=== PATIENT | male | born 1955 | race Hispanic/Latino ===

== ENCOUNTER 2018-03-01 11:49 | Inpatient (IN) | payer BC ==
[2018-03-01] MEDS ORDERED: Piperacill/Tazo 4.5gm in NS 4.5 GM/100 ML BAG IVPB STA (12:10)
[2018-03-01 12:12] VITALS: BMI 27.0
--- NOTE | 2018-03-01 12:22 | ED PDOC ---
Arrival/HPI - General Chief Complaint: Trauma Time Seen by Provider: 03/01/18 12:01 Historian: Patient - Critical Care Critical Care Minutes: 30 minutes - History of Present Illness Narrative History of Present Illness (Text): 03/01/18 12:18 A 62 year old male, with a psychiatric history, presents to the emergency department for a complaint of lightheadedness, dizziness, weakness, fatigue this morning. He states that he went to the bank this morning and sat outside for about 20 minutes when he began to experience his symptoms. He states that he lowered himself to the ground as his symptoms worsened and called 911. He states that he feels mildly short of breath. The patient notes that he smokes 1 PPD and takes multiple psychiatric medications. The patient denies fevers, chills, chest pain, dyspnea on exertion, cough, abdominal pain, nausea, vomiting, diarrhea, back pain, neck pain, urinary/bowel changes/incontinence, or any other complaint. Time/Duration: Prior to Arrival Symptom Onset: Sudden Symptom Course: Unchanged Activities at Onset: Rest, Light Context: Sitting Associated Symptoms (Text): 03/01/18 12:38 Severe generalized weakness and fatigue. Patient is diaphoretic and near syncopal. He is ill-appearing. Past Medical History - Provider Review Nursing Documentation Reviewed: Yes - Infectious Disease Hx of Infectious Diseases: None - Tetanus Immunization Tetanus Immunization: Up to Date - Cardiac Hx Cardiac Disorders: No Hx Hypertension: No - Pulmonary Hx Respiratory Disorders: No Hx Tuberculosis: No - Neurological HX Cerebrovascular Accident: No - HEENT Hx HEENT Disorder: No - Renal Hx Renal Disorder: Yes - Endocrine/Metabolic Hx Endocrine Disorders: No - Hematological/Oncological Hx Blood Disorders: No - Integumentary Hx Dermatological Disorder: No - Musculoskeletal/Rheumatological Hx Falls: Yes Hx Fractures: Yes - Gastrointestinal Hx Gastrointestinal Disorders: No Other/Comment: patienthad a colectomy in 2010 but it was reversed - Genitourinary/Gynecological Hx Genitourinary Disorders: No Hx Sexually Transmitted Diseases: No - Psychiatric Hx Anxiety: Yes Hx Depression: Yes Hx Substance Use: Yes - Surgical History Hx Joint Replacement: Yes (rt hip relacement) - Anesthesia Hx Anesthesia: Yes Hx Anesthesia Reactions: No Hx Malignant Hyperthermia: No - Suicidal Assessment Feels Threatened In Home Enviroment: No Family/Social History - Physician Review Nursing Documentation Reviewed: Yes Family/Social History: No Known Family HX Smoking Status: Heavy Smoker > 10 Cigarettes Daily Hx Alcohol Use: No Hx Substance Use: Yes Hx Substance Use Treatment: No Allergies/Home Meds Allergies/Adverse Reactions: Allergies No Known Allergies Allergy (Verified 03/01/18 12:14) Home Medications: Home Meds Medication Instructions Recorded Confirmed ALPRAZolam [Xanax] 1 mg PO PRN PRN 03/01/18 03/01/18 Benztropine [Benztropine Mesylate] 0.5 mg PO HS 03/01/18 03/01/18 Benztropine [Cogentin] 0.5 mg PO HS 03/01/18 03/01/18 DULoxetine [Cymbalta] 60 mg PO DAILY 03/01/18 03/01/18 QUEtiapine [Seroquel] 100 mg PO DAILY 03/01/18 03/01/18 Review of Systems - Physician Review All systems were reviewed & negative as marked: Yes - Review of Systems Constitutional: Fatigue (Fatigue and weakness). absent: Fevers, Night Sweats Respiratory: SOB. absent: Cough, Sputum, Wheezing Cardiovascular: absent: Chest Pain, Palpitations, SAMS, Syncope Gastrointestinal: absent: Abdominal Pain, Stool Changes, Diarrhea, Nausea, Vomiting Genitourinary Male: absent: Dysuria, Frequency, Hematuria, Urinary Output Changes Musculoskeletal: absent: Back Pain, Neck Pain Neurological: Dizziness. absent: Headache, Focal Weakness, Gait Changes Physical Exam Vital Signs Reviewed: Yes Vital Signs Temp Pulse Resp BP Pulse Ox 03/01/18 15:22 97.6 F 93 H 18 127/74 95 03/01/18 14:15 99.3 F 110 H 18 101/49 L 95 03/01/18 13:33 99.3 F 03/01/18 12:47 102.5 F H 03/01/18 12:33 103.2 F H 03/01/18 12:11 103.2 F H 98 H 20 87/52 L 95 Temperature: Febrile Blood Pressure: Hypotensive Pulse: Tachycardic Respiratory Rate: Normal Appearance: Positive for: Ill-Appearing Pain Distress: None Mental Status: Positive for: Alert and Oriented X 3, Lethargic - Systems Exam Head: Present: Atraumatic, Normocephalic Pupils: Present: PERRL Extroacular Muscles: Present: EOMI Conjunctiva: Present: Normal Ears: Present: NORMAL TM, Normal Canal. No: Erythema Mouth: Present: Moist Mucous Membranes Pharnyx: No: ERYTHEMA, EXUDATE, TONSILS ENLARGED Neck: Present: Normal Range of Motion Respiratory/Chest: Present: Decreased Breath Sounds. No: Wheezes, Rales, Retracting, Rhonchi, Tachypneic Cardiovascular: Present: Regular Rate and Rhythm, Normal S1, S2. No: Murmurs Abdomen: No: Tenderness, Distention, Peritoneal Signs, Rebound, Guarding Back: Present: Normal Inspection Upper Extremity: Present: Normal Inspection. No: Cyanosis, Edema Lower Extremity: Present: Normal Inspection. No: Edema Neurological: Present: GCS=15, CN II-XII Intact, Speech Normal, Motor Func Grossly Intact, Normal Sensory Function, Normal Cerebellar Funct Skin: Present: Warm, Diaphoretic, Pale. No: Rashes Psychiatric: Present: Alert, Oriented x 3, Normal Insight, Normal Concentration Medical Decision Making ED Course and Treatment: 03/01/18 12:24 Impression: A 62 year old male is brought into the emergency department via EMS after feeling lightheaded, dizzy, fatigued, and weak this morning. Plan: -- EKG -- Chest X-ray -- Labs -- Blood/Urine Culture -- Urinalysis -- Tyelnol, Lactated Ringer's, Zosyn -- Reassess and disposition Progress Notes: 03/01/18 12:40 EKG shows sinus tachycardia rate approximately 110 with a primary AV block and Q waves inferiorly with no acute T-wave changes 03/01/18 13:12: Case discussed in detail with Dr. Dunn who accepts patient to his service. Patient will be admitted to Telemetry. Requests Dr. Dumont, Dr. Grewal, and Dr. Roberts on consult. 03/01/18 13:14 Symptoms markedly improved. Blood pressure is 110. Heart rate in the 90s. Fever is defervescing. He will be admitted to telemetry on Dr. Dunn's service. Chest X-ray Dictator : Ryne Green MD Report Date : 03/01/2018 13:14:22 IMPRESSION: No active disease. No significant interval change compared to the prior examination(s). - Lab Interpretations Lab Results: 03/01/18 12:30 03/01/18 12:30 Lab Results 03/01/18 13:26: Urine Color Yellow, Urine Appearance Clear, Urine pH 6.0, Ur Specific [place] 1.025, Urine Protein Trace H, Urine Glucose (UA) Negative, Urine Ketones Trace H, Urine Blood Negative, Urine Nitrate Negative, Urine Bilirubin Negative, Urine Urobilinogen 0.2, Ur Leukocyte Esterase Small H, Urine RBC 0 - 2, Urine WBC 5 - 10, Ur Epithelial Cells None, Amorphous Sediment Few, Urine Bacteria Many, Hyaline Casts 0 - 2, Fine Granular Casts 0 - 2 03/01/18 12:31: pO2 110 H, VBG pH 7.40, VBG pCO2 45.0, VBG HCO3 27.9, VBG Total CO2 29.3 H, VBG O2 Sat (Calc) 99.3 H, VBG Base Excess 2.5 H, VBG Potassium 4.0, Glucose 105, Lactate 1.1, FiO2 21.0, Sodium 135.0, Chloride 104.0, Venous Blood Potassium 4.0 03/01/18 12:30: Sodium 139, Potassium 4.1, Chloride 102, Carbon Dioxide 26, Anion Gap 15, BUN 25 H, Creatinine 1.8 H, Est GFR ( Amer) 46, Est GFR ( Non-Af Amer) 38, Random Glucose 98, Calcium 9.0, Phosphorus 1.5 L, Magnesium 1.3 L, Total Bilirubin 1.0, AST 23, ALT 27, Alkaline Phosphatase 74, Troponin I < 0.01, NT-Pro-B Natriuret Pep 725 H, Total Protein 6.7, Albumin 3.9, Globulin 2.8, Albumin/Globulin Ratio 1.4 03/01/18 12:30: PT 13.2 H, INR 1.14 H, APTT 27.8 03/01/18 12:30: WBC 9.7, RBC 4.11, Hgb 12.6 L, Hct 36.4 L, MCV 88.6, MCH 30.7, MCHC 34.6, RDW 12.9, Plt Count 217, MPV 10.0, Gran % 87.2 H, Lymph % (Auto) 5.7 L, [place] % (Auto) 6.1 H, Eos % (Auto) 0.9 L, Baso % (Auto) 0.1, Gran # 8.49 H, Lymph # (Auto) 0.6 L, [place] # (Auto) 0.6, Eos # (Auto) 0.1, Baso # (Auto) 0.01 I have reviewed the lab results: Yes - RAD Interpretation Radiology Orders: 03/01/18 12:11 CHEST PORTABLE [RAD] Stat - EKG Interpretation Interpreted by ED Physician: Yes Type: 12 lead EKG - Medication Orders Current Medication Orders: Acetaminophen (Tylenol 325 Mg Supp) 975 mg ND ONCE PRN PRN Reason: Fever >100.4 F Last Admin: 03/01/18 12:33 Dose: 975 mg MAR Pain/Vitals Document 03/01/18 12:33 LA (Rec: 03/01/18 12:34 LA [id number]) Pain Reassessment Is This A Pain ReAssessment? No Sleep Is patient sleeping during reassessment? No Presence of Pain Presence of Pain No Vitals Temperature (97.6 F-99.6 F) 103.2 F Temperature Source Oral Re-Assess: MAR Pain/Vitals Document 03/01/18 13:33 LA (Rec: 03/01/18 15:22 LA [id number]) Pain Reassessment Is This A Pain ReAssessment? Yes Sleep Is patient sleeping during reassessment? No Presence of Pain Presence of Pain No Vitals Temperature (97.6 F-99.6 F) 99.3 F Temperature Source Rectal Benztropine Mesylate (Cogentin) 0.5 mg PO HS JAQUAN Duloxetine HCl (Cymbalta) 60 mg PO DAILY JAQUAN Sodium Chloride (Sodium Chloride 0.45%) 1,000 mls @ 60 mls/hr IV .[id number] JAQUAN Ceftriaxone Sodium (Rocephin 1 Gram Ivpb) 1 gm in 100 mls @ 100 mls/hr IVPB DAILY JAQUAN PRN Reason: Protocol Quetiapine Fumarate (Seroquel) 100 mg PO DAILY JAQUAN PRN Reason: Protocol Discontinued Medications Lactated Ringer's 3,000 ml/ IV (SUPPLIES) 3,000 mls @ 5,579.16 mls/hr IV ONCE ONE PRN Reason: 60 ML/KG/HR Stop: 03/01/18 12:11 Last Admin: 03/01/18 12:37 Dose: 5,579.16 mls/hr eMAR Start Stop Document 03/01/18 12:37 LA (Rec: 03/01/18 12:37 LA [id number]) Intravenous Solution Start Date 03/01/18 Start Time 12:37 End Date 03/01/18 Piperacillin Sod/Tazobactam Sod (Zosyn 4.5 Gm In Ns 100ml) 4.5 gm in 100 mls @ 200 mls/hr IVPB STAT STA PRN Reason: Protocol Stop: 03/01/18 12:39 Last Admin: 03/01/18 12:34 Dose: 200 mls/hr eMAR Start Stop Document 03/01/18 12:34 LA (Rec: 03/01/18 12:35 LA [id number]) Intravenous Solution Start Date 03/01/18 Start Time 12:34 End Date 03/01/18 End time 13:04 Total Infusion Time 30 - Scribe Statement The provider has reviewed the documentation as recorded by the Scribe Denise Buchanan Provider Scribe Attestation: All medical record entries made by the Scribe were at my direction and personally dictated by me. I have reviewed the chart and agree that the record accurately reflects my personal performance of the history, physical exam, medical decision making, and the department course for this patient. I have also personally directed, reviewed, and agree with the discharge instructions and disposition. Disposition/Present on Arrival - Present on Arrival Any Indicators Present on Arrival: No History of DVT/PE: No History of Uncontrolled Diabetes: No Urinary Catheter: No History of Decub. Ulcer: No History Surgical Site Infection Following: None - Disposition Have Diagnosis and Disposition been Completed?: Yes Diagnosis: Fever, Hypotension, Sepsis, Near syncope Disposition: HOSPITALIZED Disposition Time: 13:57 Patient Plan: Admission, Telemetry Patient Problems: Current Active Problems Problem Status Onset Fever Acute Hypotension Acute Near syncope Acute Sepsis Acute Condition: SERIOUS
[2018-03-01 12:34] LABS: VENOUS BLOOD GAS BASE EXCESS 2.5 mmol/L (0.0-2.0); VENOUS BLOOD GAS PO2 110 mm/Hg (30-55)
[2018-03-01 12:37] LABS: BASO # 0.01 K/mm3 (0.0-2.0); BASO % 0.1 % (0.0-3.0); EOS # 0.1 (0.0-0.7); EOS % 0.9 % (1.5-5.0); GRAN # 8.49 (1.4-6.5); GRAN % 87.2 % (50.0-68.0); HEMOGLOBIN 12.6 g/dL (14.0-18.0); LYMPH # 0.6 (1.2-3.4); LYMPH % 5.7 % (22.0-35.0); MEAN CELL VOLUME 88.6 fl (80.0-105.0); MEAN CORPUSCULAR HEMOGLOBIN 30.7 pg (25.0-35.0); MEAN CORPUSCULAR HGB CONC 34.6 g/dl (31.0-37.0); MONO # 0.6 (0.1-0.6); MONO % 6.1 % (1.0-6.0); RBC 4.11 10^6/uL (3.5-6.1); RED CELL DISTRIBUTION WIDTH 12.9 % (11.5-14.5); WHITE BLOOD COUNT 9.7 10^3/ul (4.5-11.0)
[2018-03-01 12:48] LABS: INR 1.14 (0.93-1.08); PARTIAL THROMBOPLASTIN TIME 27.8 Seconds (25.1-36.5); PROTHROMBIN TIME 13.2 SECONDS (9.4-12.5)
[2018-03-01 12:49] LABS: ALB/GLOB RATIO 1.4 (1.1-1.8); ALBUMIN 3.9 g/dL (3.0-4.8); ALT/SGPT 27 U/L (7-56); AST/SGOT 23 U/L (17-59); BLOOD UREA NITROGEN 25 mg/dL (7-21); GFR AFRICAN-AMERICAN 46; GFR NON-AFRICAN AMERICAN 38
[2018-03-01 13:00] LABS: B-TYPE NATRIURETIC PEPTIDE 725 pg/mL (0-450); TROPONIN I < 0.01 ng/mL
--- NOTE | 2018-03-01 13:16 | RAD ---
HISTORY: Sepsis Patient COMPARISON: 02/14/2015 FINDINGS: LUNGS: No active pulmonary disease. PLEURA: No significant pleural effusion identified, no pneumothorax apparent. CARDIOVASCULAR: No radiographic findings to suggest acute or significant cardiovascular disease. OSSEOUS STRUCTURES: No significant abnormalities. VISUALIZED UPPER ABDOMEN: Normal. OTHER FINDINGS: None. IMPRESSION: No active disease. No significant interval change compared to the prior examination(s).
[2018-03-01 13:48] LABS: URINE BILIRUBIN NEGATIVE (NEGATIVE); URINE BLOOD NEGATIVE (NEGATIVE); URINE GLUCOSE (UA) NEGATIVE (NEGATIVE); URINE LEUKOCYTE ESTERASE SMALL Leu/uL (NEGATIVE); URINE PROTEIN TRACE mg/dL (<30 mg/dL); URINE UROBILINOGEN 0.2 E.U./dL (<1 E.U./dL)
[2018-03-01 13:52] LABS: URINE APPEARANCE CLEAR (CLEAR); URINE COLOR YELLOW (YELLOW)
[2018-03-01 14:08] LABS: URINE BACTERIA MANY (NEG); URINE RBC 0 - 2 /hpf (0-2)
[2018-03-01 14:09] LABS: URINE AMORPHOUS SEDIMENT FEW; URINE FINE GRANULAR CAST 0 - 2 /hpf (0-2); URINE HYALINE CAST 0 - 2 /hpf
[2018-03-01] MEDS ORDERED: Vancomycin 1gm in NS 250ml 1 GM/250 ML BAG IVPB STA (17:44)
[2018-03-01] MEDS: Sodium Chloride 0.45% 1,000 ML IV SCH (18:26)
--- NOTE | 2018-03-01 18:52 | CARD ---
APPROVED REPORT EKG Measurement Heart [id number] <Conclusion> Poor data quality, interpretation may be adversely affected Sinus tachycardia with 1st degree AV block Left axis deviation Inferior infarct, age undetermined Abnormal ECG
[2018-03-01] MEDS ORDERED: Pneumococcal 23-Valent Vaccine IM ONE (19:08)
--- NOTE | 2018-03-01 19:22 | CON ---
DATE: 03/01/2018 NEUROLOGY CONSULT CHIEF COMPLAINT: Dizziness and fatigue. HISTORY OF PRESENT ILLNESS: This is a 62-year-old man with history of depression, anxiety, on Cymbalta and Seroquel and Xanax and benztropine and Cogentin, who presents to the hospital because he has lightheadedness in terms of feeling faint and weakness and fatigued in the morning. Therefore, he came to the hospital because he felt like he was going to pass out. He felt mildly shortness of breath. He does smoke 1 pack of cigarettes per day and is on multiple psychiatric medications. He was found to have low systolic and diastolic blood pressures in the ER of 87/52 with an elevated temperature of 102.5 indicating possible underlying sepsis. Although he seems mildly jaundiced to me, though his ALTs and total bilirubin are normal. He has low phosphorus and magnesium and elevated BUN and creatinine indicating mild acute kidney injury. Chest x-ray was unremarkable. He is on prophylactic antibiotics. He moves all extremities equally. No pronator drifts seen. Follows simple commands. PAST MEDICAL HISTORY: As above. SOCIAL HISTORY: No illicit drug use or EtOH abuse except for smoking 1 pack per day of cigarettes. ALLERGIES: NO KNOWN DRUG ALLERGIES. MEDICATIONS: Reviewed by nurses' reconciliation sheet. REVIEW OF SYSTEMS: Fourteen-point review of systems is negative except as per the HPI. LABORATORY DATA: Sodium 139, potassium 4.1, chloride 102, carbon dioxide 26, BUN of 45, creatinine 1.8, random glucose of 98. PHYSICAL EXAMINATION: VITAL SIGNS: Temperature of 99.3, pulse rate of 110, blood pressure 109/49, respiratory rate of 18, oxygen saturation 95% by room air. GENERAL: The patient is sitting up in bed, in no acute distress. HEENT: Atraumatic, normocephalic. PERRLA. Extraocular muscles intact. Looks mildly jaundiced. NECK: Supple. No JVD. No adenopathy noted. LUNGS: Clear to auscultation. No adventitious sounds. HEART: S1 and S2. Normal rate and rhythm. No murmurs, rubs or gallops. ABDOMEN: Soft, nontender and nondistended. Bowel sounds are present. EXTREMITIES: No clubbing. No cyanosis. Peripheral pulses 2+ felt bilaterally. NEUROLOGIC: The patient is alert and oriented to person, place, month and year. Slightly flat affect. Speech is fluent without any errors. Cranial nerves II through XII are intact. Motor exam: Moves all extremities equally. No pronator drift seen. Sensory exam: Light touch, pinprick, proprioception and vibration are intact. DTRs are 2+ throughout, 1 at the ankles. Coordination: [id number] intact. Gait is deferred for now. No dysmetria noted. ASSESSMENT AND PLAN: This is a 62-old man with history of anxiety, depression, on Cymbalta and Seroquel and benztropine and Xanax, who presented with generalized weakness, fatigue, lightheadedness and felt like passing out and felt mildly short of breath and he is a chronic daily smoker of 1 pack per day. Found to have low systolic and diastolic blood pressures of 89/72 with elevated temperature making possible underlying sepsis. His UA is negative. Chest x-ray showed no acute abnormalities. At this time, I feel like the generalized weakness is secondary to transient cerebral hypoperfusion with underlying possible sepsis given that he has elevated temperature and low blood pressure and it was superimposed on acute kidney injury with dehydration. At this time, recommend, 1. Hydrate. 2. Work up sepsis. 3. Monitor electrolytes and correct accordingly. Replace the magnesium and phosphorus. 4. Keep the systolic blood pressure between 120s-130s and diastolics 70s-80s and get CT of the abdomen. Thank you for this consult. Wai Dumont MD
[2018-03-01] MEDS ORDERED: Magnesium Sulfate 1 gm in D5W 1 GM/100 ML BAG IVPB ONE (21:05)
[2018-03-01] MEDS: Piperacillin/Tazobact 2.25gm 2.25 GM/100 ML BAG IVPB SCH (21:28)
--- NOTE | 2018-03-02 00:48 | HP ---
HISTORY OF PRESENT ILLNESS: I was called down to the emergency room to admit Marlon. He is having a rough day today. He is a 62-year-old white male, who had lightheadedness, dizziness, weakness, fatigue in the morning. He went to a couple of errands this morning and then when he sat down, he could not move, he could not get up. Someone called 911. He was also mildly short of breath. He still smokes cigarettes a pack a day. He is on multiple psychiatric medications and he is here now in the hospital. He has severe generalized weakness and fatigue, it suddenly came on him. Also diaphoretic and near syncope. He has kidney disease. He has had fractures and falls and pelvis fractures and right hip surgery. He had a colectomy in 2010, it was reversed. He has anxiety, depression, substance abuse history, right hip replacement surgery. FAMILY HISTORY: No known family history. SOCIAL HISTORY: Still smoking. No alcohol. Does have substance abuse. ALLERGIES: NO KNOWN DRUG ALLERGIES. MEDICATIONS: He is on Xanax, benztropine, Cogentin, Cymbalta, Seroquel. REVIEW OF SYSTEMS: No acute vision or hearing changes. No sore throat. He is fatigued, very weak. No shortness of breath or cough. No chest pain or palpitations. No abdominal pain, nausea, vomiting, constipation, diarrhea. No stool changes. No problems urinating. He has had very weak lower extremities. No pain. He could not move or stand. He is a little bit dizzy, just feels off. PHYSICAL EXAMINATION: VITAL SIGNS: He had a 103.2 temp, 98 pulse, 20 respiratory rate, 87/52 blood pressure, 95% O2 sat on room air. He is hypotensive. He is going to get IV fluids. He is also tachycardic. GENERAL: He is ill appearing. He is alert and oriented x3, but lethargic. HEENT: His head is atraumatic, normocephalic. His extraocular muscles are intact. Pupils equal, reactive to light and accommodation. Throat is dry. NECK: Supple. HEART: Regular rate. Normal S1, S2. LUNGS: Decreased breath sounds, but clear to auscultation. No wheezes, rhonchi or rales. ABDOMEN: Soft, nontender. Positive bowel sounds. No guarding, no rebound, no CVA tenderness. EXTREMITIES: Have no edema bilaterally. NEUROLOGIC: GCS is 15. Cranial nerves II through XII grossly intact. Speech is normal. Alert and oriented x3. SKIN: He is warm, little sweaty, pale. LYMPHATICS: Thyroid midline. No palpable appreciable lymphadenopathy. LABORATORY DATA: He had tests done. Chest x-ray showed no active disease. He has some blood tests. He has a 9.7 white count, 12.6 hemoglobin, 36.4 hematocrit with a 217 platelets. INR is 1.14. He has a pH of 7.4, lactate was 1.1. He has a 139 sodium, potassium 4.1, BUN 25, creatinine 1.8, GFR is 46, calcium is 9, phosphorous is 1.5, magnesium 1.3, total bili is 1, AST is 23, ALT is 27, alk phos 74. Troponin I is less than 0.01. His BNP a little bit high at 725, total protein 6.7. His urine was positive for many bacteria. IMPRESSION: He is here for a near syncope, temperature of 103, urinary tract infection, renal insufficiency, hypotensive. He will have consults, IV fluids, IV antibiotics and we will check his labs tomorrow. I will put him back on his medications, give him a diet. Ryne Dunn DO
[2018-03-02] MEDS: Piperacillin/Tazobact 2.25gm 2.25 GM/100 ML BAG IVPB SCH ×4 (01:07→18:27)
[2018-03-02 08:23] LABS: HEMOGLOBIN 11.9 g/dL (14.0-18.0); MEAN CELL VOLUME 89.1 fl (80.0-105.0); MEAN CORPUSCULAR HEMOGLOBIN 30.7 pg (25.0-35.0); MEAN CORPUSCULAR HGB CONC 34.5 g/dl (31.0-37.0); MEAN PLATELET VOLUME 10.1 fl (7.0-11.0); RBC 3.87 10^6/uL (3.5-6.1); WHITE BLOOD COUNT 8.8 10^3/ul (4.5-11.0)
[2018-03-02 08:29] LABS: ALB/GLOB RATIO 1.4 (1.1-1.8); ALBUMIN 3.4 g/dL (3.0-4.8); CALCIUM 8.5 mg/dL (8.4-10.5)
[2018-03-02] MEDS ORDERED: Iohexol 240 (50 ml) ONE (09:34)
[2018-03-02] MEDS ORDERED: cefTRIAXone 1 gm 1 GM/100 ML BAG IVPB SCH (10:00)
[2018-03-02] MEDS: Sodium Chloride 0.45% 1,000 ML IV SCH (12:30)
[2018-03-02] MEDS: Levalbuterol 0.63 MG/3 ML Inhal Soln UD IH PRN (12:31)
--- NOTE | 2018-03-02 16:11 | CON ---
DATE: 03/02/2018 LOCATION: The patient is seen earlier this morning in room 277, bed 2. CHIEF COMPLAINT: Weakness. HISTORY OF PRESENT ILLNESS: This is a 62-year-old male with past medical history significant for psychiatric illness including depression, anxiety; history of renal disease; history of right hip replacement with no known allergies; admitted with weakness to the emergency room. In the emergency room, he had a temperature of 103 and Infectious Disease consultation requested. The patient says he had mild shortness of breath and cough. No chest pain. No abdominal pain, diarrhea or constipation. No headaches. No neck pain. No sore throat. No rash. No new joint pain. PAST MEDICAL HISTORY: Significant for psychiatric illness and depression and anxiety and questionable renal disease. PAST SURGICAL HISTORY: Significant for right hip replacement. ALLERGIES: THE PATIENT HAS NO KNOWN ALLERGIES. MEDICATIONS AT HOME: Seroquel, Cymbalta, Cogentin, benztropine and Xanax. The patient states that he has been on the same medication for years, has no new medications. SOCIAL HISTORY: No travel history. He has an ex-smoker and cocaine user and ex-alcohol user, but not recently. PHYSICAL EXAMINATION: VITAL SIGNS: His temperature is 98; T-max is 103.2; pulse of 61, it was up to 110; respiratory rate of 18, it was up to 20; blood pressure was down to 87/52 on admission and saturation reveals the patient to be saturating at 95% on room air. HEENT: Examination of HEENT is unremarkable. NECK: Supple. LUNGS: Have decreased breath sounds. HEART: Normal S1, S2. ABDOMEN: Soft, nontender. No rebound or guarding. No masses. LABORATORY DATA: Laboratory examination reveals the patient has a white count of 9.7, hemoglobin of 12, platelets of 217 and 87% granulocytosis. Coagulation is noted and chemistries are reviewed. The patient had mild elevation of creatinine at 1.8 in the past. The patient has had renal function up to 1.6 in 2015. The patient does have mild bilirubin elevation of 1.4 and low magnesium and low phosphorus. Sodium was 139. BNP is elevated at 725. Urinalysis reveals 5-10 and urine bacteria many. Microbiology is pending. Chest x-ray is reported to be negative. ASSESSMENT AND PLAN: This is a 62-year-old male with psychiatric history, depression, anxiety with history of renal disease, who was admitted with a fever of 103, tachycardia, hypotension with a negative urinalysis, negative chest x-ray and no obvious source, negative abdominal findings. #1 is systemic inflammatory response syndrome with hypotension. No clear evidence of sepsis. We will check on the blood cultures, urine culture. The patient was started on dose of vancomycin and started on Zosyn which apparently appears to be responding. We will order an abdominal ultrasound. CAT scan of the pending blood culture, urine cultures and human immunodeficiency virus tests and we will make further recommendations upon availability of initial results. We will follow closely with you. Dillan Roberts MD
--- NOTE | 2018-03-02 17:09 | PN ---
DATE: 03/02/2018 SUBJECTIVE: I saw Marlon resting comfortably in bed. He is feeling better than when he came in. No more dizziness or shortness of breath. His legs are weak at this time. He is eating better. He is on IV fluids. He is on Cogentin and Cymbalta. He is on Seroquel and Tylenol and also on Zosyn via Infectious Disease. OBJECTIVE: VITAL SIGNS: Temperature 97.5, 64 pulse, 111/66 blood pressure, 18 respiratory rate, 97% O2 saturation on room air. HEENT: Head is atraumatic, normocephalic. HEART: Regular rate. LUNGS: Clear to auscultation. ABDOMEN: Soft. EXTREMITIES: No edema. NEUROLOGIC: He is comfortable. He is negative for the fluids. DATA: He has got 8.9 white count, 11.9 hemoglobin, 34.5 hematocrit with 196,000 platelets. Sodium 141, potassium 4.1, BUN 20, creatinine 1.6, much better than when he came in. GFR is 44. Calcium is 8.5, total bili is 1.4, AST is 16, ALT is 29, alkaline phosphatase 57. Troponin I was less than 0.01. BNP was 725, total protein 6. Urine with many bacteria, negative for the flu. He has consults with Neurology, Cardiology and Infectious Disease. Only I could tell that infectious disease saw the patient so far. We will continue with aggressive treatment and care. Check his labs tomorrow. When tablets, but he is improving with kidneys and his energy. Ryne Dunn DO CARLE[facility]
--- NOTE | 2018-03-02 17:59 | CT ---
PROCEDURE: CT scan abdomen pelvis dated 03/02/2018 HISTORY: Fever COMPARISON: No prior TECHNIQUE: Contiguous axial images of the abdomen and pelvis performed following oral contrast. Additional 2 dimensional sagittal and coronal reformats generated. Radiation dose: Total exam DLP = 1028.17 mGy-cm. This CT exam was performed using one or more of the following dose reduction techniques: Automated exposure control, adjustment of the mA and/or kV according to patient size, and/or use of iterative reconstruction technique. FINDINGS: LOWER THORAX: There are mild patchy ground-glass opacity changes seen in the left lower lobe with. Additionally, there appears to be some elliptical shaped localized atelectatic changes both posterior sulci with scarring on as well. No effusion or basilar pneumothorax. There is a tiny hiatal hernia with slight wall thickening of the distal esophagus. LIVER: Liver exhibits relatively normal size. No evidence of obvious hepatic mass or collection seen on this noncontrast study. GALLBLADDER AND BILE DUCTS: Gallbladder appears incompletely distended. Note that the gallbladder is not well delineated due to streak and beam hardening artifact arising from dense oral contrast material within the adjacent bowel. PANCREAS: Pancreas appears atrophic and fatty replaced. No pancreatic masses or collections. SPLEEN: Spleen exhibits normal size and attenuation pattern without obvious mass collection or calcification. ADRENALS: Slightly nodular appearing left adrenal gland KIDNEYS AND URETERS: There are multiple bilateral renal calculi left kidney with no evidence of right-sided hydronephrosis. . There is a large on nearly 12 mm calculus within the distal left ureter best seen on axial series 3 image number [id number] 135. . Moderate to fairly significant left-sided hydronephrosis of which appears to be long-standing evidenced by marked cortical atrophy of the left kidney. There are infiltration changes and fluid seen in the perinephric fat. . Several additional calculi seen in the left aspect of the pelvis 1 of which is somewhat curvilinear in configuration. Measuring approximately 2.6 cm in CC dimension. This calcific density is of uncertain etiology though and appears to be extrinsic to the distal ureter. Urologic consultation is recommended. BLADDER: The streak and beam hardening artifact arising from right total hip replacement results in partial obscuration of the urinary bladder. No obvious intraluminal urinary bladder calculi. There are several additional calculi seen in the left aspect of the REPRODUCTIVE: Unremarkable. APPENDIX: Appendix is not seen with certainty on this study. BOWEL: Evaluation of the bowel is limited due to incomplete opacification. The stomach is relatively collapsed. . There appears to be a distended air-filled loops of small bowel as well as the distended air-filled transverse colon. No evidence to suggest mechanical bowel obstruction with oral contrast material seen opacifying the rectum. PERITONEUM: Unremarkable. No fluid collection. No free air. LYMPH NODES: Unremarkable. No enlarged lymph nodes. VASCULATURE: Unremarkable. No aortic aneurysm. BONES: Multilevel degenerative spondylosis of the lower thoracic and lumbar spine. OTHER FINDINGS: None. IMPRESSION: Limited study as described. Large at approximately 12 mm calculus distal left ureter with of this moderate to significant left-sided hydronephrosis felt be long-standing due to atrophy changes of the left kidney. There are mild perinephric infiltration changes and small amount of perinephric fluid. Multiple nonobstructing calculi right kidney. There is a curvilinear calcification in the left aspect of the pelvis which appears to be extrinsic to the left ureter. Urologic consultation recommended. Appendix is not seen with any certainty on this exam however no obvious inflammatory changes right lower quadrant of the abdomen. Recommend clinical correlation. The distended loops of small bowel within air-filled distended transverse colon. No evidence of acute mechanical bowel obstruction with oral contrast material seen opacifying the rectum. Patchy ground-glass opacity left lower lobe with what appears represent elliptical shaped discrete areas of atelectasis both posterior sulci.
--- NOTE | 2018-03-02 21:27 | CON ---
DATE: CARDIOLOGY CONSULTATION REASON FOR CONSULTATION: Dizziness and a fall. HISTORY OF PRESENT ILLNESS: The patient gives me different history from the one that was given to the emergency room physician. The patient is a 62-year-old male with psychiatric history and history of multiple falls, resulted in right hip fracture in the past as well as comminuted left acetabular fracture and left iliac wing and inferior pubic ramus fracture and an x-ray in 11/2014. The patient describes at this time that he was resting on the steps of a neighbor and as he tried to stand up, he felt weak and he had to lift himself and fall in his buttocks. Again, he denies any fainting and does not recall dizziness and denies any palpitation. The patient denies any chest pain and is unaware of any history of heart attack in the past. SOCIAL HISTORY: Nonsmoker, nondrinker. He is from his who lives in an apartment downstairs from him. MEDICATIONS: Cogentin 0.5 mg once a day, Cymbalta 60 mg once a day, Seroquel 100 mg once a day, half normal saline 40 mL an hour, Xopenex inhaler, Zosyn 2.25 g intravenously 6 hours. REVIEW OF SYSTEMS: The patient denies any headache. He denies any chest pain and he denies any suicidal ideations. PAST MEDICAL HISTORY: History of multiple falls, right hip fracture and pelvic fracture, history of psych disorder. PHYSICAL EXAMINATION: GENERAL: The patient is a middle-aged male who does not appear to be in acute distress. VITAL SIGNS: Blood pressure 111/66, heart rate 64, temperature 97.5, respirations 18. HEENT: Normocephalic. CHEST: Clear. HEART: S1 and S2 regular. ABDOMEN: Soft. EXTREMITIES: No edema. LABORATORY DATA: Hemoglobin and hematocrit 11.9 and 34.5, white count 8.8, platelet count 196,000. SMA-7: Sodium 141, potassium 4.1, chloride 101, CO2 29, glucose 82, BUN 20, creatinine 1.6, slight improvement in BUN and creatinine compared to yesterday. Total bilirubin is 1.4. INR is 1.14. PTT is within normal limits. Influenza type A and B serology is negative. EKG revealed sinus tachycardia at the rate of 111, left axis deviation, possible old infarct age indeterminate. Chest x-ray on admission revealed a vertical heart and bilateral hilar congestion. ASSESSMENT: 1. Dizziness and a fall as per the emergency room documentation with history of recurrent falls in the past. 2. Sinus tachycardia with questionable old inferior infarct. 3. History of psych disorder. RECOMMENDATIONS: Continue current Cogentin, Cymbalta, Seroquel, IV Zosyn and Xopenex inhaler. Obtain carotid Doppler. Head CT scan without contrast and an echocardiogram. Obtain stat D-dimer. Bony Brennan MD
[2018-03-03] MEDS: Sodium Chloride 0.45% 1,000 ML IV SCH ×3 (00:11→23:42)
[2018-03-03] MEDS: Piperacillin/Tazobact 2.25gm 2.25 GM/100 ML BAG IVPB SCH ×5 (00:12→23:36)
[2018-03-03 06:50] LABS: HEMOGLOBIN 11.7 g/dL (14.0-18.0); MEAN CELL VOLUME 88.9 fl (80.0-105.0); MEAN CORPUSCULAR HEMOGLOBIN 30.1 pg (25.0-35.0); MEAN CORPUSCULAR HGB CONC 33.8 g/dl (31.0-37.0); MEAN PLATELET VOLUME 9.6 fl (7.0-11.0); RBC 3.89 10^6/uL (3.5-6.1); RED CELL DISTRIBUTION WIDTH 12.8 % (11.5-14.5); WHITE BLOOD COUNT 6.3 10^3/ul (4.5-11.0)
[2018-03-03 07:32] LABS: ALB/GLOB RATIO 1.3 (1.1-1.8); ALBUMIN 3.5 g/dL (3.0-4.8); ALT/SGPT 24 U/L (7-56); AST/SGOT 34 U/L (17-59); BLOOD UREA NITROGEN 15 mg/dL (7-21); CALCIUM 8.2 mg/dL (8.4-10.5); GFR AFRICAN-AMERICAN > 60; GFR NON-AFRICAN AMERICAN 51
--- NOTE | 2018-03-03 10:12 | CT ---
PROCEDURE: CT HEAD WITH CONTRAST HISTORY: Dizziness COMPARISON: None available. TECHNIQUE: Axial computed tomography images were obtained through the head/brain without intravenous contrast. Radiation dose: Total exam DLP = 889.11mGy-cm. This CT exam was performed using one or more of the following dose reduction techniques: Automated exposure control, adjustment of the mA and/or kV according to patient size, and/or use of iterative reconstruction technique. FINDINGS: HEMORRHAGE: No intracranial hemorrhage. BRAIN: No mass, mass effect or edema. No abnormal intracranial enhancement. Mild chronic microvascular ischemic changes seen periventricular white matter. Moderate central volume loss. Mild vascular calcifications carotid siphons. The the the the VENTRICLES: Moderate dilatation of the ventricular system consistent likely representing central volume loss . CALVARIUM: No acute calvarial fractures. PARANASAL SINUSES: Mild mucosal thickening right maxillary antrum. Minor mucosal thickening seen within the ethmoid air complex extending superiorly into the frontal sinus. Minimal mucosal thickening sphenoid sinus. MASTOID AIR CELLS: Unremarkable as visualized. No mastoid effusion. OTHER FINDINGS: None. IMPRESSION: No evidence acute intracranial hemorrhage. Minor chronic the ventricular white matter ischemic change. Mildly enlarged the ventricles, likely due to central volume loss
--- NOTE | 2018-03-03 11:35 | PN ---
DATE: 03/03/2018 SUBJECTIVE: The patient is seen earlier this morning. No fevers and no chills. No nausea. No vomiting. PHYSICAL EXAMINATION: VITAL SIGNS: On exam, temperature is 98, blood pressure is 140/80, respiratory rate of 19. HEENT: Examination of HEENT is unremarkable. NECK: Supple. LUNGS: Have decreased breath sounds. HEART: Normal S1, S2. ABDOMEN: Soft, nontender. LABORATORY DATA: Laboratory examination reveals a white count of 6.3, hemoglobin of 11, platelets of 211. Coagulation is noted. Chemistries reveals the patient's BUN is 15, creatinine of 1.5, procalcitonin 0.1. Urinalysis is noted and microbiology is reviewed. The urine culture and blood cultures are negative. The patient's CAT scan of the head results are pending. CAT scan of the abdomen and pelvis was negative. ASSESSMENT AND PLAN: A 62-year-old male, who has a history of psychiatric disorders, anxiety, depression, history of renal disease. Admitted with a fever of 103, tachycardia, hypotension with negative cultures, negative chest x-ray, negative procalcitonin, negative abdominal findings. #1 is systemic inflammatory response syndrome with no clear evidence for site of infection with negative cultures and negative procalcitonin. The patient's medications, the psychiatric medications have been same for some time now, a few years according to the patient. Maybe able to discharge on p.o. antibiotics. Case discussed with Dr. Ryne Dunn. Dillan Roberts MD
[2018-03-03] MEDS: Levalbuterol 0.63 MG/3 ML Inhal Soln UD IH PRN (11:53)
--- NOTE | 2018-03-03 16:15 | PN ---
DATE: 03/03/2018 FOLLOWUP SUBJECTIVE: The patient denies any imbalance as he walks from his bed to the bathroom. He does report dizziness when he stands up. PHYSICAL EXAMINATION: VITAL SIGNS: Blood pressure 148/85, heart rate 73, temperature 98.7, respirations 19. HEENT: Normocephalic. Chest: Bilateral rhonchi. HEART: S1, S2 regular. Abdomen: Soft. EXTREMITIES: No edema. LABORATORY DATA: Hemoglobin and hematocrit 11.7 and 34.6, white count and platelet count are within normal limits. SMA-7 today is within normal limits. Calcium is below normal at 8.2. D-dimer is elevated at 629. Carotid Doppler was performed, report is still pending. Head CT scan without contrast, no evidence of acute intracranial hemorrhage. ASSESSMENT: 1. Dizziness and falls. 2. Sinus tachycardia. 3. Rule out pulmonary embolism. 4. History of psych disorder. RECOMMENDATIONS: Continue current aspirin 81 mg once a day, half normal saline 60 mL an hour and Zosyn 2.25 g intravenously every 6 ours. Start subcutaneous heparin 5000 units every [address] angio to rule out pulmonary embolism. Bony Brennan MD
--- NOTE | 2018-03-03 23:35 | CON ---
DATE: 03/03/2018 PULMONARY CONSULTATION HISTORY OF PRESENT ILLNESS: Mr. Campos was admitted to the hospital with syncope. He is being discharged today and is actually ready to be discharged at this time. He is a smoker for many years of once a pack of cigarettes daily. He has had shortness of breath on exertion. He is comfortable at rest. He has symptoms of smoker's cough with morning expectoration of dark yellow phlegm. At rest, he is comfortable. PAST MEDICAL HISTORY: His past history has been reviewed. He has had multiple fractures and falls. He has epilepsy. He had a colectomy and reversal in the past. He has depression and substance abuse. He had a right hip replacement. FAMILY HISTORY: Unknown. SOCIAL HISTORY: Continues to smoke on and off for years. Alcohol is denied. He does have a history of substance abuse, too. ALLERGIES: NONE. HOME MEDICATIONS: Xanax, benztropine, Cogentin, Cymbalta, Seroquel. REVIEW OF SYSTEMS: Pulmonary systems review has been discussed above. He is easily fatigued. This was a presyncopal episode. He has dizziness. No additional abnormalities. All others negative PHYSICAL EXAMINATION: GENERAL: He is resting comfortably. VITAL SIGNS: He is afebrile. Heart rate 78, respiratory rate 16, blood pressure 110/70, O2 sat on room air is 98%. He is awake and alert, oriented. HEENT: Normocephalic and atraumatic. EOMs full. Conjunctivae pink. NECK: Supple. No JVD. No lymphadenopathy. No bruits. HEART: Regular rhythm, S1 and S2 without murmur, gallops or rubs. LUNGS: Global decrease in breath sounds. Bilateral wheezes throughout both lung ramirez. No rhonchi or rales. Prolonged expiratory phase. ABDOMEN: Soft, bowel sounds are normoactive, without mass, guarding or rebound and no organomegaly. EXTREMITIES: Reveals no clubbing, cyanosis or edema. There is no Homans' sign. NEUROLOGIC: Shows no focality. SKIN: Warm and dry. LYMPHATICS: No palpation of lymphadenopathy in the supraclavicular notch, nor in the cervical, inguinal or axillary areas. LABORATORY DATA: EKG, sinus rhythm, nonspecific ST-T wave changes. Chest x-ray shows no active pulmonary disease. No mass, nodules or other abnormalities. Some mild hyperinflation is noted. Additional laboratory studies show a white count of 6, hemoglobin of 11.7, glucose 88, procalcitonin 0.1. Echocardiogram is pending at this time, would like to rule out coronary artery disease, myopathy and/or elevated right ventricular systolic pressure, although there is no hypoxemia noted. CLINICAL IMPRESSION: 1. The long smoking history. 2. Acute bronchospasm, chronic with associated dyspnea, clinical impression is that of asthma and/or chronic obstructive pulmonary disease. PLAN: The patient requires a pulmonary function study. Await cardiac workup with echocardiogram. Continue close evaluations. We will start the patient on Advair 250/50 one puff twice a day, to rinse his mouth afterwards. He will need to be seen in my office within one weeks' time. We have given him our card and asked him to call make an emergency appointment to see us. He has already been discharged from the hospital. I will discuss with Dr. Dunn to make sure additional workup is completed. Given him our phone number and asked him to call if there is any clinical deterioration. Thank you for the opportunity to see this gentleman. Doron Billings MD MTDD
[2018-03-04] MEDS: Piperacillin/Tazobact 2.25gm 2.25 GM/100 ML BAG IVPB SCH ×3 (05:28→17:13)
--- NOTE | 2018-03-04 06:47 | DS ---
HOSPITAL COURSE: I discussed with the Infectious Disease doctor this morning, Dr. Roberts. He said he can be discharged on Levaquin 500 mg, number 5, one p.o. daily. Continue with his regular outpatient medications and follow up in my office this week, Sunday, ,and Sunday. He is comfortable in bed. He wants to go home. He is eating well. PHYSICAL EXAMINATION: VITAL SIGNS: He has a 98.7 temp, 73 pulse, 148/85 blood pressure, 19 respiratory rate, 96% of O2 sat on room air. HEENT: Head is atraumatic, normocephalic. HEART: Regular rate. LUNGS: Clear to auscultation. ABDOMEN: Soft. EXTREMITIES: No edema. MEDICATIONS: He is on aspirin, Cogentin, Cymbalta, Seroquel, IV fluids, Tylenol, Xopenex, and Zosyn. LABORATORY DATA: He has a 142 sodium, potassium 4.3, BUN 50, creatinine 1.4, GFR is 51, calcium is 8.2. Total bili is 0.9, AST is 34, ALT is 24, alk phos 56, total protein 6.2. White count is 6.3, hemoglobin 11.7, hematocrit 34.6, platelets of 211. IMPESSION AND PLAN: No growth. He had a very high white count. I am going to change him to an observation level of care. He was here for 2 days. He will followup on the outpatient. He had a high temperature. ADDENDUM cardiology would like to keep him for a ct angio to r/o PE so he is staying another night Ryne Dunn DO MTDWang
--- NOTE | 2018-03-04 09:58 | US ---
PROCEDURE: Bilateral carotid artery duplex ultrasound HISTORY: Carotid stenosis PHYSICIAN(S): Jn Price MD. TECHNIQUE: Duplex sonography and color-flow Doppler were used to evaluate the carotid bifurcations and limited segments of the vertebral arteries bilaterally. FINDINGS: There is mild smooth heterogeneous plaque noted at the carotid bifurcations bilaterally. The peak systolic velocity in the proximal right internal carotid artery is 89 cm/sec. This corresponds to a 20 to 39% proximal right ICA stenosis. Normal systolic velocities are noted in the proximal right external carotid artery. There is antegrade flow in the right vertebral artery. The peak systolic velocity in the proximal left internal carotid artery is 85 cm/sec. This corresponds to a 20 to 39% proximal left ICA stenosis. Normal systolic velocities are noted in the proximal left external carotid artery. There is antegrade flow in the left vertebral artery. IMPRESSION: 1. Bilateral 20-39% proximal ICA stenoses. 2. Antegrade flow in both vertebral arteries.
--- NOTE | 2018-03-04 11:20 | US ---
HISTORY: fever COMPARISON: 03/02/2018 CT scan TECHNIQUE: Sonographic evaluation of the abdomen. FINDINGS: LIVER: Measures cm. Normal echogenicity of the liver parenchyma. No mass. No intrahepatic bile duct dilatation. GALLBLADDER: Gallstones. COMMON BILE DUCT: Measures mm. No stones. No dilatation. PANCREAS: Unremarkable as visualized. No mass. No ductal dilatation. RIGHT KIDNEY: Measures cm. Normal echogenicity. No calculus, mass, or hydronephrosis. LEFT KIDNEY: Measures cm. Left hypoechoic mass versus cyst measuring 1.2 centimeters. 1.7 left lower pole renal cyst. SPLEEN: Normal in size and contour. No mass. AORTA: No aneurysmal dilatation. IVC: Unremarkable. OTHER FINDINGS: None. IMPRESSION: Left hypoechoic mass versus cyst measuring 1.2 centimeters. 1.7 left lower pole renal cyst.
--- NOTE | 2018-03-04 12:18 | CP.PCM.PN ---
Subjective - Date & Time of Evaluation Date of Evaluation: 03/04/18 Time of Evaluation: 11:00 - Subjective Subjective: Comfortable, no abdominal pain, no headache, no SOB at rest, no fevers. Objective - Vital Signs/Intake and Output Vital Signs (last 24 hours): Temp Pulse Resp BP Pulse Ox 98.2 F 62 20 132/92 H 95 03/04/18 06:00 03/04/18 06:00 03/04/18 06:00 03/04/18 06:00 03/04/18 06:00 Intake and Output: 03/04/18 03/04/18 06:59 18:59 Intake Total 720 Balance 720 - Medications Medications: Current Medications Acetaminophen (Tylenol 325 Mg Supp) 975 mg MT ONCE PRN PRN Reason: Fever >100.4 F Last Admin: 03/01/18 12:33 Dose: 975 mg Alprazolam (Xanax) 1 mg PO Q8 PRN; Protocol PRN Reason: Anxiety Last Admin: 03/04/18 09:20 Dose: 1 mg Aspirin (Aspirin Chewable) 81 mg PO DAILY [facility] Last Admin: 03/04/18 09:20 Dose: 81 mg Benztropine Mesylate (Cogentin) 0.5 mg PO HS [facility] Last Admin: 03/03/18 21:33 Dose: 0.5 mg Duloxetine HCl (Cymbalta) 60 mg PO DAILY [facility] Last Admin: 03/04/18 09:20 Dose: 60 mg Heparin Sodium (Porcine) (Heparin) 5,000 units SC Q8 JAQUAN PRN Reason: Protocol Last Admin: 03/04/18 05:26 Dose: 5,000 units Sodium Chloride (Sodium Chloride 0.45%) 1,000 mls @ 60 mls/hr IV .[id number] [facility] Last Admin: 03/03/18 23:42 Dose: 60 mls/hr Piperacillin Sod/Tazobactam Sod (Zosyn 2.25 Gm In 0.9% 100 Ml) 2.25 gm in 100 mls @ 100 mls/hr IVPB Q6 JAQUAN PRN Reason: Protocol Stop: 03/08/18 18:01 Last Admin: 03/04/18 05:28 Dose: 100 mls/hr Levalbuterol HCl (Xopenex) 0.63 mg IH [id number] PRN PRN Reason: Shortness of Breath Last Admin: 03/03/18 11:53 Dose: 0.63 mg Quetiapine Fumarate (Seroquel) 100 mg PO DAILY JAQUAN PRN Reason: Protocol Last Admin: 03/04/18 09:20 Dose: 100 mg - Labs Labs: 03/03/18 06:30 03/03/18 06:30 PT 13.2 SECONDS (9.4-12.5) H 03/01/18 12:30 INR 1.14 (0.93-1.08) H 03/01/18 12:30 APTT 27.8 Seconds (25.1-36.5) 03/01/18 12:30 - Constitutional Appears: Non-toxic, Chronically Ill - Head Exam Head Exam: NORMAL INSPECTION - Neck Exam Neck Exam: absent: Meningismus - Respiratory Exam Respiratory Exam: Decreased Breath Sounds - Cardiovascular Exam Cardiovascular Exam: +S1, +S2 - GI/Abdominal Exam GI & Abdominal Exam: Soft. absent: Tenderness Assessment and Plan - Assessment and Plan (Free Text) Plan: Assessment Systemic Inflammatory response syndrome, without clear source of infection, R/O intra-abdominal infection anxiety depression chronic renal failure Plan Cultures have been negative; follow up ultrasound of the abdomen and continue Zosyn for now
[2018-03-04] MEDS: Sodium Chloride 0.45% 1,000 ML IV SCH (12:30)
--- NOTE | 2018-03-04 15:35 | NM ---
COMPARISON: 03/01/2018 TECHNIQUE: 33.3 mCi technetium 99-m DTPA aerosol. 3.5 mCI technetium 99-m MAA administered intravenously. FINDINGS: VENTILATION COMPONENT: Normal. PERFUSION COMPONENT: Normal. IMPRESSION: Lowprobability ventilation perfusion scan for pulmonary embolism.
--- NOTE | 2018-03-04 18:59 | PN ---
DATE: 03/04/2018 CARDIOLOGY FOLLOWUP SUBJECTIVE: The patient is without shortness of breath, without chest pain. PHYSICAL EXAMINATION: VITAL SIGNS: Blood pressure is 127/77, heart rate in the 60s. NECK: Negative JVD. LUNGS: Bilateral rhonchi. HEART: Reveal S1, S2. EXTREMITIES: Without edema. LABORATORY DATA: BUN and creatinine 30 and 1.4. Troponins are negative. D dimer is elevated. Hemoglobin is 11.7. IMPRESSION: 1. Chronic obstructive pulmonary disease. 2. Anemia. 3. Resolution of dyspnea. 4. Renal insufficiency, which is better. 5. The patient is going down to nuclear medicine to rule out a pulmonary embolism. Jn Grewal MD
[2018-03-04 23:19] VITALS: RESP 18
[2018-03-05] MEDS: Piperacillin/Tazobact 2.25gm 2.25 GM/100 ML BAG IVPB SCH ×2 (00:13→04:59)
[2018-03-05] MEDS: Sodium Chloride 0.45% 1,000 ML IV SCH (05:03)
[2018-03-05 05:39] VITALS: BP 127/83; TEMP 98.4; O2SAT 95
--- NOTE | 2018-03-05 06:59 | DS ---
HOSPITAL COURSE: I tried to discharge him yesterday and I was held back by Cardiology. They feel he has to have the CT angio before he leaves. MEDICATIONS: He is currently on Seroquel, Symbicort, Cogentin, heparin, IV fluids, Tylenol, Xanax, Xopenex, Zosyn. PHYSICAL EXAMINATION: GENERAL: He is comfortable in bed. He wants to go home desperately. VITAL SIGNS: He has a 98.2 temp, 62 pulse and 132/92 blood pressure, we will keep an eye on that, the first time it was a little bit high; 20 respiratory rate, 95% sat on room air. HEENT: Head is atraumatic, normocephalic. HEART: Regular rate. LUNGS: Decreased breath sounds, but clear. ABDOMEN: Soft. EXTREMITIES: No edema. LABORATORY DATA: He has a 142 sodium, potassium 4.3, BUN is 15, creatinine 1.4, GFR is 51, sugar is 88, AST is 34, ALT is 24, alk phos 56, white count is 6.3, hemoglobin 11.7, hematocrit 34.6, platelets of 211. I am hoping after this CAT scan, angio was done today, we can discharge him. ASSESSMENT AND PLAN: He will be home on his regular medications plus Levaquin for 5 days. I will discuss this after the CAT scan, angio of the chest is done to make sure he does not have a pulmonary embolism. He had near syncope, dizziness, falls, urinary tract infection and renal insufficiency. Ryne Dunn DO
--- NOTE | 2018-03-05 09:38 | PN ---
DATE: 03/05/2018 CARDIOLOGY FOLLOWUP SUBJECTIVE: The patient is asymptomatic. His breathing is better. OBJECTIVE: VITAL SIGNS: Blood pressure is 127/83 and heart rate in the 50s. NECK: Negative JVD. LUNGS: Without rales. HEART: Reveal S1, S2. EXTREMITIES: Without edema. DATA: Hemoglobin is 11.7. BUN and creatinine unremarkable. The V/Q scan has low probability for PE. IMPRESSION: 1. Status post resolution of dyspnea. 2. Chronic obstructive pulmonary disease. 3. Renal insufficiency. Given these findings, we will discontinue Telemetry today. No further cardiac workup is indicated. Jn Grewal MD
[2018-03-05 10:39] VITALS: PULSE 60
--- NOTE | 2018-03-06 04:18 | DS ---
HISTORY OF PRESENT ILLNESS: I tried to discharge him yesterday. But never got the call back from Cardiology to allow it. outpatient testing. He is on aspirin, Cogentin, Cymbalta, heparin, Seroquel, IV fluids, Tylenol, Xopenex, Xanax, and Zosyn. He will be switched over to Levaquin for the next 4 days; one a day. pharmacy called me. Continue his regular medications that he normally takes. He is comfortable in bed. He wants to go home. PHYSICAL EXAMINATION: VITAL SIGNS: 98.4 temp, 87 pulse, 127/82 blood pressure, 18 respiratory rate, 95% O2 sat on room air. HEENT: Head is atraumatic, normocephalic. HEART: Regular rate. LUNGS: Clear to auscultation. ABDOMEN: Soft. EXTREMITIES: No edema. LABORATORY DATA: He has a 6.3 white count, 11.7 hemoglobin, 211 platelets. Sodium 142, potassium 4.3, BUN 15, creatinine 1.4, AST 34. ASSESSMENT AND PLAN: He will be sent home today. Hopefully, he will follow up in the next week in the office. He had near syncope, he had urinary tract infection, renal insufficiency, and hypotension. Ryne Dunn DO MTDD
--- NOTE | 2018-03-06 09:11 | PN ---
DATE: 03/05/2018 PULMONARY PROGRESS NOTE SUBJECTIVE: The patient was seen and examined at the bedside. He is resting comfortably. PHYSICAL EXAMINATION: VITAL SIGNS: He is afebrile. Heart rate is 78. Respiratory rate is 18. Blood pressure 110/75. Oxygen saturation is 98% on room air. HEENT: Examination of the head, ear, nose and throat is within normal limits. NECK: Supple with no jugular vein distentions. CARDIOVASCULAR: S1 and S2. No S3. Regular. PULMONARY: Diminished breath sounds at the both bases. There is no rhonchi, rales, or wheezing. GI: Soft and nontender. No organomegaly. EXTREMITIES: No clubbing, cyanosis, or edema. NEUROLOGIC: No focal deficits. SKIN: Warm and dry. LABORATORY DATA: No new laboratory data to review. CLINICAL ASSESSMENT: 1. Chronic obstructive pulmonary disease. 2. Acute bronchospasm. 3. Long smoking history. PLAN: As per Dr. Billings's recommendation, the patient will need a pulmonary function testing can be done as an outpatient. Cardiac workup results are pending. The patient was recommended to start on Advair 250 twice a day. This was discussed with attending. Charly Thompson MD
== END 2018-03-05 11:35 | disposition home or self-care (01) | DRG 690 ==
LOC: ED 11:49 → ERH 13:52 → 2RSO 16:52
PROVIDERS: ADMIT Family Medicine; ATTEND Family Medicine
PROC: 3E0F7GC Introduction of Other Therapeutic Substance into Respiratory Tract, Via Natural or Artificial Opening (ICD-10-PCS; principal; 2018-03-02)
DX: N39.0 Urinary tract infection, site not specified (principal); N17.9 Acute kidney failure, unspecified; E86.0 Dehydration; J44.9 Chronic obstructive pulmonary disease, unspecified; N18.9 Chronic kidney disease, unspecified; R00.0 Tachycardia, unspecified; G40.909 Epilepsy, unspecified, not intractable, without status epilepticus; D64.9 Anemia, unspecified; R29.6 Repeated falls; F32.9 Major depressive disorder, single episode, unspecified; F41.9 Anxiety disorder, unspecified; F17.210 Nicotine dependence, cigarettes, uncomplicated; Z91.81 History of falling; Z96.641 Presence of right artificial hip joint; Z90.49 Acquired absence of other specified parts of digestive tract

== ENCOUNTER 2018-06-13 14:18 | Observation (INO) | payer BC ==
[2018-06-13 14:18] VITALS: BMI 27.9
[2018-06-13] MEDS ORDERED: Sodium Chloride 0.9% 1,000 ML IV STA (15:14)
--- NOTE | 2018-06-13 15:19 | CT ---
Date of service: 06/13/2018 PROCEDURE: CT HEAD WITHOUT CONTRAST. HISTORY: head injury COMPARISON: None available. TECHNIQUE: Axial computed tomography images were obtained through the head/brain without intravenous contrast. Radiation dose: Total exam DLP = 1026 mGy-cm. This CT exam was performed using one or more of the following dose reduction techniques: Automated exposure control, adjustment of the mA and/or kV according to patient size, and/or use of iterative reconstruction technique. FINDINGS: HEMORRHAGE: No intracranial hemorrhage. BRAIN: No mass effect or edema. Moderate volume loss. No acute intracranial findings VENTRICLES: Unremarkable. No hydrocephalus. CALVARIUM: Unremarkable. PARANASAL SINUSES: Unremarkable as visualized. No significant inflammatory changes. MASTOID AIR CELLS: Unremarkable as visualized. No inflammatory changes. OTHER FINDINGS: None. IMPRESSION: No acute finding
[2018-06-13 15:20] LABS: BASO # 0.01 K/mm3 (0.0-2.0); BASO % 0.2 % (0.0-3.0); EOS # 0.1 (0.0-0.7); EOS % 2.6 % (1.5-5.0); GRAN # 2.95 (1.4-6.5); GRAN % 64.3 % (50.0-68.0); HEMOGLOBIN 12.4 g/dL (14.0-18.0); LYMPH # 1.3 (1.2-3.4); LYMPH % 27.5 % (22.0-35.0); MEAN CELL VOLUME 90.4 fl (80.0-105.0); MEAN CORPUSCULAR HEMOGLOBIN 31.2 pg (25.0-35.0); MEAN CORPUSCULAR HGB CONC 34.5 g/dl (31.0-37.0); MEAN PLATELET VOLUME 9.6 fl (7.0-11.0); MONO # 0.3 (0.1-0.6); MONO % 5.4 % (1.0-6.0); RBC 3.97 10^6/uL (3.5-6.1); RED CELL DISTRIBUTION WIDTH 13.2 % (11.5-14.5); WHITE BLOOD COUNT 4.6 10^3/ul (4.5-11.0)
--- NOTE | 2018-06-13 15:21 | ED PDOC ---
Arrival/HPI - General Chief Complaint: Altered Mental Status Time Seen by Provider: 06/13/18 14:19 Historian: Patient EM Caveat: Other (Poor historian) - History of Present Illness Narrative History of Present Illness (Text): 06/13/18 14:30 62 year old male presents to the emergency department complaining of dizziness. Patient was walking today and said he got dizzy. Patient reportedly sat down on the side walk. Patient is a poor historian and denies any current complaints. He states he does have a history of frequent falls. Patient denies any chest pain, shortness of breath, hip pain, extremity pain, headache, or any other complaints. HPI and ROS limited due to being a poor historian. Symptom Onset: Sudden Symptom Course: Unchanged Activities at Onset: Light Context: Walking Past Medical History - Provider Review Nursing Documentation Reviewed: Yes - Infectious Disease Hx of Infectious Diseases: None - Tetanus Immunization Tetanus Immunization: Up to Date - Cardiac Hx Hypertension: Yes - Pulmonary Hx Respiratory Disorders: No Hx Tuberculosis: No - Neurological HX Cerebrovascular Accident: No - HEENT Hx HEENT Disorder: No - Renal Hx Renal Disorder: Yes Other/Comment: acute renal failure 2011 - Endocrine/Metabolic Hx Endocrine Disorders: No - Hematological/Oncological Hx Blood Disorders: Yes (sepsis) - Integumentary Hx Dermatological Disorder: Yes Other/Comment: healed surgical scars abd, r hip - Musculoskeletal/Rheumatological Hx Falls: Yes (past) - Gastrointestinal Hx Gastrointestinal Disorders: Yes Other/Comment: pt had a fall in 2010 and fx r hip admits to being intoxicated at the time, pt stated "they removed 6 to 8 feet of intestine, but I'm not sure why" wound up with colostomy which was reversed in 2011 - Genitourinary/Gynecological Hx Genitourinary Disorders: No Hx Sexually Transmitted Diseases: No - Psychiatric Hx Anxiety: Yes Hx Depression: Yes Hx Substance Use: Yes (quit heroin/cocaine 2010) Other/Comment: acute psychosis 2014, suicidal thoughts in the past none recently , quit smoking 1 ppd 7 days ago, quit heroin/cocaine use 2010, and alcohol reji vizcaino 2010, due to r hip fx - Surgical History Hx Joint Replacement: Yes (rt hip relacement) Other/Comment: excision left forehead cyst, pac removal 05/07/2012 - Anesthesia Hx Anesthesia: Yes Hx Anesthesia Reactions: No Hx Malignant Hyperthermia: No - Suicidal Assessment Feels Threatened In Home Enviroment: No Family/Social History - Physician Review Nursing Documentation Reviewed: Yes Family/Social History: No Known Family HX Smoking Status: Former Smoker Hx Alcohol Use: Yes (quit reji vizcaino 2010) Hx Substance Use: Yes (quit heroin/cocaine 2010) Hx Substance Use Treatment: No Allergies/Home Meds Allergies/Adverse Reactions: Allergies No Known Allergies Allergy (Verified 03/01/18 12:14) Home Medications: Home Meds Medication Instructions Recorded Confirmed ALPRAZolam [Xanax] 1 mg PO PRN PRN 03/01/18 03/11/18 Benztropine [Benztropine Mesylate] 0.5 mg PO HS 03/01/18 03/11/18 Benztropine [Cogentin] 0.5 mg PO HS 03/01/18 03/11/18 DULoxetine [Cymbalta] 60 mg PO DAILY 03/01/18 03/11/18 QUEtiapine [Seroquel] 100 mg PO DAILY 03/01/18 03/11/18 Review of Systems - Physician Review All systems were reviewed & negative as marked: Yes - Review of Systems Systems not reviewed;Unavailable: Other (Poor historian) Respiratory: absent: SOB Cardiovascular: absent: Chest Pain Musculoskeletal: absent: Other (hip pain or extremity pain) Neurological: Dizziness. absent: Headache Physical Exam Vital Signs Reviewed: Yes Vital Signs Temp Pulse Resp BP Pulse Ox 06/13/18 17:07 78 18 121/75 98 06/13/18 16:20 84 18 119/73 98 06/13/18 14:30 98 F 102 H 20 96/66 L 94 L Temperature: Afebrile Blood Pressure: Hypotensive Pulse: Tachycardic Respiratory Rate: Normal Appearance: Positive for: Well-Appearing, Non-Toxic, Comfortable Pain Distress: None Mental Status: Positive for: Alert and Oriented X 3 - Systems Exam Head: Present: Atraumatic, Normocephalic, Laceration (1cm laceration above left eyebrow) Pupils: Present: PERRL Extroacular Muscles: Present: EOMI Conjunctiva: Present: Normal Mouth: Present: Moist Mucous Membranes Neck: Present: Normal Range of Motion Respiratory/Chest: Present: Clear to Auscultation, Good Air Exchange. No: Respiratory Distress, Accessory Muscle Use Cardiovascular: Present: Regular Rate and Rhythm, Normal S1, S2. No: Murmurs Abdomen: No: Tenderness, Distention, Peritoneal Signs Back: Present: Normal Inspection Upper Extremity: Present: Normal Inspection, Normal ROM. No: Cyanosis, Edema Lower Extremity: Present: Normal Inspection, Normal ROM. No: Edema, Tenderness (No clyde hip tenderness) Neurological: Present: GCS=15, CN II-XII Intact, Speech Normal Skin: Present: Warm, Dry, Normal Color. No: Rashes Psychiatric: Present: Alert, Oriented x 3, Normal Insight, Normal Concentration Medical Decision Making ED Course and Treatment: 06/13/18 14:25 Impression: 62 year old male presents complaining of dizziness after walking. Patient is a poor historian. Plan: -- CT head w/o contrast -- Labs -- EKG -- Chest X-ray -- IV Fluids -- Reassess and disposition Prior Visits: Notes and results from previous visits were reviewed. Progress Notes: PROCEDURE: Chest X-ray Dictator : Jeffrey Oliveros MD Report Date : 06/13/2018 15:21:47 IMPRESSION: No interval acute cardiopulmonary disease appreciated. PROCEDURE: CT HEAD WITHOUT CONTRAST. Dictator : Jb Adam MD Report Date : 06/13/2018 15:18:05 IMPRESSION: No acute finding 06/13/18 15:58 EKG shows NSR at 100bpm with LAD and no acute ST changes 06/13/18 17:[address] Dunn who reports due to frequent falls, need further cardiac and neurologic workup. - Lab Interpretations Lab Results: 06/13/18 15:10 06/13/18 15:10 Lab Results 06/13/18 16:00: Ammonia < 9 L 06/13/18 15:10: Alcohol, Quantitative < 10 06/13/18 15:10: Sodium 137, Potassium 3.9, Chloride 105, Carbon Dioxide 20 L, Anion Gap 16, BUN 19, Creatinine 1.8 H, Est GFR ( Amer) 46, Est GFR (Non- Af Amer) 38, Random Glucose 72, Calcium 8.8, Phosphorus 2.2 L, Magnesium 1.5 L, Total Bilirubin 0.9, AST 28, ALT 18, Alkaline Phosphatase 74, Total Creatine Kinase 65, Troponin I < 0.01, Total Protein 6.7, Albumin 4.0, Globulin 2.7, Albumin/Globulin Ratio 1.5 06/13/18 15:10: PT 12.5, INR 1.09, APTT 27.8 06/13/18 15:10: WBC 4.6 D, RBC 3.97, Hgb 12.4 L, Hct 35.9 L, MCV 90.4, MCH 31.2 , MCHC 34.5, RDW 13.2, Plt Count 211, MPV 9.6, Gran % 64.3, Lymph % (Auto) 27.5 , Florence % (Auto) 5.4, Eos % (Auto) 2.6, Baso % (Auto) 0.2, Gran # 2.95, Lymph # ( Auto) 1.3, Florence # (Auto) 0.3, Eos # (Auto) 0.1, Baso # (Auto) 0.01 I have reviewed the lab results: Yes - RAD Interpretation Radiology Orders: 06/13/18 14:37 HEAD W/O CONTRAST [CT] Stat 06/13/18 14:38 CHEST PORTABLE [RAD] Stat - EKG Interpretation Interpreted by ED Physician: Yes Type: 12 lead EKG - Medication Orders Current Medication Orders: Discontinued Medications Sodium Chloride (Sodium Chloride 0.9%) 1,000 mls @ 999 mls/hr IV .Q1H1M STA Stop: 06/13/18 16:14 Last Admin: 06/13/18 15:33 Dose: 999 mls/hr eMAR Start Stop Document 06/13/18 15:33 GMD (Rec: 06/13/18 15:33 GMD [id number]) Intravenous Solution Start Date 06/13/18 Start Time 15:33 End Date 06/13/18 End time 16:33 Total Infusion Time 60 Tetanus/Reduced Diphtheria/Acell Pertussis (Boostrix Vaccine Inj) 0.5 ml IM .ONCE ONE Stop: 06/13/18 16:47 - Scribe Statement The provider has reviewed the documentation as recorded by the Shelton Clancy Provider Scribe Attestation: All medical record entries made by the Scribjm were at my direction and personally dictated by me. I have reviewed the chart and agree that the record accurately reflects my personal performance of the history, physical exam, medical decision making, and the department course for this patient. I have also personally directed, reviewed, and agree with the discharge instructions and disposition. Disposition/Present on Arrival - Present on Arrival Any Indicators Present on Arrival: No History of DVT/PE: No History of Uncontrolled Diabetes: No Urinary Catheter: No History of Decub. Ulcer: No History Surgical Site Infection Following: None - Disposition Have Diagnosis and Disposition been Completed?: Yes Diagnosis: Near syncope, Dizziness Disposition: HOSPITALIZED Disposition Time: 17:19 Patient Plan: Observation Condition: FAIR Forms: [facility] ([place])
--- NOTE | 2018-06-13 15:23 | RAD ---
Date of service: 06/13/2018 HISTORY: fatigue COMPARISON: Portable chest 03/01/2018. FINDINGS: LUNGS: No active pulmonary disease. PLEURA: No significant pleural effusion identified, no pneumothorax apparent. CARDIOVASCULAR: Normal. OSSEOUS STRUCTURES: No significant abnormalities. VISUALIZED UPPER ABDOMEN: Normal. OTHER FINDINGS: None. IMPRESSION: No interval acute cardiopulmonary disease appreciated.
[2018-06-13 15:32] LABS: INR 1.09; PARTIAL THROMBOPLASTIN TIME 27.8 Seconds (25.1-36.5); PROTHROMBIN TIME 12.5 SECONDS (9.4-12.5)
[2018-06-13 15:34] LABS: ALB/GLOB RATIO 1.5 (1.1-1.8); ALT/SGPT 18 U/L (7-56); AST/SGOT 28 U/L (17-59); BLOOD UREA NITROGEN 19 mg/dL (7-21); CALCIUM 8.8 mg/dL (8.4-10.5); GFR NON-AFRICAN AMERICAN 38
[2018-06-13 15:44] LABS: TROPONIN I < 0.01 ng/mL
[2018-06-13] MEDS ORDERED: TDAP Vaccine 0.5 mL Syr IM ONE (16:46)
[2018-06-13 18:18] VITALS: RESP 20
--- NOTE | 2018-06-13 18:28 | CARD ---
APPROVED REPORT Date of service: 06/13/2018 EKG Measurement Heart [id number] <Conclusion> Normal sinus rhythm Left axis deviation Abnormal ECG
[2018-06-13] MEDS ORDERED: Sodium Chloride 0.45% 1,000 ML IV SCH (18:30)
--- NOTE | 2018-06-14 04:37 | HP ---
HISTORY OF PRESENT ILLNESS: I was called to the emergency room to see Marlon. He is a 62-year-old white male who I known from the office quite well, who is walking today and so he got dizzy, he sat down on a side walk. He is a very poor historian. Does not remember much, but there is a scrape to the left side of his forehead around his eye. He has frequent falls. He denies chest pain, shortness of breath, or hip pain and this happened suddenly. Presently, he is okay. PAST MEDICAL HISTORY: Hypertension, acute renal failure in 2011. He has been septic before. Healed surgical scars of the right hip. He has had falls in 2010. He had a fractured right hip. PAST SURGICAL HISTORY: He also had surgery and removed 8 feet of his intestine. He had a colostomy which was then reversed. He has anxiety, depression. SOCIAL HISTORY: He used to do heroin and cocaine and quit. He has had acute psychosis in 2015 past month, recently quit smoking. He used to smoke 7 per day, quit heroin, quit cocaine and Dillan Jeffrey due to the right hip fracture and right hip replacement. He had an excision of the left forehead cyst on 05/07/2012. FAMILY HISTORY: Does not know about family history, former smoker, quit Dillan Jeffrey, quit heroin, quit cocaine. ALLERGIES: NO KNOWN DRUG ALLERGIES. MEDICATIONS: On Xanax, benzatropine, Cogentin, Cymbalta, Seroquel. REVIEW OF SYSTEMS: Poor historian. He does get shortness of breath from time to time, but no shortness of breath now or cough. No chest pain or palpitations. Does have a hip pain from time to time. No acute vision or hearing changes. No abdominal pain, nausea, vomiting, constipation diarrhea. No problems urinating. Besides his scrapes no other skin issues. PHYSICAL EXAMINATION VITAL SIGNS: He has a 98 temperature, 102 pulse, 20 respiratory rate, 96/66 blood pressure, 94% O2 saturation on room air. GENERAL: He was hypotensive when he came in, tachycardic. Presently, he is well appearing, nontoxic, comfortable. Alert and oriented x3. HEENT: There is little bit of trauma to the left side of his forehead 1 cm above the left eyebrow laceration, otherwise normocephalic. Extraocular muscles are intact. Pupils are equal, round and reactive to light and accommodation. Throat is moist. NECK: Supple. HEART: Regular rate. Normal S1 and S2. LUNGS: Clear to auscultation bilaterally. No wheezes, rhonchi, or rales. ABDOMEN: Soft, nontender. No guarding. No rebound. No CVA tenderness. EXTREMITIES: No edema. NEUROLOGIC: GCS is 15. Cranial nerves II through XII grossly intact. He has got a very weird affect with his speech and his motion. SKIN: Warm and dry. NEUROLOGIC: Alert and oriented x3. LYMPHATICS: Thyroid midline. No palpable appreciable lymphadenopathy. LABORATORY DATA: He has multiple tests. The chest x-ray was clear. Head CT was clear. He has a alcohol level less than 10. He has 137 sodium, potassium 3.9, BUN 19, creatinine 1.8, little bit dry. I have put him on some IV fluids. Sugar is 72, calcium is 8.8, phosphorous 2.2, magnesium 1.5, total bilirubin is 0.9, AST is 20, ALT is 18, alk phos 74, ammonia is less than 9. Total creatinine kinase 65, troponin I is less than 0.01. Total protein is 6.7, albumin is less than 2.7. INR is 1.09. He has a 4.6 white count, 3.97 RBCs, hemoglobin is 12.4, hematocrit 35.9, platelets of 211. ASSESSMENT AND PLAN: He is being admitted for a syncopal episode, renal insufficiency, left Cardio and Neurology evaluation. He is going to be watched on telemetry and observation level of care. fine. Ryne Dunn DO CARLEEN
[2018-06-14 06:18] VITALS: O2SAT 97
[2018-06-14 06:32] LABS: MEAN CELL VOLUME 91.3 fl (80.0-105.0); MEAN CORPUSCULAR HEMOGLOBIN 30.6 pg (25.0-35.0); MEAN CORPUSCULAR HGB CONC 33.5 g/dl (31.0-37.0); MEAN PLATELET VOLUME 9.6 fl (7.0-11.0); RBC 3.92 10^6/uL (3.5-6.1); RED CELL DISTRIBUTION WIDTH 13.6 % (11.5-14.5); WHITE BLOOD COUNT 5.2 10^3/ul (4.5-11.0)
[2018-06-14 07:10] LABS: ALB/GLOB RATIO 1.4 (1.1-1.8); ALBUMIN 3.7 g/dL (3.0-4.8); CALCIUM 8.4 mg/dL (8.4-10.5)
--- NOTE | 2018-06-14 13:58 | CON ---
DATE: 06/14/2018 CARDIOLOGY CONSULTATION HISTORY: The patient is a 62-year-old male who complained of multiple episodes of dizziness. No syncope noted. PAST MEDICAL HISTORY: Includes a remote history of hypertension as well as renal insufficiency. He has a remote history of fracture of right hip after a fall in the past. Currently, he denies chest pain, denies shortness of breath. MEDICATIONS: Include Cogentin and Seroquel. SOCIAL HISTORY: Denies smoking. REVIEW OF SYSTEMS: The 14 point review of systems is reviewed in detail. No cardiac symptoms are noted. PHYSICAL EXAMINATION: VITAL SIGNS: Blood pressure 119/80, the heart rates in the 60s. NECK: Negative JVD. LUNGS: Without rales. HEART: Reveal S1, S2. EXTREMITIES: Without edema. LABORATORY DATA: His EKG is unremarkable. Hemoglobin is 12. BUN and creatinine is 18 and 1.6. Troponin is negative x1. IMPRESSION: 1. Dizziness x2. 2. No evidence for acute coronary syndrome. 3. Previous stress test revealed good left ventricular function. 4. Mild renal insufficiency. 5. History of hypertension. 6. Remote fracture of the right hip in the past. Given these findings, there is no evidence for acute coronary syndrome. No obvious cardiac cause of his dizziness. We will obtain an echocardiogram to rule out LV outflow obstruction. We will monitor on Telemetry for 24 hours. Jn Grewal MD
--- NOTE | 2018-06-14 16:01 | CARD ---
APPROVED REPORT Date of service: 06/14/2018 EXAM: Two-dimensional and M-mode echocardiogram with Doppler and color Doppler. INDICATION DIZZINESS Mitral Valve MV E Ovqkkgex98.8cm/sMV A Pbfbgsig32.5cm/sE/A ratio1.0 TDI E/Lateral E'0.0E/Medial E'0.0 LEFT VENTRICLE The left ventricle is normal size. There is normal left ventricular wall thickness. The left ventricular ejection fraction is within the normal range. Transmitral Doppler flow pattern is Grade I-abnormal relaxation pattern. RIGHT VENTRICLE The right ventricle is normal size. There is normal right ventricular wall thickness. The right ventricular systolic function is normal. ATRIA The left atrium size is normal. The right atrium size is normal. AORTIC VALVE The aortic valve is not well visualized. MITRAL VALVE The mitral valve is not well visualized. <Conclusion> Very poor Echo window and a very limited study The left ventricle is normal size. There is normal left ventricular wall thickness. The left ventricular ejection fraction is within the normal range. Transmitral Doppler flow pattern is Grade I-abnormal relaxation pattern.
[2018-06-14 17:56] VITALS: BP 132/88; PULSE 83; TEMP 98.7
--- NOTE | 2018-06-14 19:21 | CON ---
DATE: 06/14/2018 HISTORY OF PRESENT ILLNESS: This is a 62-year-old man with past medical history of anxiety, depression, hypertension, on Cymbalta, Seroquel, Cogentin, benzatropine and Xanax who came in because he mentioned that he was walking and got lightheaded. He sat down on a sidewalk and felt dizzy. He states he has been having frequent falls and seems very deconditioned. On his labs, it shows that he has low blood sugar of 68 and says there are periods of intermittent fasting. In addition, he has elevated creatine and he gets some renal insufficiency, and has low systolic and diastolic blood pressures, initially presented with 96/66. Currently, he is moving all extremities, no focal neurological deficits seen on examination. PAST MEDICAL HISTORY: As above. ALLERGIES: NO KNOWN DRUG ALLERGIES. SOCIAL HISTORY: No illicit drug use, smoking or EtOH abuse. MEDICATIONS: Reviewed by nurse per reconciliation sheet. LABORATORY DATA: Sodium is 142, potassium is 4.7, chloride 107, carbon dioxide 26, BUN of 18, creatinine 1.6 and random glucose of 68. PHYSICAL EXAMINATION VITAL SIGNS: Temperature 98.6, pulse rate of 81, blood pressure 118/80, respiratory rate of 20, oxygen saturation 97% by room air. GENERAL: The patient is sitting up in bed, in no acute distress. HEENT: Atraumatic, normocephalic. PERRLA. Extraocular muscles intact. NECK: Supple. No JVD, no adenopathy noted. LUNGS: Clear to auscultation. No adventitious sounds. HEART: S1 and S2. Normal rate and rhythm. No murmurs, rubs or gallops. ABDOMEN: Soft, nontender and nondistended. Bowel sounds are present. EXTREMITIES: No clubbing. No cyanosis. Peripheral pulses 2+ felt bilaterally. NEUROLOGIC: The patient is alert and oriented to person, place, month, and year. Speech is fluent without any errors. Cranial nerves II through XII intact. Motor exam: Moves all extremities equally. Toes are downgoing bilaterally. Sensory exam: Light touch, pinprick, proprioception, and vibration are intact. DTRs are 2+ throughout, 1 at both knees and ankles. Coordination: Enefbi-vx-[id number] intact. No dysmetria noted. ASSESSMENT AND PLAN: This is a 62-year-old man with history of anxiety and depression, on Cymbalta, Seroquel, benzatropine and Xanax, who has frequent falls and dizziness. His dizziness is likely secondary to transient cerebral hypoperfusion he has low systolic and diastolic blood pressures on admission of with some poor renal insufficiency in addition to have low blood sugars from intermittent fasting. He is mildly deconditioned. He had a carotid Doppler in 03/02/2018 which shows 20%-39% proximal internal carotid artery stenosis with antegrade flow in the vertebral arteries. CAT scan of the head showed no acute intracranial abnormalities. At this time, we will recommend; 1. Orthostatic vital signs. 2. Adequate hydration throughout the day. 3. Avoid intermittent fasting, eat small meals throughout the day and PT assessment. He is clinically stable from my standpoint. Follow up with Cardiology. Thank you for this consultation. Wai Dumont MD
--- NOTE | 2018-06-15 06:52 | DS ---
HISTORY OF PRESENT ILLNESS: I am hoping he goes today. He is on observation status. He came in with syncope and renal insufficiency. He slept well last night. He is feeling well. No more dizzy or feelings of faint. He had some good blood test. He had sodium 142, potassium 4.7, BUN 18, creatinine 1.6, much better than when he came in. GFR is 44, sugar is 68, calcium is 8.4. He has a total bili of 0.7, AST is 30, ALT is 26, alkaline phosphatase 65, total protein 6.3. He had a white count of 5.2, hemoglobin 12, hematocrit 35.8, platelets of 204. CAT scan of the head and chest x-ray were fine and I am awaiting for Neurology and Cardiology to see him. If they give me their okay, I will be discharging him home this afternoon. He will be home on baby aspirin, Cogentin, Cymbalta, Seroquel and Xanax. I asked him to walk around when he has physical therapy to make sure he is okay and my goal is to discharge him this afternoon. He is in observation. He came in for syncope and renal insufficiency, and that is the plan for . Ryne Dunn DO MTDD
== END 2018-06-14 19:37 | disposition home or self-care (01) ==
LOC: ED 14:18 → ERH 16:47 → 2RNO 18:40
PROVIDERS: ADMIT Family Medicine; ATTEND Family Medicine
DX: R55 Syncope and collapse (principal); N28.9 Disorder of kidney and ureter, unspecified; I10 Essential (primary) hypertension; I65.29 Occlusion and stenosis of unspecified carotid artery; F32.9 Major depressive disorder, single episode, unspecified; F41.9 Anxiety disorder, unspecified; Z87.891 Personal history of nicotine dependence; Z87.81 Personal history of (healed) traumatic fracture; Z96.641 Presence of right artificial hip joint; R29.6 Repeated falls
CPT/HCPCS: 36415; 70450; 71045; 80053; 82140; 82550; 83735; 84100; 84484; 85025; 85027; 85610; 85730; 90471; 90715; 93005; 93306; 96360; 97116; 97161; 99285; G0378; G0480; G8978; G8979; J7030

== ENCOUNTER 2019-01-28 15:50 | Inpatient (IN) | payer BC ==
[2019-01-28 16:59] LABS: BASO # 0.02 K/mm3 (0.0-2.0); BASO % 0.3 % (0.0-3.0); EOS % 0.1 % (1.5-5.0); HEMOGLOBIN 10.9 g/dL (14.0-18.0); LYMPH # 0.9 (1.2-3.4); LYMPH % 11.1 % (22.0-35.0); MEAN CELL VOLUME 89.4 fl (80.0-105.0); MEAN CORPUSCULAR HEMOGLOBIN 30.5 pg (25.0-35.0); MEAN CORPUSCULAR HGB CONC 34.2 g/dl (31.0-37.0); MEAN PLATELET VOLUME 8.7 fl (7.0-11.0); MONO # 0.5 (0.1-0.6); MONO % 6.3 % (1.0-6.0); RBC 3.57 10^6/uL (3.5-6.1); RED CELL DISTRIBUTION WIDTH 13.1 % (11.5-14.5); WHITE BLOOD COUNT 7.6 10^3/uL (4.5-11.0)
[2019-01-28 17:04] LABS: VENOUS BLOOD GAS BASE EXCESS -16.2 mmol/L (0.0-2.0); VENOUS BLOOD GAS PO2 26 mm/Hg (30-55); VENOUS BLOOD PH 7.12 (7.32-7.43)
[2019-01-28 17:04] LABS: INR 1.13; PARTIAL THROMBOPLASTIN TIME 34.1 Seconds (26.9-38.3); PROTHROMBIN TIME 12.5 SECONDS (9.4-12.5)
[2019-01-28 17:06] LABS: ACETAMINOPHEN < 10.0 ug/ml (10.0-20.0); SALICYLATE < 1 mg/dL (2.0-20.0)
[2019-01-28 17:18] LABS: TROPONIN I < 0.01 ng/mL
[2019-01-28 17:23] LABS: ALB/GLOB RATIO 1.3 (1.1-1.8); ALBUMIN 4.1 g/dL (3.0-4.8); ALT/SGPT 12 U/L (7-56); AST/SGOT 23 U/L (17-59); BLOOD UREA NITROGEN 121 mg/dL (7-21); CALCIUM 9.2 mg/dL (8.4-10.5); GFR NON-AFRICAN AMERICAN 2; LIPASE 16 U/L (23-300)
[2019-01-28] MEDS ORDERED: Insulin Regular 1 UNITS/0.01 ML ML IV STA (17:24)
[2019-01-28] MEDS ORDERED: Sodium Bicarbonate (8.4%) 50 Meq Syringe IVP STA (17:25)
[2019-01-28] MEDS ORDERED: Dextrose 50% SYRINGE Inj (50 ml) IVP STA (17:25)
[2019-01-28] MEDS ORDERED: Sodium Chloride 0.9% 1,000 ML IV STA (17:26)
--- NOTE | 2019-01-28 17:29 | RAD ---
Date of service: 01/28/2019 HISTORY: ams COMPARISON: 06/13/2018. FINDINGS: LUNGS: No active pulmonary disease. PLEURA: No significant pleural effusion identified, no pneumothorax apparent. CARDIOVASCULAR: No atherosclerotic calcification present Normal. OSSEOUS STRUCTURES: No significant abnormalities. VISUALIZED UPPER ABDOMEN: Normal. OTHER FINDINGS: None. IMPRESSION: No active disease. No significant interval change compared to the prior examination(s).
[2019-01-28 18:24] LABS: URINE APPEARANCE SL CLOUDY (CLEAR); URINE BILIRUBIN NEGATIVE (NEGATIVE); URINE BLOOD NEGATIVE (NEGATIVE); URINE COLOR YELLOW (YELLOW); URINE GLUCOSE (UA) NEGATIVE (NEGATIVE); URINE LEUKOCYTE ESTERASE SMALL Leu/uL (NEGATIVE); URINE PROTEIN NEGATIVE mg/dL (<30 mg/dL); URINE UROBILINOGEN 0.2 E.U./dL (<1 E.U./dL)
[2019-01-28 18:30] LABS: URINE WBC 0 - 2 /hpf (0-6)
--- NOTE | 2019-01-28 18:41 | ED PDOC ---
Arrival/HPI - History of Present Illness Narrative History of Present Illness (Text): 01/28/19 17:25 Patient is a 63 year old male with past medical history of hypertension, psychosis and pelvic fracture, previous drug abuse presenting with altered mental status. History was obtained mostly from at bedside as patient is a poor historian and selectively responds to questioning. Patient was noted to be taking off his clothes and throwing his medications away. Patient has these episodes frequently and has been evaluated by psychiatrist for them. No medical intervention has been made previously. Patient admits to mild abdominal discomfort but denies fevers, chills, chest pain, shortness of breath, diarrhea, dysuria. Time/Duration: Prior to Arrival Symptom Onset: Sudden Symptom Course: Unchanged Context: Home <GuillaumeJenae - Last Filed: 01/28/19 19:52> - General Historian: Family - Critical Care Critical Care Minutes: 60 minutes <Vinny Lagunas - Last Filed: 01/28/19 20:53> - General Chief Complaint: Altered Mental Status Time Seen by Provider: 01/28/19 15:56 Past Medical History - Provider Review Nursing Documentation Reviewed: Yes - Infectious Disease Hx of Infectious Diseases: None - Tetanus Immunization Tetanus Immunization: Up to Date - Cardiac Hx Hypertension: Yes - Pulmonary Hx Respiratory Disorders: No Hx Tuberculosis: No - Neurological Hx Neurological Disorder: No Other/Comment: TREMORS since young age - HEENT Hx HEENT Disorder: No - Renal Hx Renal Disorder: Yes Other/Comment: acute renal failure 2011 - Endocrine/Metabolic Hx Endocrine Disorders: No - Hematological/Oncological Hx Blood Disorders: Yes (sepsis) - Integumentary Hx Dermatological Disorder: Yes Other/Comment: healed surgical scars abd, r hip - Musculoskeletal/Rheumatological Hx Falls: Yes - Gastrointestinal Hx Gastrointestinal Disorders: Yes Other/Comment: pt had a fall in 2010 and fx r hip admits to being intoxicated at the time, pt stated "they removed 6 to 8 feet of intestine, but I'm not sure why" wound up with colostomy which was reversed in 2011 - Genitourinary/Gynecological Hx Genitourinary Disorders: No - Psychiatric Hx Anxiety: Yes Hx Depression: Yes Hx Substance Use: No (Denies) Other/Comment: acute psychosis 2014, suicidal thoughts in the past none recently, quit smoking 1 ppd 7 days ago, quit heroin/cocaine use 2010, and alcohol reji charis 2010, due to r hip fx - Surgical History Hx Joint Replacement: Yes (rt hip relacement) Other/Comment: excision left forehead cyst, pac removal 05/07/2012 - Anesthesia Hx Anesthesia: Yes Hx Anesthesia Reactions: No Hx Malignant Hyperthermia: No - Suicidal Assessment Feels Threatened In Home Enviroment: No <Jenae Guillaume - Last Filed: 01/28/19 19:52> Family/Social History - Physician Review Nursing Documentation Reviewed: Yes Family/Social History: No Known Family HX Smoking Status: Heavy Smoker > 10 Cigarettes Daily Hx Alcohol Use: No (Denies) Hx Substance Use: No (Denies) Hx Substance Use Treatment: No <Jenae Guillaume - Last Filed: 01/28/19 19:52> Allergies/Home Meds <Jenae Guillaume - Last Filed: 01/28/19 19:52> <Vinny Lagunas - Last Filed: 01/28/19 20:53> Allergies/Adverse Reactions: Allergies No Known Allergies Allergy (Verified 03/01/18 12:14) Home Medications: Home Meds Medication Instructions Recorded Confirmed ALPRAZolam [Xanax] 1 mg PO TID 03/01/18 01/28/19 Benztropine [Cogentin] 0.5 mg PO DAILY 03/01/18 01/28/19 DULoxetine [Cymbalta] 60 mg PO DAILY 03/01/18 01/28/19 QUEtiapine [Seroquel] 100 mg PO DAILY 03/01/18 01/28/19 Buprenorphine Hydrochloride 2 mg PO QID 01/28/19 01/28/19 [Subutex] Review of Systems - Physician Review All systems were reviewed & negative as marked: Yes - Review of Systems Respiratory: Normal Cardiovascular: Normal Gastrointestinal: Abdominal Pain Genitourinary Male: Normal <Jenae Guillaume - Last Filed: 01/28/19 19:52> Physical Exam Vital Signs Reviewed: Yes Vital Signs Temp Pulse Resp BP Pulse Ox 01/28/19 17:51 110 H 18 139/65 96 01/28/19 15:51 97.8 F 97 H 18 137/87 98 Temperature: Afebrile Blood Pressure: Normal Pulse: Regular Respiratory Rate: Normal Appearance: Positive for: Unkept Pain Distress: None Mental Status: Positive for: Alert and Oriented X 3 Finger Stick Blood Glucose: 110 - Systems Exam Head: Present: Atraumatic, Normocephalic Pupils: Present: PERRL Extroacular Muscles: Present: EOMI Conjunctiva: Present: Normal Mouth: Present: Moist Mucous Membranes Respiratory/Chest: Present: Clear to Auscultation, Good Air Exchange. No: Respiratory Distress, Accessory Muscle Use Cardiovascular: Present: Regular Rate and Rhythm, Normal S1, S2 Abdomen: Present: Normal Bowel Sounds. No: Tenderness, Distention, Rebound, Guarding Lower Extremity: Present: Normal Inspection. No: Edema Neurological: Present: GCS=15, CN II-XII Intact, Other (Resting tremor ) Skin: Present: Warm, Dry, Normal Color Psychiatric: Present: Alert. No: Oriented x 3, Normal Insight, Normal Concentration <Jenae Guillaume - Last Filed: 01/28/19 19:52> Vital Signs Temp Pulse Resp BP Pulse Ox 01/28/19 17:51 110 H 18 139/65 96 01/28/19 15:51 97.8 F 97 H 18 137/87 98 <Vinny Lagunas - Last Filed: 01/28/19 20:53> Medical Decision Making ED Course and Treatment: 01/28/19 19:14 Impression: 63 year old male presenting with altered mental status Plan: - CBC, CMP - CT head - EKG - Reassess and disposition Prior Visits: Notes and results from previous visits were reviewed. Progress Notes: 01/28/19 17:30 Hyperkalemia noted. Calcium gluconate, Dextrose, Insulin, Bicarbonate, IVF administered. CXR IMPRESSION: No active disease. No significant interval change compared to the prior examination(s). Labs and imaging reviewed. Case discussed with Dr. Dunn and Dr. Cervantes who accept patient for admission to ICU. Patient transferred to ICU. - Lab Interpretations Lab Results: pO2 26 mm/Hg (30-55) L 01/28/19 17:00 VBG pH 7.12 (7.32-7.43) L* 01/28/19 17:00 VBG pCO2 38.0 (40-60) L 01/28/19 17:00 VBG HCO3 12.4 mmol/l (21-28) L 01/28/19 17:00 VBG Total CO2 13.6 mmol.L (22-28) L 01/28/19 17:00 VBG O2 Sat (Calc) 50.5 % (40-65) 01/28/19 17:00 VBG Base Excess -16.2 mmol/L (0.0-2.0) L 01/28/19 17:00 VBG Potassium 8.0 mmol/L (3.6-5.2) H* 01/28/19 17:00 Sodium 131.0 mmol/L (132-148) L 01/28/19 17:00 Chloride 103.0 mmol/L (98-107) 01/28/19 17:00 Glucose 87 mg/dl (75-110) 01/28/19 17:00 Lactate 0.6 mmol/L (0.7-2.1) L 01/28/19 17:00 FiO2 21.0 % 01/28/19 17:00 Crit Value Called To Belia lopez 01/28/19 17:00 Crit Value Called By Ec 01/28/19 17:00 Blood Gas Notified Time 1704 01/28/19 17:00 PT 12.5 SECONDS (9.4-12.5) 01/28/19 16:50 INR 1.13 01/28/19 16:50 APTT 34.1 Seconds (26.9-38.3) 01/28/19 16:50 Troponin I < 0.01 ng/mL 01/28/19 16:50 Total Bilirubin 0.7 mg/dL (0.2-1.3) 01/28/19 16:50 AST 23 U/L (17-59) 01/28/19 16:50 ALT 12 U/L (7-56) 01/28/19 16:50 Alkaline Phosphatase 66 U/L (38-126) 01/28/19 16:50 Total Protein 7.3 g/dL (5.8-8.3) 01/28/19 16:50 Albumin 4.1 g/dL (3.0-4.8) 01/28/19 16:50 Globulin 3.1 gm/dL 01/28/19 16:50 Albumin/Globulin Ratio 1.3 (1.1-1.8) 01/28/19 16:50 Lipase 16 U/L (23-300) L 01/28/19 16:50 Urine Color Yellow (YELLOW) 01/28/19 18:11 Urine Appearance Sl cloudy (CLEAR) 01/28/19 18:11 Urine pH 6.0 (4.7-8.0) 01/28/19 18:11 Ur Specific [place] 1.020 (1.005-1.035) 01/28/19 18:11 Urine Protein Negative mg/dL (<30 mg/dL) 01/28/19 18:11 Urine Glucose (UA) Negative mg/dL (NEGATIVE) 01/28/19 18:11 Urine Ketones Negative mg/dL (NEGATIVE) 01/28/19 18:11 Urine Blood Negative (NEGATIVE) 01/28/19 18:11 Urine Nitrate Negative (NEGATIVE) 01/28/19 18:11 Urine Bilirubin Negative (NEGATIVE) 01/28/19 18:11 Urine Urobilinogen 0.2 E.U./dL (<1 E.U./dL) 01/28/19 18:11 Ur Leukocyte Esterase Small Parveen/uL (NEGATIVE) H 01/28/19 18:11 Urine RBC None /hpf (0-2) 01/28/19 18:11 Urine WBC 0 - 2 /hpf (0-6) 01/28/19 18:11 I have reviewed the lab results: Yes - RAD Interpretation Radiology Orders: 01/28/19 16:25 CHEST PORTABLE [RAD] Stat 01/28/19 17:06 HEAD W/O CONTRAST [CT] Stat 01/28/19 17:24 ABD & PELVIS W/O PO OR IV CONT [CT] Stat - EKG Interpretation EKG Interpretation (Text): 01/28/19 19:41 Sinus rhythm with 1st degree AV block Interpreted by ED Physician: Yes Type: 12 lead EKG - Medication Orders Current Medication Orders: Discontinued Medications Calcium Gluconate (Calcium Gluconate Iv) 1,000 mg IVP ONCE ONE Stop: 01/28/19 17:26 Last Admin: 01/28/19 17:42 Dose: 1,000 mg IVP Administration Document 01/28/19 17:42 MA (Rec: 01/28/19 17:42 MA [facility] [email or web address]) Charges for Administration # of IVP Administrations 1 Dextrose (Dextrose 50% Inj) 50 ml IVP STAT STA Stop: 01/28/19 17:26 Last Admin: 01/28/19 17:42 Dose: 50 ml IVP Administration Document 01/28/19 17:42 MA (Rec: 01/28/19 17:42 MA [facility] [id number]) Charges for Administration # of IVP Administrations 1 Sodium Chloride (Sodium Chloride 0.9%) 1,000 mls @ 999 mls/hr IV .Q1H1M STA Stop: 01/28/19 18:26 Last Admin: 01/28/19 17:48 Dose: 999 mls/hr eMAR Start Stop Document 01/28/19 17:48 MA (Rec: 01/28/19 17:49 MA [facility] [id number]) Intravenous Solution Start Date 01/28/19 Start Time 17:30 End Date 01/28/19 End time 18:30 Total Infusion Time 60 Insulin Human Regular (Humulin R) 5 units IV STAT STA Stop: 01/28/19 17:25 Last Admin: 01/28/19 17:41 Dose: 5 unit eMAR Start Stop Document 01/28/19 17:41 MA (Rec: 01/28/19 17:42 MA [email or web address]) Intravenous Solution Start Date 01/28/19 Start Time 17:41 MAR Blood Glucose Document 01/28/19 17:41 MA (Rec: 01/28/19 17:42 MA [facility] [id number]) Blood Glucose Finger Stick Blood Glucose (70-120) 110 Sodium Bicarbonate (Sodium Bicarbonate 8.4% (50 Meq) Syringe) 50 meq IVP STAT STA Stop: 01/28/19 17:26 Last Admin: 01/28/19 17:47 Dose: 50 meq IVP Administration Document 01/28/19 17:47 MA (Rec: 01/28/19 17:48 MA [id number]) Charges for Administration # of IVP Administrations 1 <Jenae Guillaume L - Last Filed: 01/28/19 19:52> ED Course and Treatment: In agreement with resident note, which includes further HPI details. Patient was seen and evaluated with resident, came up with plan and treatment together. 63 year old male presents with AMS as per . Plan: -- Abd & Pelvis w/o contrast -- Head CT -- Labs -- Calcium Gluconate, Dextrose 50% Inj, HumuLIN R, Sodium Bicarbinate, IV Fluids -- reassess and dispo 01/28/19 20:51 pt seenw tih resent / ams with acidemia hyper k needs emregent hd accepted dr pugh. plan to hd. dr becerra and dr avinash gonzalez. - Lab Interpretations Lab Results: pO2 26 mm/Hg (30-55) L 01/28/19 17:00 VBG pH 7.12 (7.32-7.43) L* 01/28/19 17:00 VBG pCO2 38.0 (40-60) L 01/28/19 17:00 VBG HCO3 12.4 mmol/l (21-28) L 01/28/19 17:00 VBG Total CO2 13.6 mmol.L (22-28) L 01/28/19 17:00 VBG O2 Sat (Calc) 50.5 % (40-65) 01/28/19 17:00 VBG Base Excess -16.2 mmol/L (0.0-2.0) L 01/28/19 17:00 VBG Potassium 8.0 mmol/L (3.6-5.2) H* 01/28/19 17:00 Sodium 131.0 mmol/L (132-148) L 01/28/19 17:00 Chloride 103.0 mmol/L (98-107) 01/28/19 17:00 Glucose 87 mg/dl (75-110) 01/28/19 17:00 Lactate 0.6 mmol/L (0.7-2.1) L 01/28/19 17:00 FiO2 21.0 % 01/28/19 17:00 Crit Value Called To Belia lopez 01/28/19 17:00 Crit Value Called By Ec 01/28/19 17:00 Blood Gas Notified Time 1704 01/28/19 17:00 PT 12.5 SECONDS (9.4-12.5) 01/28/19 16:50 INR 1.13 01/28/19 16:50 APTT 34.1 Seconds (26.9-38.3) 01/28/19 16:50 Troponin I < 0.01 ng/mL 01/28/19 16:50 Total Bilirubin 0.7 mg/dL (0.2-1.3) 01/28/19 16:50 AST 23 U/L (17-59) 01/28/19 16:50 ALT 12 U/L (7-56) 01/28/19 16:50 Alkaline Phosphatase 66 U/L (38-126) 01/28/19 16:50 Total Protein 7.3 g/dL (5.8-8.3) 01/28/19 16:50 Albumin 4.1 g/dL (3.0-4.8) 01/28/19 16:50 Globulin 3.1 gm/dL 01/28/19 16:50 Albumin/Globulin Ratio 1.3 (1.1-1.8) 01/28/19 16:50 Lipase 16 U/L (23-300) L 01/28/19 16:50 Urine Color Yellow (YELLOW) 01/28/19 18:11 Urine Appearance Sl cloudy (CLEAR) 01/28/19 18:11 Urine pH 6.0 (4.7-8.0) 01/28/19 18:11 Ur Specific [place] 1.020 (1.005-1.035) 01/28/19 18:11 Urine Protein Negative mg/dL (<30 mg/dL) 01/28/19 18:11 Urine Glucose (UA) Negative mg/dL (NEGATIVE) 01/28/19 18:11 Urine Ketones Negative mg/dL (NEGATIVE) 01/28/19 18:11 Urine Blood Negative (NEGATIVE) 01/28/19 18:11 Urine Nitrate Negative (NEGATIVE) 01/28/19 18:11 Urine Bilirubin Negative (NEGATIVE) 01/28/19 18:11 Urine Urobilinogen 0.2 E.U./dL (<1 E.U./dL) 01/28/19 18:11 Ur Leukocyte Esterase Small Parveen/uL (NEGATIVE) H 01/28/19 18:11 Urine RBC None /hpf (0-2) 01/28/19 18:11 Urine WBC 0 - 2 /hpf (0-6) 01/28/19 18:11 - RAD Interpretation Radiology Orders: 01/28/19 16:25 CHEST PORTABLE [RAD] Stat 01/28/19 17:06 HEAD W/O CONTRAST [CT] Stat 01/28/19 17:24 ABD & PELVIS W/O PO OR IV CONT [CT] Stat Thread Laster: Radiologist - Medication Orders Current Medication Orders: Dexmedetomidine HCl (Precedex 400mcg/100ml) 400 mcg in 100 mls @ 4.135 mls/hr IV .Q24H PRN; Protocol PRN Reason: Agitation Sodium Chloride (Sodium Chloride 0.9%) 1,000 mls @ 75 mls/hr IV .[id number] JAQUAN Discontinued Medications Calcium Gluconate (Calcium Gluconate Iv) 1,000 mg IVP ONCE ONE Stop: 01/28/19 17:26 Last Admin: 01/28/19 17:42 Dose: 1,000 mg IVP Administration Document 01/28/19 17:42 MA (Rec: 01/28/19 17:42 MA [email or web address]) Charges for Administration # of IVP Administrations 1 Dextrose (Dextrose 50% Inj) 50 ml IVP STAT STA Stop: 01/28/19 17:26 Last Admin: 01/28/19 17:42 Dose: 50 ml IVP Administration Document 01/28/19 17:42 MA (Rec: 01/28/19 17:42 MA [email or web address]) Charges for Administration # of IVP Administrations 1 Sodium Chloride (Sodium Chloride 0.9%) 1,000 mls @ 999 mls/hr IV .Q1H1M STA Stop: 01/28/19 18:26 Last Admin: 01/28/19 17:48 Dose: 999 mls/hr eMAR Start Stop Document 01/28/19 17:48 MA (Rec: 01/28/19 17:49 MA [email or web address]) Intravenous Solution Start Date 01/28/19 Start Time 17:30 End Date 01/28/19 End time 18:30 Total Infusion Time 60 Insulin Human Regular (Humulin R) 5 units IV STAT STA Stop: 01/28/19 17:25 Last Admin: 01/28/19 17:41 Dose: 5 unit eMAR Start Stop Document 01/28/19 17:41 MA (Rec: 01/28/19 17:42 [email or web address]) Intravenous Solution Start Date 01/28/19 Start Time 17:41 MAR Blood Glucose Document 01/28/19 17:41 MA (Rec: 01/28/19 17:42 [id number]) Blood Glucose Finger Stick Blood Glucose (70-120) 110 Sodium Bicarbonate (Sodium Bicarbonate 8.4% (50 Meq) Syringe) 50 meq IVP STAT STA Stop: 01/28/19 17:26 Last Admin: 01/28/19 17:47 Dose: 50 meq IVP Administration Document 01/28/19 17:47 MA (Rec: 04/30/19 17:48 [email or web address]) Charges for Administration # of IVP Administrations 1 <Vinny Lagunas - Last Filed: 01/28/19 20:53> - Scribe Statement The provider has reviewed the documentation as recorded by the Shelton Clancy Provider Scribe Attestation: All medical record entries made by the Scribe were at my direction and personally dictated by me. I have reviewed the chart and agree that the record accurately reflects my personal performance of the history, physical exam, medical decision making, and the department course for this patient. I have also personally directed, reviewed, and agree with the discharge instructions and disposition. <Vinny Lagunas - Last Filed: 01/28/19 20:53> Disposition/Present on Arrival - Present on Arrival Any Indicators Present on Arrival: No History of DVT/PE: No History of Uncontrolled Diabetes: No Urinary Catheter: No History of Decub. Ulcer: No History Surgical Site Infection Following: None - Disposition Have Diagnosis and Disposition been Completed?: Yes Disposition Time: 18:10 Patient Plan: ICU <Jenae Guillaume - Last Filed: 01/28/19 19:52> <Vinny Lagunas - Last Filed: 01/28/19 20:53> - Disposition Diagnosis: Acute renal failure, Altered mental status Disposition: HOSPITALIZED Patient Problems: Current Active Problems Problem Status Onset Acute renal failure Acute Altered mental status Acute Condition: CRITICAL
[2019-01-28 18:46] LABS: BARBITURATES, UR NEGATIVE (NEGATIVE); BENZODIAZEPINES, UR POSITIVE (NEGATIVE); OPIATES, UR NEGATIVE (NEGATIVE); PHENCYCLIDINE, UR NEGATIVE (NEGATIVE)
[2019-01-28] MEDS: Sodium Chloride 0.9% 1,000 ML IV SCH (20:12)
[2019-01-28] MEDS: Dexmedetomidine 400mcg/100mL 400 MCG/100 ML BOTTLE IV PRN (20:18)
--- NOTE | 2019-01-28 21:11 | CP.PCM.CON ---
History of Present Illness - History of Present Illness History of Present Illness: RENAL 63 yo M w psych disorder.Pt altered unable to give any history. Per the - he was altered for the last several days. He has been acting abnormal for the last few days. Apparently multiple bottles of medications were spilled all over the house including xanax , subutec, cogentin and seroquel. His states he has otherwise been sober for 8 years. ros: limited as pt unable to give any history - ros all per pmh: psychosis? meds: seroquel, xanax, cogentin famhx: no esrd sochx: hx of drug abuse in past reqportedly none now meds and all: as below pe: vs as below gen: nad sclera: anicteri op: poor dentition neck: supple cv: +S1+s2 no rub lungs: cta b/l abd: soft nt nd neuro: altered + agistation psych: agitated skin: no rash labs and imaging reviewed imp/plan: arf/ hyperkalemia/ acidosis/ anemia/altered mental status stat HD this evening reeval tomorrow agree w/ fluids appears hypovolemic acidosis and hyperk should improve check renal us consider poison control discussion - will defer to icu given ?? ingestion of home meds discussed w/ and ICU doc Past Patient History - Infectious Disease Hx of Infectious Diseases: None - Tetanus Immunizations Tetanus Immunization: Up to Date - Past Social History Smoking Status: Heavy Smoker > 10 Cigarettes Daily - CARDIAC Hx Hypertension: Yes - PULMONARY Hx Respiratory Disorders: No Hx Tuberculosis: No - NEUROLOGICAL Hx Neurological Disorder: No Other/Comment: TREMORS since young age - HEENT Hx HEENT Problems: No - RENAL Hx Chronic Kidney Disease: Yes Other/Comment: acute renal failure 2012 - ENDOCRINE/METABOLIC Hx Endocrine Disorders: No - HEMATOLOGICAL/ONCOLOGICAL Hx Blood Disorders: Yes (sepsis) - INTEGUMENTARY Hx Dermatological Problems: Yes Other/Comment: healed surgical scars abd, r hip - MUSCULOSKELETAL/RHEUMATOLOGICAL Hx Falls: Yes - GASTROINTESTINAL Hx Gastrointestinal Disorders: Yes Other/Comment: pt had a fall in 2010 and fx r hip admits to being intoxicated at the time, pt stated "they removed 6 to 8 feet of intestine, but I'm not sure why" wound up with colostomy which was reversed in 2011 - GENITOURINARY/GYNECOLOGICAL Hx Genitourinary Disorders: No - PSYCHIATRIC Hx Anxiety: Yes Hx Depression: Yes Hx Substance Use: No (Denies) Other/Comment: acute psychosis 2014, suicidal thoughts in the past none recently, quit smoking 1 ppd 7 days ago, quit heroin/cocaine use 2010, and alcohol reji vizcaino 2010, due to r hip fx - SURGICAL HISTORY Hx Joint Replacement: Yes (rt hip relacement) Other/Comment: excision left forehead cyst, pac removal 05/07/2012 - ANESTHESIA Hx Anesthesia: Yes Hx Anesthesia Reactions: No Hx Malignant Hyperthermia: No Meds Allergies/Adverse Reactions: Allergies Allergy/AdvReac Type Severity Reaction Status Date / Time No Known Allergies Allergy Verified 03/01/18 12:14 - Medications Medications: Current Medications Dexmedetomidine HCl (Precedex 400mcg/100ml) 400 mcg in 100 mls @ 4.135 mls/hr IV .Q24H PRN; Protocol PRN Reason: Agitation Last Admin: 01/28/19 20:18 Dose: 0.2 mcg/kg/hr, 4.135 mls/hr Sodium Chloride (Sodium Chloride 0.9%) 1,000 mls @ 75 mls/hr IV .[id number] JAQUAN Last Admin: 01/28/19 20:12 Dose: 75 mls/hr Results - Vital Signs Recent Vital Signs: Last Vital Signs Temp 97.8 F 01/28/19 15:51 Pulse 110 H 01/28/19 17:51 Resp 18 01/28/19 17:51 BP 139/65 01/28/19 17:51 Pulse Ox 96 01/28/19 17:51 - Labs Result Diagrams: 01/28/19 16:50 01/28/19 16:50 Labs: Laboratory Results - last 24 hr 01/28/19 01/28/19 01/28/19 15:55 16:50 16:50 WBC 7.6 RBC 3.57 Hgb 10.9 L Hct 31.9 L MCV 89.4 MCH 30.5 MCHC 34.2 RDW 13.1 Plt Count 420 MPV 8.7 Neut % (Auto) 82.2 H Lymph % (Auto) 11.1 L [place] % (Auto) 6.3 H Eos % (Auto) 0.1 L Baso % (Auto) 0.3 Lymph # (Auto) 0.9 L [place] # (Auto) 0.5 Eos # (Auto) 0.0 Baso # (Auto) 0.02 Absolute Neuts (auto) 6.27 PT INR APTT pO2 VBG pH VBG pCO2 VBG HCO3 VBG Total CO2 VBG O2 Sat (Calc) VBG Base Excess VBG Potassium Glucose Lactate FiO2 Crit Value Called To Crit Value Called By Blood Gas Notified Time Sodium 137 Potassium 8.0 H* D Chloride 104 Carbon Dioxide 11 L Anion Gap 29 H BUN 121 H* Creatinine 19.2 H* D Est GFR ( Amer) 3 Est GFR (Non-Af Amer) 2 POC Glucose (mg/dL) 110 Random Glucose 86 Calcium 9.2 Magnesium 2.1 Total Bilirubin 0.7 AST 23 ALT 12 Alkaline Phosphatase 66 Lactate Dehydrogenase 341 Total Creatine Kinase 44 Troponin I < 0.01 Total Protein 7.3 Albumin 4.1 Globulin 3.1 Albumin/Globulin Ratio 1.3 Lipase 16 L Venous Blood Potassium Urine Color Urine Appearance Urine pH Ur Specific [place] Urine Protein Urine Glucose (UA) Urine Ketones Urine Blood Urine Nitrate Urine Bilirubin Urine Urobilinogen Ur Leukocyte Esterase Urine RBC Urine WBC Salicylates Urine Opiates Screen Urine Methadone Screen Acetaminophen Ur Barbiturates Screen Ur Phencyclidine Scrn Ur Amphetamines Screen U Benzodiazepines Scrn U Oth Cocaine Metabols U Cannabinoids Screen Alcohol, Quantitative 01/28/19 01/28/19 01/28/19 16:50 16:50 16:50 WBC RBC Hgb Hct MCV MCH MCHC RDW Plt Count MPV Neut % (Auto) Lymph % (Auto) [place] % (Auto) Eos % (Auto) Baso % (Auto) Lymph # (Auto) [place] # (Auto) Eos # (Auto) Baso # (Auto) Absolute Neuts (auto) PT 12.5 INR 1.13 APTT 34.1 pO2 VBG pH VBG pCO2 VBG HCO3 VBG Total CO2 VBG O2 Sat (Calc) VBG Base Excess VBG Potassium Glucose Lactate FiO2 Crit Value Called To Crit Value Called By Blood Gas Notified Time Sodium Potassium Chloride Carbon Dioxide Anion Gap BUN Creatinine Est GFR ( Amer) Est GFR (Non-Af Amer) POC Glucose (mg/dL) Random Glucose Calcium Magnesium Total Bilirubin AST ALT Alkaline Phosphatase Lactate Dehydrogenase Total Creatine Kinase Troponin I Total Protein Albumin Globulin Albumin/Globulin Ratio Lipase Venous Blood Potassium Urine Color Urine Appearance Urine pH Ur Specific [place] Urine Protein Urine Glucose (UA) Urine Ketones Urine Blood Urine Nitrate Urine Bilirubin Urine Urobilinogen Ur Leukocyte Esterase Urine RBC Urine WBC Salicylates < 1 L Urine Opiates Screen Urine Methadone Screen Acetaminophen < 10.0 L Ur Barbiturates Screen Ur Phencyclidine Scrn Ur Amphetamines Screen U Benzodiazepines Scrn U Oth Cocaine Metabols U Cannabinoids Screen Alcohol, Quantitative < 10 01/28/19 01/28/19 01/28/19 17:00 18:11 18:11 WBC RBC Hgb Hct MCV MCH MCHC RDW Plt Count MPV Neut % (Auto) Lymph % (Auto) [place] % (Auto) Eos % (Auto) Baso % (Auto) Lymph # (Auto) [place] # (Auto) Eos # (Auto) Baso # (Auto) Absolute Neuts (auto) PT INR APTT pO2 26 L VBG pH 7.12 L* VBG pCO2 38.0 L VBG HCO3 12.4 L VBG Total CO2 13.6 L VBG O2 Sat (Calc) 50.5 VBG Base Excess -16.2 L VBG Potassium 8.0 H* Glucose 87 Lactate 0.6 L FiO2 21.0 Crit Value Called To Rn jessica Crit Value Called By Ec Blood Gas Notified Time 1704 Sodium 131.0 L Potassium Chloride 103.0 Carbon Dioxide Anion Gap BUN Creatinine Est GFR ( Amer) Est GFR (Non-Af Amer) POC Glucose (mg/dL) Random Glucose Calcium Magnesium Total Bilirubin AST ALT Alkaline Phosphatase Lactate Dehydrogenase Total Creatine Kinase Troponin I Total Protein Albumin Globulin Albumin/Globulin Ratio Lipase Venous Blood Potassium 8.0 H* Urine Color Yellow Urine Appearance Sl cloudy Urine pH 6.0 Ur Specific [place] 1.020 Urine Protein Negative Urine Glucose (UA) Negative Urine Ketones Negative Urine Blood Negative Urine Nitrate Negative Urine Bilirubin Negative Urine Urobilinogen 0.2 Ur Leukocyte Esterase Small H Urine RBC None Urine WBC 0 - 2 Salicylates Urine Opiates Screen Negative Urine Methadone Screen Negative Acetaminophen Ur Barbiturates Screen Negative Ur Phencyclidine Scrn Negative Ur Amphetamines Screen Negative U Benzodiazepines Scrn Positive H U Oth Cocaine Metabols Negative U Cannabinoids Screen Negative Alcohol, Quantitative
--- NOTE | 2019-01-28 21:12 | CP.PCM.PN ---
Subjective - Date & Time of Evaluation Date of Evaluation: 01/28/19 Time of Evaluation: 21:11 - Subjective Subjective: DIalysis Note seen on HD 1k x 1 hour 2k x 2nd hour no uf bfr 250 Objective - Vital Signs/Intake and Output Vital Signs (last 24 hours): Temp Pulse Resp BP Pulse Ox 97.8 F 110 H 18 139/65 96 01/28/19 15:51 01/28/19 17:51 01/28/19 17:51 01/28/19 17:51 01/28/19 17:51 Intake and Output: 01/28/19 01/29/19 18:59 06:59 Intake Total 1000 Balance 1000 - Medications Medications: Current Medications Dexmedetomidine HCl (Precedex 400mcg/100ml) 400 mcg in 100 mls @ 4.135 mls/hr IV .Q24H PRN; Protocol PRN Reason: Agitation Last Admin: 01/28/19 20:18 Dose: 0.2 mcg/kg/hr, 4.135 mls/hr Sodium Chloride (Sodium Chloride 0.9%) 1,000 mls @ 75 mls/hr IV .[id number] JAQUAN Last Admin: 01/28/19 20:12 Dose: 75 mls/hr - Labs Labs: 01/28/19 16:50 01/28/19 16:50 PT 12.5 SECONDS (9.4-12.5) 01/28/19 16:50 INR 1.13 01/28/19 16:50 APTT 34.1 Seconds (26.9-38.3) 01/28/19 16:50
--- NOTE | 2019-01-28 21:41 | CARD ---
APPROVED REPORT Date of service: 01/28/2019 EKG Measurement Heart [id number] <Conclusion> Sinus rhythm with 1st degree AV block Right superior axis deviation Possible Right ventricular hypertrophy Abnormal ECG
[2019-01-28 22:57] VITALS: BMI 23.7
--- NOTE | 2019-01-29 00:11 | CP.PCM.CON ---
<Robert Wellington - Last Filed: 01/28/19 23:39> History of Present Illness - History of Present Illness History of Present Illness: ICU Consultation (Dr. Murphy) CC: ARF/AMS HPI: Mr. Campos is a 63 year old male with a past medical history significant for COPD, HTN, anxiety, depression, and unspecified tremors "since childhood" who was brought in by ambulance for AMS. Patient is awake, alert and oriented to place and self. However, patient is uncooperative/unable to complete further HPI and ROS questioning at this time. All HPI was obtained after calling patients . She reports that patient has been intermittently disoriented for the past several weeks. According to patients , patient has intermittent disorientation at baseline, citing that he often will forget or misplace items such as his keys, but that this usually resolves with verbal reorientation. However, she has noticed that this disorientation has become more frequent and severe over the course of the past several weeks. Earlier today patient was noted to be sitting on his living room floor with his dog and several of his pill bottles with him. Patients left the room momentarily and returned to find only empty pill bottles and the dogs collar on the floor. Patient was found just outside of his apartment in the hallway taking off all of his clothes and acting inappropriately. Patients decided that he needed further evaluation and called an ambulance. According to patients , patient had approximately one weeks worth of each medication based on the refill dates on the bottles. However, patients has found multiple pills scattered about the apartment and isn't sure if patient actually took the medications or if the bottles were already empty. Outside of the symptoms mentioned above, patients denied any other complaints made by the patient. Further HPI/ROS limited at this time due to patients mental status. PMH: As stated above PSH: Left forehead cyst removal, right hip fracture repair, partial colectomy with colostomy and subsequent reversal Family History: Unknown Social History: Previous heroin, cocaine, alcohol and tobacco abuse noted per chart review but patients reports that the patient has not used any of these substances in eight years Allergies: NKDA Home Medications: Reviewed; As per NOV PMD: Dr. Dunn Outpatient Psychiatrist: Dr. Romeo Review of Systems - Review of Systems Systems not reviewed;Unavailable: Altered Mental Status Past Patient History - Infectious Disease Hx of Infectious Diseases: None - Tetanus Immunizations Tetanus Immunization: Up to Date - Past Social History Smoking Status: Heavy Smoker > 10 Cigarettes Daily - CARDIAC Hx Hypertension: Yes - PULMONARY Hx Respiratory Disorders: No Hx Tuberculosis: No - NEUROLOGICAL Hx Neurological Disorder: No Other/Comment: TREMORS since young age - HEENT Hx HEENT Problems: No - RENAL Hx Chronic Kidney Disease: Yes Other/Comment: acute renal failure 2011 - ENDOCRINE/METABOLIC Hx Endocrine Disorders: No - HEMATOLOGICAL/ONCOLOGICAL Hx Blood Disorders: Yes (sepsis) - INTEGUMENTARY Hx Dermatological Problems: Yes Other/Comment: healed surgical scars abd, r hip - MUSCULOSKELETAL/RHEUMATOLOGICAL Hx Falls: Yes - GASTROINTESTINAL Hx Gastrointestinal Disorders: Yes Other/Comment: pt had a fall in 2010 and fx r hip admits to being intoxicated at the time, pt stated "they removed 6 to 8 feet of intestine, but I'm not sure why" wound up with colostomy which was reversed in 2011 - GENITOURINARY/GYNECOLOGICAL Hx Genitourinary Disorders: No - PSYCHIATRIC Hx Anxiety: Yes Hx Depression: Yes Hx Substance Use: No (Denies) Other/Comment: acute psychosis 2014, suicidal thoughts in the past none rece ntly, quit smoking 1 ppd 7 days ago, quit heroin/cocaine use 2010, and alcohol reji vizcaino 2010, due to r hip fx - SURGICAL HISTORY Hx Joint Replacement: Yes (rt hip relacement) Other/Comment: excision left forehead cyst, pac removal 05/07/2012 - ANESTHESIA Hx Anesthesia: Yes Hx Anesthesia Reactions: No Hx Malignant Hyperthermia: No Meds Allergies/Adverse Reactions: Allergies Allergy/AdvReac Type Severity Reaction Status Date / Time No Known Allergies Allergy Verified 03/01/18 12:14 - Medications Medications: Current Medications Dexmedetomidine HCl (Precedex 400mcg/100ml) 400 mcg in 100 mls @ 4.135 mls/hr IV .Q24H PRN; Protocol PRN Reason: Agitation Last Titration: 01/28/19 22:10 Dose: 0.4 mcg/kg/hr, 8.269 mls/hr Sodium Chloride (Sodium Chloride 0.9%) 1,000 mls @ 75 mls/hr IV .[id number] JAQUAN Last Admin: 01/28/19 20:12 Dose: 75 mls/hr Physical Exam - Constitutional Appears: Agitated, Confused, Chronically Ill - Eye Exam Eye Exam: EOMI, PERRL. absent: Scleral icterus - ENT Exam ENT Exam: Mucous Membranes Dry - Respiratory Exam Respiratory Exam: Clear to Auscultation Bilateral, NORMAL BREATHING PATTERN. absent: Rales, Rhonchi, Wheezes - Cardiovascular Exam Cardiovascular Exam: Tachycardia, +S1, +S2 - GI/Abdominal Exam GI & Abdominal Exam: Normal Bowel Sounds, Soft. absent: Tenderness - Extremities Exam Extremities exam: Positive for: pedal pulses present. Negative for: calf tenderness - Neurological Exam Neurological exam: Altered, CN II-XII Intact - Psychiatric Exam Psychiatric exam: Agitated - Skin Skin Exam: Dry, Warm Results - Vital Signs Recent Vital Signs: Last Vital Signs Temp 97.8 F 01/28/19 15:51 Pulse 110 H 01/28/19 17:51 Resp 16 01/28/19 20:23 BP 139/65 01/28/19 17:51 Pulse Ox 96 01/28/19 17:51 - Labs Result Diagrams: 01/28/19 16:50 01/28/19 16:50 Labs: Laboratory Results - last 24 hr 01/28/19 01/28/19 01/28/19 15:55 16:50 16:50 WBC 7.6 RBC 3.57 Hgb 10.9 L Hct 31.9 L MCV 89.4 MCH 30.5 MCHC 34.2 RDW 13.1 Plt Count 420 MPV 8.7 Neut % (Auto) 82.2 H Lymph % (Auto) 11.1 L [place] % (Auto) 6.3 H Eos % (Auto) 0.1 L Baso % (Auto) 0.3 Lymph # (Auto) 0.9 L [place] # (Auto) 0.5 Eos # (Auto) 0.0 Baso # (Auto) 0.02 Absolute Neuts (auto) 6.27 PT INR APTT pO2 VBG pH VBG pCO2 VBG HCO3 VBG Total CO2 VBG O2 Sat (Calc) VBG Base Excess VBG Potassium Glucose Lactate FiO2 Crit Value Called To Crit Value Called By Blood Gas Notified Time Sodium 137 Potassium 8.0 H* D Chloride 104 Carbon Dioxide 11 L Anion Gap 29 H BUN 121 H* Creatinine 19.2 H* D Est GFR ( Amer) 3 Est GFR (Non-Af Amer) 2 POC Glucose (mg/dL) 110 Random Glucose 86 Calcium 9.2 Magnesium 2.1 Total Bilirubin 0.7 AST 23 ALT 12 Alkaline Phosphatase 66 Lactate Dehydrogenase 341 Total Creatine Kinase 44 Troponin I < 0.01 Total Protein 7.3 Albumin 4.1 Globulin 3.1 Albumin/Globulin Ratio 1.3 Lipase 16 L Venous Blood Potassium Urine Color Urine Appearance Urine pH Ur Specific [place] Urine Protein Urine Glucose (UA) Urine Ketones Urine Blood Urine Nitrate Urine Bilirubin Urine Urobilinogen Ur Leukocyte Esterase Urine RBC Urine WBC Salicylates Urine Opiates Screen Urine Methadone Screen Acetaminophen Ur Barbiturates Screen Ur Phencyclidine Scrn Ur Amphetamines Screen U Benzodiazepines Scrn U Oth Cocaine Metabols U Cannabinoids Screen Alcohol, Quantitative 01/28/19 01/28/19 01/28/19 16:50 16:50 16:50 WBC RBC Hgb Hct MCV MCH MCHC RDW Plt Count MPV Neut % (Auto) Lymph % (Auto) [place] % (Auto) Eos % (Auto) Baso % (Auto) Lymph # (Auto) [place] # (Auto) Eos # (Auto) Baso # (Auto) Absolute Neuts (auto) PT 12.5 INR 1.13 APTT 34.1 pO2 VBG pH VBG pCO2 VBG HCO3 VBG Total CO2 VBG O2 Sat (Calc) VBG Base Excess VBG Potassium Glucose Lactate FiO2 Crit Value Called To Crit Value Called By Blood Gas Notified Time Sodium Potassium Chloride Carbon Dioxide Anion Gap BUN Creatinine Est GFR ( Amer) Est GFR (Non-Af Amer) POC Glucose (mg/dL) Random Glucose Calcium Magnesium Total Bilirubin AST ALT Alkaline Phosphatase Lactate Dehydrogenase Total Creatine Kinase Troponin I Total Protein Albumin Globulin Albumin/Globulin Ratio Lipase Venous Blood Potassium Urine Color Urine Appearance Urine pH Ur Specific [place] Urine Protein Urine Glucose (UA) Urine Ketones Urine Blood Urine Nitrate Urine Bilirubin Urine Urobilinogen Ur Leukocyte Esterase Urine RBC Urine WBC Salicylates < 1 L Urine Opiates Screen Urine Methadone Screen Acetaminophen < 10.0 L Ur Barbiturates Screen Ur Phencyclidine Scrn Ur Amphetamines Screen U Benzodiazepines Scrn U Oth Cocaine Metabols U Cannabinoids Screen Alcohol, Quantitative < 10 01/28/19 01/28/19 01/28/19 17:00 18:11 18:11 WBC RBC Hgb Hct MCV MCH MCHC RDW Plt Count MPV Neut % (Auto) Lymph % (Auto) [place] % (Auto) Eos % (Auto) Baso % (Auto) Lymph # (Auto) [place] # (Auto) Eos # (Auto) Baso # (Auto) Absolute Neuts (auto) PT INR APTT pO2 26 L VBG pH 7.12 L* VBG pCO2 38.0 L VBG HCO3 12.4 L VBG Total CO2 13.6 L VBG O2 Sat (Calc) 50.5 VBG Base Excess -16.2 L VBG Potassium 8.0 H* Glucose 87 Lactate 0.6 L FiO2 21.0 Crit Value Called To Rn jessica Crit Value Called By Ec Blood Gas Notified Time 1704 Sodium 131.0 L Potassium Chloride 103.0 Carbon Dioxide Anion Gap BUN Creatinine Est GFR ( Amer) Est GFR (Non-Af Amer) POC Glucose (mg/dL) Random Glucose Calcium Magnesium Total Bilirubin AST ALT Alkaline Phosphatase Lactate Dehydrogenase Total Creatine Kinase Troponin I Total Protein Albumin Globulin Albumin/Globulin Ratio Lipase Venous Blood Potassium 8.0 H* Urine Color Yellow Urine Appearance Sl cloudy Urine pH 6.0 Ur Specific [place] 1.020 Urine Protein Negative Urine Glucose (UA) Negative Urine Ketones Negative Urine Blood Negative Urine Nitrate Negative Urine Bilirubin Negative Urine Urobilinogen 0.2 Ur Leukocyte Esterase Small H Urine RBC None Urine WBC 0 - 2 Salicylates Urine Opiates Screen Negative Urine Methadone Screen Negative Acetaminophen Ur Barbiturates Screen Negative Ur Phencyclidine Scrn Negative Ur Amphetamines Screen Negative U Benzodiazepines Scrn Positive H U Oth Cocaine Metabols Negative U Cannabinoids Screen Negative Alcohol, Quantitative Assessment & Plan - Assessment and Plan (Free Text) Assessment: 63 year old male with a past medical history significant for COPD, HTN, anxiety, depression, and unspecified tremors "since childhood" who was brought in by ambulance for AMS. Upon arrival, patient was found to be in acute renal failure with subsequent hyperkalemia, uremia, and acidosis. Patient had right IJ Trialysis catheter placed and had subsequent emergent HD in the ICU. Patient is now on ambient air and sedated on Precedex. Plan: 1. Altered Mental Status 2. Acute Renal Failure 3. Hyperkalemia 4. Uremia 5. Anemia -s/p emergent HD with no UF; Further Nephrology recommendations appreciated -Will continue to trend electrolytes with BMP s/p HD; s/p Calcium Gluconate, one amp of bicarb, and D5 with insulin in ED for hyperkalemia -Normal Saline at 75mls/hr -Continue Precedex as ordered -Renal US, CT Head and CT Abdomen/Pelvis pending -Workup of acute renal failure as ordered -Workup of anemia as ordered -Monitor in MICU -Further recommendations as per Dr. Murphy Patient seen and case discussed with attending, Dr. Murphy. Robert Wellington PGY2 - Date & Time Date: 01/29/19 Time: 00:10 <Lorraine Murphy - Last Filed: 01/30/19 06:17> Meds - Medications Medications: Current Medications Cyanocobalamin (Vitamin B12 1000 Mcg Tab) 1,000 mcg PO DAILY [facility] Heparin Sodium (Porcine) (Heparin) 5,000 units SC Q8 JAQUAN; Protocol Sodium Chloride (Sodium Chloride 0.9%) 1,000 mls @ 75 mls/hr IV .[id number] [facility] Last Admin: 01/29/19 22:04 Dose: 75 mls/hr Pantoprazole Sodium (Protonix Inj) 40 mg IVP DAILY [facility] Last Admin: 01/29/19 09:20 Dose: 40 mg Results - Vital Signs Recent Vital Signs: Last Vital Signs Temp 98.8 F 01/29/19 16:00 Pulse 93 H 01/30/19 01:00 Resp 18 01/30/19 01:00 BP 136/73 01/30/19 01:00 Pulse Ox 95 01/30/19 01:00 - Labs Result Diagrams: 01/30/19 05:15 01/29/19 05:01 Labs: Laboratory Results - last 24 hr 01/29/19 01/29/19 01/29/19 05:01 05:01 05:01 WBC RBC Hgb Hct MCV MCH MCHC RDW Plt Count MPV Neut % (Auto) Lymph % (Auto) [place] % (Auto) Eos % (Auto) Baso % (Auto) Lymph # (Auto) [place] # (Auto) Eos # (Auto) Baso # (Auto) Absolute Neuts (auto) Differential Comment Sodium 140 Potassium 4.5 Chloride 103 Carbon Dioxide 22 Anion Gap 19 BUN 79 H Creatinine 12.3 H* Est GFR ( Amer) 5 Est GFR (Non-Af Amer) 4 Random Glucose 82 Calcium 8.7 Phosphorus 8.3 H Magnesium 1.9 Iron TIBC % Saturation Ferritin 183.0 Total Bilirubin 0.6 AST 23 ALT 10 Alkaline Phosphatase 61 Troponin I < 0.01 NT-Pro-B Natriuret Pep 1260 H Total Protein 6.5 Albumin 3.6 Globulin 2.8 Albumin/Globulin Ratio 1.3 Triglycerides 82 Cholesterol 70 L LDL Cholesterol Direct 38 HDL Cholesterol 24 L Vitamin B12 < 159 L Folate 18.2 TSH 3rd Generation Complement C3 Complement C4 Hep Bs Antigen Negative Hep Bs Antibody Negative Hep B Core Total Ab Non reactive Hep B Core IgM Ab Negative 01/29/19 01/29/19 01/29/19 05:01 05:01 05:01 WBC 5.6 D RBC 3.28 L Hgb 9.9 L Hct 29.1 L MCV 88.7 MCH 30.2 MCHC 34.0 RDW 13.1 Plt Count 355 MPV 8.8 Neut % (Auto) 71.2 H Lymph % (Auto) 19.1 L [place] % (Auto) 7.9 H Eos % (Auto) 1.6 Baso % (Auto) 0.2 Lymph # (Auto) 1.1 L [place] # (Auto) 0.4 Eos # (Auto) 0.1 Baso # (Auto) 0.01 Absolute Neuts (auto) 3.99 Differential Comment See pathology report Sodium Potassium Chloride Carbon Dioxide Anion Gap BUN Creatinine Est GFR ( Amer) Est GFR (Non-Af Amer) Random Glucose Calcium Phosphorus Magnesium Iron 130 TIBC 227 L % Saturation 58 H Ferritin Total Bilirubin AST ALT Alkaline Phosphatase Troponin I NT-Pro-B Natriuret Pep Total Protein Albumin Globulin Albumin/Globulin Ratio Triglycerides Cholesterol LDL Cholesterol Direct HDL Cholesterol Vitamin B12 Folate TSH 3rd Generation 2.42 Complement C3 105.0 Complement C4 37.0 Hep Bs Antigen Hep Bs Antibody Hep B Core Total Ab Hep B Core IgM Ab 01/30/19 05:15 WBC 6.3 RBC 3.06 L Hgb 9.3 L Hct 27.8 L MCV 90.8 MCH 30.4 MCHC 33.5 RDW 13.2 Plt Count 347 MPV 8.9 Neut % (Auto) 64.8 Lymph % (Auto) 24.3 [place] % (Auto) 8.1 H Eos % (Auto) 2.5 Baso % (Auto) 0.3 Lymph # (Auto) 1.5 [place] # (Auto) 0.5 Eos # (Auto) 0.2 Baso # (Auto) 0.02 Absolute Neuts (auto) 4.08 Differential Comment Sodium Potassium Chloride Carbon Dioxide Anion Gap BUN Creatinine Est GFR ( Amer) Est GFR (Non-Af Amer) Random Glucose Calcium Phosphorus Magnesium Iron TIBC % Saturation Ferritin Total Bilirubin AST ALT Alkaline Phosphatase Troponin I NT-Pro-B Natriuret Pep Total Protein Albumin Globulin Albumin/Globulin Ratio Triglycerides Cholesterol LDL Cholesterol Direct HDL Cholesterol Vitamin B12 Folate TSH 3rd Generation Complement C3 Complement C4 Hep Bs Antigen Hep Bs Antibody Hep B Core Total Ab Hep B Core IgM Ab Attending/Attestation - Attestation I have personally seen and examined this patient.: Yes I have fully participated in the care of the patient.: Yes I have reviewed all pertinent clinical information: Yes Notes (Text): 01/30/19 06:17 Seen and examined. Discussed with resident. Emergent HD to start tonight. Will start on Precedex gtt for severe agitation.
[2019-01-29 01:41] LABS: CALCIUM 8.6 mg/dL (8.4-10.5)
[2019-01-29] MEDS ORDERED: Dextrose 50% SYRINGE Inj (50 ml) IVP ONE (01:45)
--- NOTE | 2019-01-29 01:56 | HP ---
DATE OF EXAM: 01/28/2019 HISTORY OF PRESENT ILLNESS: I was called to the ER to see him. He is with altered mental status. He is not doing well. He is a 63-year-old white man who is shaky, tremors, but he has had tremors since a young age. Not doing well at all. He is being moved up to the Intensive Care Unit as we speak. PAST MEDICAL HISTORY: He is a 63-year-old white man in distress. Past medical history of hypertension, tremors since he was very young. He had acute renal failure one-time in the past in 2011. He has had sepsis before. He has abdomen scars and right hip scars. He had a fall in 2010, he had a fractured hip in the right side. He was intoxicated at that time. They took out 6 to 8 feet of intestine. He had a colostomy which was reversed in 2011. He has got anxiety, depression, acute psychosis, suicidal thoughts in the past. He quit smoking, also he quit heroin, cocaine, alcohol, checked the due to the right hip fracture and fall. He had a left forehead cyst in the past. SOCIAL HISTORY: He still smokes cigarettes. No alcohol. No drugs at this time. ALLERGIES: NO KNOWN DRUG ALLERGIES. CURRENT MEDICATIONS: He is on Xanax Cogentin, Cymbalta, Seroquel, and Subutex. REVIEW OF SYSTEMS: He is very tremulous, he is not sure what is going on. No chest pain. A little short of breath. No abdominal pain. Overall he is just very off for himself. PHYSICAL EXAMINATION VITAL SIGNS: He has a 97.8 temperature, 97 pulse to 110 pulse, 18 respiratory rate, 139/65 blood pressure, and 96% O2 sat. Blood sugar was 110. PH was 7.12, quite acidotic. HEENT: Head is atraumatic, normocephalic. Throat is dry. NECK: Supple. HEART: Regular rate, tachy. LUNGS: Decreased breath sounds, poor inspiration. ABDOMEN: Soft, nontender. Positive bowel sounds. EXTREMITIES: Shaky. No edema. SKIN: Poor turgor. LOCATION: He is being taken up to the Intensive Care Unit presently. LABORATORY DATA: He has a 7.6 white count, 10.9 hemoglobin, 31.9 hematocrit with 420 platelets. INR is 1.13. He has a 7.12 pH, very acidotic, the potassium was 8. Lactate is 0.6. He has a 137 sodium, potassium is 8, BUN 121, creatinine is 19.2. He is in acute renal failure. Random sugar is 86. Calcium is 9.2, magnesium 2.1, total bilirubin is 0.7. AST is 23, ALT is 12, alkaline phosphatase 66. Lactate dehydrogenase is 341. Total creatine kinase is 44. Troponin I is less than 0.01, total protein is 7.3. Albumin is 4.1, globulin 3.1. Urine is small. Toxicology is positive for benzodiazepines. Chest x-ray was no acute disease. ASSESSMENT AND PLAN: He will get a consult with Renal. He will be in the Intensive Care Unit. We will check his labs tomorrow. He might to have stat dialysis tonight. He is in acute renal failure. Ryne Dunn DO MTDD
[2019-01-29 06:24] LABS: BASO # 0.01 K/mm3 (0.0-2.0); BASO % 0.2 % (0.0-3.0); EOS # 0.1 (0.0-0.7); EOS % 1.6 % (1.5-5.0); HEMOGLOBIN 9.9 g/dL (14.0-18.0); LYMPH # 1.1 (1.2-3.4); LYMPH % 19.1 % (22.0-35.0); MEAN CELL VOLUME 88.7 fl (80.0-105.0); MEAN CORPUSCULAR HEMOGLOBIN 30.2 pg (25.0-35.0); MEAN PLATELET VOLUME 8.8 fl (7.0-11.0); MONO # 0.4 (0.1-0.6); MONO % 7.9 % (1.0-6.0); PLATELET COUNT 355 10^3/uL (120.0-450.0); RBC 3.28 10^6/uL (3.5-6.1); RED CELL DISTRIBUTION WIDTH 13.1 % (11.5-14.5); WHITE BLOOD COUNT 5.6 10^3/uL (4.5-11.0)
[2019-01-29] MEDS: Dexmedetomidine 400mcg/100mL 400 MCG/100 ML BOTTLE IV PRN (06:36)
[2019-01-29 06:37] LABS: IRON 130 ug/dL (45-180)
[2019-01-29 06:46] LABS: % IRON SATURATION 58 % (20-55); ALB/GLOB RATIO 1.3 (1.1-1.8); ALBUMIN 3.6 g/dL (3.0-4.8); ALT/SGPT 10 U/L (7-56); AST/SGOT 23 U/L (17-59); BLOOD UREA NITROGEN 79 mg/dL (7-21); CALCIUM 8.7 mg/dL (8.4-10.5); GFR NON-AFRICAN AMERICAN 4; HDL CHOLESTEROL 24 mg/dL (29-60); TOTAL IRON BINDING CAPACITY 227 ug/dL (261-462)
[2019-01-29 06:51] LABS: LDL CHOLESTEROL 38 mg/dL (0-129)
[2019-01-29 06:53] LABS: B-TYPE NATRIURETIC PEPTIDE 1260 pg/mL (0-450); TROPONIN I < 0.01 ng/mL
[2019-01-29] MEDS: Sodium Chloride 0.9% 1,000 ML IV SCH ×2 (09:19→22:04)
--- NOTE | 2019-01-29 09:34 | CT ---
Date of service: 01/29/2019 PROCEDURE: CT HEAD WITHOUT CONTRAST. HISTORY: ams COMPARISON: None available. TECHNIQUE: Axial computed tomography images were obtained through the head/brain without intravenous contrast. Radiation dose: Total exam DLP = 1042.44 mGy-cm. This CT exam was performed using one or more of the following dose reduction techniques: Automated exposure control, adjustment of the mA and/or kV according to patient size, and/or use of iterative reconstruction technique. FINDINGS: HEMORRHAGE: No intracranial hemorrhage. BRAIN: No mass effect or edema. Mild atrophy. Mild microvascular changes VENTRICLES: Unremarkable. No hydrocephalus. CALVARIUM: Unremarkable. PARANASAL SINUSES: Unremarkable as visualized. No significant inflammatory changes. MASTOID AIR CELLS: Unremarkable as visualized. No inflammatory changes. OTHER FINDINGS: The report concurs with the preliminary [facility] report IMPRESSION: No acute intracranial findings
--- NOTE | 2019-01-29 09:47 | CT ---
Date of service: 01/29/2019 PROCEDURE: CT Abdomen and Pelvis without intravenous contrast HISTORY: renal failure COMPARISON: 03/02/2018 CT abdomen and pelvis. 01/29/2019 renal ultrasound TECHNIQUE: Unenhanced. Neither IV nor oral contrast administered Radiation dose: Total exam DLP = inf_radiation_dlp mGy-cm. This CT exam was performed using one or more of the following dose reduction techniques: Automated exposure control, adjustment of the mA and/or kV according to patient size, and/or use of iterative reconstruction technique. FINDINGS: LOWER THORAX: Unremarkable. LIVER: Unremarkable. No gross lesion or ductal dilatation. GALLBLADDER AND BILE DUCTS: Unremarkable. PANCREAS: Unremarkable. No gross lesion or ductal dilatation. SPLEEN: Unremarkable. ADRENALS: Unremarkable. No mass. KIDNEYS AND URETERS: Right kidney/ureter: 10 x 11 mm obstructing calculus proximal right ureter. Hydronephrosis, hydroureter noted. Additional small less than 3 mm calculi identified within the collecting system on the right. The right kidney is enlarged/edematous measuring 7.9 x 14.9 cm. No perinephric collections/urinoma is identified. Left kidney and ureter: Atrophic left kidney, dilatation of the left collecting system and left ureter. No upper tract calculi detected. VASCULATURE: Atherosclerotic calcification and mural plaque present. Findings are seen throughout the aorta which is non aneurysmal, findings extend into the iliac arteries. BOWEL: Visible small bowel is dilated and fluid-filled without mechanical obstructing lesion. [employer] Mod[employer] suture line noted in the descending colon. APPENDIX: Unremarkable. Normal appendix. PERITONEUM: Unremarkable. No free fluid. No free air. LYMPH NODES: Unremarkable. No enlarged lymph nodes. BLADDER: Howe catheter identified in a decompressed urinary bladder. Is REPRODUCTIVE: Unremarkable. BONES: No acute fracture. OTHER FINDINGS: None. IMPRESSION: Obstructing proximal right ureteral calculus. Severe right-sided hydronephrosis and upper tract calculi noted. Atrophic left kidney with distention of the collecting system and ureter unchanged. Additional benign and/or incidental findings described above. Concordant findings (preliminary report) provided by [facility].
--- NOTE | 2019-01-29 10:12 | RAD ---
Date of service: 01/28/2019 HISTORY: confirm dialysis cath placement COMPARISON: No prior. TECHNIQUE: 1 view obtained. FINDINGS: LUNGS: Right IJ catheter terminates at the junction of the SVC and right atrium. There is no pneumothorax PLEURA: No significant pleural effusion identified, no pneumothorax apparent. CARDIOVASCULAR: No aortic atherosclerotic calcification present. Normal cardiac size. No pulmonary vascular congestion. OSSEOUS STRUCTURES: No significant abnormalities. VISUALIZED UPPER ABDOMEN: Normal. OTHER FINDINGS: None. IMPRESSION: Right IJ catheter terminates at the junction of the SVC and right atrium. There is no pneumothorax
--- NOTE | 2019-01-29 10:19 | CP.CCUPN ---
<Stanton Chavez - Last Filed: 01/29/19 12:43> CCU Subjective - Physician Review Subjective (Free Text): Stanton Chavez DO, PGY-1 MICU Progress Note for Dr. Mosquera Patient was seen and examined at bedside this AM. He is more awake and alert this AM and received 2 hours of dialysis overnight. He is alert to person only and is unaware of situation. CCU Objective - Vital Signs / Intake & Output Vital Signs (Last 4 hours): Vital Signs Temp Pulse Resp BP Pulse Ox 01/29/19 09:40 87 46 H 97 01/29/19 09:30 80 21 96 01/29/19 09:20 83 18 92 L 01/29/19 09:10 87 17 90 L 01/29/19 09:00 84 17 110/42 L 96 01/29/19 08:50 80 20 95 01/29/19 08:40 75 18 97 01/29/19 08:30 76 24 94 L 01/29/19 08:20 83 27 H 97 01/29/19 08:10 74 13 97 01/29/19 08:00 98.7 F 74 14 98/55 L 94 L 01/29/19 07:50 74 18 95 01/29/19 07:40 75 15 94 L 01/29/19 07:31 74 01/29/19 07:30 74 12 93 L 01/29/19 07:20 71 27 H 92 L 01/29/19 07:10 75 13 96 01/29/19 07:00 74 14 103/61 95 01/29/19 06:50 73 18 95 01/29/19 06:45 74 13 91/59 L 95 01/29/19 06:40 74 14 96 01/29/19 06:30 74 19 103/60 97 01/29/19 06:20 74 11 L 95 Intake and Output (Last 8hrs): Intake & Output 01/28/19 01/29/19 01/29/19 22:59 06:59 14:59 Intake Total 1025 982 Output Total 275 Balance 1025 707 Weight 180 lb Intake: IV 1025 982 Left Antecubital 1000 907 Oral 0 Output: Urine 275 Urine, Voided 275 Other: Voiding Method Indwelling Catheter - Physical Exam Physical Exam Limitations: Positive for: Altered Mental Status, Clinical Condition Head: Positive for: Atraumatic, Normocephalic Pupils: Positive for: PERRL Extroacular Muscles: Positive for: EOMI Conjunctiva: Positive for: Normal Mouth: Positive for: Moist Mucous Membranes Respiratory/Chest: Positive for: Clear to Auscultation, Good Air Exchange. Negative for: Respiratory Distress, Accessory Muscle Use Cardiovascular: Positive for: Regular Rate and Rhythm, Normal S1, S2 Abdomen: Positive for: Normal Bowel Sounds. Negative for: Tenderness, Distention, Rebound, Guarding Genitourinary Male: Positive for: Normal External Genitalia, Other (mc in place) Upper Extremity: Positive for: Normal Inspection. Negative for: Cyanosis, Edema Lower Extremity: Positive for: Normal Inspection. Negative for: Edema Neurological: Positive for: GCS=15, CN II-XII Intact, Other (resting tremor, per patient and records, this is his baseline) Skin: Positive for: Warm, Dry, Normal Color Psychiatric: Positive for: Alert, Oriented x 3, Anxious - Medications Active Medications: Active Medications Generic Name Dose Route Start Last Admin Trade Name Freq PRN Reason Stop Dose Admin Sodium Chloride 1,000 mls @ 75 mls/hr 01/28/19 19:45 01/29/19 09:19 Sodium Chloride 0.9% IV 75 mls/hr .[id number] JAQUAN Administration Pantoprazole Sodium 40 mg 01/29/19 10:00 01/29/19 09:20 Protonix Inj IVP 40 mg DAILY JAQUAN Administration - Patient Studies Lab Studies: Lab Studies 01/29/19 01/29/19 01/29/19 Range/Units 05:01 05:01 05:01 WBC 5.6 D (4.5-11.0) 10^3/uL RBC 3.28 L (3.5-6.1) 10^6/uL Hgb 9.9 L (14.0-18.0) g/dL Hct 29.1 L (42.0-52.0) % MCV 88.7 (80.0-105.0) fl MCH 30.2 (25.0-35.0) pg MCHC 34.0 (31.0-37.0) g/dl RDW 13.1 (11.5-14.5) % Plt Count 355 (120.0-450.0) 10^3/uL MPV 8.8 (7.0-11.0) fl Neut % (Auto) 71.2 H (50.0-68.0) % Lymph % (Auto) 19.1 L (22.0-35.0) % [place] % (Auto) 7.9 H (1.0-6.0) % Eos % (Auto) 1.6 (1.5-5.0) % Baso % (Auto) 0.2 (0.0-3.0) % Lymph # (Auto) 1.1 L (1.2-3.4) [place] # (Auto) 0.4 (0.1-0.6) Eos # (Auto) 0.1 (0.0-0.7) Baso # (Auto) 0.01 (0.0-2.0) K/mm3 Absolute Neuts (auto) 3.99 (1.4-6.5) Differential Comment See pathology report PT (9.4-12.5) SECONDS INR APTT (26.9-38.3) Seconds pO2 (30-55) mm/Hg VBG pH (7.32-7.43) VBG pCO2 (40-60) VBG HCO3 (21-28) mmol/l VBG Total CO2 (22-28) mmol.L VBG O2 Sat (Calc) (40-65) % VBG Base Excess (0.0-2.0) mmol/L VBG Potassium (3.6-5.2) mmol/L Glucose (75-110) mg/dl Lactate (0.7-2.1) mmol/L FiO2 % Crit Value Called To Crit Value Called By Blood Gas Notified Time Sodium (132-148) mmol/L Potassium (3.6-5.0) mmol/L Chloride (98-107) mmol/L Carbon Dioxide (21-33) mmol/L Anion Gap (10-20) BUN (7-21) mg/dL Creatinine (0.8-1.5) mg/dl Est GFR ( Amer) Est GFR (Non-Af Amer) POC Glucose (mg/dL) (65-110) mg/dL Random Glucose (70-110) mg/dL Calcium (8.4-10.5) mg/dL Phosphorus (2.5-4.5) mg/dL Magnesium (1.7-2.2) mg/dL Iron 130 (45-180) ug/dL TIBC 227 L (261-462) ug/dL % Saturation 58 H (20-55) % Total Bilirubin (0.2-1.3) mg/dL AST (17-59) U/L ALT (7-56) U/L Alkaline Phosphatase (38-126) U/L Lactate Dehydrogenase (333-699) U/L Total Creatine Kinase (35-230) U/L Troponin I ng/mL NT-Pro-B Natriuret Pep (0-450) pg/mL Total Protein (5.8-8.3) g/dL Albumin (3.0-4.8) g/dL Globulin gm/dL Albumin/Globulin Ratio (1.1-1.8) Triglycerides (35-160) mg/dL Cholesterol (130-200) mg/dL LDL Cholesterol Direct (0-129) mg/dL HDL Cholesterol (29-60) mg/dL Lipase (23-300) U/L TSH 3rd Generation 2.42 (0.46-4.68) mIU/mL Venous Blood Potassium (3.6-5.2) mmol/L Urine Color (YELLOW) Urine Appearance (CLEAR) Urine pH (4.7-8.0) Ur Specific [place] (1.005-1.035) Urine Protein (<30 mg/dL) mg/dL Urine Glucose (UA) (NEGATIVE) mg/dL Urine Ketones (NEGATIVE) mg/dL Urine Blood (NEGATIVE) Urine Nitrate (NEGATIVE) Urine Bilirubin (NEGATIVE) Urine Urobilinogen (<1 E.U./dL) E.U./dL Ur Leukocyte Esterase (NEGATIVE) Parveen/uL Urine RBC (0-2) /hpf Urine WBC (0-6) /hpf Salicylates (2.0-20.0) mg/dL Urine Opiates Screen (NEGATIVE) Urine Methadone Screen (NEGATIVE) Acetaminophen (10.0-20.0) ug/ml Ur Barbiturates Screen (NEGATIVE) Ur Phencyclidine Scrn (NEGATIVE) Ur Amphetamines Screen (NEGATIVE) U Benzodiazepines Scrn (NEGATIVE) U Oth Cocaine Metabols (NEGATIVE) U Cannabinoids Screen (NEGATIVE) Alcohol, Quantitative (0-10) mg/dL 01/29/19 01/29/19 01/28/19 Range/Units 05:01 00:25 18:11 WBC (4.5-11.0) 10^3/uL RBC (3.5-6.1) 10^6/uL Hgb (14.0-18.0) g/dL Hct (42.0-52.0) % MCV (80.0-105.0) fl MCH (25.0-35.0) pg MCHC (31.0-37.0) g/dl RDW (11.5-14.5) % Plt Count (120.0-450.0) 10^3/uL MPV (7.0-11.0) fl Neut % (Auto) (50.0-68.0) % Lymph % (Auto) (22.0-35.0) % [place] % (Auto) (1.0-6.0) % Eos % (Auto) (1.5-5.0) % Baso % (Auto) (0.0-3.0) % Lymph # (Auto) (1.2-3.4) [place] # (Auto) (0.1-0.6) Eos # (Auto) (0.0-0.7) Baso # (Auto) (0.0-2.0) K/mm3 Absolute Neuts (auto) (1.4-6.5) Differential Comment PT (9.4-12.5) SECONDS INR APTT (26.9-38.3) Seconds pO2 (30-55) mm/Hg VBG pH (7.32-7.43) VBG pCO2 (40-60) VBG HCO3 (21-28) mmol/l VBG Total CO2 (22-28) mmol.L VBG O2 Sat (Calc) (40-65) % VBG Base Excess (0.0-2.0) mmol/L VBG Potassium (3.6-5.2) mmol/L Glucose (75-110) mg/dl Lactate (0.7-2.1) mmol/L FiO2 % Crit Value Called To Crit Value Called By Blood Gas Notified Time Sodium 140 140 (132-148) mmol/L Potassium 4.5 4.6 (3.6-5.0) mmol/L Chloride 103 103 (98-107) mmol/L Carbon Dioxide 22 19 L (21-33) mmol/L Anion Gap 19 23 H (10-20) BUN 79 H 78 H (7-21) mg/dL Creatinine 12.3 H* 12.2 H* D (0.8-1.5) mg/dl Est GFR ( Amer) 5 5 Est GFR (Non-Af Amer) 4 4 POC Glucose (mg/dL) (65-110) mg/dL Random Glucose 82 64 L (70-110) mg/dL Calcium 8.7 8.6 (8.4-10.5) mg/dL Phosphorus 8.3 H (2.5-4.5) mg/dL Magnesium 1.9 (1.7-2.2) mg/dL Iron (45-180) ug/dL TIBC (261-462) ug/dL % Saturation (20-55) % Total Bilirubin 0.6 (0.2-1.3) mg/dL AST 23 (17-59) U/L ALT 10 (7-56) U/L Alkaline Phosphatase 61 (38-126) U/L Lactate Dehydrogenase (333-699) U/L Total Creatine Kinase (35-230) U/L Troponin I < 0.01 ng/mL NT-Pro-B Natriuret Pep 1260 H (0-450) pg/mL Total Protein 6.5 (5.8-8.3) g/dL Albumin 3.6 (3.0-4.8) g/dL Globulin 2.8 gm/dL Albumin/Globulin Ratio 1.3 (1.1-1.8) Triglycerides 82 (35-160) mg/dL Cholesterol 70 L (130-200) mg/dL LDL Cholesterol Direct 38 (0-129) mg/dL HDL Cholesterol 24 L (29-60) mg/dL Lipase (23-300) U/L TSH 3rd Generation (0.46-4.68) mIU/mL Venous Blood Potassium (3.6-5.2) mmol/L Urine Color (YELLOW) Urine Appearance (CLEAR) Urine pH (4.7-8.0) Ur Specific [place] (1.005-1.035) Urine Protein (<30 mg/dL) mg/dL Urine Glucose (UA) (NEGATIVE) mg/dL Urine Ketones (NEGATIVE) mg/dL Urine Blood (NEGATIVE) Urine Nitrate (NEGATIVE) Urine Bilirubin (NEGATIVE) Urine Urobilinogen (<1 E.U./dL) E.U./dL Ur Leukocyte Esterase (NEGATIVE) Parveen/uL Urine RBC (0-2) /hpf Urine WBC (0-6) /hpf Salicylates (2.0-20.0) mg/dL Urine Opiates Screen Negative (NEGATIVE) Urine Methadone Screen Negative (NEGATIVE) Acetaminophen (10.0-20.0) ug/ml Ur Barbiturates Screen Negative (NEGATIVE) Ur Phencyclidine Scrn Negative (NEGATIVE) Ur Amphetamines Screen Negative (NEGATIVE) U Benzodiazepines Scrn Positive H (NEGATIVE) U Oth Cocaine Metabols Negative (NEGATIVE) U Cannabinoids Screen Negative (NEGATIVE) Alcohol, Quantitative (0-10) mg/dL 01/28/19 01/28/19 01/28/19 Range/Units 18:11 17:00 16:50 WBC (4.5-11.0) 10^3/uL RBC (3.5-6.1) 10^6/uL Hgb (14.0-18.0) g/dL Hct (42.0-52.0) % MCV (80.0-105.0) fl MCH (25.0-35.0) pg MCHC (31.0-37.0) g/dl RDW (11.5-14.5) % Plt Count (120.0-450.0) 10^3/uL MPV (7.0-11.0) fl Neut % (Auto) (50.0-68.0) % Lymph % (Auto) (22.0-35.0) % [place] % (Auto) (1.0-6.0) % Eos % (Auto) (1.5-5.0) % Baso % (Auto) (0.0-3.0) % Lymph # (Auto) (1.2-3.4) [place] # (Auto) (0.1-0.6) Eos # (Auto) (0.0-0.7) Baso # (Auto) (0.0-2.0) K/mm3 Absolute Neuts (auto) (1.4-6.5) Differential Comment PT (9.4-12.5) SECONDS INR APTT (26.9-38.3) Seconds pO2 26 L (30-55) mm/Hg VBG pH 7.12 L* (7.32-7.43) VBG pCO2 38.0 L (40-60) VBG HCO3 12.4 L (21-28) mmol/l VBG Total CO2 13.6 L (22-28) mmol.L VBG O2 Sat (Calc) 50.5 (40-65) % VBG Base Excess -16.2 L (0.0-2.0) mmol/L VBG Potassium 8.0 H* (3.6-5.2) mmol/L Glucose 87 (75-110) mg/dl Lactate 0.6 L (0.7-2.1) mmol/L FiO2 21.0 % Crit Value Called To Rn jessica Crit Value Called By Blood Gas Notified Time 1704 Sodium 131.0 L (132-148) mmol/L Potassium (3.6-5.0) mmol/L Chloride 103.0 (98-107) mmol/L Carbon Dioxide (21-33) mmol/L Anion Gap (10-20) BUN (7-21) mg/dL Creatinine (0.8-1.5) mg/dl Est GFR ( Amer) Est GFR (Non-Af Amer) POC Glucose (mg/dL) (65-110) mg/dL Random Glucose (70-110) mg/dL Calcium (8.4-10.5) mg/dL Phosphorus (2.5-4.5) mg/dL Magnesium (1.7-2.2) mg/dL Iron (45-180) ug/dL TIBC (261-462) ug/dL % Saturation (20-55) % Total Bilirubin (0.2-1.3) mg/dL AST (17-59) U/L ALT (7-56) U/L Alkaline Phosphatase (38-126) U/L Lactate Dehydrogenase (333-699) U/L Total Creatine Kinase (35-230) U/L Troponin I ng/mL NT-Pro-B Natriuret Pep (0-450) pg/mL Total Protein (5.8-8.3) g/dL Albumin (3.0-4.8) g/dL Globulin gm/dL Albumin/Globulin Ratio (1.1-1.8) Triglycerides (35-160) mg/dL Cholesterol (130-200) mg/dL LDL Cholesterol Direct (0-129) mg/dL HDL Cholesterol (29-60) mg/dL Lipase (23-300) U/L TSH 3rd Generation (0.46-4.68) mIU/mL Venous Blood Potassium 8.0 H* (3.6-5.2) mmol/L Urine Color Yellow (YELLOW) Urine Appearance Sl cloudy (CLEAR) Urine pH 6.0 (4.7-8.0) Ur Specific [place] 1.020 (1.005-1.035) Urine Protein Negative (<30 mg/dL) mg/dL Urine Glucose (UA) Negative (NEGATIVE) mg/dL Urine Ketones Negative (NEGATIVE) mg/dL Urine Blood Negative (NEGATIVE) Urine Nitrate Negative (NEGATIVE) Urine Bilirubin Negative (NEGATIVE) Urine Urobilinogen 0.2 (<1 E.U./dL) E.U./dL Ur Leukocyte Esterase Small H (NEGATIVE) Parveen/uL Urine RBC None (0-2) /hpf Urine WBC 0 - 2 (0-6) /hpf Salicylates (2.0-20.0) mg/dL Urine Opiates Screen (NEGATIVE) Urine Methadone Screen (NEGATIVE) Acetaminophen (10.0-20.0) ug/ml Ur Barbiturates Screen (NEGATIVE) Ur Phencyclidine Scrn (NEGATIVE) Ur Amphetamines Screen (NEGATIVE) U Benzodiazepines Scrn (NEGATIVE) U Oth Cocaine Metabols (NEGATIVE) U Cannabinoids Screen (NEGATIVE) Alcohol, Quantitative < 10 (0-10) mg/dL 01/28/19 01/28/19 01/28/19 Range/Units 16:50 16:50 16:50 WBC 7.6 (4.5-11.0) 10^3/uL RBC 3.57 (3.5-6.1) 10^6/uL Hgb 10.9 L (14.0-18.0) g/dL Hct 31.9 L (42.0-52.0) % MCV 89.4 (80.0-105.0) fl MCH 30.5 (25.0-35.0) pg MCHC 34.2 (31.0-37.0) g/dl RDW 13.1 (11.5-14.5) % Plt Count 420 (120.0-450.0) 10^3/uL MPV 8.7 (7.0-11.0) fl Neut % (Auto) 82.2 H (50.0-68.0) % Lymph % (Auto) 11.1 L (22.0-35.0) % [place] % (Auto) 6.3 H (1.0-6.0) % Eos % (Auto) 0.1 L (1.5-5.0) % Baso % (Auto) 0.3 (0.0-3.0) % Lymph # (Auto) 0.9 L (1.2-3.4) [place] # (Auto) 0.5 (0.1-0.6) Eos # (Auto) 0.0 (0.0-0.7) Baso # (Auto) 0.02 (0.0-2.0) K/mm3 Absolute Neuts (auto) 6.27 (1.4-6.5) Differential Comment PT 12.5 (9.4-12.5) SECONDS INR 1.13 APTT 34.1 (26.9-38.3) Seconds pO2 (30-55) mm/Hg VBG pH (7.32-7.43) VBG pCO2 (40-60) VBG HCO3 (21-28) mmol/l VBG Total CO2 (22-28) mmol.L VBG O2 Sat (Calc) (40-65) % VBG Base Excess (0.0-2.0) mmol/L VBG Potassium (3.6-5.2) mmol/L Glucose (75-110) mg/dl Lactate (0.7-2.1) mmol/L FiO2 % Crit Value Called To Crit Value Called By Blood Gas Notified Time Sodium (132-148) mmol/L Potassium (3.6-5.0) mmol/L Chloride (98-107) mmol/L Carbon Dioxide (21-33) mmol/L Anion Gap (10-20) BUN (7-21) mg/dL Creatinine (0.8-1.5) mg/dl Est GFR ( Amer) Est GFR (Non-Af Amer) POC Glucose (mg/dL) (65-110) mg/dL Random Glucose (70-110) mg/dL Calcium (8.4-10.5) mg/dL Phosphorus (2.5-4.5) mg/dL Magnesium (1.7-2.2) mg/dL Iron (45-180) ug/dL TIBC (261-462) ug/dL % Saturation (20-55) % Total Bilirubin (0.2-1.3) mg/dL AST (17-59) U/L ALT (7-56) U/L Alkaline Phosphatase (38-126) U/L Lactate Dehydrogenase (333-699) U/L Total Creatine Kinase (35-230) U/L Troponin I ng/mL NT-Pro-B Natriuret Pep (0-450) pg/mL Total Protein (5.8-8.3) g/dL Albumin (3.0-4.8) g/dL Globulin gm/dL Albumin/Globulin Ratio (1.1-1.8) Triglycerides (35-160) mg/dL Cholesterol (130-200) mg/dL LDL Cholesterol Direct (0-129) mg/dL HDL Cholesterol (29-60) mg/dL Lipase (23-300) U/L TSH 3rd Generation (0.46-4.68) mIU/mL Venous Blood Potassium (3.6-5.2) mmol/L Urine Color (YELLOW) Urine Appearance (CLEAR) Urine pH (4.7-8.0) Ur Specific [place] (1.005-1.035) Urine Protein (<30 mg/dL) mg/dL Urine Glucose (UA) (NEGATIVE) mg/dL Urine Ketones (NEGATIVE) mg/dL Urine Blood (NEGATIVE) Urine Nitrate (NEGATIVE) Urine Bilirubin (NEGATIVE) Urine Urobilinogen (<1 E.U./dL) E.U./dL Ur Leukocyte Esterase (NEGATIVE) Parveen/uL Urine RBC (0-2) /hpf Urine WBC (0-6) /hpf Salicylates < 1 L (2.0-20.0) mg/dL Urine Opiates Screen (NEGATIVE) Urine Methadone Screen (NEGATIVE) Acetaminophen < 10.0 L (10.0-20.0) ug/ml Ur Barbiturates Screen (NEGATIVE) Ur Phencyclidine Scrn (NEGATIVE) Ur Amphetamines Screen (NEGATIVE) U Benzodiazepines Scrn (NEGATIVE) U Oth Cocaine Metabols (NEGATIVE) U Cannabinoids Screen (NEGATIVE) Alcohol, Quantitative (0-10) mg/dL 01/28/19 01/28/19 Range/Units 16:50 15:55 WBC (4.5-11.0) 10^3/uL RBC (3.5-6.1) 10^6/uL Hgb (14.0-18.0) g/dL Hct (42.0-52.0) % MCV (80.0-105.0) fl MCH (25.0-35.0) pg MCHC (31.0-37.0) g/dl RDW (11.5-14.5) % Plt Count (120.0-450.0) 10^3/uL MPV (7.0-11.0) fl Neut % (Auto) (50.0-68.0) % Lymph % (Auto) (22.0-35.0) % [place] % (Auto) (1.0-6.0) % Eos % (Auto) (1.5-5.0) % Baso % (Auto) (0.0-3.0) % Lymph # (Auto) (1.2-3.4) [place] # (Auto) (0.1-0.6) Eos # (Auto) (0.0-0.7) Baso # (Auto) (0.0-2.0) K/mm3 Absolute Neuts (auto) (1.4-6.5) Differential Comment PT (9.4-12.5) SECONDS INR APTT (26.9-38.3) Seconds pO2 (30-55) mm/Hg VBG pH (7.32-7.43) VBG pCO2 (40-60) VBG HCO3 (21-28) mmol/l VBG Total CO2 (22-28) mmol.L VBG O2 Sat (Calc) (40-65) % VBG Base Excess (0.0-2.0) mmol/L VBG Potassium (3.6-5.2) mmol/L Glucose (75-110) mg/dl Lactate (0.7-2.1) mmol/L FiO2 % Crit Value Called To Crit Value Called By Blood Gas Notified Time Sodium 137 (132-148) mmol/L Potassium 8.0 H* D (3.6-5.0) mmol/L Chloride 104 (98-107) mmol/L Carbon Dioxide 11 L (21-33) mmol/L Anion Gap 29 H (10-20) BUN 121 H* (7-21) mg/dL Creatinine 19.2 H* D (0.8-1.5) mg/dl Est GFR ( Amer) 3 Est GFR (Non-Af Amer) 2 POC Glucose (mg/dL) 110 (65-110) mg/dL Random Glucose 86 (70-110) mg/dL Calcium 9.2 (8.4-10.5) mg/dL Phosphorus (2.5-4.5) mg/dL Magnesium 2.1 (1.7-2.2) mg/dL Iron (45-180) ug/dL TIBC (261-462) ug/dL % Saturation (20-55) % Total Bilirubin 0.7 (0.2-1.3) mg/dL AST 23 (17-59) U/L ALT 12 (7-56) U/L Alkaline Phosphatase 66 (38-126) U/L Lactate Dehydrogenase 341 (333-699) U/L Total Creatine Kinase 44 (35-230) U/L Troponin I < 0.01 ng/mL NT-Pro-B Natriuret Pep (0-450) pg/mL Total Protein 7.3 (5.8-8.3) g/dL Albumin 4.1 (3.0-4.8) g/dL Globulin 3.1 gm/dL Albumin/Globulin Ratio 1.3 (1.1-1.8) Triglycerides (35-160) mg/dL Cholesterol (130-200) mg/dL LDL Cholesterol Direct (0-129) mg/dL HDL Cholesterol (29-60) mg/dL Lipase 16 L (23-300) U/L TSH 3rd Generation (0.46-4.68) mIU/mL Venous Blood Potassium (3.6-5.2) mmol/L Urine Color (YELLOW) Urine Appearance (CLEAR) Urine pH (4.7-8.0) Ur Specific [place] (1.005-1.035) Urine Protein (<30 mg/dL) mg/dL Urine Glucose (UA) (NEGATIVE) mg/dL Urine Ketones (NEGATIVE) mg/dL Urine Blood (NEGATIVE) Urine Nitrate (NEGATIVE) Urine Bilirubin (NEGATIVE) Urine Urobilinogen (<1 E.U./dL) E.U./dL Ur Leukocyte Esterase (NEGATIVE) Parveen/uL Urine RBC (0-2) /hpf Urine WBC (0-6) /hpf Salicylates (2.0-20.0) mg/dL Urine Opiates Screen (NEGATIVE) Urine Methadone Screen (NEGATIVE) Acetaminophen (10.0-20.0) ug/ml Ur Barbiturates Screen (NEGATIVE) Ur Phencyclidine Scrn (NEGATIVE) Ur Amphetamines Screen (NEGATIVE) U Benzodiazepines Scrn (NEGATIVE) U Oth Cocaine Metabols (NEGATIVE) U Cannabinoids Screen (NEGATIVE) Alcohol, Quantitative (0-10) mg/dL Laboratory Results - last 24 hr 01/28/19 01/28/19 01/28/19 15:55 16:50 16:50 WBC 7.6 RBC 3.57 Hgb 10.9 L Hct 31.9 L MCV 89.4 MCH 30.5 MCHC 34.2 RDW 13.1 Plt Count 420 MPV 8.7 Neut % (Auto) 82.2 H Lymph % (Auto) 11.1 L [place] % (Auto) 6.3 H Eos % (Auto) 0.1 L Baso % (Auto) 0.3 Lymph # (Auto) 0.9 L [place] # (Auto) 0.5 Eos # (Auto) 0.0 Baso # (Auto) 0.02 Absolute Neuts (auto) 6.27 Differential Comment PT INR APTT pO2 VBG pH VBG pCO2 VBG HCO3 VBG Total CO2 VBG O2 Sat (Calc) VBG Base Excess VBG Potassium Glucose Lactate FiO2 Crit Value Called To Crit Value Called By Blood Gas Notified Time Sodium 137 Potassium 8.0 H* D Chloride 104 Carbon Dioxide 11 L Anion Gap 29 H BUN 121 H* Creatinine 19.2 H* D Est GFR ( Amer) 3 Est GFR (Non-Af Amer) 2 POC Glucose (mg/dL) 110 Random Glucose 86 Calcium 9.2 Phosphorus Magnesium 2.1 Iron TIBC % Saturation Total Bilirubin 0.7 AST 23 ALT 12 Alkaline Phosphatase 66 Lactate Dehydrogenase 341 Total Creatine Kinase 44 Troponin I < 0.01 NT-Pro-B Natriuret Pep Total Protein 7.3 Albumin 4.1 Globulin 3.1 Albumin/Globulin Ratio 1.3 Triglycerides Cholesterol LDL Cholesterol Direct HDL Cholesterol Lipase 16 L TSH 3rd Generation Venous Blood Potassium Urine Color Urine Appearance Urine pH Ur Specific [place] Urine Protein Urine Glucose (UA) Urine Ketones Urine Blood Urine Nitrate Urine Bilirubin Urine Urobilinogen Ur Leukocyte Esterase Urine RBC Urine WBC Salicylates Urine Opiates Screen Urine Methadone Screen Acetaminophen Ur Barbiturates Screen Ur Phencyclidine Scrn Ur Amphetamines Screen U Benzodiazepines Scrn U Oth Cocaine Metabols U Cannabinoids Screen Alcohol, Quantitative 01/28/19 01/28/19 01/28/19 16:50 16:50 16:50 WBC RBC Hgb Hct MCV MCH MCHC RDW Plt Count MPV Neut % (Auto) Lymph % (Auto) [place] % (Auto) Eos % (Auto) Baso % (Auto) Lymph # (Auto) [place] # (Auto) Eos # (Auto) Baso # (Auto) Absolute Neuts (auto) Differential Comment PT 12.5 INR 1.13 APTT 34.1 pO2 VBG pH VBG pCO2 VBG HCO3 VBG Total CO2 VBG O2 Sat (Calc) VBG Base Excess VBG Potassium Glucose Lactate FiO2 Crit Value Called To Crit Value Called By Blood Gas Notified Time Sodium Potassium Chloride Carbon Dioxide Anion Gap BUN Creatinine Est GFR ( Amer) Est GFR (Non-Af Amer) POC Glucose (mg/dL) Random Glucose Calcium Phosphorus Magnesium Iron TIBC % Saturation Total Bilirubin AST ALT Alkaline Phosphatase Lactate Dehydrogenase Total Creatine Kinase Troponin I NT-Pro-B Natriuret Pep Total Protein Albumin Globulin Albumin/Globulin Ratio Triglycerides Cholesterol LDL Cholesterol Direct HDL Cholesterol Lipase TSH 3rd Generation Venous Blood Potassium Urine Color Urine Appearance Urine pH Ur Specific [place] Urine Protein Urine Glucose (UA) Urine Ketones Urine Blood Urine Nitrate Urine Bilirubin Urine Urobilinogen Ur Leukocyte Esterase Urine RBC Urine WBC Salicylates < 1 L Urine Opiates Screen Urine Methadone Screen Acetaminophen < 10.0 L Ur Barbiturates Screen Ur Phencyclidine Scrn Ur Amphetamines Screen U Benzodiazepines Scrn U Oth Cocaine Metabols U Cannabinoids Screen Alcohol, Quantitative < 10 01/28/19 01/28/19 01/28/19 17:00 18:11 18:11 WBC RBC Hgb Hct MCV MCH MCHC RDW Plt Count MPV Neut % (Auto) Lymph % (Auto) [place] % (Auto) Eos % (Auto) Baso % (Auto) Lymph # (Auto) [place] # (Auto) Eos # (Auto) Baso # (Auto) Absolute Neuts (auto) Differential Comment PT INR APTT pO2 26 L VBG pH 7.12 L* VBG pCO2 38.0 L VBG HCO3 12.4 L VBG Total CO2 13.6 L VBG O2 Sat (Calc) 50.5 VBG Base Excess -16.2 L VBG Potassium 8.0 H* Glucose 87 Lactate 0.6 L FiO2 21.0 Crit Value Called To Rn jessica Crit Value Called By Ec Blood Gas Notified Time 1704 Sodium 131.0 L Potassium Chloride 103.0 Carbon Dioxide Anion Gap BUN Creatinine Est GFR ( Amer) Est GFR (Non-Af Amer) POC Glucose (mg/dL) Random Glucose Calcium Phosphorus Magnesium Iron TIBC % Saturation Total Bilirubin AST ALT Alkaline Phosphatase Lactate Dehydrogenase Total Creatine Kinase Troponin I NT-Pro-B Natriuret Pep Total Protein Albumin Globulin Albumin/Globulin Ratio Triglycerides Cholesterol LDL Cholesterol Direct HDL Cholesterol Lipase TSH 3rd Generation Venous Blood Potassium 8.0 H* Urine Color Yellow Urine Appearance Sl cloudy Urine pH 6.0 Ur Specific [place] 1.020 Urine Protein Negative Urine Glucose (UA) Negative Urine Ketones Negative Urine Blood Negative Urine Nitrate Negative Urine Bilirubin Negative Urine Urobilinogen 0.2 Ur Leukocyte Esterase Small H Urine RBC None Urine WBC 0 - 2 Salicylates Urine Opiates Screen Negative Urine Methadone Screen Negative Acetaminophen Ur Barbiturates Screen Negative Ur Phencyclidine Scrn Negative Ur Amphetamines Screen Negative U Benzodiazepines Scrn Positive H U Oth Cocaine Metabols Negative U Cannabinoids Screen Negative Alcohol, Quantitative 01/29/19 01/29/19 01/29/19 00:25 05:01 05:01 WBC 5.6 D RBC 3.28 L Hgb 9.9 L Hct 29.1 L MCV 88.7 MCH 30.2 MCHC 34.0 RDW 13.1 Plt Count 355 MPV 8.8 Neut % (Auto) 71.2 H Lymph % (Auto) 19.1 L [place] % (Auto) 7.9 H Eos % (Auto) 1.6 Baso % (Auto) 0.2 Lymph # (Auto) 1.1 L [place] # (Auto) 0.4 Eos # (Auto) 0.1 Baso # (Auto) 0.01 Absolute Neuts (auto) 3.99 Differential Comment See pathology report PT INR APTT pO2 VBG pH VBG pCO2 VBG HCO3 VBG Total CO2 VBG O2 Sat (Calc) VBG Base Excess VBG Potassium Glucose Lactate FiO2 Crit Value Called To Crit Value Called By Blood Gas Notified Time Sodium 140 140 Potassium 4.6 4.5 Chloride 103 103 Carbon Dioxide 19 L 22 Anion Gap 23 H 19 BUN 78 H 79 H Creatinine 12.2 H* D 12.3 H* Est GFR ( Amer) 5 5 Est GFR (Non-Af Amer) 4 4 POC Glucose (mg/dL) Random Glucose 64 L 82 Calcium 8.6 8.7 Phosphorus 8.3 H Magnesium 1.9 Iron TIBC % Saturation Total Bilirubin 0.6 AST 23 ALT 10 Alkaline Phosphatase 61 Lactate Dehydrogenase Total Creatine Kinase Troponin I < 0.01 NT-Pro-B Natriuret Pep 1260 H Total Protein 6.5 Albumin 3.6 Globulin 2.8 Albumin/Globulin Ratio 1.3 Triglycerides 82 Cholesterol 70 L LDL Cholesterol Direct 38 HDL Cholesterol 24 L Lipase TSH 3rd Generation Venous Blood Potassium Urine Color Urine Appearance Urine pH Ur Specific [place] Urine Protein Urine Glucose (UA) Urine Ketones Urine Blood Urine Nitrate Urine Bilirubin Urine Urobilinogen Ur Leukocyte Esterase Urine RBC Urine WBC Salicylates Urine Opiates Screen Urine Methadone Screen Acetaminophen Ur Barbiturates Screen Ur Phencyclidine Scrn Ur Amphetamines Screen U Benzodiazepines Scrn U Oth Cocaine Metabols U Cannabinoids Screen Alcohol, Quantitative 01/29/19 01/29/19 05:01 05:01 WBC RBC Hgb Hct MCV MCH MCHC RDW Plt Count MPV Neut % (Auto) Lymph % (Auto) [place] % (Auto) Eos % (Auto) Baso % (Auto) Lymph # (Auto) [place] # (Auto) Eos # (Auto) Baso # (Auto) Absolute Neuts (auto) Differential Comment PT INR APTT pO2 VBG pH VBG pCO2 VBG HCO3 VBG Total CO2 VBG O2 Sat (Calc) VBG Base Excess VBG Potassium Glucose Lactate FiO2 Crit Value Called To Crit Value Called By Blood Gas Notified Time Sodium Potassium Chloride Carbon Dioxide Anion Gap BUN Creatinine Est GFR ( Amer) Est GFR (Non-Af Amer) POC Glucose (mg/dL) Random Glucose Calcium Phosphorus Magnesium Iron 130 TIBC 227 L % Saturation 58 H Total Bilirubin AST ALT Alkaline Phosphatase Lactate Dehydrogenase Total Creatine Kinase Troponin I NT-Pro-B Natriuret Pep Total Protein Albumin Globulin Albumin/Globulin Ratio Triglycerides Cholesterol LDL Cholesterol Direct HDL Cholesterol Lipase TSH 3rd Generation 2.42 Venous Blood Potassium Urine Color Urine Appearance Urine pH Ur Specific Glen Urine Protein Urine Glucose (UA) Urine Ketones Urine Blood Urine Nitrate Urine Bilirubin Urine Urobilinogen Ur Leukocyte Esterase Urine RBC Urine WBC Salicylates Urine Opiates Screen Urine Methadone Screen Acetaminophen Ur Barbiturates Screen Ur Phencyclidine Scrn Ur Amphetamines Screen U Benzodiazepines Scrn U Oth Cocaine Metabols U Cannabinoids Screen Alcohol, Quantitative Radiology Impressions: Radiology Impressions Chest X-Ray 01/28/19 16:25 IMPRESSION: No active disease. No significant interval change compared to the prior examination(s). Head CT 01/28/19 17:06 IMPRESSION: No acute intracranial findings Abdomen/Pelvis CT 01/28/19 17:24 IMPRESSION: Obstructing proximal right ureteral calculus. Severe right-sided hydronephrosis and upper tract calculi noted. Atrophic left kidney with distention of the collecting system and ureter unchanged. Additional benign and/or incidental findings described above. Concordant findings (preliminary report) provided by [facility]. Chest X-Ray 01/28/19 18:53 IMPRESSION: Right IJ catheter terminates at the junction of the SVC and right atrium. There is no pneumothorax EKG/Cardiology Studies: Cardiology / EKG Studies 01/28/19 16:25 ELECTROCARDIOGRAM Stat Comment: Reason For Exam: ams Fingerstick Blood Sugar Results: 110 Critical Care Progress Note - Nutrition Nutrition: Nutrition Category Date Time Status NPO Diet [DIET] Diets 01/28/19 Breakfast Ordered Assessment/Plan - Assessment and Plan (Free Text) Assessment: 63 yo M with PMH of COPD, HTN, anxiety, depression, and unspecified tremor disorder who was brought in by ambulance for AMS. Upon arrival, patient was found to be in acute renal failure with subsequent hyperkalemia, uremia, and acidosis. Patient had right IJ Trialysis catheter placed and had subsequent emergent HD in the ICU. Patient is now on ambient air, has been weaned off precedex since this AM and states he is feeling better. Plan: Neuro: AAOx3, no FND, now alert to person, time Has required some re-orientation to place and situation Suspect AMS was most likely 2/2 uremia, is improving s/p 1st dialysis session CT head negative for concerning signs Has baseline tremor per prior records, was likely exacerbated on admission by uremia Improved on examination this AM Continue frequent reorientation, monitor neuro status Cardio: RRR, normotensive, no signs of HD compromise EKG: R axis deviation but no concerning ST or T wave changes Last TTE 06/2018 with LVEF > 60% but was poor study Troponin negative x 2 this admission Maintain MAP>65 Monitor for S/S, HD compromise. Pulm: Maintaining SaO2 > 90% on room air Has history of COPD at baseline No active issues GI: Perform nursing swallow evaluation Restart diet when able /Nephro: Renal function parameters improved s/p first dialysis session Repeat dialysis session today CTAP identified obstructing R renal calculus with R sided hydronephrosis Patient has history of prior obstruction with similar acute renal failure Urology, Dr. Singh, notified and will examine patient, recommended to keep westley thomas in for now Nephrology, urology following, all recs appreciated Endocrinology: Random glucose: 82 Maintain euglycemia Heme/Onc: H/H appears decreased from baseline, suspect likely 2/2 decreased EPO production from acute renal failure Continue dialysis management and monitor for H/H improvement No other signs of HD compromise ID: Afebrile, no leukocytosis, lactate not elevated F/u fang cx, procal Monitor for s/sx infection DVT/GI PPX: SC heparin/protonix Full Code Restart diet pending nursing swallow eval Monitor in MICU Patient seen, examined with, and plan confirmed with my attending Wang Carrero.Dav. IM Resident PGY-1 Pager: [phone] <Ricky Mosquera - Last Filed: 01/29/19 14:04> CCU Objective - Vital Signs / Intake & Output Vital Signs (Last 4 hours): Vital Signs Pulse Resp BP Pulse Ox 01/29/19 13:20 93 H 93 L 01/29/19 13:10 93 H 43 H 94 L 01/29/19 13:02 94 H 33 H 129/66 96 01/29/19 13:00 95 H 94 L 01/29/19 12:50 94 H 16 95 01/29/19 12:40 95 H 15 94 L 01/29/19 12:30 96 H 28 H 96 01/29/19 12:20 97 H 18 95 01/29/19 12:10 93 H 16 92 L 01/29/19 12:00 92 H 28 H 132/68 96 01/29/19 11:50 88 94 L 01/29/19 11:40 90 53 H 94 L 01/29/19 11:30 91 H 21 93 L 01/29/19 11:20 85 20 93 L 01/29/19 11:10 89 30 H 95 01/29/19 11:00 96 H 29 H 109/67 95 01/29/19 10:50 83 25 H 92 L 01/29/19 10:40 82 29 H 93 L 01/29/19 10:30 87 18 92 L 01/29/19 10:20 88 21 92 L 01/29/19 10:10 88 39 H 94 L 01/29/19 10:01 87 22 118/73 95 01/29/19 10:00 85 30 H 95 Intake and Output (Last 8hrs): Intake & Output 01/28/19 01/29/19 01/29/19 22:59 06:59 14:59 Intake Total 1025 982 Output Total 275 Balance 1025 707 Weight 180 lb Intake: IV 1025 982 Left Antecubital 1000 907 Oral 0 Output: Urine 275 Urine, Voided 275 Other: Voiding Method Indwelling Catheter - Medications Active Medications: Active Medications Generic Name Dose Route Start Last Admin Trade Name Freq PRN Reason Stop Dose Admin Heparin Sodium (Porcine) 5,000 units 01/29/19 14:00 Heparin SC Q8 JAQUAN Protocol Sodium Chloride 1,000 mls @ 75 mls/hr 01/28/19 19:45 01/29/19 09:19 Sodium Chloride 0.9% IV 75 mls/hr .[id number] JAQUAN Administration Pantoprazole Sodium 40 mg 01/29/19 10:00 01/29/19 09:20 Protonix Inj IVP 40 mg DAILY JAQUAN Administration - Patient Studies Lab Studies: Lab Studies 01/29/19 01/29/19 01/29/19 Range/Units 05:01 05:01 05:01 WBC 5.6 D (4.5-11.0) 10^3/uL RBC 3.28 L (3.5-6.1) 10^6/uL Hgb 9.9 L (14.0-18.0) g/dL Hct 29.1 L (42.0-52.0) % MCV 88.7 (80.0-105.0) fl MCH 30.2 (25.0-35.0) pg MCHC 34.0 (31.0-37.0) g/dl RDW 13.1 (11.5-14.5) % Plt Count 355 (120.0-450.0) 10^3/uL MPV 8.8 (7.0-11.0) fl Neut % (Auto) 71.2 H (50.0-68.0) % Lymph % (Auto) 19.1 L (22.0-35.0) % [place] % (Auto) 7.9 H (1.0-6.0) % Eos % (Auto) 1.6 (1.5-5.0) % Baso % (Auto) 0.2 (0.0-3.0) % Lymph # (Auto) 1.1 L (1.2-3.4) [place] # (Auto) 0.4 (0.1-0.6) Eos # (Auto) 0.1 (0.0-0.7) Baso # (Auto) 0.01 (0.0-2.0) K/mm3 Absolute Neuts (auto) 3.99 (1.4-6.5) Differential Comment See pathology report PT (9.4-12.5) SECONDS INR APTT (26.9-38.3) Seconds pO2 (30-55) mm/Hg VBG pH (7.32-7.43) VBG pCO2 (40-60) VBG HCO3 (21-28) mmol/l VBG Total CO2 (22-28) mmol.L VBG O2 Sat (Calc) (40-65) % VBG Base Excess (0.0-2.0) mmol/L VBG Potassium (3.6-5.2) mmol/L Glucose (75-110) mg/dl Lactate (0.7-2.1) mmol/L FiO2 % Crit Value Called To Crit Value Called By Blood Gas Notified Time Sodium (132-148) mmol/L Potassium (3.6-5.0) mmol/L Chloride (98-107) mmol/L Carbon Dioxide (21-33) mmol/L Anion Gap (10-20) BUN (7-21) mg/dL Creatinine (0.8-1.5) mg/dl Est GFR ( Amer) Est GFR (Non-Af Amer) POC Glucose (mg/dL) (65-110) mg/dL Random Glucose (70-110) mg/dL Calcium (8.4-10.5) mg/dL Phosphorus (2.5-4.5) mg/dL Magnesium (1.7-2.2) mg/dL Iron 130 (45-180) ug/dL TIBC 227 L (261-462) ug/dL % Saturation 58 H (20-55) % Ferritin ng/mL Total Bilirubin (0.2-1.3) mg/dL AST (17-59) U/L ALT (7-56) U/L Alkaline Phosphatase (38-126) U/L Lactate Dehydrogenase (333-699) U/L Total Creatine Kinase (35-230) U/L Troponin I ng/mL NT-Pro-B Natriuret Pep (0-450) pg/mL Total Protein (5.8-8.3) g/dL Albumin (3.0-4.8) g/dL Globulin gm/dL Albumin/Globulin Ratio (1.1-1.8) Triglycerides (35-160) mg/dL Cholesterol (130-200) mg/dL LDL Cholesterol Direct (0-129) mg/dL HDL Cholesterol (29-60) mg/dL Lipase (23-300) U/L Vitamin B12 (239-931) pg/mL Folate ng/mL TSH 3rd Generation 2.42 (0.46-4.68) mIU/mL Venous Blood Potassium (3.6-5.2) mmol/L Urine Color (YELLOW) Urine Appearance (CLEAR) Urine pH (4.7-8.0) Ur Specific Glen (1.005-1.035) Urine Protein (<30 mg/dL) mg/dL Urine Glucose (UA) (NEGATIVE) mg/dL Urine Ketones (NEGATIVE) mg/dL Urine Blood (NEGATIVE) Urine Nitrate (NEGATIVE) Urine Bilirubin (NEGATIVE) Urine Urobilinogen (<1 E.U./dL) E.U./dL Ur Leukocyte Esterase (NEGATIVE) Parveen/uL Urine RBC (0-2) /hpf Urine WBC (0-6) /hpf Salicylates (2.0-20.0) mg/dL Urine Opiates Screen (NEGATIVE) Urine Methadone Screen (NEGATIVE) Acetaminophen (10.0-20.0) ug/ml Ur Barbiturates Screen (NEGATIVE) Ur Phencyclidine Scrn (NEGATIVE) Ur Amphetamines Screen (NEGATIVE) U Benzodiazepines Scrn (NEGATIVE) U Oth Cocaine Metabols (NEGATIVE) U Cannabinoids Screen (NEGATIVE) Alcohol, Quantitative (0-10) mg/dL Complement C3 105.0 (88.0-165.0) mg/dL Complement C4 37.0 (14.0-44.0) mg/dL Hep Bs Antigen (NEGATIVE) Hep Bs Antibody (NEGATIVE) Hep B Core IgM Ab (NEGATIVE) 01/29/19 01/29/19 01/29/19 Range/Units 05:01 05: 00:25 WBC (4.5-11.0) 10^3/uL RBC (3.5-6.1) 10^6/uL Hgb (14.0-18.0) g/dL Hct (42.0-52.0) % MCV (80.0-105.0) fl MCH (25.0-35.0) pg MCHC (31.0-37.0) g/dl RDW (11.5-14.5) % Plt Count (120.0-450.0) 10^3/uL MPV (7.0-11.0) fl Neut % (Auto) (50.0-68.0) % Lymph % (Auto) (22.0-35.0) % [place] % (Auto) (1.0-6.0) % Eos % (Auto) (1.5-5.0) % Baso % (Auto) (0.0-3.0) % Lymph # (Auto) (1.2-3.4) [place] # (Auto) (0.1-0.6) Eos # (Auto) (0.0-0.7) Baso # (Auto) (0.0-2.0) K/mm3 Absolute Neuts (auto) (1.4-6.5) Differential Comment PT (9.4-12.5) SECONDS INR APTT (26.9-38.3) Seconds pO2 (30-55) mm/Hg VBG pH (7.32-7.43) VBG pCO2 (40-60) VBG HCO3 (21-28) mmol/l VBG Total CO2 (22-28) mmol.L VBG O2 Sat (Calc) (40-65) % VBG Base Excess (0.0-2.0) mmol/L VBG Potassium (3.6-5.2) mmol/L Glucose (75-110) mg/dl Lactate (0.7-2.1) mmol/L FiO2 % Crit Value Called To Crit Value Called By Blood Gas Notified Time Sodium 140 140 (132-148) mmol/L Potassium 4.5 4.6 (3.6-5.0) mmol/L Chloride 103 103 (98-107) mmol/L Carbon Dioxide 22 19 L (21-33) mmol/L Anion Gap 19 23 H (10-20) BUN 79 H 78 H (7-21) mg/dL Creatinine 12.3 H* 12.2 H* D (0.8-1.5) mg/dl Est GFR ( Amer) 5 5 Est GFR (Non-Af Amer) 4 4 POC Glucose (mg/dL) (65-110) mg/dL Random Glucose 82 64 L (70-110) mg/dL Calcium 8.7 8.6 (8.4-10.5) mg/dL Phosphorus 8.3 H (2.5-4.5) mg/dL Magnesium 1.9 (1.7-2.2) mg/dL Iron (45-180) ug/dL TIBC (261-462) ug/dL % Saturation (20-55) % Ferritin 183.0 ng/mL Total Bilirubin 0.6 (0.2-1.3) mg/dL AST 23 (17-59) U/L ALT 10 (7-56) U/L Alkaline Phosphatase 61 (38-126) U/L Lactate Dehydrogenase (333-699) U/L Total Creatine Kinase (35-230) U/L Troponin I < 0.01 ng/mL NT-Pro-B Natriuret Pep 1260 H (0-450) pg/mL Total Protein 6.5 (5.8-8.3) g/dL Albumin 3.6 (3.0-4.8) g/dL Globulin 2.8 gm/dL Albumin/Globulin Ratio 1.3 (1.1-1.8) Triglycerides 82 (35-160) mg/dL Cholesterol 70 L (130-200) mg/dL LDL Cholesterol Direct 38 (0-129) mg/dL HDL Cholesterol 24 L (29-60) mg/dL Lipase (23-300) U/L Vitamin B12 < 159 L (239-931) pg/mL Folate 18.2 ng/mL TSH 3rd Generation (0.46-4.68) mIU/mL Venous Blood Potassium (3.6-5.2) mmol/L Urine Color (YELLOW) Urine Appearance (CLEAR) Urine pH (4.7-8.0) Ur Specific Glen (1.005-1.035) Urine Protein (<30 mg/dL) mg/dL Urine Glucose (UA) (NEGATIVE) mg/dL Urine Ketones (NEGATIVE) mg/dL Urine Blood (NEGATIVE) Urine Nitrate (NEGATIVE) Urine Bilirubin (NEGATIVE) Urine Urobilinogen (<1 E.U./dL) E.U./dL Ur Leukocyte Esterase (NEGATIVE) Parveen/uL Urine RBC (0-2) /hpf Urine WBC (0-6) /hpf Salicylates (2.0-20.0) mg/dL Urine Opiates Screen (NEGATIVE) Urine Methadone Screen (NEGATIVE) Acetaminophen (10.0-20.0) ug/ml Ur Barbiturates Screen (NEGATIVE) Ur Phencyclidine Scrn (NEGATIVE) Ur Amphetamines Screen (NEGATIVE) U Benzodiazepines Scrn (NEGATIVE) U Oth Cocaine Metabols (NEGATIVE) U Cannabinoids Screen (NEGATIVE) Alcohol, Quantitative (0-10) mg/dL Complement C3 (88.0-165.0) mg/dL Complement C4 (14.0-44.0) mg/dL Hep Bs Antigen Negative (NEGATIVE) Hep Bs Antibody Negative (NEGATIVE) Hep B Core IgM Ab Negative (NEGATIVE) 01/28/19 01/28/19 01/28/19 Range/Units 18:11 18:11 17:00 WBC (4.5-11.0) 10^3/uL RBC (3.5-6.1) 10^6/uL Hgb (14.0-18.0) g/dL Hct (42.0-52.0) % MCV (80.0-105.0) fl MCH (25.0-35.0) pg MCHC (31.0-37.0) g/dl RDW (11.5-14.5) % Plt Count (120.0-450.0) 10^3/uL MPV (7.0-11.0) fl Neut % (Auto) (50.0-68.0) % Lymph % (Auto) (22.0-35.0) % [place] % (Auto) (1.0-6.0) % Eos % (Auto) (1.5-5.0) % Baso % (Auto) (0.0-3.0) % Lymph # (Auto) (1.2-3.4) [place] # (Auto) (0.1-0.6) Eos # (Auto) (0.0-0.7) Baso # (Auto) (0.0-2.0) K/mm3 Absolute Neuts (auto) (1.4-6.5) Differential Comment PT (9.4-12.5) SECONDS INR APTT (26.9-38.3) Seconds pO2 26 L (30-55) mm/Hg VBG pH 7.12 L* (7.32-7.43) VBG pCO2 38.0 L (40-60) VBG HCO3 12.4 L (21-28) mmol/l VBG Total CO2 13.6 L (22-28) mmol.L VBG O2 Sat (Calc) 50.5 (40-65) % VBG Base Excess -16.2 L (0.0-2.0) mmol/L VBG Potassium 8.0 H* (3.6-5.2) mmol/L Glucose 87 (75-110) mg/dl Lactate 0.6 L (0.7-2.1) mmol/L FiO2 21.0 % Crit Value Called To Rn jessica Crit Value Called By Blood Gas Notified Time 1704 Sodium 131.0 L (132-148) mmol/L Potassium (3.6-5.0) mmol/L Chloride 103.0 (98-107) mmol/L Carbon Dioxide (21-33) mmol/L Anion Gap (10-20) BUN (7-21) mg/dL Creatinine (0.8-1.5) mg/dl Est GFR ( Amer) Est GFR (Non-Af Amer) POC Glucose (mg/dL) (65-110) mg/dL Random Glucose (70-110) mg/dL Calcium (8.4-10.5) mg/dL Phosphorus (2.5-4.5) mg/dL Magnesium (1.7-2.2) mg/dL Iron (45-180) ug/dL TIBC (261-462) ug/dL % Saturation (20-55) % Ferritin ng/mL Total Bilirubin (0.2-1.3) mg/dL AST (17-59) U/L ALT (7-56) U/L Alkaline Phosphatase (38-126) U/L Lactate Dehydrogenase (333-699) U/L Total Creatine Kinase (35-230) U/L Troponin I ng/mL NT-Pro-B Natriuret Pep (0-450) pg/mL Total Protein (5.8-8.3) g/dL Albumin (3.0-4.8) g/dL Globulin gm/dL Albumin/Globulin Ratio (1.1-1.8) Triglycerides (35-160) mg/dL Cholesterol (130-200) mg/dL LDL Cholesterol Direct (0-129) mg/dL HDL Cholesterol (29-60) mg/dL Lipase (23-300) U/L Vitamin B12 (239-931) pg/mL Folate ng/mL TSH 3rd Generation (0.46-4.68) mIU/mL Venous Blood Potassium 8.0 H* (3.6-5.2) mmol/L Urine Color Yellow (YELLOW) Urine Appearance Sl cloudy (CLEAR) Urine pH 6.0 (4.7-8.0) Ur Specific Glen 1.020 (1.005-1.035) Urine Protein Negative (<30 mg/dL) mg/dL Urine Glucose (UA) Negative (NEGATIVE) mg/dL Urine Ketones Negative (NEGATIVE) mg/dL Urine Blood Negative (NEGATIVE) Urine Nitrate Negative (NEGATIVE) Urine Bilirubin Negative (NEGATIVE) Urine Urobilinogen 0.2 (<1 E.U./dL) E.U./dL Ur Leukocyte Esterase Small H (NEGATIVE) Parveen/uL Urine RBC None (0-2) /hpf Urine WBC 0 - 2 (0-6) /hpf Salicylates (2.0-20.0) mg/dL Urine Opiates Screen Negative (NEGATIVE) Urine Methadone Screen Negative (NEGATIVE) Acetaminophen (10.0-20.0) ug/ml Ur Barbiturates Screen Negative (NEGATIVE) Ur Phencyclidine Scrn Negative (NEGATIVE) Ur Amphetamines Screen Negative (NEGATIVE) U Benzodiazepines Scrn Positive H (NEGATIVE) U Oth Cocaine Metabols Negative (NEGATIVE) U Cannabinoids Screen Negative (NEGATIVE) Alcohol, Quantitative (0-10) mg/dL Complement C3 (88.0-165.0) mg/dL Complement C4 (14.0-44.0) mg/dL Hep Bs Antigen (NEGATIVE) Hep Bs Antibody (NEGATIVE) Hep B Core IgM Ab (NEGATIVE) 01/28/19 01/28/19 01/28/19 Range/Units 16:50 16:50 16:50 WBC (4.5-11.0) 10^3/uL RBC (3.5-6.1) 10^6/uL Hgb (14.0-18.0) g/dL Hct (42.0-52.0) % MCV (80.0-105.0) fl MCH (25.0-35.0) pg MCHC (31.0-37.0) g/dl RDW (11.5-14.5) % Plt Count (120.0-450.0) 10^3/uL MPV (7.0-11.0) fl Neut % (Auto) (50.0-68.0) % Lymph % (Auto) (22.0-35.0) % [place] % (Auto) (1.0-6.0) % Eos % (Auto) (1.5-5.0) % Baso % (Auto) (0.0-3.0) % Lymph # (Auto) (1.2-3.4) [place] # (Auto) (0.1-0.6) Eos # (Auto) (0.0-0.7) Baso # (Auto) (0.0-2.0) K/mm3 Absolute Neuts (auto) (1.4-6.5) Differential Comment PT 12.5 (9.4-12.5) SECONDS INR 1.13 APTT 34.1 (26.9-38.3) Seconds pO2 (30-55) mm/Hg VBG pH (7.32-7.43) VBG pCO2 (40-60) VBG HCO3 (21-28) mmol/l VBG Total CO2 (22-28) mmol.L VBG O2 Sat (Calc) (40-65) % VBG Base Excess (0.0-2.0) mmol/L VBG Potassium (3.6-5.2) mmol/L Glucose (75-110) mg/dl Lactate (0.7-2.1) mmol/L FiO2 % Crit Value Called To Crit Value Called By Blood Gas Notified Time Sodium (132-148) mmol/L Potassium (3.6-5.0) mmol/L Chloride (98-107) mmol/L Carbon Dioxide (21-33) mmol/L Anion Gap (10-20) BUN (7-21) mg/dL Creatinine (0.8-1.5) mg/dl Est GFR ( Amer) Est GFR (Non-Af Amer) POC Glucose (mg/dL) (65-110) mg/dL Random Glucose (70-110) mg/dL Calcium (8.4-10.5) mg/dL Phosphorus (2.5-4.5) mg/dL Magnesium (1.7-2.2) mg/dL Iron (45-180) ug/dL TIBC (261-462) ug/dL % Saturation (20-55) % Ferritin ng/mL Total Bilirubin (0.2-1.3) mg/dL AST (17-59) U/L ALT (7-56) U/L Alkaline Phosphatase (38-126) U/L Lactate Dehydrogenase (333-699) U/L Total Creatine Kinase (35-230) U/L Troponin I ng/mL NT-Pro-B Natriuret Pep (0-450) pg/mL Total Protein (5.8-8.3) g/dL Albumin (3.0-4.8) g/dL Globulin gm/dL Albumin/Globulin Ratio (1.1-1.8) Triglycerides (35-160) mg/dL Cholesterol (130-200) mg/dL LDL Cholesterol Direct (0-129) mg/dL HDL Cholesterol (29-60) mg/dL Lipase (23-300) U/L Vitamin B12 (239-931) pg/mL Folate ng/mL TSH 3rd Generation (0.46-4.68) mIU/mL Venous Blood Potassium (3.6-5.2) mmol/L Urine Color (YELLOW) Urine Appearance (CLEAR) Urine pH (4.7-8.0) Ur Specific Glen (1.005-1.035) Urine Protein (<30 mg/dL) mg/dL Urine Glucose (UA) (NEGATIVE) mg/dL Urine Ketones (NEGATIVE) mg/dL Urine Blood (NEGATIVE) Urine Nitrate (NEGATIVE) Urine Bilirubin (NEGATIVE) Urine Urobilinogen (<1 E.U./dL) E.U./dL Ur Leukocyte Esterase (NEGATIVE) Parveen/uL Urine RBC (0-2) /hpf Urine WBC (0-6) /hpf Salicylates < 1 L (2.0-20.0) mg/dL Urine Opiates Screen (NEGATIVE) Urine Methadone Screen (NEGATIVE) Acetaminophen < 10.0 L (10.0-20.0) ug/ml Ur Barbiturates Screen (NEGATIVE) Ur Phencyclidine Scrn (NEGATIVE) Ur Amphetamines Screen (NEGATIVE) U Benzodiazepines Scrn (NEGATIVE) U Oth Cocaine Metabols (NEGATIVE) U Cannabinoids Screen (NEGATIVE) Alcohol, Quantitative < 10 (0-10) mg/dL Complement C3 (88.0-165.0) mg/dL Complement C4 (14.0-44.0) mg/dL Hep Bs Antigen (NEGATIVE) Hep Bs Antibody (NEGATIVE) Hep B Core IgM Ab (NEGATIVE) 01/28/19 01/28/19 01/28/19 Range/Units 16:50 16:50 15:55 WBC 7.6 (4.5-11.0) 10^3/uL RBC 3.57 (3.5-6.1) 10^6/uL Hgb 10.9 L (14.0-18.0) g/dL Hct 31.9 L (42.0-52.0) % MCV 89.4 (80.0-105.0) fl MCH 30.5 (25.0-35.0) pg MCHC 34.2 (31.0-37.0) g/dl RDW 13.1 (11.5-14.5) % Plt Count 420 (120.0-450.0) 10^3/uL MPV 8.7 (7.0-11.0) fl Neut % (Auto) 82.2 H (50.0-68.0) % Lymph % (Auto) 11.1 L (22.0-35.0) % [place] % (Auto) 6.3 H (1.0-6.0) % Eos % (Auto) 0.1 L (1.5-5.0) % Baso % (Auto) 0.3 (0.0-3.0) % Lymph # (Auto) 0.9 L (1.2-3.4) [place] # (Auto) 0.5 (0.1-0.6) Eos # (Auto) 0.0 (0.0-0.7) Baso # (Auto) 0.02 (0.0-2.0) K/mm3 Absolute Neuts (auto) 6.27 (1.4-6.5) Differential Comment PT (9.4-12.5) SECONDS INR APTT (26.9-38.3) Seconds pO2 (30-55) mm/Hg VBG pH (7.32-7.43) VBG pCO2 (40-60) VBG HCO3 (21-28) mmol/l VBG Total CO2 (22-28) mmol.L VBG O2 Sat (Calc) (40-65) % VBG Base Excess (0.0-2.0) mmol/L VBG Potassium (3.6-5.2) mmol/L Glucose (75-110) mg/dl Lactate (0.7-2.1) mmol/L FiO2 % Crit Value Called To Crit Value Called By Blood Gas Notified Time Sodium 137 (132-148) mmol/L Potassium 8.0 H* D (3.6-5.0) mmol/L Chloride 104 (98-107) mmol/L Carbon Dioxide 11 L (21-33) mmol/L Anion Gap 29 H (10-20) BUN 121 H* (7-21) mg/dL Creatinine 19.2 H* D (0.8-1.5) mg/dl Est GFR ( Amer) 3 Est GFR (Non-Af Amer) 2 POC Glucose (mg/dL) 110 (65-110) mg/dL Random Glucose 86 (70-110) mg/dL Calcium 9.2 (8.4-10.5) mg/dL Phosphorus (2.5-4.5) mg/dL Magnesium 2.1 (1.7-2.2) mg/dL Iron (45-180) ug/dL TIBC (261-462) ug/dL % Saturation (20-55) % Ferritin ng/mL Total Bilirubin 0.7 (0.2-1.3) mg/dL AST 23 (17-59) U/L ALT 12 (7-56) U/L Alkaline Phosphatase 66 (38-126) U/L Lactate Dehydrogenase 341 (333-699) U/L Total Creatine Kinase 44 (35-230) U/L Troponin I < 0.01 ng/mL NT-Pro-B Natriuret Pep (0-450) pg/mL Total Protein 7.3 (5.8-8.3) g/dL Albumin 4.1 (3.0-4.8) g/dL Globulin 3.1 gm/dL Albumin/Globulin Ratio 1.3 (1.1-1.8) Triglycerides (35-160) mg/dL Cholesterol (130-200) mg/dL LDL Cholesterol Direct (0-129) mg/dL HDL Cholesterol (29-60) mg/dL Lipase 16 L (23-300) U/L Vitamin B12 (239-931) pg/mL Folate ng/mL TSH 3rd Generation (0.46-4.68) mIU/mL Venous Blood Potassium (3.6-5.2) mmol/L Urine Color (YELLOW) Urine Appearance (CLEAR) Urine pH (4.7-8.0) Ur Specific Glen (1.005-1.035) Urine Protein (<30 mg/dL) mg/dL Urine Glucose (UA) (NEGATIVE) mg/dL Urine Ketones (NEGATIVE) mg/dL Urine Blood (NEGATIVE) Urine Nitrate (NEGATIVE) Urine Bilirubin (NEGATIVE) Urine Urobilinogen (<1 E.U./dL) E.U./dL Ur Leukocyte Esterase (NEGATIVE) Parveen/uL Urine RBC (0-2) /hpf Urine WBC (0-6) /hpf Salicylates (2.0-20.0) mg/dL Urine Opiates Screen (NEGATIVE) Urine Methadone Screen (NEGATIVE) Acetaminophen (10.0-20.0) ug/ml Ur Barbiturates Screen (NEGATIVE) Ur Phencyclidine Scrn (NEGATIVE) Ur Amphetamines Screen (NEGATIVE) U Benzodiazepines Scrn (NEGATIVE) U Oth Cocaine Metabols (NEGATIVE) U Cannabinoids Screen (NEGATIVE) Alcohol, Quantitative (0-10) mg/dL Complement C3 (88.0-165.0) mg/dL Complement C4 (14.0-44.0) mg/dL Hep Bs Antigen (NEGATIVE) Hep Bs Antibody (NEGATIVE) Hep B Core IgM Ab (NEGATIVE) Laboratory Results - last 24 hr 01/28/19 01/28/19 01/28/19 15:55 16:50 16:50 WBC 7.6 RBC 3.57 Hgb 10.9 L Hct 31.9 L MCV 89.4 MCH 30.5 MCHC 34.2 RDW 13.1 Plt Count 420 MPV 8.7 Neut % (Auto) 82.2 H Lymph % (Auto) 11.1 L [place] % (Auto) 6.3 H Eos % (Auto) 0.1 L Baso % (Auto) 0.3 Lymph # (Auto) 0.9 L [place] # (Auto) 0.5 Eos # (Auto) 0.0 Baso # (Auto) 0.02 Absolute Neuts (auto) 6.27 Differential Comment PT INR APTT pO2 VBG pH VBG pCO2 VBG HCO3 VBG Total CO2 VBG O2 Sat (Calc) VBG Base Excess VBG Potassium Glucose Lactate FiO2 Crit Value Called To Crit Value Called By Blood Gas Notified Time Sodium 137 Potassium 8.0 H* D Chloride 104 Carbon Dioxide 11 L Anion Gap 29 H BUN 121 H* Creatinine 19.2 H* D Est GFR ( Amer) 3 Est GFR (Non-Af Amer) 2 POC Glucose (mg/dL) 110 Random Glucose 86 Calcium 9.2 Phosphorus Magnesium 2.1 Iron TIBC % Saturation Ferritin Total Bilirubin 0.7 AST 23 ALT 12 Alkaline Phosphatase 66 Lactate Dehydrogenase 341 Total Creatine Kinase 44 Troponin I < 0.01 NT-Pro-B Natriuret Pep Total Protein 7.3 Albumin 4.1 Globulin 3.1 Albumin/Globulin Ratio 1.3 Triglycerides Cholesterol LDL Cholesterol Direct HDL Cholesterol Lipase 16 L Vitamin B12 Folate TSH 3rd Generation Venous Blood Potassium Urine Color Urine Appearance Urine pH Ur Specific Glen Urine Protein Urine Glucose (UA) Urine Ketones Urine Blood Urine Nitrate Urine Bilirubin Urine Urobilinogen Ur Leukocyte Esterase Urine RBC Urine WBC Salicylates Urine Opiates Screen Urine Methadone Screen Acetaminophen Ur Barbiturates Screen Ur Phencyclidine Scrn Ur Amphetamines Screen U Benzodiazepines Scrn U Oth Cocaine Metabols U Cannabinoids Screen Alcohol, Quantitative Complement C3 Complement C4 Hep Bs Antigen Hep Bs Antibody Hep B Core IgM Ab 01/28/19 01/28/19 01/28/19 16:50 16:50 16:50 WBC RBC Hgb Hct MCV MCH MCHC RDW Plt Count MPV Neut % (Auto) Lymph % (Auto) [place] % (Auto) Eos % (Auto) Baso % (Auto) Lymph # (Auto) [place] # (Auto) Eos # (Auto) Baso # (Auto) Absolute Neuts (auto) Differential Comment PT 12.5 INR 1.13 APTT 34.1 pO2 VBG pH VBG pCO2 VBG HCO3 VBG Total CO2 VBG O2 Sat (Calc) VBG Base Excess VBG Potassium Glucose Lactate FiO2 Crit Value Called To Crit Value Called By Blood Gas Notified Time Sodium Potassium Chloride Carbon Dioxide Anion Gap BUN Creatinine Est GFR ( Amer) Est GFR (Non-Af Amer) POC Glucose (mg/dL) Random Glucose Calcium Phosphorus Magnesium Iron TIBC % Saturation Ferritin Total Bilirubin AST ALT Alkaline Phosphatase Lactate Dehydrogenase Total Creatine Kinase Troponin I NT-Pro-B Natriuret Pep Total Protein Albumin Globulin Albumin/Globulin Ratio Triglycerides Cholesterol LDL Cholesterol Direct HDL Cholesterol Lipase Vitamin B12 Folate TSH 3rd Generation Venous Blood Potassium Urine Color Urine Appearance Urine pH Ur Specific Glen Urine Protein Urine Glucose (UA) Urine Ketones Urine Blood Urine Nitrate Urine Bilirubin Urine Urobilinogen Ur Leukocyte Esterase Urine RBC Urine WBC Salicylates < 1 L Urine Opiates Screen Urine Methadone Screen Acetaminophen < 10.0 L Ur Barbiturates Screen Ur Phencyclidine Scrn Ur Amphetamines Screen U Benzodiazepines Scrn U Oth Cocaine Metabols U Cannabinoids Screen Alcohol, Quantitative < 10 Complement C3 Complement C4 Hep Bs Antigen Hep Bs Antibody Hep B Core IgM Ab 01/28/19 01/28/19 01/28/19 17:00 18:11 18:11 WBC RBC Hgb Hct MCV MCH MCHC RDW Plt Count MPV Neut % (Auto) Lymph % (Auto) [place] % (Auto) Eos % (Auto) Baso % (Auto) Lymph # (Auto) [place] # (Auto) Eos # (Auto) Baso # (Auto) Absolute Neuts (auto) Differential Comment PT INR APTT pO2 26 L VBG pH 7.12 L* VBG pCO2 38.0 L VBG HCO3 12.4 L VBG Total CO2 13.6 L VBG O2 Sat (Calc) 50.5 VBG Base Excess -16.2 L VBG Potassium 8.0 H* Glucose 87 Lactate 0.6 L FiO2 21.0 Crit Value Called To Rn jessica Crit Value Called By Ec Blood Gas Notified Time 1704 Sodium 131.0 L Potassium Chloride 103.0 Carbon Dioxide Anion Gap BUN Creatinine Est GFR ( Amer) Est GFR (Non-Af Amer) POC Glucose (mg/dL) Random Glucose Calcium Phosphorus Magnesium Iron TIBC % Saturation Ferritin Total Bilirubin AST ALT Alkaline Phosphatase Lactate Dehydrogenase Total Creatine Kinase Troponin I NT-Pro-B Natriuret Pep Total Protein Albumin Globulin Albumin/Globulin Ratio Triglycerides Cholesterol LDL Cholesterol Direct HDL Cholesterol Lipase Vitamin B12 Folate TSH 3rd Generation Venous Blood Potassium 8.0 H* Urine Color Yellow Urine Appearance Sl cloudy Urine pH 6.0 Ur Specific Glen 1.020 Urine Protein Negative Urine Glucose (UA) Negative Urine Ketones Negative Urine Blood Negative Urine Nitrate Negative Urine Bilirubin Negative Urine Urobilinogen 0.2 Ur Leukocyte Esterase Small H Urine RBC None Urine WBC 0 - 2 Salicylates Urine Opiates Screen Negative Urine Methadone Screen Negative Acetaminophen Ur Barbiturates Screen Negative Ur Phencyclidine Scrn Negative Ur Amphetamines Screen Negative U Benzodiazepines Scrn Positive H U Oth Cocaine Metabols Negative U Cannabinoids Screen Negative Alcohol, Quantitative Complement C3 Complement C4 Hep Bs Antigen Hep Bs Antibody Hep B Core IgM Ab 01/29/19 01/29/19 01/29/19 00:25 05:01 05:01 WBC RBC Hgb Hct MCV MCH MCHC RDW Plt Count MPV Neut % (Auto) Lymph % (Auto) [place] % (Auto) Eos % (Auto) Baso % (Auto) Lymph # (Auto) [place] # (Auto) Eos # (Auto) Baso # (Auto) Absolute Neuts (auto) Differential Comment PT INR APTT pO2 VBG pH VBG pCO2 VBG HCO3 VBG Total CO2 VBG O2 Sat (Calc) VBG Base Excess VBG Potassium Glucose Lactate FiO2 Crit Value Called To Crit Value Called By Blood Gas Notified Time Sodium 140 140 Potassium 4.6 4.5 Chloride 103 103 Carbon Dioxide 19 L 22 Anion Gap 23 H 19 BUN 78 H 79 H Creatinine 12.2 H* D 12.3 H* Est GFR ( Amer) 5 5 Est GFR (Non-Af Amer) 4 4 POC Glucose (mg/dL) Random Glucose 64 L 82 Calcium 8.6 8.7 Phosphorus 8.3 H Magnesium 1.9 Iron TIBC % Saturation Ferritin 183.0 Total Bilirubin 0.6 AST 23 ALT 10 Alkaline Phosphatase 61 Lactate Dehydrogenase Total Creatine Kinase Troponin I < 0.01 NT-Pro-B Natriuret Pep 1260 H Total Protein 6.5 Albumin 3.6 Globulin 2.8 Albumin/Globulin Ratio 1.3 Triglycerides 82 Cholesterol 70 L LDL Cholesterol Direct 38 HDL Cholesterol 24 L Lipase Vitamin B12 < 159 L Folate 18.2 TSH 3rd Generation Venous Blood Potassium Urine Color Urine Appearance Urine pH Ur Specific Glen Urine Protein Urine Glucose (UA) Urine Ketones Urine Blood Urine Nitrate Urine Bilirubin Urine Urobilinogen Ur Leukocyte Esterase Urine RBC Urine WBC Salicylates Urine Opiates Screen Urine Methadone Screen Acetaminophen Ur Barbiturates Screen Ur Phencyclidine Scrn Ur Amphetamines Screen U Benzodiazepines Scrn U Oth Cocaine Metabols U Cannabinoids Screen Alcohol, Quantitative Complement C3 Complement C4 Hep Bs Antigen Negative Hep Bs Antibody Negative Hep B Core IgM Ab Negative 01/29/19 01/29/19 01/29/19 05:01 05:01 05:01 WBC 5.6 D RBC 3.28 L Hgb 9.9 L Hct 29.1 L MCV 88.7 MCH 30.2 MCHC 34.0 RDW 13.1 Plt Count 355 MPV 8.8 Neut % (Auto) 71.2 H Lymph % (Auto) 19.1 L [place] % (Auto) 7.9 H Eos % (Auto) 1.6 Baso % (Auto) 0.2 Lymph # (Auto) 1.1 L [place] # (Auto) 0.4 Eos # (Auto) 0.1 Baso # (Auto) 0.01 Absolute Neuts (auto) 3.99 Differential Comment See pathology report PT INR APTT pO2 VBG pH VBG pCO2 VBG HCO3 VBG Total CO2 VBG O2 Sat (Calc) VBG Base Excess VBG Potassium Glucose Lactate FiO2 Crit Value Called To Crit Value Called By Blood Gas Notified Time Sodium Potassium Chloride Carbon Dioxide Anion Gap BUN Creatinine Est GFR ( Amer) Est GFR (Non-Af Amer) POC Glucose (mg/dL) Random Glucose Calcium Phosphorus Magnesium Iron 130 TIBC 227 L % Saturation 58 H Ferritin Total Bilirubin AST ALT Alkaline Phosphatase Lactate Dehydrogenase Total Creatine Kinase Troponin I NT-Pro-B Natriuret Pep Total Protein Albumin Globulin Albumin/Globulin Ratio Triglycerides Cholesterol LDL Cholesterol Direct HDL Cholesterol Lipase Vitamin B12 Folate TSH 3rd Generation 2.42 Venous Blood Potassium Urine Color Urine Appearance Urine pH Ur Specific Glen Urine Protein Urine Glucose (UA) Urine Ketones Urine Blood Urine Nitrate Urine Bilirubin Urine Urobilinogen Ur Leukocyte Esterase Urine RBC Urine WBC Salicylates Urine Opiates Screen Urine Methadone Screen Acetaminophen Ur Barbiturates Screen Ur Phencyclidine Scrn Ur Amphetamines Screen U Benzodiazepines Scrn U Oth Cocaine Metabols U Cannabinoids Screen Alcohol, Quantitative Complement C3 105.0 Complement C4 37.0 Hep Bs Antigen Hep Bs Antibody Hep B Core IgM Ab Radiology Impressions: Radiology Impressions Chest X-Ray 01/28/19 16:25 IMPRESSION: No active disease. No significant interval change compared to the prior examination(s). Head CT 01/28/19 17:06 IMPRESSION: No acute intracranial findings Abdomen/Pelvis CT 01/28/19 17:24 IMPRESSION: Obstructing proximal right ureteral calculus. Severe right-sided hydronephrosis and upper tract calculi noted. Atrophic left kidney with distention of the collecting system and ureter unchanged. Additional benign and/or incidental findings described above. Concordant findings (preliminary report) provided by [facility]. Chest X-Ray 01/28/19 18:53 IMPRESSION: Right IJ catheter terminates at the junction of the SVC and right atrium. There is no pneumothorax Renal Ultrasound 01/29/19 21:09 IMPRESSION: Edematous right kidney, severe hydronephrosis secondary to proximal 11 mm right ureteral calculus. Atrophic left kidney. Chronic hydronephrosis noted similar to that seen on the prior abdominal ultrasound 03/03/2018.. EKG/Cardiology Studies: Cardiology / EKG Studies 01/28/19 16:25 ELECTROCARDIOGRAM Stat Comment: Reason For Exam: ams Critical Care Progress Note - Nutrition Nutrition: Nutrition Category Date Time Status NPO Diet [DIET] Diets 01/28/19 Breakfast Ordered Assessment/Plan - Assessment and Plan (Free Text) Plan: I saw and examined the patient on rounds with resident, agree with note with following additions/exceptions: Patient is 63yo male with PMH of COPD, HTN, anxiety, depression, and unspecified tremor disorder who was brought in by ambulance for AMS, found to be in ARF, hyperkalemia, K 8, emergently had R IJ HD catheter placed, and dialyzed, with improvement in K. Overnight had CT A/P which showed severe R hydronephrosis, with ureteral stone. Urology, Dr Singh consulted. Renal following. Currently afebrile, HD stable, comfortable in NAD, doing well, OFF Precedex Mentation significantly improved Labs, imaging, chart reviewed K 4.4, BUN downtrending ARF/MARCUS Hyperkalemia, resolved R hydronephrosis COPD HTN Recommend: - cont with supp o2 as needed, duonebs PRN - NO ID issues - follow up cultures, Procal - NPO - IVF, NS - follow up renal, may need HD again - Urology consulted, Dr Singh, to see patient - keep mc in place, I/Os - DC Precedex - GI ppx, PPI - DVT ppx, HSQ - Monitor in MICU
--- NOTE | 2019-01-29 10:42 | US ---
Date of service: 01/29/2019 PROCEDURE: Ultrasound of the Kidneys HISTORY: arf COMPARISON: January 29, 2019. CT abdomen and pelvis. 03/03/2018. Abdominal ultrasound TECHNIQUE: Sonogram of the kidneys. FINDINGS: RIGHT KIDNEY: Measures: 6.7 x 8.2 x 14.2 cm. Edematous, enlarged right kidney. Proximal calculus 11 mm noted. Confirmation of findings on recent CT. LEFT KIDNEY: Measures: 3.7 x 9.3 cm. Atrophic kidney, hydronephrosis and distention of the right collecting system and proximal ureter. Incidental finding(s): 2 simple cysts midpole and lower pole left kidney neither larger than 1.1 cm. OTHER FINDINGS: None. IMPRESSION: Edematous right kidney, severe hydronephrosis secondary to proximal 11 mm right ureteral calculus. Atrophic left kidney. Chronic hydronephrosis noted similar to that seen on the prior abdominal ultrasound 03/03/2018..
[2019-01-29 12:34] LABS: HEPATITIS B SURFACE AG Negative (NEGATIVE)
[2019-01-29 13:19] LABS: HEPATITIS B CORE AB NEGATIVE (NEGATIVE)
[2019-01-29 13:48] LABS: FOLATE 18.2 ng/mL
--- NOTE | 2019-01-29 14:35 | PN ---
DATE: 01/29/2019 SUBJECTIVE: He comes in with acute renal failure, change in mentation, does have a psychiatric history and is on the psychiatric medication right now with Ativan which was given to him once, and calcium replacement. He is on Protonix and IV fluids. He had stat dialysis yesterday. He is alert, in bed, looking at time. He is not shaking anymore, no tremors. There was very much tremors his entire body yesterday, that is a good start. OBJECTIVE: VITAL SIGNS: He has 97.8 temperature, 92 pulse, 126/63 blood pressure, 15 respiratory rate, 97% to 99% O2 sat on room air. HEENT: His head is atraumatic. He is looking at me. He is talking with me fairly coherent. HEART: Regular rate. LUNGS: Decreased breath sounds. ABDOMEN: Soft. EXTREMITIES: No edema. He is not shaky, he was much shaky yesterday. MEDICATIONS: He is Protonix and IV fluids. LABORATORY DATA: He has 5.6 white count today, 9.9 hemoglobin, 29.1 hematocrit with 355 platelets. His INR is 1.13. He had 7.1 pH when he came in with 8 potassium. His sodium is potassium is down to 4.5 from 8. His BUN is down to 79 from 121. His creatinine is down to 12.3 from 19.2. GFR is up to 4. Sugar is 82. Calcium is 8.7, phosphorus 8.3 quite high, magnesium 1.9, iron is 130, total iron binding capacity is 227. Total bili is 0.6, AST is 23, ALT is 10, alk phos 61. Troponin I was less than 0.01. BNP is 1260. Total protein is 6.5, albumin is 3.6, globulin 2.8. Triglycerides 82, cholesterol 70, HDL 24. TSH is good at 2.42. Urine was small, toxicology to and benzodiazepines. ASSESSMENT AND PLAN: He is being seen by the freight trucker and by Renal. There are tests pending. Continue with aggressive treatment and care, dialysis. When he gets more stable, we will put him back on psychological medications. Continue with aggressive treatment and care, trying to reverse his kidney failure. Ryne Dunn DO [facility] # [phone] CARLEEN
--- NOTE | 2019-01-29 15:29 | CP.PCM.PN ---
Subjective - Date & Time of Evaluation Date of Evaluation: 01/29/19 Time of Evaluation: 15:25 - Subjective Subjective: Nephrology Consultation Note Assessment: critical Acute Kidney Injury (N17.9) likely due to obs uropathy due to stone Chronic Kidney Disease (N18.3) Stage 3 with left atrophic kidney, baseline cr 1.6-1.8 b12 def, hyperkalemia, AMS, metabolic acidosis, uremia started HD 01/28/19, hyperphos, anemia Plan No acute need for renal replacement therapy today. urology eval pending. hopefully, renal function will improve soon after Rt ureteral obstruction is relieved Hypertension control with meds as ordered. Maintain hemodynamics stable. Avoid hypotension. Patient not on ACEI/ARB due to recent MARCUS Monitor Input/Output, daily weights and renal function with basic metabolic panel supplement B12 as pt with level very low supplement lytes as needed work up for stone as outpt Dose meds/antibiotics for reduced GFR. Avoid fleets enema/magnesium based laxatives. Avoid nephrotoxins/NSAIDs/ iodinated contrast (unless needed emergently) Glycemic control Further work up for as per primary team Thanks for allowing me to participate in care of your patient. Will follow patient with you. Please call if any Qs. had d/w team Dr Taiwo Vyas Office: [phone] Subjective: Noted events overnight. Patients feels better Denies chest pain, palpitation, shortness of breath, leg swelling. All other negative Physical Examination: General Appearance: Comfortable, in no acute respiratory distress, co-operative . shaky/tremors + Vitals reviewed and noted as below Head; Atraumatic, normocephalic ENT: no ulcers no thrush. Tongue is midline. Oropharynx: no rash or ulcers. EYES: Pupils are equal, round and reactive to light accommodation. Eye muscles and extraocular movement intact. Sclera is anicteric. Neck; supple no lymphadenopathy, no thyromegaly or bruit Lungs: Normal respiratory rate/effort. Breath sounds bilateral equal and clear Heart: Normal rate. s1s2 normal. No rub or gallop. Extremities: no edema. No varicose veins Neurological: Patient is alert, awake and oriented. No focal deficit. Strength bilateral appropriate and equal Skin: Warm and dry. Normal turgor. No rash. Palpitation: Normal elasticity for age Abdomen: Abdomen is soft. Bowel sounds +. There is no abdominal tenderness, no guarding/rigidity no organomegaly Psych: normal affect/mood MSK: no joint tenderness or swelling. Digits and nails normal, no deformity : kidney or bladder not palpable Rt STEVEN stewart Labs/imaging reviewed. Past medical history, past surgical history, family history, social history, all ergy reviewed and noted as below Family hx: no hx of CKD. Rest non-contributory Objective - Vital Signs/Intake and Output Vital Signs (last 24 hours): Temp Pulse Resp BP Pulse Ox 98.7 F 93 H 43 H 129/66 93 L 01/29/19 08:00 01/29/19 13:20 01/29/19 13:10 01/29/19 13:02 01/29/19 13:20 Intake and Output: 01/29/19 01/29/19 06:59 18:59 Intake Total 1007 Output Total 275 Balance 732 - Medications Medications: Current Medications Cyanocobalamin (Vitamin B12 1000 Mcg Tab) 1,000 mcg PO DAILY [facility] Heparin Sodium (Porcine) (Heparin) 5,000 units SC Q8 JAQUAN; Protocol Sodium Chloride (Sodium Chloride 0.9%) 1,000 mls @ 75 mls/hr IV .[id number] JAQUAN Last Admin: 01/29/19 09:19 Dose: 75 mls/hr Pantoprazole Sodium (Protonix Inj) 40 mg IVP DAILY [facility] Last Admin: 01/29/19 09:20 Dose: 40 mg - Labs Labs: 01/29/19 05:01 01/29/19 05:01 PT 12.5 SECONDS (9.4-12.5) 01/28/19 16:50 INR 1.13 01/28/19 16:50 APTT 34.1 Seconds (26.9-38.3) 01/28/19 16:50
--- NOTE | 2019-01-29 18:28 | PCM.URO ---
Urology Progress Note - Objective Lab Studies: Reviewed (plans to be discussed percutaneous drainage vs cysto/stent insertion) Lab Results Last 24 Hours: Laboratory Results - last 24 hr 01/28/19 01/28/19 01/29/19 18:11 18:11 00:25 WBC RBC Hgb Hct MCV MCH MCHC RDW Plt Count MPV Neut % (Auto) Lymph % (Auto) [place] % (Auto) Eos % (Auto) Baso % (Auto) Lymph # (Auto) [place] # (Auto) Eos # (Auto) Baso # (Auto) Absolute Neuts (auto) Differential Comment Sodium 140 Potassium 4.6 Chloride 103 Carbon Dioxide 19 L Anion Gap 23 H BUN 78 H Creatinine 12.2 H* D Est GFR ( Amer) 5 Est GFR (Non-Af Amer) 4 Random Glucose 64 L Calcium 8.6 Phosphorus Magnesium Iron TIBC % Saturation Ferritin Total Bilirubin AST ALT Alkaline Phosphatase Troponin I NT-Pro-B Natriuret Pep Total Protein Albumin Globulin Albumin/Globulin Ratio Triglycerides Cholesterol LDL Cholesterol Direct HDL Cholesterol Vitamin B12 Folate TSH 3rd Generation Urine RBC None Urine WBC 0 - 2 Urine Opiates Screen Negative Urine Methadone Screen Negative Ur Barbiturates Screen Negative Ur Phencyclidine Scrn Negative Ur Amphetamines Screen Negative U Benzodiazepines Scrn Positive H U Oth Cocaine Metabols Negative U Cannabinoids Screen Negative Complement C3 Complement C4 Hep Bs Antigen Hep Bs Antibody Hep B Core IgM Ab 01/29/19 01/29/19 01/29/19 05:01 05:01 05:01 WBC 5.6 D RBC 3.28 L Hgb 9.9 L Hct 29.1 L MCV 88.7 MCH 30.2 MCHC 34.0 RDW 13.1 Plt Count 355 MPV 8.8 Neut % (Auto) 71.2 H Lymph % (Auto) 19.1 L [place] % (Auto) 7.9 H Eos % (Auto) 1.6 Baso % (Auto) 0.2 Lymph # (Auto) 1.1 L [place] # (Auto) 0.4 Eos # (Auto) 0.1 Baso # (Auto) 0.01 Absolute Neuts (auto) 3.99 Differential Comment See pathology report Sodium 140 Potassium 4.5 Chloride 103 Carbon Dioxide 22 Anion Gap 19 BUN 79 H Creatinine 12.3 H* Est GFR ( Amer) 5 Est GFR (Non-Af Amer) 4 Random Glucose 82 Calcium 8.7 Phosphorus 8.3 H Magnesium 1.9 Iron TIBC % Saturation Ferritin 183.0 Total Bilirubin 0.6 AST 23 ALT 10 Alkaline Phosphatase 61 Troponin I < 0.01 NT-Pro-B Natriuret Pep 1260 H Total Protein 6.5 Albumin 3.6 Globulin 2.8 Albumin/Globulin Ratio 1.3 Triglycerides 82 Cholesterol 70 L LDL Cholesterol Direct 38 HDL Cholesterol 24 L Vitamin B12 < 159 L Folate 18.2 TSH 3rd Generation Urine RBC Urine WBC Urine Opiates Screen Urine Methadone Screen Ur Barbiturates Screen Ur Phencyclidine Scrn Ur Amphetamines Screen U Benzodiazepines Scrn U Oth Cocaine Metabols U Cannabinoids Screen Complement C3 Complement C4 Hep Bs Antigen Negative Hep Bs Antibody Negative Hep B Core IgM Ab Negative 01/29/19 01/29/19 05:01 05:01 WBC RBC Hgb Hct MCV MCH MCHC RDW Plt Count MPV Neut % (Auto) Lymph % (Auto) [place] % (Auto) Eos % (Auto) Baso % (Auto) Lymph # (Auto) [place] # (Auto) Eos # (Auto) Baso # (Auto) Absolute Neuts (auto) Differential Comment Sodium Potassium Chloride Carbon Dioxide Anion Gap BUN Creatinine Est GFR ( Amer) Est GFR (Non-Af Amer) Random Glucose Calcium Phosphorus Magnesium Iron 130 TIBC 227 L % Saturation 58 H Ferritin Total Bilirubin AST ALT Alkaline Phosphatase Troponin I NT-Pro-B Natriuret Pep Total Protein Albumin Globulin Albumin/Globulin Ratio Triglycerides Cholesterol LDL Cholesterol Direct HDL Cholesterol Vitamin B12 Folate TSH 3rd Generation 2.42 Urine RBC Urine WBC Urine Opiates Screen Urine Methadone Screen Ur Barbiturates Screen Ur Phencyclidine Scrn Ur Amphetamines Screen U Benzodiazepines Scrn U Oth Cocaine Metabols U Cannabinoids Screen Complement C3 105.0 Complement C4 37.0 Hep Bs Antigen Hep Bs Antibody Hep B Core IgM Ab Intake & Output: Intake & Output 01/28/19 01/29/19 01/29/19 18:59 06:59 18:59 Intake Total 1000 1007 1680 Output Total 275 260 Balance 2486 818 5248 Weight 182 lb 4.8 oz 180 lb Intake: IV 1000 1007 900 IVF 900 Left Antecubital 1000 907 Oral 0 780 Output: Urine 275 260 Urethral (Howe) 260 Urine, Voided 275 Other: Voiding Method Indwelling Catheter # Bowel Movements 0 Vital Signs: Vital Signs - 24 hr 0401/28/19 01/28/19 20:23 23:30 23:40 Temperature Pulse Rate 86 86 Respiratory 16 9 L 12 Rate Blood Pressure O2 Sat by Pulse 97 96 Oximetry 01/28/19 01/28/19 01/29/19 23:45 23:50 00:00 Temperature Pulse Rate 87 86 78 Respiratory 14 13 24 Rate Blood Pressure 118/62 119/73 O2 Sat by Pulse 98 98 98 Oximetry 01/29/19 01/29/19 01/29/19 00:10 00:15 00:20 Temperature Pulse Rate 85 85 86 Respiratory 16 18 18 Rate Blood Pressure 128/79 O2 Sat by Pulse 98 98 98 Oximetry 01/29/19 01/29/19 01/29/19 00:30 00:40 01:10 Temperature Pulse Rate 103 H 90 95 H Respiratory 18 22 Rate Blood Pressure 108/75 O2 Sat by Pulse 83 L 99 96 Oximetry 01/29/19 01/29/19 01/29/19 01:11 01:15 01:20 Temperature Pulse Rate 92 H 92 H 92 H Respiratory 18 14 17 Rate Blood Pressure 136/67 130/70 O2 Sat by Pulse 98 99 94 L Oximetry 01/29/19 01/29/19 01/29/19 01:30 01:40 01:45 Temperature Pulse Rate 97 H 94 H 95 H Respiratory 18 29 H 17 Rate Blood Pressure 141/70 125/75 O2 Sat by Pulse 90 L 94 L 94 L Oximetry 01/29/19 01/29/19 01/29/19 01:50 02:00 02:10 Temperature Pulse Rate 100 H 93 H 91 H Respiratory 19 18 24 Rate Blood Pressure 128/72 O2 Sat by Pulse 86 L 89 L 92 L Oximetry 01/29/19 01/29/19 01/29/19 02:15 02:20 02:30 Temperature Pulse Rate 89 89 92 H Respiratory 18 19 24 Rate Blood Pressure 127/74 113/64 O2 Sat by Pulse 98 95 86 L Oximetry 01/29/19 01/29/19 01/29/19 02:40 02:45 02:50 Temperature Pulse Rate 92 H 99 H 96 H Respiratory 15 18 22 Rate Blood Pressure 123/69 O2 Sat by Pulse 98 85 L 94 L Oximetry 01/29/19 01/29/19 01/29/19 03:00 03:10 03:15 Temperature Pulse Rate 96 H 92 H 89 Respiratory 18 28 H 23 Rate Blood Pressure 126/63 107/56 L O2 Sat by Pulse 92 L 96 90 L Oximetry 01/29/19 01/29/19 01/29/19 03:20 03:30 03:40 Temperature Pulse Rate 91 H 89 87 Respiratory 22 15 24 Rate Blood Pressure 114/69 O2 Sat by Pulse 92 L 97 94 L Oximetry 01/29/19 01/29/19 01/29/19 03:45 03:50 04:00 Temperature Pulse Rate 87 89 86 Respiratory 14 16 17 Rate Blood Pressure 113/69 119/68 O2 Sat by Pulse 95 95 97 Oximetry 01/29/19 01/29/19 01/29/19 04:10 04:15 04:20 Temperature Pulse Rate 83 85 83 Respiratory 14 16 15 Rate Blood Pressure 117/61 O2 Sat by Pulse 97 99 95 Oximetry 01/29/19 01/29/19 01/29/19 04:30 04:40 04:45 Temperature Pulse Rate 81 86 87 Respiratory 14 23 Rate Blood Pressure 116/63 125/49 L O2 Sat by Pulse 97 97 96 Oximetry 01/29/19 01/29/19 01/29/19 04:50 05:00 05:01 Temperature Pulse Rate 84 100 H 100 H Respiratory 23 37 H 20 Rate Blood Pressure 115/59 L O2 Sat by Pulse 96 Oximetry 01/29/19 01/29/19 01/29/19 05:07 05:08 05:10 Temperature Pulse Rate 101 H 92 H 88 Respiratory 18 17 Rate Blood Pressure O2 Sat by Pulse 98 Oximetry 01/29/19 01/29/19 01/29/19 05:20 05:30 05:40 Temperature Pulse Rate 83 83 79 Respiratory 13 13 Rate Blood Pressure 137/63 109/64 O2 Sat by Pulse 97 95 99 Oximetry 01/29/19 01/29/19 01/29/19 05:45 05:50 06:00 Temperature Pulse Rate 79 79 75 Respiratory 14 14 12 Rate Blood Pressure 110/65 104/59 L O2 Sat by Pulse 95 97 96 Oximetry 01/29/19 01/29/19 01/29/19 06:10 06:15 06:20 Temperature Pulse Rate 75 73 74 Respiratory 10 L 15 11 L Rate Blood Pressure 100/65 O2 Sat by Pulse 97 95 95 Oximetry 01/29/19 01/29/19 01/29/19 06:30 06:40 06:45 Temperature Pulse Rate 74 74 74 Respiratory 19 14 13 Rate Blood Pressure 103/60 91/59 L O2 Sat by Pulse 97 96 95 Oximetry 01/29/19 01/29/19 01/29/19 06:50 07:00 07:10 Temperature Pulse Rate 73 74 75 Respiratory 18 14 13 Rate Blood Pressure 103/61 O2 Sat by Pulse 95 95 96 Oximetry 01/29/19 01/29/19 01/29/19 07:20 07:30 07:31 Temperature Pulse Rate 71 74 74 Respiratory 27 H 12 Rate Blood Pressure O2 Sat by Pulse 92 L 93 L Oximetry 01/29/19 01/29/19 01/29/19 07:40 07:50 08:00 Temperature 98.7 F Pulse Rate 75 74 74 Respiratory 15 18 14 Rate Blood Pressure 98/55 L O2 Sat by Pulse 94 L 95 94 L Oximetry 01/29/19 01/29/19 01/29/19 08:10 08:20 08:30 Temperature Pulse Rate 74 83 76 Respiratory 13 27 H 24 Rate Blood Pressure O2 Sat by Pulse 97 97 94 L Oximetry 01/29/19 01/29/19 01/29/19 08:40 08:50 09:00 Temperature Pulse Rate 75 80 84 Respiratory 18 20 17 Rate Blood Pressure 110/42 L O2 Sat by Pulse 97 95 96 Oximetry 01/29/19 01/29/19 01/29/19 09:10 09:20 09:30 Temperature Pulse Rate 87 83 80 Respiratory 17 18 21 Rate Blood Pressure O2 Sat by Pulse 90 L 92 L 96 Oximetry 01/29/19 01/29/19 01/29/19 09:40 09:50 10:00 Temperature Pulse Rate 87 83 85 Respiratory 46 H 14 30 H Rate Blood Pressure O2 Sat by Pulse 97 94 L 95 Oximetry 01/29/19 01/29/19 01/29/19 10:01 10:10 10:20 Temperature Pulse Rate 87 88 88 Respiratory 22 39 H 21 Rate Blood Pressure 118/73 O2 Sat by Pulse 95 94 L 92 L Oximetry 01/29/19 01/29/19 01/29/19 10:30 10:40 10:50 Temperature Pulse Rate 87 82 83 Respiratory 18 29 H 25 H Rate Blood Pressure O2 Sat by Pulse 92 L 93 L 92 L Oximetry 01/29/19 01/29/19 01/29/19 11:00 11:10 11:20 Temperature Pulse Rate 96 H 89 85 Respiratory 29 H 30 H 20 Rate Blood Pressure 109/67 O2 Sat by Pulse 95 95 93 L Oximetry 01/29/19 01/29/19 01/29/19 11:30 11:40 11:50 Temperature Pulse Rate 91 H 90 88 Respiratory 21 53 H Rate Blood Pressure O2 Sat by Pulse 93 L 94 L 94 L Oximetry 01/29/19 01/29/19 01/29/19 12:00 12:10 12:20 Temperature 100 F H Pulse Rate 92 H 93 H 97 H Respiratory 28 H 16 18 Rate Blood Pressure 132/68 O2 Sat by Pulse 96 92 L 95 Oximetry 01/29/19 01/29/19 01/29/19 12:30 12:40 12:50 Temperature Pulse Rate 96 H 95 H 94 H Respiratory 28 H 15 16 Rate Blood Pressure O2 Sat by Pulse 96 94 L 95 Oximetry 01/29/19 01/29/19 01/29/19 13:00 13:02 13:10 Temperature Pulse Rate 95 H 94 H 93 H Respiratory 33 H 43 H Rate Blood Pressure 129/66 O2 Sat by Pulse 94 L 96 94 L Oximetry 01/29/19 01/29/19 01/29/19 13:20 13:30 13:40 Temperature Pulse Rate 93 H 97 H 96 H Respiratory 14 Rate Blood Pressure O2 Sat by Pulse 93 L 94 L 92 L Oximetry 01/29/19 01/29/19 01/29/19 13:50 14:00 14:01 Temperature Pulse Rate 95 H 97 H 92 H Respiratory 18 23 Rate Blood Pressure 120/72 O2 Sat by Pulse 92 L 96 95 Oximetry 01/29/19 01/29/19 01/29/19 14:10 14:20 14:30 Temperature Pulse Rate 98 H 93 H 96 H Respiratory 18 34 H Rate Blood Pressure O2 Sat by Pulse 93 L 95 94 L Oximetry 01/29/19 01/29/19 01/29/19 14:40 14:50 15:00 Temperature Pulse Rate 94 H 98 H 91 H Respiratory 21 18 Rate Blood Pressure 129/72 O2 Sat by Pulse 93 L 95 92 L Oximetry 01/29/19 01/29/19 01/29/19 15:10 15:20 15:30 Temperature Pulse Rate 92 H 90 98 H Respiratory 13 27 H 13 Rate Blood Pressure O2 Sat by Pulse 93 L 93 L 93 L Oximetry 01/29/19 01/29/19 01/29/19 15:40 15:50 16:00 Temperature 98.8 F Pulse Rate 94 H 98 H 96 H Respiratory 34 H 24 28 H Rate Blood Pressure 122/64 O2 Sat by Pulse 93 L 96 95 Oximetry 01/29/19 01/29/19 01/29/19 16:10 16:20 16:30 Temperature Pulse Rate 93 H 97 H 92 H Respiratory 14 12 15 Rate Blood Pressure O2 Sat by Pulse 93 L 95 93 L Oximetry 01/29/19 01/29/19 01/29/19 16:40 16:50 17:00 Temperature Pulse Rate 92 H 93 H 93 H Respiratory 21 28 H 18 Rate Blood Pressure 122/58 L O2 Sat by Pulse 92 L 93 L 95 Oximetry 01/29/19 01/29/19 01/29/19 17:10 17:20 17:22 Temperature Pulse Rate 93 H 100 H 90 Respiratory 14 43 H 34 H Rate Blood Pressure O2 Sat by Pulse 93 L 89 L Oximetry 01/29/19 01/29/19 01/29/19 17:23 17:24 17:25 Temperature Pulse Rate 90 97 H 101 H Respiratory 35 H 11 L Rate Blood Pressure O2 Sat by Pulse Oximetry 01/29/19 01/29/19 01/29/19 17:26 17:27 17:28 Temperature Pulse Rate 103 H 96 H 101 H Respiratory 23 47 H 33 H Rate Blood Pressure O2 Sat by Pulse Oximetry 01/29/19 01/29/19 01/29/19 17:29 17:30 17:31 Temperature Pulse Rate 103 H 100 H 100 H Respiratory 27 H 27 H Rate Blood Pressure O2 Sat by Pulse Oximetry 01/29/19 01/29/19 01/29/19 17:32 17:33 17:34 Temperature Pulse Rate 99 H 100 H 98 H Respiratory 21 21 22 Rate Blood Pressure O2 Sat by Pulse Oximetry 01/29/19 01/29/19 01/29/19 17:35 17:36 17:37 Temperature Pulse Rate 98 H 96 H 100 H Respiratory 33 H 33 H Rate Blood Pressure O2 Sat by Pulse Oximetry 01/29/19 01/29/19 01/29/19 17:38 17:39 17:40 Temperature Pulse Rate 98 H 97 H 99 H Respiratory 21 31 H 15 Rate Blood Pressure O2 Sat by Pulse Oximetry 01/29/19 01/29/19 01/29/19 17:41 17:42 17:43 Temperature Pulse Rate 97 H 97 H 97 H Respiratory 13 17 29 H Rate Blood Pressure O2 Sat by Pulse Oximetry 01/29/19 01/29/19 01/29/19 17:44 17:45 17:46 Temperature Pulse Rate 95 H 99 H 108 H Respiratory 22 36 H 36 H Rate Blood Pressure O2 Sat by Pulse Oximetry 01/29/19 01/29/19 01/29/19 17:47 17:48 17:49 Temperature Pulse Rate 104 H 97 H 98 H Respiratory 29 H 31 H 26 H Rate Blood Pressure O2 Sat by Pulse Oximetry 01/29/19 01/29/19 01/29/19 17:50 17:51 17:52 Temperature Pulse Rate 95 H 98 H 98 H Respiratory 21 31 H Rate Blood Pressure O2 Sat by Pulse Oximetry 01/29/19 01/29/19 01/29/19 17:53 17:54 17:55 Temperature Pulse Rate 100 H 97 H 102 H Respiratory 27 H 50 H 128 H Rate Blood Pressure O2 Sat by Pulse Oximetry 01/29/19 01/29/19 01/29/19 17:56 17:57 17:58 Temperature Pulse Rate 99 H 103 H 104 H Respiratory 17 42 H Rate Blood Pressure O2 Sat by Pulse Oximetry 01/29/19 01/29/19 01/29/19 18:00 18:01 18:02 Temperature Pulse Rate 105 H 103 H Respiratory 102 H 17 Rate Blood Pressure 141/104 H O2 Sat by Pulse Oximetry 01/29/19 01/29/19 01/29/19 18:03 18:04 18:05 Temperature Pulse Rate 103 H 98 H Respiratory 17 33 H Rate Blood Pressure 130/74 O2 Sat by Pulse Oximetry 01/29/19 01/29/19 01/29/19 18:06 18:07 18:08 Temperature Pulse Rate 101 H 100 H 102 H Respiratory 16 18 18 Rate Blood Pressure O2 Sat by Pulse Oximetry 01/29/19 01/29/19 18:09 18:10 Temperature Pulse Rate 103 H 102 H Respiratory 17 Rate Blood Pressure O2 Sat by Pulse Oximetry
[2019-01-30 06:06] LABS: BASO # 0.02 K/mm3 (0.0-2.0); BASO % 0.3 % (0.0-3.0); EOS # 0.2 (0.0-0.7); EOS % 2.5 % (1.5-5.0); HEMOGLOBIN 9.3 g/dL (14.0-18.0); LYMPH # 1.5 (1.2-3.4); LYMPH % 24.3 % (22.0-35.0); MEAN CELL VOLUME 90.8 fl (80.0-105.0); MEAN CORPUSCULAR HEMOGLOBIN 30.4 pg (25.0-35.0); MEAN CORPUSCULAR HGB CONC 33.5 g/dl (31.0-37.0); MEAN PLATELET VOLUME 8.9 fl (7.0-11.0); MONO # 0.5 (0.1-0.6); MONO % 8.1 % (1.0-6.0); RBC 3.06 10^6/uL (3.5-6.1); RED CELL DISTRIBUTION WIDTH 13.2 % (11.5-14.5); WHITE BLOOD COUNT 6.3 10^3/uL (4.5-11.0)
[2019-01-30 06:55] LABS: ALB/GLOB RATIO 1.2 (1.1-1.8); ALBUMIN 3.3 g/dL (3.0-4.8)
--- NOTE | 2019-01-30 11:34 | CP.CCUPN ---
<Stanton Chavez - Last Filed: 01/30/19 11:34> CCU Subjective - Physician Review Subjective (Free Text): Stanton Chavez DO, PGY-1 MICU Progress Note for Dr. Mosquera Patient was seen and examined at bedside this AM. He is more awake and alert this AM. IR nephrostomy tube placement is scheduled for early afternoon today. Patient remained NPO since midnight. CCU Objective - Vital Signs / Intake & Output Intake and Output (Last 8hrs): Intake & Output 01/29/19 01/30/19 01/30/19 22:59 06:59 14:59 Intake Total 1680 900 Output Total 260 300 Balance 1420 600 Intake: IV 900 900 IVF 900 900 Oral 780 Output: Urine 260 300 Urethral (Mc) 260 300 Other: # Bowel Movements 0 - Physical Exam Head: Positive for: Atraumatic, Normocephalic Pupils: Positive for: PERRL Extroacular Muscles: Positive for: EOMI Conjunctiva: Positive for: Normal Mouth: Positive for: Moist Mucous Membranes Respiratory/Chest: Positive for: Clear to Auscultation, Good Air Exchange. Negative for: Respiratory Distress, Accessory Muscle Use Cardiovascular: Positive for: Regular Rate and Rhythm, Normal S1, S2 Abdomen: Positive for: Normal Bowel Sounds. Negative for: Tenderness, Distention, Rebound, Guarding Genitourinary Male: Positive for: Normal External Genitalia, Other (mc in place) Upper Extremity: Positive for: Normal Inspection. Negative for: Cyanosis, Edema Lower Extremity: Positive for: Normal Inspection. Negative for: Edema Neurological: Positive for: GCS=15, CN II-XII Intact, Other (resting tremor, per patient and records, this is his baseline) Skin: Positive for: Warm, Dry, Normal Color Psychiatric: Positive for: Alert, Oriented x 3, Anxious - Medications Active Medications: Active Medications Generic Name Dose Route Start Last Admin Trade Name Freq PRN Reason Stop Dose Admin Cyanocobalamin 1,000 mcg 01/30/19 10:00 01/30/19 09:54 Vitamin B12 1000 Mcg Tab PO 1,000 mcg DAILY JAQUAN Administration Heparin Sodium (Porcine) 5,000 units 01/29/19 14:00 Heparin SC Q8 JAQUAN Protocol Sodium Chloride 1,000 mls @ 75 mls/hr 01/28/19 19:45 01/29/19 22:04 Sodium Chloride 0.9% IV 75 mls/hr .[id number] JAQUAN Administration Pantoprazole Sodium 40 mg 01/29/19 10:00 01/30/19 09:54 Protonix Inj IVP 40 mg DAILY JAQUAN Administration Vitamin B Complex/Vit C/Folic Acid 1 tab 01/31/19 08:00 Nephro-Madison PO 0800 JAQUAN - Patient Studies Lab Studies: Lab Studies 01/30/19 01/30/19 01/29/19 Range/Units 05:15 05:15 05:01 WBC 6.3 (4.5-11.0) 10^3/uL RBC 3.06 L (3.5-6.1) 10^6/uL Hgb 9.3 L (14.0-18.0) g/dL Hct 27.8 L (42.0-52.0) % MCV 90.8 (80.0-105.0) fl MCH 30.4 (25.0-35.0) pg MCHC 33.5 (31.0-37.0) g/dl RDW 13.2 (11.5-14.5) % Plt Count 347 (120.0-450.0) 10^3/uL MPV 8.9 (7.0-11.0) fl Neut % (Auto) 64.8 (50.0-68.0) % Lymph % (Auto) 24.3 (22.0-35.0) % Madison % (Auto) 8.1 H (1.0-6.0) % Eos % (Auto) 2.5 (1.5-5.0) % Baso % (Auto) 0.3 (0.0-3.0) % Lymph # (Auto) 1.5 (1.2-3.4) Madison # (Auto) 0.5 (0.1-0.6) Eos # (Auto) 0.2 (0.0-0.7) Baso # (Auto) 0.02 (0.0-2.0) K/mm3 Absolute Neuts (auto) 4.08 (1.4-6.5) Sodium 142 (132-148) mmol/L Potassium 5.2 H (3.6-5.0) mmol/L Chloride 110 H (98-107) mmol/L Carbon Dioxide 18 L (21-33) mmol/L Anion Gap 20 (10-20) BUN 84 H (7-21) mg/dL Creatinine 13.3 H* (0.8-1.5) mg/dl Est GFR ( Amer) 5 Est GFR (Non-Af Amer) 4 Random Glucose 68 L (70-110) mg/dL Calcium 8.0 L (8.4-10.5) mg/dL Ferritin ng/mL Total Bilirubin 0.6 (0.2-1.3) mg/dL AST 27 (17-59) U/L ALT 16 (7-56) U/L Alkaline Phosphatase 55 (38-126) U/L Lactate Dehydrogenase 310 L (333-699) U/L Total Protein 6.0 (5.8-8.3) g/dL Albumin 3.3 (3.0-4.8) g/dL Globulin 2.7 gm/dL Albumin/Globulin Ratio 1.2 (1.1-1.8) Vitamin B12 (239-931) pg/mL Folate ng/mL Complement C3 105.0 (88.0-165.0) mg/dL Complement C4 37.0 (14.0-44.0) mg/dL Hep Bs Antigen (NEGATIVE) Hep Bs Antibody (NEGATIVE) Hep B Core Total Ab (Non Reactive) Hep B Core IgM Ab (NEGATIVE) 01/29/19 01/29/19 01/29/19 Range/Units 05:01 05:01 05:01 WBC (4.5-11.0) 10^3/uL RBC (3.5-6.1) 10^6/uL Hgb (14.0-18.0) g/dL Hct (42.0-52.0) % MCV (80.0-105.0) fl MCH (25.0-35.0) pg MCHC (31.0-37.0) g/dl RDW (11.5-14.5) % Plt Count (120.0-450.0) 10^3/uL MPV (7.0-11.0) fl Neut % (Auto) (50.0-68.0) % Lymph % (Auto) (22.0-35.0) % Madison % (Auto) (1.0-6.0) % Eos % (Auto) (1.5-5.0) % Baso % (Auto) (0.0-3.0) % Lymph # (Auto) (1.2-3.4) Madison # (Auto) (0.1-0.6) Eos # (Auto) (0.0-0.7) Baso # (Auto) (0.0-2.0) K/mm3 Absolute Neuts (auto) (1.4-6.5) Sodium (132-148) mmol/L Potassium (3.6-5.0) mmol/L Chloride (98-107) mmol/L Carbon Dioxide (21-33) mmol/L Anion Gap (10-20) BUN (7-21) mg/dL Creatinine (0.8-1.5) mg/dl Est GFR ( Amer) Est GFR (Non-Af Amer) Random Glucose (70-110) mg/dL Calcium (8.4-10.5) mg/dL Ferritin 183.0 ng/mL Total Bilirubin (0.2-1.3) mg/dL AST (17-59) U/L ALT (7-56) U/L Alkaline Phosphatase (38-126) U/L Lactate Dehydrogenase (333-699) U/L Total Protein (5.8-8.3) g/dL Albumin (3.0-4.8) g/dL Globulin gm/dL Albumin/Globulin Ratio (1.1-1.8) Vitamin B12 < 159 L (239-931) pg/mL Folate 18.2 ng/mL Complement C3 (88.0-165.0) mg/dL Complement C4 (14.0-44.0) mg/dL Hep Bs Antigen Negative (NEGATIVE) Hep Bs Antibody Negative (NEGATIVE) Hep B Core Total Ab Non reactive (Non Reactive) Hep B Core IgM Ab Negative (NEGATIVE) Laboratory Results - last 24 hr 01/29/19 01/29/19 01/29/19 05:01 05:01 05:01 WBC RBC Hgb Hct MCV MCH MCHC RDW Plt Count MPV Neut % (Auto) Lymph % (Auto) Madison % (Auto) Eos % (Auto) Baso % (Auto) Lymph # (Auto) Madison # (Auto) Eos # (Auto) Baso # (Auto) Absolute Neuts (auto) Sodium Potassium Chloride Carbon Dioxide Anion Gap BUN Creatinine Est GFR ( Amer) Est GFR (Non-Af Amer) Random Glucose Calcium Ferritin 183.0 Total Bilirubin AST ALT Alkaline Phosphatase Lactate Dehydrogenase Total Protein Albumin Globulin Albumin/Globulin Ratio Vitamin B12 < 159 L Folate 18.2 Complement C3 Complement C4 Hep Bs Antigen Negative Hep Bs Antibody Negative Hep B Core Total Ab Non reactive Hep B Core IgM Ab Negative 01/29/19 01/30/19 01/30/19 05:01 05:15 05:15 WBC 6.3 RBC 3.06 L Hgb 9.3 L Hct 27.8 L MCV 90.8 MCH 30.4 MCHC 33.5 RDW 13.2 Plt Count 347 MPV 8.9 Neut % (Auto) 64.8 Lymph % (Auto) 24.3 Madison % (Auto) 8.1 H Eos % (Auto) 2.5 Baso % (Auto) 0.3 Lymph # (Auto) 1.5 Madison # (Auto) 0.5 Eos # (Auto) 0.2 Baso # (Auto) 0.02 Absolute Neuts (auto) 4.08 Sodium 142 Potassium 5.2 H Chloride 110 H Carbon Dioxide 18 L Anion Gap 20 BUN 84 H Creatinine 13.3 H* Est GFR ( Amer) 5 Est GFR (Non-Af Amer) 4 Random Glucose 68 L Calcium 8.0 L Ferritin Total Bilirubin 0.6 AST 27 ALT 16 Alkaline Phosphatase 55 Lactate Dehydrogenase 310 L Total Protein 6.0 Albumin 3.3 Globulin 2.7 Albumin/Globulin Ratio 1.2 Vitamin B12 Folate Complement C3 105.0 Complement C4 37.0 Hep Bs Antigen Hep Bs Antibody Hep B Core Total Ab Hep B Core IgM Ab Fingerstick Blood Sugar Results: 110 Critical Care Progress Note - Nutrition Nutrition: Nutrition Category Date Time Status NPO Diet [DIET] Diets 01/30/19 Breakfast Ordered Assessment/Plan - Assessment and Plan (Free Text) Assessment: 63 yo M with PMH of COPD, HTN, anxiety, depression, and unspecified tremor disorder who was brought in by ambulance for AMS. Upon arrival, patient was found to be in acute renal failure with subsequent hyperkalemia, uremia, and acidosis. Patient had R IJ Trialysis catheter placed and had subsequent emergent HD in the ICU. Initially, patient required restraints and precedex for sedation during trialysis catheter placement but improved s/p first session of dialysis. He remains awake and alert this AM and is scheduled for nephrostomy tubre placement per IR this afternoon. Plan: Neuro: Now AA/o x 3, no focal deficit, moving all extremities spontaneously, able to protect airway No longer requiring precedex for sedation Suspect initial AMS was likely 2/2 uremia from obstructive nephropathy Initial CT head negative for concerning findings Continue frequent reorientation, monitor neuro status Cardio: RRR, normotensive, no signs of HD compromise Maintain MAP>65 Monitor for S/S, HD compromise No active issues Pulm: Maintaining SaO2 > 90% on room air Has history of COPD at baseline No active issues GI: Tolerating renal diet well without nausea/vomiting last night Has otherwise been NPO since midnight May restart diet s/p IR procedure today /Nephro: Renal function parameters improved s/p first session of dialysis, not worsened this AM Case discussed with Dr. Singh and Dr. Price yesterday Plan for IR placement of nephrostomy tube today Continue serial monitoring after procedure Will consider urologic intervention of recurrent calculi once hydronephrosis improved Continue Strict I & O Nephrology, urology following, all recs appreciated Endocrinology: Random glucose: 68 Maintain euglycemia Heme/Onc: H/H decreased from baseline (likely 2/2 acute renal dysfunction) but remaining stable this AM No other signs of HD compromise ID: Remaining afebrile without leukocytosis Monitor for s/sx of infection DVT/GI PPX: SC heparin held prior to IR procedure, may resume afterward/protonix Full Code NPO for now but may restart diet following IR procedure Monitor in MICU Patient seen, examined with, and plan confirmed with my attending Dr. Eveline Chavez D.O. IM Resident PGY-1 Pager: [phone] <Ricky Mosquera - Last Filed: 01/30/19 13:26> CCU Objective - Vital Signs / Intake & Output Intake and Output (Last 8hrs): Intake & Output 01/29/19 01/30/19 01/30/19 22:59 06:59 14:59 Intake Total 1680 900 Output Total 260 300 Balance 1420 600 Intake: IV 900 900 IVF 900 900 Oral 780 Output: Urine 260 300 Urethral (Mc) 260 300 Other: # Bowel Movements 0 - Medications Active Medications: Active Medications Generic Name Dose Route Start Last Admin Trade Name Freq PRN Reason Stop Dose Admin Cyanocobalamin 1,000 mcg 01/30/19 10:00 01/30/19 09:54 Vitamin B12 1000 Mcg Tab PO 1,000 mcg DAILY JAQUAN Administration Heparin Sodium (Porcine) 5,000 units 01/29/19 14:00 Heparin SC Q8 [facility] Protocol Sodium Chloride 1,000 mls @ 75 mls/hr 01/28/19 19:45 01/29/19 22:04 Sodium Chloride 0.9% IV 75 mls/hr .[id number] JAQUAN Administration Pantoprazole Sodium 40 mg 01/29/19 10:00 01/30/19 09:54 Protonix Inj IVP 40 mg DAILY JAQUAN Administration Vitamin B Complex/Vit C/Folic Acid 1 tab 01/31/19 08:00 Nephro-[place] PO 0800 [facility] - Patient Studies Lab Studies: Microbiology Studies 01/28/19 21:17 MRSA Culture (Admit) - Final Naris MRSA NOT DETECTED Lab Studies 01/30/19 01/30/19 01/29/19 Range/Units 05:15 05:15 05:01 WBC 6.3 (4.5-11.0) 10^3/uL RBC 3.06 L (3.5-6.1) 10^6/uL Hgb 9.3 L (14.0-18.0) g/dL Hct 27.8 L (42.0-52.0) % MCV 90.8 (80.0-105.0) fl MCH 30.4 (25.0-35.0) pg MCHC 33.5 (31.0-37.0) g/dl RDW 13.2 (11.5-14.5) % Plt Count 347 (120.0-450.0) 10^3/uL MPV 8.9 (7.0-11.0) fl Neut % (Auto) 64.8 (50.0-68.0) % Lymph % (Auto) 24.3 (22.0-35.0) % Madison % (Auto) 8.1 H (1.0-6.0) % Eos % (Auto) 2.5 (1.5-5.0) % Baso % (Auto) 0.3 (0.0-3.0) % Lymph # (Auto) 1.5 (1.2-3.4) Madison # (Auto) 0.5 (0.1-0.6) Eos # (Auto) 0.2 (0.0-0.7) Baso # (Auto) 0.02 (0.0-2.0) K/mm3 Absolute Neuts (auto) 4.08 (1.4-6.5) Sodium 142 (132-148) mmol/L Potassium 5.2 H (3.6-5.0) mmol/L Chloride 110 H (98-107) mmol/L Carbon Dioxide 18 L (21-33) mmol/L Anion Gap 20 (10-20) BUN 84 H (7-21) mg/dL Creatinine 13.3 H* (0.8-1.5) mg/dl Est GFR ( Amer) 5 Est GFR (Non-Af Amer) 4 Random Glucose 68 L (70-110) mg/dL Calcium 8.0 L (8.4-10.5) mg/dL Total Bilirubin 0.6 (0.2-1.3) mg/dL AST 27 (17-59) U/L ALT 16 (7-56) U/L Alkaline Phosphatase 55 (38-126) U/L Lactate Dehydrogenase 310 L (333-699) U/L Total Protein 6.0 (5.8-8.3) g/dL Albumin 3.3 (3.0-4.8) g/dL Globulin 2.7 gm/dL Albumin/Globulin Ratio 1.2 (1.1-1.8) Vitamin B12 (239-931) pg/mL Folate ng/mL Double Strand DNA Ab <1 IU/mL Hep B Core Total Ab (Non Reactive) 01/29/19 01/29/19 Range/Units 05:01 05:01 WBC (4.5-11.0) 10^3/uL RBC (3.5-6.1) 10^6/uL Hgb (14.0-18.0) g/dL Hct (42.0-52.0) % MCV (80.0-105.0) fl MCH (25.0-35.0) pg MCHC (31.0-37.0) g/dl RDW (11.5-14.5) % Plt Count (120.0-450.0) 10^3/uL MPV (7.0-11.0) fl Neut % (Auto) (50.0-68.0) % Lymph % (Auto) (22.0-35.0) % Madison % (Auto) (1.0-6.0) % Eos % (Auto) (1.5-5.0) % Baso % (Auto) (0.0-3.0) % Lymph # (Auto) (1.2-3.4) Madison # (Auto) (0.1-0.6) Eos # (Auto) (0.0-0.7) Baso # (Auto) (0.0-2.0) K/mm3 Absolute Neuts (auto) (1.4-6.5) Sodium (132-148) mmol/L Potassium (3.6-5.0) mmol/L Chloride (98-107) mmol/L Carbon Dioxide (21-33) mmol/L Anion Gap (10-20) BUN (7-21) mg/dL Creatinine (0.8-1.5) mg/dl Est GFR ( Amer) Est GFR (Non-Af Amer) Random Glucose (70-110) mg/dL Calcium (8.4-10.5) mg/dL Total Bilirubin (0.2-1.3) mg/dL AST (17-59) U/L ALT (7-56) U/L Alkaline Phosphatase (38-126) U/L Lactate Dehydrogenase (333-699) U/L Total Protein (5.8-8.3) g/dL Albumin (3.0-4.8) g/dL Globulin gm/dL Albumin/Globulin Ratio (1.1-1.8) Vitamin B12 < 159 L (239-931) pg/mL Folate 18.2 ng/mL Double Strand DNA Ab IU/mL Hep B Core Total Ab Non reactive (Non Reactive) Laboratory Results - last 24 hr 01/29/19 01/29/19 01/29/19 05:01 05:01 05:01 WBC RBC Hgb Hct MCV MCH MCHC RDW Plt Count MPV Neut % (Auto) Lymph % (Auto) Madison % (Auto) Eos % (Auto) Baso % (Auto) Lymph # (Auto) [place] # (Auto) Eos # (Auto) Baso # (Auto) Absolute Neuts (auto) Sodium Potassium Chloride Carbon Dioxide Anion Gap BUN Creatinine Est GFR ( Amer) Est GFR (Non-Af Amer) Random Glucose Calcium Total Bilirubin AST ALT Alkaline Phosphatase Lactate Dehydrogenase Total Protein Albumin Globulin Albumin/Globulin Ratio Vitamin B12 < 159 L Folate 18.2 Double Strand DNA Ab <1 Hep B Core Total Ab Non reactive 01/30/19 01/30/19 05:15 05:15 WBC 6.3 RBC 3.06 L Hgb 9.3 L Hct 27.8 L MCV 90.8 MCH 30.4 MCHC 33.5 RDW 13.2 Plt Count 347 MPV 8.9 Neut % (Auto) 64.8 Lymph % (Auto) 24.3 Madison % (Auto) 8.1 H Eos % (Auto) 2.5 Baso % (Auto) 0.3 Lymph # (Auto) 1.5 Madison # (Auto) 0.5 Eos # (Auto) 0.2 Baso # (Auto) 0.02 Absolute Neuts (auto) 4.08 Sodium 142 Potassium 5.2 H Chloride 110 H Carbon Dioxide 18 L Anion Gap 20 BUN 84 H Creatinine 13.3 H* Est GFR ( Amer) 5 Est GFR (Non-Af Amer) 4 Random Glucose 68 L Calcium 8.0 L Total Bilirubin 0.6 AST 27 ALT 16 Alkaline Phosphatase 55 Lactate Dehydrogenase 310 L Total Protein 6.0 Albumin 3.3 Globulin 2.7 Albumin/Globulin Ratio 1.2 Vitamin B12 Folate Double Strand DNA Ab Hep B Core Total Ab Critical Care Progress Note - Nutrition Nutrition: Nutrition Category Date Time Status NPO Diet [DIET] Diets 01/30/19 Breakfast Ordered Assessment/Plan - Assessment and Plan (Free Text) Plan: I saw and examined the patient on rounds with resident, agree with note with following additions/exceptions: Patient is 63yo male with PMH of COPD, HTN, anxiety, depression, and unspecified tremor disorder who was brought in by ambulance for AMS, found to be in ARF, hyperkalemia, K 8, emergently had R IJ HD catheter placed, and dialyzed, with improvement in K. Pt had CT A/P which showed severe R hydronephrosis, with ureteral stone. Urology, Dr Singh consulted no pllaned for procedure. Pt to have IR guided nephrostomy tube Renal following. Currently afebrile, HD stable, comfortable in NAD, doing well, OFF Precedex Mentation significantly improved Labs, imaging, chart reviewed K 4.4, BUN downtrending ARF/MARCUS Hyperkalemia, resolved R hydronephrosis COPD HTN Recommend: - cont with supp o2 as needed, duonebs PRN - NO ID issues - follow up cultures, Procal - NPO - IVF, NS - follow up renal, may need HD again - IR guided Nephrostomy tube - keep mc in place, I/Os - GI ppx, PPI - DVT ppx, HSQ - Monitor in MICU
--- NOTE | 2019-01-30 11:50 | PCM.URO ---
Urology Progress Note - Objective Lab Studies: Reviewed (plans: nephrostomy tube note to be dictated) Lab Results Last 24 Hours: Laboratory Results - last 24 hr 01/29/19 01/29/19 01/29/19 05:01 05:01 05:01 WBC RBC Hgb Hct MCV MCH MCHC RDW Plt Count MPV Neut % (Auto) Lymph % (Auto) Dillon % (Auto) Eos % (Auto) Baso % (Auto) Lymph # (Auto) Dillon # (Auto) Eos # (Auto) Baso # (Auto) Absolute Neuts (auto) Sodium Potassium Chloride Carbon Dioxide Anion Gap BUN Creatinine Est GFR ( Amer) Est GFR (Non-Af Amer) Random Glucose Calcium Ferritin 183.0 Total Bilirubin AST ALT Alkaline Phosphatase Lactate Dehydrogenase Total Protein Albumin Globulin Albumin/Globulin Ratio Vitamin B12 < 159 L Folate 18.2 Complement C3 Complement C4 Hep Bs Antigen Negative Hep Bs Antibody Negative Hep B Core Total Ab Non reactive Hep B Core IgM Ab Negative 01/29/19 01/30/19 01/30/19 05:01 05:15 05:15 WBC 6.3 RBC 3.06 L Hgb 9.3 L Hct 27.8 L MCV 90.8 MCH 30.4 MCHC 33.5 RDW 13.2 Plt Count 347 MPV 8.9 Neut % (Auto) 64.8 Lymph % (Auto) 24.3 Dillon % (Auto) 8.1 H Eos % (Auto) 2.5 Baso % (Auto) 0.3 Lymph # (Auto) 1.5 Dillon # (Auto) 0.5 Eos # (Auto) 0.2 Baso # (Auto) 0.02 Absolute Neuts (auto) 4.08 Sodium 142 Potassium 5.2 H Chloride 110 H Carbon Dioxide 18 L Anion Gap 20 BUN 84 H Creatinine 13.3 H* Est GFR ( Amer) 5 Est GFR (Non-Af Amer) 4 Random Glucose 68 L Calcium 8.0 L Ferritin Total Bilirubin 0.6 AST 27 ALT 16 Alkaline Phosphatase 55 Lactate Dehydrogenase 310 L Total Protein 6.0 Albumin 3.3 Globulin 2.7 Albumin/Globulin Ratio 1.2 Vitamin B12 Folate Complement C3 105.0 Complement C4 37.0 Hep Bs Antigen Hep Bs Antibody Hep B Core Total Ab Hep B Core IgM Ab Intake & Output: Intake & Output 01/29/19 01/30/19 01/30/19 18:59 06:59 18:59 Intake Total 1680 900 Output Total 260 300 Balance 1420 600 Intake: IV 900 900 IVF 900 900 Oral 780 Output: Urine 260 300 Urethral (Howe) 260 300 Other: # Bowel Movements 0 Vital Signs: Vital Signs - 24 hr 01/29/19 01/29/19 01/29/19 12:00 12:10 12:20 Temperature 100 F H Pulse Rate 92 H 93 H 97 H Respiratory 28 H 16 18 Rate Blood Pressure 132/68 O2 Sat by Pulse 96 92 L 95 Oximetry 01/29/19 01/29/19 01/29/19 12:30 12:40 12:50 Temperature Pulse Rate 96 H 95 H 94 H Respiratory 28 H 15 16 Rate Blood Pressure O2 Sat by Pulse 96 94 L 95 Oximetry 01/29/19 01/29/19 01/29/19 13:00 13:02 13:10 Temperature Pulse Rate 95 H 94 H 93 H Respiratory 33 H 43 H Rate Blood Pressure 129/66 O2 Sat by Pulse 94 L 96 94 L Oximetry 01/29/19 01/29/19 01/29/19 13:20 13:30 13:40 Temperature Pulse Rate 93 H 97 H 96 H Respiratory 14 Rate Blood Pressure O2 Sat by Pulse 93 L 94 L 92 L Oximetry 01/29/19 01/29/19 01/29/19 13:50 14:00 14:01 Temperature Pulse Rate 95 H 97 H 92 H Respiratory 18 23 Rate Blood Pressure 120/72 O2 Sat by Pulse 92 L 96 95 Oximetry 01/29/19 01/29/19 01/29/19 14:10 14:20 14:30 Temperature Pulse Rate 98 H 93 H 96 H Respiratory 18 34 H Rate Blood Pressure O2 Sat by Pulse 93 L 95 94 L Oximetry 01/29/19 01/29/19 01/29/19 14:40 14:50 15:00 Temperature Pulse Rate 94 H 98 H 91 H Respiratory 21 18 Rate Blood Pressure 129/72 O2 Sat by Pulse 93 L 95 92 L Oximetry 01/29/19 01/29/19 01/29/19 15:10 15:20 15:30 Temperature Pulse Rate 92 H 90 98 H Respiratory 13 27 H 13 Rate Blood Pressure O2 Sat by Pulse 93 L 93 L 93 L Oximetry 01/29/19 01/29/19 01/29/19 15:40 15:50 16:00 Temperature 98.8 F Pulse Rate 94 H 98 H 96 H Respiratory 34 H 24 28 H Rate Blood Pressure 122/64 O2 Sat by Pulse 93 L 96 95 Oximetry 01/29/19 01/29/19 01/29/19 16:10 16:20 16:30 Temperature Pulse Rate 93 H 97 H 92 H Respiratory 14 12 15 Rate Blood Pressure O2 Sat by Pulse 93 L 95 93 L Oximetry 01/29/19 01/29/19 01/29/19 16:40 16:50 17:00 Temperature Pulse Rate 92 H 93 H 93 H Respiratory 21 28 H 18 Rate Blood Pressure 122/58 L O2 Sat by Pulse 92 L 93 L 95 Oximetry 01/29/19 01/29/19 01/29/19 17:10 17:20 17:22 Temperature Pulse Rate 93 H 100 H 90 Respiratory 14 43 H 34 H Rate Blood Pressure O2 Sat by Pulse 93 L 89 L Oximetry 01/29/19 01/29/19 01/29/19 17:23 17:24 17:25 Temperature Pulse Rate 90 97 H 101 H Respiratory 35 H 11 L Rate Blood Pressure O2 Sat by Pulse Oximetry 01/29/19 01/29/19 01/29/19 17:26 17:27 17:28 Temperature Pulse Rate 103 H 96 H 101 H Respiratory 23 47 H 33 H Rate Blood Pressure O2 Sat by Pulse Oximetry 01/29/19 01/29/19 01/29/19 17:29 17:30 17:31 Temperature Pulse Rate 103 H 100 H 100 H Respiratory 27 H 27 H Rate Blood Pressure O2 Sat by Pulse Oximetry 01/29/19 01/29/19 01/29/19 17:32 17:33 17:34 Temperature Pulse Rate 99 H 100 H 98 H Respiratory 21 21 22 Rate Blood Pressure O2 Sat by Pulse Oximetry 01/29/19 01/29/19 01/29/19 17:35 17:36 17:37 Temperature Pulse Rate 98 H 96 H 100 H Respiratory 33 H 33 H Rate Blood Pressure O2 Sat by Pulse Oximetry 01/29/19 01/29/19 01/29/19 17:38 17:39 17:40 Temperature Pulse Rate 98 H 97 H 99 H Respiratory 21 31 H 15 Rate Blood Pressure O2 Sat by Pulse Oximetry 01/29/19 01/29/19 01/29/19 17:41 17:42 17:43 Temperature Pulse Rate 97 H 97 H 97 H Respiratory 13 17 29 H Rate Blood Pressure O2 Sat by Pulse Oximetry 01/29/19 01/29/19 01/29/19 17:44 17:45 17:46 Temperature Pulse Rate 95 H 99 H 108 H Respiratory 22 36 H 36 H Rate Blood Pressure O2 Sat by Pulse Oximetry 01/29/19 01/29/19 01/29/19 17:47 17:48 17:49 Temperature Pulse Rate 104 H 97 H 98 H Respiratory 29 H 31 H 26 H Rate Blood Pressure O2 Sat by Pulse Oximetry 01/29/19 01/29/19 01/29/19 17:50 17:51 17:52 Temperature Pulse Rate 95 H 98 H 98 H Respiratory 21 31 H Rate Blood Pressure O2 Sat by Pulse Oximetry 01/29/19 01/29/19 01/29/19 17:53 17:54 17:55 Temperature Pulse Rate 100 H 97 H 102 H Respiratory 27 H 50 H 128 H Rate Blood Pressure O2 Sat by Pulse Oximetry 01/29/19 01/29/19 01/29/19 17:56 17:57 17:58 Temperature Pulse Rate 99 H 103 H 104 H Respiratory 17 42 H Rate Blood Pressure O2 Sat by Pulse Oximetry 01/29/19 01/29/19 01/29/19 18:00 18:01 18:02 Temperature Pulse Rate 105 H 103 H Respiratory 102 H 17 Rate Blood Pressure 141/104 H O2 Sat by Pulse Oximetry 01/29/19 01/29/19 01/29/19 18:03 18:04 18:05 Temperature Pulse Rate 103 H 98 H Respiratory 17 33 H Rate Blood Pressure 130/74 O2 Sat by Pulse Oximetry 01/29/19 01/29/19 01/29/19 18:06 18:07 18:08 Temperature Pulse Rate 101 H 100 H 102 H Respiratory 16 18 18 Rate Blood Pressure O2 Sat by Pulse Oximetry 01/29/19 01/29/19 01/29/19 18:09 18:10 20:47 Temperature Pulse Rate 103 H 102 H 91 H Respiratory 17 21 Rate Blood Pressure O2 Sat by Pulse Oximetry 01/29/19 01/29/19 01/29/19 20:48 20:49 20:50 Temperature Pulse Rate 91 H 90 89 Respiratory 22 22 15 Rate Blood Pressure O2 Sat by Pulse Oximetry 01/29/19 01/29/19 01/29/19 20:51 20:52 20:53 Temperature Pulse Rate 93 H 91 H 91 H Respiratory 16 24 31 H Rate Blood Pressure O2 Sat by Pulse Oximetry 01/29/19 01/29/19 01/29/19 20:54 20:55 20:56 Temperature Pulse Rate 92 H 91 H 91 H Respiratory 18 16 19 Rate Blood Pressure O2 Sat by Pulse Oximetry 01/29/19 01/29/19 01/29/19 20:57 20:58 20:59 Temperature Pulse Rate 89 91 H 89 Respiratory 14 17 21 Rate Blood Pressure O2 Sat by Pulse Oximetry 01/29/19 01/29/19 01/29/19 21:00 21:01 21:02 Temperature Pulse Rate 91 H 89 Respiratory 23 17 Rate Blood Pressure 131/73 O2 Sat by Pulse Oximetry 01/29/19 01/29/19 01/29/19 21:03 21:04 21:05 Temperature Pulse Rate 89 94 H 89 Respiratory 20 16 Rate Blood Pressure O2 Sat by Pulse Oximetry 01/29/19 01/29/19 01/29/19 21:06 21:10 21:20 Temperature Pulse Rate 91 H 88 88 Respiratory 95 H 19 21 Rate Blood Pressure O2 Sat by Pulse 99 97 Oximetry 01/29/19 01/29/19 01/29/19 21:30 21:40 21:50 Temperature Pulse Rate 91 H 90 91 H Respiratory 15 15 15 Rate Blood Pressure O2 Sat by Pulse 97 97 97 Oximetry 01/29/19 01/29/19 01/29/19 22:00 22:01 22:10 Temperature Pulse Rate 93 H 91 H 93 H Respiratory 38 H 17 Rate Blood Pressure 139/73 O2 Sat by Pulse 98 97 96 Oximetry 01/29/19 01/29/19 01/29/19 22:20 22:30 22:40 Temperature Pulse Rate 92 H 90 90 Respiratory 20 21 22 Rate Blood Pressure O2 Sat by Pulse 96 95 96 Oximetry 01/29/19 01/29/19 01/29/19 22:50 23:00 23:10 Temperature Pulse Rate 90 91 H 93 H Respiratory 22 19 19 Rate Blood Pressure 140/77 O2 Sat by Pulse 96 97 96 Oximetry 01/29/19 01/29/19 01/29/19 23:20 23:30 23:40 Temperature Pulse Rate 92 H 94 H 92 H Respiratory 24 32 H 35 H Rate Blood Pressure O2 Sat by Pulse 95 98 96 Oximetry 01/29/19 01/30/19 01/30/19 23:50 00:00 00:10 Temperature Pulse Rate 92 H 91 H 90 Respiratory 18 20 21 Rate Blood Pressure 134/76 O2 Sat by Pulse 96 96 97 Oximetry 01/30/19 01/30/19 01/30/19 00:20 00:30 00:40 Temperature Pulse Rate 91 H 91 H 92 H Respiratory 17 16 22 Rate Blood Pressure O2 Sat by Pulse 97 97 97 Oximetry 01/30/19 01/30/19 01/30/19 00:50 01:00 01:10 Temperature Pulse Rate 97 H 93 H 94 H Respiratory 17 18 16 Rate Blood Pressure 136/73 O2 Sat by Pulse 97 95 98 Oximetry 01/30/19 01/30/19 01/30/19 01:20 01:30 01:40 Temperature Pulse Rate 91 H 91 H 93 H Respiratory 15 17 Rate Blood Pressure O2 Sat by Pulse 97 96 99 Oximetry 01/30/19 01/30/19 01/30/19 01:50 02:00 02:01 Temperature Pulse Rate 91 H 92 H 96 H Respiratory 14 21 Rate Blood Pressure 147/68 O2 Sat by Pulse 96 94 L 95 Oximetry 01/30/19 01/30/19 01/30/19 02:10 02:20 02:30 Temperature Pulse Rate 93 H 91 H 98 H Respiratory 25 H 21 16 Rate Blood Pressure O2 Sat by Pulse 97 96 98 Oximetry 01/30/19 01/30/19 01/30/19 02:40 02:50 03:00 Temperature Pulse Rate 95 H 97 H 95 H Respiratory 10 L 24 11 L Rate Blood Pressure 139/76 O2 Sat by Pulse 97 96 95 Oximetry 01/30/19 01/30/19 01/30/19 03:10 03:20 03:30 Temperature Pulse Rate 94 H 93 H 93 H Respiratory 46 H 18 33 H Rate Blood Pressure O2 Sat by Pulse 96 96 98 Oximetry 01/30/19 01/30/19 01/30/19 03:40 03:50 04:00 Temperature Pulse Rate 88 91 H 94 H Respiratory 33 H 23 29 H Rate Blood Pressure 136/71 O2 Sat by Pulse 98 97 98 Oximetry 01/30/19 01/30/19 01/30/19 04:10 04:20 04:30 Temperature Pulse Rate 96 H 93 H 92 H Respiratory 33 H 22 15 Rate Blood Pressure O2 Sat by Pulse 97 97 98 Oximetry 01/30/19 01/30/19 01/30/19 04:40 04:50 05:00 Temperature Pulse Rate 92 H 88 92 H Respiratory 17 17 Rate Blood Pressure 144/76 O2 Sat by Pulse 99 98 98 Oximetry 01/30/19 01/30/19 01/30/19 05:10 05:20 05:30 Temperature Pulse Rate 89 89 86 Respiratory 25 H 20 21 Rate Blood Pressure O2 Sat by Pulse 100 99 98 Oximetry 01/30/19 01/30/19 01/30/19 05:40 05:50 06:00 Temperature Pulse Rate 95 H 91 H 88 Respiratory 54 H 27 H 19 Rate Blood Pressure 139/79 O2 Sat by Pulse 99 99 98 Oximetry 01/30/19 01/30/19 01/30/19 06:10 06:20 06:30 Temperature Pulse Rate 90 91 H 88 Respiratory 16 18 27 H Rate Blood Pressure O2 Sat by Pulse 99 97 97 Oximetry 01/30/19 01/30/19 01/30/19 06:40 06:50 07:00 Temperature Pulse Rate 95 H 89 88 Respiratory 17 10 L Rate Blood Pressure 115/60 O2 Sat by Pulse 98 99 96 Oximetry 01/30/19 01/30/19 01/30/19 07:10 07:20 07:30 Temperature Pulse Rate 89 89 86 Respiratory 18 21 20 Rate Blood Pressure O2 Sat by Pulse 97 99 97 Oximetry
[2019-01-30] MEDS ORDERED: Iodixanol 320 MG/ML 100 ML BOTTLE IV ONE (14:01)
[2019-01-30] MEDS ORDERED: Lidocaine PF 2% (5 ml) Inj (For Cardiac Arrhy) ONE (14:01)
--- NOTE | 2019-01-30 14:01 | PN ---
DATE: 01/30/2019 SUBJECTIVE: I saw him in the intensive care unit. He is resting comfortably. He is not shaking anymore. He is currently on heparin, Protonix, IV fluids and vitamin B12. He had his dialysis the other day, which I hope helped him. PHYSICAL EXAMINATION: VITAL SIGNS: He has 98.8 temp, 86 pulse, 115/60 blood pressure, 20 respiratory rate, 97% O2 sat. HEENT: Head is atraumatic, normocephalic. HEART: Regular rate. LUNGS: Decreased breath sounds. ABDOMEN: Soft. EXTREMITIES: No edema. He is not tremorish. LABORATORY DATA: He has a 6.3 white count, 9.3 hemoglobin, 27.8 hematocrit with 347 platelets. Lactate was 0.6, low. He has 142 sodium, potassium is 5.2, BUN is 84, when he came in, the BUN was as high as 121; now his creatinine was 13.3, it was 12.3 yesterday and when he came in it was 19.2. So the dialysis helped him but he is not done yet; his GFR is only 4, sugar is 68, calcium is 8, iron is 130, total iron binding capacity is 227, total bili is 0.6, AST is 27, ALT is 16, alk phos 55, troponin I is 0.02, BNP is 1260, total protein is 6, vitamin B12 is less than 169. He is on B12 shots. TSH is 2.42. Urine showed small, positive for benzos. MEDICATIONS: He is on heparin, Protonix, IV fluids and vitamin B12. ASSESSMENT AND PLAN: He is in trouble. He is in the intensive care unit. He is being seen by [facility], the quality control projectionist. Hopefully, the renal function will improve with hemodialysis and current treatment. As per [facility], they might need to do a percutaneous drainage versus cysto and stent insertion depending on how he responds. He had a renal ultrasound, it demonstrated right kidney, severe hydronephrosis secondary to proximal 11 mm right ureteral calculus, atrophic left kidney, chronic hydronephrosis less likely could be from 11 mm right ureteral calculus. So, they line up to do a percutaneous procedure to drain the kidneys. We will continue to watch closely. Ryne Dunn DO
--- NOTE | 2019-01-30 14:14 | CP.PCM.PN ---
Subjective - Date & Time of Evaluation Date of Evaluation: 01/30/19 Time of Evaluation: 14:13 - Subjective Subjective: Nephrology Consultation Note Assessment: critical Acute Kidney Injury (N17.9) likely due to obs uropathy due to stone Chronic Kidney Disease (N18.3) Stage 3 with left atrophic kidney, baseline cr 1.6-1.8 b12 def, hyperkalemia, AMS, metabolic acidosis, uremia started HD 01/28/19, hyperphos, anemia Plan urology eval appreciated. pt planned for nephrostomy tube placment by IR 01/30/19. hopefully, renal function will improve soon after Rt ureteral obstruction is relieved and dialysis will not be needed Hypertension control with meds as ordered. Maintain hemodynamics stable. Avoid hypotension. Patient not on ACEI/ARB due to recent MARCUS Monitor Input/Output, daily weights and renal function with basic metabolic panel supplement B12 as pt with level very low supplement lytes as needed work up for stone as outpt Dose meds/antibiotics for reduced GFR. Avoid fleets enema/magnesium based laxatives. Avoid nephrotoxins/NSAIDs/ iodinated contrast (unless needed emergently) Glycemic control Further work up for as per primary team Thanks for allowing me to participate in care of your patient. Will follow patient with you. Please call if any Qs. had d/w team Dr Taiwo Vyas Office: [phone] Subjective: Noted events overnight. Patients feels better Denies chest pain, palpitation, shortness of breath, leg swelling. All other negative Physical Examination: General Appearance: Comfortable, in no acute respiratory distress, co-operative . shaky/tremors improved Vitals reviewed and noted as below Head; Atraumatic, normocephalic ENT: no ulcers no thrush. Tongue is midline. Oropharynx: no rash or ulcers. EYES: Pupils are equal, round and reactive to light accommodation. Eye muscles and extraocular movement intact. Sclera is anicteric. Neck; supple no lymphadenopathy, no thyromegaly or bruit Lungs: Normal respiratory rate/effort. Breath sounds bilateral equal and clear Heart: Normal rate. s1s2 normal. No rub or gallop. Extremities: no edema. No varicose veins Neurological: Patient is alert, awake and oriented. No focal deficit. Strength bilateral appropriate and equal Skin: Warm and dry. Normal turgor. No rash. Palpitation: Normal elasticity for age Abdomen: Abdomen is soft. Bowel sounds +. There is no abdominal tenderness, no guarding/rigidity no organomegaly Psych: normal affect/mood MSK: no joint tenderness or swelling. Digits and nails normal, no deformity : kidney or bladder not palpable Rt [facility] Labs/imaging reviewed. Past medical history, past surgical history, family history, social history, allergy reviewed and noted as below Family hx: no hx of CKD. Rest non-contributory Objective - Vital Signs/Intake and Output Vital Signs (last 24 hours): Temp Pulse Resp BP Pulse Ox 98.8 F 86 20 115/60 97 01/29/19 16:00 01/30/19 07:30 01/30/19 07:30 01/30/19 07:00 01/30/19 07:30 Intake and Output: 01/30/19 01/30/19 06:59 18:59 Intake Total 900 Output Total 300 Balance 600 - Medications Medications: Current Medications Cyanocobalamin (Vitamin B12 1000 Mcg Tab) 1,000 mcg PO DAILY [facility] Last Admin: 01/30/19 09:54 Dose: 1,000 mcg Heparin Sodium (Porcine) (Heparin) 5,000 units SC Q8 [facility]; Protocol Sodium Chloride (Sodium Chloride 0.9%) 1,000 mls @ 75 mls/hr IV .[id number] [facility] Last Admin: 01/29/19 22:04 Dose: 75 mls/hr Pantoprazole Sodium (Protonix Inj) 40 mg IVP DAILY [facility] Last Admin: 01/30/19 09:54 Dose: 40 mg Vitamin B Complex/Vit C/Folic Acid (Nephro-[place]) 1 tab PO 0800 [facility] - Labs Labs: 01/30/19 05:15 01/30/19 05:15 PT 12.5 SECONDS (9.4-12.5) 01/28/19 16:50 INR 1.13 01/28/19 16:50 APTT 34.1 Seconds (26.9-38.3) 01/28/19 16:50
[2019-01-30] MEDS ORDERED: Midazolam 2 MG/2 ML VIAL ONE ×2 (14:24→14:48)
[2019-01-30] MEDS ORDERED: DiphenhydrAMINE 50 mg/ml Inj ONE (14:54)
[2019-01-30] MEDS ORDERED: HYDROmorphone 0.5 mg/0.5 ml ISec IVP STA (17:01)
--- NOTE | 2019-01-30 21:51 | VASCULAR ---
PROCEDURE: 1. Right antegrade pyelogram. 2. Right percutaneous nephrostomy tube placement. HISTORY: Right hydronephrosis with obstructing ureteral stone. Acute renal failure. Needs nephrostomy tube. PHYSICIAN(S): Jn Price MD. TECHNIQUE: The relative risks and indications of the procedure were explained to the patient and consent obtained. The patient was placed prone on the arteriogram table and the right back and flank prepped and draped in the usual sterile fashion. Conscious sedation and monitoring were provided throughout the procedure by a nurse. A single pass with a 21-gauge needle was performed and the right renal pelvis was entered. Clear urine was aspirated. Contrast was injected and an antegrade pyelogram performed. A second puncture site involving a right lower polecalyx was selected for tube placement. 1% Xylocaine was used to anesthetize the skin and soft tissues. An 18-gauge needle was advanced under fluoroscopy into a right lower polecalyx. A 0.035 angled guidewire was coiled within the renal pelvis. Sequential dilatation was performed with subsequent placement of a 12French nephrostomy tube. The tube was secured and placed to gravity drainage. The patient tolerated the procedure well. FINDINGS: There is moderate to severe right hydronephrosis. The right ureter is dilated to the level of L4/5. An obstructing stone is noted at that level. No contrast enters the bladder. IMPRESSION: 1. [id number] right hydronephrosis. Obstructing right ureteral stone at the level of L4-5 2. Successful placement of a 12 [place] right nephrostomy tube.
[2019-01-31] MEDS: Sodium Chloride 0.9% 1,000 ML IV SCH ×2 (05:33→14:25)
[2019-01-31] MEDS: Pantoprazole 40 mg EC Tab PO SCH (05:34)
[2019-01-31 06:20] LABS: BASO # 0.01 K/mm3 (0.0-2.0); BASO % 0.1 % (0.0-3.0); LYMPH # 0.5 (1.2-3.4); LYMPH % 4.6 % (22.0-35.0); MEAN CELL VOLUME 90.6 fl (80.0-105.0); MEAN CORPUSCULAR HEMOGLOBIN 30.1 pg (25.0-35.0); MEAN CORPUSCULAR HGB CONC 33.2 g/dl (31.0-37.0); MEAN PLATELET VOLUME 8.9 fl (7.0-11.0); MONO # 0.4 (0.1-0.6); MONO % 3.4 % (1.0-6.0); PLATELET COUNT 371 10^3/uL (120.0-450.0); RBC 2.66 10^6/uL (3.5-6.1); RED CELL DISTRIBUTION WIDTH 13.1 % (11.5-14.5); WHITE BLOOD COUNT 11.2 10^3/uL (4.5-11.0)
[2019-01-31 06:50] LABS: ALB/GLOB RATIO 1.3 (1.1-1.8); ALBUMIN 3.5 g/dL (3.0-4.8); CALCIUM 8.4 mg/dL (8.4-10.5)
[2019-01-31 09:05] LABS: LYMPHOCYTE 6 % (22.0-35.0); MONOCYTE 1 % (1.0-6.0); NEUTROPHIL 93 % (50.0-70.0)
[2019-01-31] MEDS: Multivitamin Vitamin B Complex (Nephro-Vite) Tab PO SCH (09:20)
--- NOTE | 2019-01-31 09:30 | CP.CCUPN ---
<Stanton Chavez - Last Filed: 01/31/19 11:52> CCU Subjective - Physician Review Subjective (Free Text): Stanton Chavez DO, PGY-1 MICU Progress Note for Dr. Cervantes Patient was seen and examined at bedside this AM. He continues to be awake, alert, and states he is feeling better. He is s/p R nephrostomy tube placement with significant output overnight. CCU Objective - Vital Signs / Intake & Output Vital Signs (Last 4 hours): Vital Signs Pulse Resp BP Pulse Ox 01/31/19 07:00 98 H 20 143/77 97 01/31/19 06:50 93 H 20 96 01/31/19 06:40 101 H 22 95 01/31/19 06:30 101 H 17 98 01/31/19 06:20 103 H 20 96 01/31/19 06:10 105 H 20 96 01/31/19 06:01 107 H 22 145/93 H 91 L 01/31/19 06:00 107 H 19 97 01/31/19 05:50 119 H 51 H 01/31/19 05:40 120 H 22 01/31/19 05:30 111 H 17 Intake and Output (Last 8hrs): Intake & Output 01/30/19 01/31/19 01/31/19 22:59 06:59 14:59 Intake Total 1300 1400 Output Total 900 1975 540 Balance 400 -575 -540 Intake: IV 900 900 IVF 900 900 Oral 400 500 Output: Drainage 1775 540 Right Lower 1775 540 Urine 400 200 Urethral (Mc) 400 200 Other 500 - Physical Exam Head: Positive for: Atraumatic, Normocephalic Pupils: Positive for: PERRL Extroacular Muscles: Positive for: EOMI Conjunctiva: Positive for: Normal Mouth: Positive for: Moist Mucous Membranes Pharnyx: Positive for: Normal. Negative for: ERYTHEMA, EXUDATE Respiratory/Chest: Positive for: Clear to Auscultation, Good Air Exchange. Negative for: Respiratory Distress, Accessory Muscle Use, Wheezes, Rales, Rhonchi Cardiovascular: Positive for: Regular Rate and Rhythm, Normal S1, S2. Negative for: Murmurs, Rub, Gallop Abdomen: Positive for: Normal Bowel Sounds. Negative for: Tenderness, Distention, Rebound, Guarding Genitourinary Male: Positive for: Normal External Genitalia, Other (mc in place). Negative for: Testicle Swelling Back: Positive for: Other (R sided nephrostomy tube in place, draining, without surrounding erythema or exudate) Upper Extremity: Positive for: Normal Inspection. Negative for: Cyanosis, Edema Lower Extremity: Positive for: Normal Inspection. Negative for: Edema Neurological: Positive for: GCS=15, CN II-XII Intact, Speech Normal, Other (resting tremor, per patient and records, this is his baseline) Skin: Positive for: Warm, Dry, Pale Psychiatric: Positive for: Alert, Oriented x 3, Anxious - Medications Active Medications: Active Medications Generic Name Dose Route Start Last Admin Trade Name Freq PRN Reason Stop Dose Admin Cyanocobalamin 1,000 mcg 01/30/19 10:00 01/31/19 09:20 Vitamin B12 1000 Mcg Tab PO 1,000 mcg DAILY JAQUAN Administration Heparin Sodium (Porcine) 5,000 units 01/29/19 14:00 Heparin SC Q8 JAQUAN Protocol Sodium Chloride 1,000 mls @ 75 mls/hr 01/28/19 19:45 01/31/19 05:33 Sodium Chloride 0.9% IV 75 mls/hr .[id number] JAQUAN Administration Pantoprazole Sodium 40 mg 01/31/19 06:00 01/31/19 05:34 Protonix Ec Tab PO 40 mg 0600 JAQUAN Administration Vitamin B Complex/Vit C/Folic Acid 1 tab 01/31/19 08:00 01/31/19 09:20 Nephro-Madison PO 1 tab 0800 JAQUAN Administration - Patient Studies Lab Studies: Microbiology Studies 01/28/19 21:17 MRSA Culture (Admit) - Final Naris MRSA NOT DETECTED Lab Studies 01/31/19 01/31/19 01/31/19 Range/Units 06:05 05:30 05:30 WBC 11.2 H D (4.5-11.0) 10^3/uL RBC 2.66 L (3.5-6.1) 10^6/uL Hgb 8.0 L (14.0-18.0) g/dL Hct 24.1 L (42.0-52.0) % MCV 90.6 (80.0-105.0) fl MCH 30.1 (25.0-35.0) pg MCHC 33.2 (31.0-37.0) g/dl RDW 13.1 (11.5-14.5) % Plt Count 371 (120.0-450.0) 10^3/uL MPV 8.9 (7.0-11.0) fl Neut % (Auto) 91.9 H (50.0-68.0) % Lymph % (Auto) 4.6 L (22.0-35.0) % Rapides % (Auto) 3.4 (1.0-6.0) % Eos % (Auto) 0.0 L (1.5-5.0) % Baso % (Auto) 0.1 (0.0-3.0) % Lymph # (Auto) 0.5 L (1.2-3.4) [place] # (Auto) 0.4 (0.1-0.6) Eos # (Auto) 0.0 (0.0-0.7) Baso # (Auto) 0.01 (0.0-2.0) K/mm3 Absolute Neuts (auto) 10.31 H (1.4-6.5) Neutrophils % (Manual) 93 H (50.0-70.0) % Lymphocytes % (Manual) 6 L (22.0-35.0) % Monocytes % (Manual) 1 (1.0-6.0) % Sodium 140 (132-148) mmol/L Potassium 4.6 (3.6-5.0) mmol/L Chloride 107 (98-107) mmol/L Carbon Dioxide 17 L (21-33) mmol/L Anion Gap 20 (10-20) BUN 73 H (7-21) mg/dL Creatinine 9.9 H* D (0.8-1.5) mg/dl Est GFR ( Amer) 6 Est GFR (Non-Af Amer) 5 Random Glucose 114 H (70-110) mg/dL Calcium 8.4 (8.4-10.5) mg/dL Phosphorus 7.5 H Cancelled Total Bilirubin 0.7 (0.2-1.3) mg/dL AST 20 (17-59) U/L ALT 13 (7-56) U/L Alkaline Phosphatase 53 (38-126) U/L Total Protein 6.2 (5.8-8.3) g/dL Albumin 3.5 (3.0-4.8) g/dL Globulin 2.7 gm/dL Albumin/Globulin Ratio 1.3 (1.1-1.8) MARIO Screen (Negative) Double Strand DNA Ab IU/mL 01/29/19 Range/Units 05:01 WBC (4.5-11.0) 10^3/uL RBC (3.5-6.1) 10^6/uL Hgb (14.0-18.0) g/dL Hct (42.0-52.0) % MCV (80.0-105.0) fl MCH (25.0-35.0) pg MCHC (31.0-37.0) g/dl RDW (11.5-14.5) % Plt Count (120.0-450.0) 10^3/uL MPV (7.0-11.0) fl Neut % (Auto) (50.0-68.0) % Lymph % (Auto) (22.0-35.0) % Rapides % (Auto) (1.0-6.0) % Eos % (Auto) (1.5-5.0) % Baso % (Auto) (0.0-3.0) % Lymph # (Auto) (1.2-3.4) Rapides # (Auto) (0.1-0.6) Eos # (Auto) (0.0-0.7) Baso # (Auto) (0.0-2.0) K/mm3 Absolute Neuts (auto) (1.4-6.5) Neutrophils % (Manual) (50.0-70.0) % Lymphocytes % (Manual) (22.0-35.0) % Monocytes % (Manual) (1.0-6.0) % Sodium (132-148) mmol/L Potassium (3.6-5.0) mmol/L Chloride (98-107) mmol/L Carbon Dioxide (21-33) mmol/L Anion Gap (10-20) BUN (7-21) mg/dL Creatinine (0.8-1.5) mg/dl Est GFR ( Amer) Est GFR (Non-Af Amer) Random Glucose (70-110) mg/dL Calcium (8.4-10.5) mg/dL Phosphorus Total Bilirubin (0.2-1.3) mg/dL AST (17-59) U/L ALT (7-56) U/L Alkaline Phosphatase (38-126) U/L Total Protein (5.8-8.3) g/dL Albumin (3.0-4.8) g/dL Globulin gm/dL Albumin/Globulin Ratio (1.1-1.8) MARIO Screen Negative (Negative) Double Strand DNA Ab <1 IU/mL Laboratory Results - last 24 hr 01/29/19 01/31/19 01/31/19 05:01 05:30 05:30 WBC 11.2 H D RBC 2.66 L Hgb 8.0 L Hct 24.1 L MCV 90.6 MCH 30.1 MCHC 33.2 RDW 13.1 Plt Count 371 MPV 8.9 Neut % (Auto) 91.9 H Lymph % (Auto) 4.6 L Rapides % (Auto) 3.4 Eos % (Auto) 0.0 L Baso % (Auto) 0.1 Lymph # (Auto) 0.5 L Rapides # (Auto) 0.4 Eos # (Auto) 0.0 Baso # (Auto) 0.01 Absolute Neuts (auto) 10.31 H Neutrophils % (Manual) 93 H Lymphocytes % (Manual) 6 L Monocytes % (Manual) 1 Sodium 140 Potassium 4.6 Chloride 107 Carbon Dioxide 17 L Anion Gap 20 BUN 73 H Creatinine 9.9 H* D Est GFR ( Amer) 6 Est GFR (Non-Af Amer) 5 Random Glucose 114 H Calcium 8.4 Phosphorus Cancelled Total Bilirubin 0.7 AST 20 ALT 13 Alkaline Phosphatase 53 Total Protein 6.2 Albumin 3.5 Globulin 2.7 Albumin/Globulin Ratio 1.3 MARIO Screen Negative Double Strand DNA Ab <1 01/31/19 06:05 WBC RBC Hgb Hct MCV MCH MCHC RDW Plt Count MPV Neut % (Auto) Lymph % (Auto) Rapides % (Auto) Eos % (Auto) Baso % (Auto) Lymph # (Auto) [place] # (Auto) Eos # (Auto) Baso # (Auto) Absolute Neuts (auto) Neutrophils % (Manual) Lymphocytes % (Manual) Monocytes % (Manual) Sodium Potassium Chloride Carbon Dioxide Anion Gap BUN Creatinine Est GFR ( Amer) Est GFR (Non-Af Amer) Random Glucose Calcium Phosphorus 7.5 H Total Bilirubin AST ALT Alkaline Phosphatase Total Protein Albumin Globulin Albumin/Globulin Ratio MAIRO Screen Double Strand DNA Ab Radiology Impressions: Radiology Impressions Interventional Vascular Procedure 01/30/19 09:48 IMPRESSION: 1. [id number] right hydronephrosis. Obstructing right ureteral stone at the level of L4-5 2. Successful placement of a 12 Slovak right nephrostomy tube. Fingerstick Blood Sugar Results: 110 Critical Care Progress Note - Nutrition Nutrition: Nutrition Category Date Time Status Renal Diet [DIET] Diets 01/30/19 Dinner Ordered Assessment/Plan - Assessment and Plan (Free Text) Assessment: 63 yo M with PMH of COPD, HTN, anxiety, depression, and unspecified tremor disorder who was brought in by ambulance for AMS. Upon arrival, patient was found to be in acute renal failure with subsequent hyperkalemia, uremia, and acidosis. Patient had R IJ Trialysis catheter placed and had subsequent emergent HD in the ICU. Initially, patient required restraints and precedex for sedation during trialysis catheter placement but improved s/p first session of dialysis. He has continued to improve after this session, remains, awake and alert this AM, and is now s/p R nephrostomy tube placement POD 1. Plan: Neuro: Now AA/o x 3, no focal deficit, moving all extremities spontaneously, able to protect airway Has not required sedation again since first night in MICU Monitor neuro status, re-orient as necessary Cardio: RRR, normotensive, no signs of HD compromise Maintain MAP>65 Monitor for S/S, HD compromise No active issues Pulm: Maintaining SaO2 > 90% on room air Has history of COPD at baseline No active issues GI: Tolerating renal diet well without nausea/vomiting last night Appropriate GI ppx /Nephro: Renal function parameters improved and remaining stable s/p dialysis session x 1 Is now s/p R nephrostomy placement yesterday, with output > 1.5 L UOP increasing s/p nephrostomy placement Per Dr. Singh, continue to monitor for resolution of hydronephrosis May then undergo lithotripsy as outpatient for nephrolithiasis Per nephrology, continue serial monitoring of renal function parameters, no need for additional HD at this time Nephrology, urology following, all recs appreciated Endocrinology: Random glucose: 114 Maintain euglycemia Heme/Onc: H/H decreased from baseline (likely 2/2 acute renal dysfunction) but remaining stable this AM No other signs of HD compromise ID: Remaining afebrile without leukocytosis Monitor for s/sx of infection DVT/GI PPX: Resume SC Heparin/protonix Full Code Renal diet Stable, transfer to telemetry Patient seen, examined with, and plan confirmed with my attending Dr. Helen Chavez D.O. IM Resident PGY-1 Pager: [phone] <Peyman Cervantes - Last Filed: 01/31/19 16:43> CCU Objective - Vital Signs / Intake & Output Vital Signs (Last 4 hours): Vital Signs Pulse Resp BP 01/31/19 16:10 95 H 22 01/31/19 16:02 97 H 14 134/71 01/31/19 16:00 93 H 01/31/19 15:50 90 18 01/31/19 15:40 97 H 22 01/31/19 15:30 92 H 14 01/31/19 15:20 93 H 17 01/31/19 15:10 90 17 01/31/19 15:00 92 H 22 145/75 01/31/19 14:50 96 H 27 H 01/31/19 14:40 92 H 23 01/31/19 14:30 90 22 01/31/19 14:20 94 H 16 01/31/19 14:10 93 H 16 01/31/19 14:00 91 H 18 133/71 01/31/19 13:50 95 H 22 01/31/19 13:40 101 H 38 H 01/31/19 13:30 103 H 39 H 01/31/19 13:20 101 H 22 01/31/19 13:10 95 H 24 01/31/19 13:00 97 H 18 142/74 01/31/19 12:50 101 H 36 H Intake and Output (Last 8hrs): Intake & Output 01/31/19 01/31/19 01/31/19 06:59 14:59 22:59 Intake Total 1400 1340 1440 Output Total 1975 840 780 Balance -575 500 660 Intake: IV 900 900 IVF 900 900 Oral 500 1340 540 Output: Drainage 1775 840 780 Right Lower 1775 840 780 Urine 200 Urethral (Mc) 200 - Medications Active Medications: Active Medications Generic Name Dose Route Start Last Admin Trade Name Freq PRN Reason Stop Dose Admin Cyanocobalamin 1,000 mcg 01/30/19 10:00 01/31/19 09:20 Vitamin B12 1000 Mcg Tab PO 1,000 mcg DAILY JAQUAN Administration Ergocalciferol 1 cap 01/31/19 12:15 01/31/19 14:19 Drisdol 50,000 Intl Units Cap PO 1 cap Q7D JAQUAN Administration Heparin Sodium (Porcine) 5,000 units 01/29/19 14:00 Heparin SC Q8 JAQUAN Protocol Sodium Chloride 1,000 mls @ 75 mls/hr 01/28/19 19:45 01/31/19 05:33 Sodium Chloride 0.9% IV 75 mls/hr .[id number] JAQUAN Administration Pantoprazole Sodium 40 mg 01/31/19 06:00 01/31/19 05:34 Protonix Ec Tab PO 40 mg 0600 JAQUAN Administration Vitamin B Complex/Vit C/Folic Acid 1 tab 01/31/19 08:00 01/31/19 09:20 Nephro-Madison PO 1 tab 0800 JAQUAN Administration - Patient Studies Lab Studies: Lab Studies 01/31/19 01/31/19 01/31/19 Range/Units 06:05 05:30 05:30 WBC (4.5-11.0) 10^3/uL RBC (3.5-6.1) 10^6/uL Hgb (14.0-18.0) g/dL Hct (42.0-52.0) % MCV (80.0-105.0) fl MCH (25.0-35.0) pg MCHC (31.0-37.0) g/dl RDW (11.5-14.5) % Plt Count (120.0-450.0) 10^3/uL MPV (7.0-11.0) fl Neut % (Auto) (50.0-68.0) % Lymph % (Auto) (22.0-35.0) % Rapides % (Auto) (1.0-6.0) % Eos % (Auto) (1.5-5.0) % Baso % (Auto) (0.0-3.0) % Lymph # (Auto) (1.2-3.4) Rapides # (Auto) (0.1-0.6) Eos # (Auto) (0.0-0.7) Baso # (Auto) (0.0-2.0) K/mm3 Absolute Neuts (auto) (1.4-6.5) Neutrophils % (Manual) (50.0-70.0) % Lymphocytes % (Manual) (22.0-35.0) % Monocytes % (Manual) (1.0-6.0) % Sodium 140 (132-148) mmol/L Potassium 4.6 (3.6-5.0) mmol/L Chloride 107 (98-107) mmol/L Carbon Dioxide 17 L (21-33) mmol/L Anion Gap 20 (10-20) BUN 73 H (7-21) mg/dL Creatinine 9.9 H* D (0.8-1.5) mg/dl Est GFR ( Amer) 6 Est GFR (Non-Af Amer) 5 Random Glucose 114 H (70-110) mg/dL Calcium 8.4 (8.4-10.5) mg/dL Phosphorus 7.5 H Cancelled Total Bilirubin 0.7 (0.2-1.3) mg/dL AST 20 (17-59) U/L ALT 13 (7-56) U/L Alkaline Phosphatase 53 (38-126) U/L Total Protein 6.2 (5.8-8.3) g/dL Albumin 3.5 (3.0-4.8) g/dL Globulin 2.7 gm/dL Albumin/Globulin Ratio 1.3 (1.1-1.8) 25-OH Vitamin D Total 19.8 L (30.0-100.0) NG/ML PTH Intact Whole Molec (14-64) pg/mL MARIO Screen (Negative) 01/31/19 01/30/19 01/29/19 Range/Units 05:30 12:15 05:01 WBC 11.2 H D (4.5-11.0) 10^3/uL RBC 2.66 L (3.5-6.1) 10^6/uL Hgb 8.0 L (14.0-18.0) g/dL Hct 24.1 L (42.0-52.0) % MCV 90.6 (80.0-105.0) fl MCH 30.1 (25.0-35.0) pg MCHC 33.2 (31.0-37.0) g/dl RDW 13.1 (11.5-14.5) % Plt Count 371 (120.0-450.0) 10^3/uL MPV 8.9 (7.0-11.0) fl Neut % (Auto) 91.9 H (50.0-68.0) % Lymph % (Auto) 4.6 L (22.0-35.0) % Rapides % (Auto) 3.4 (1.0-6.0) % Eos % (Auto) 0.0 L (1.5-5.0) % Baso % (Auto) 0.1 (0.0-3.0) % Lymph # (Auto) 0.5 L (1.2-3.4) Rapides # (Auto) 0.4 (0.1-0.6) Eos # (Auto) 0.0 (0.0-0.7) Baso # (Auto) 0.01 (0.0-2.0) K/mm3 Absolute Neuts (auto) 10.31 H (1.4-6.5) Neutrophils % (Manual) 93 H (50.0-70.0) % Lymphocytes % (Manual) 6 L (22.0-35.0) % Monocytes % (Manual) 1 (1.0-6.0) % Sodium (132-148) mmol/L Potassium (3.6-5.0) mmol/L Chloride (98-107) mmol/L Carbon Dioxide (21-33) mmol/L Anion Gap (10-20) BUN (7-21) mg/dL Creatinine (0.8-1.5) mg/dl Est GFR ( Amer) Est GFR (Non-Af Amer) Random Glucose (70-110) mg/dL Calcium (8.4-10.5) mg/dL Phosphorus Total Bilirubin (0.2-1.3) mg/dL AST (17-59) U/L ALT (7-56) U/L Alkaline Phosphatase (38-126) U/L Total Protein (5.8-8.3) g/dL Albumin (3.0-4.8) g/dL Globulin gm/dL Albumin/Globulin Ratio (1.1-1.8) 25-OH Vitamin D Total (30.0-100.0) NG/ML PTH Intact Whole Molec 277 H (14-64) pg/mL MARIO Screen Negative (Negative) Laboratory Results - last 24 hr 01/29/19 01/30/19 01/31/19 05:01 12:15 05:30 WBC 11.2 H D RBC 2.66 L Hgb 8.0 L Hct 24.1 L MCV 90.6 MCH 30.1 MCHC 33.2 RDW 13.1 Plt Count 371 MPV 8.9 Neut % (Auto) 91.9 H Lymph % (Auto) 4.6 L Rapides % (Auto) 3.4 Eos % (Auto) 0.0 L Baso % (Auto) 0.1 Lymph # (Auto) 0.5 L Rapides # (Auto) 0.4 Eos # (Auto) 0.0 Baso # (Auto) 0.01 Absolute Neuts (auto) 10.31 H Neutrophils % (Manual) 93 H Lymphocytes % (Manual) 6 L Monocytes % (Manual) 1 Sodium Potassium Chloride Carbon Dioxide Anion Gap BUN Creatinine Est GFR ( Amer) Est GFR (Non-Af Amer) Random Glucose Calcium Phosphorus Total Bilirubin AST ALT Alkaline Phosphatase Total Protein Albumin Globulin Albumin/Globulin Ratio 25-OH Vitamin D Total PTH Intact Whole Molec 277 H MARIO Screen Negative 01/31/19 01/31/19 01/31/19 05:30 05:30 06:05 WBC RBC Hgb Hct MCV MCH MCHC RDW Plt Count MPV Neut % (Auto) Lymph % (Auto) Rapides % (Auto) Eos % (Auto) Baso % (Auto) Lymph # (Auto) [place] # (Auto) Eos # (Auto) Baso # (Auto) Absolute Neuts (auto) Neutrophils % (Manual) Lymphocytes % (Manual) Monocytes % (Manual) Sodium 140 Potassium 4.6 Chloride 107 Carbon Dioxide 17 L Anion Gap 20 BUN 73 H Creatinine 9.9 H* D Est GFR ( Amer) 6 Est GFR (Non-Af Amer) 5 Random Glucose 114 H Calcium 8.4 Phosphorus Cancelled 7.5 H Total Bilirubin 0.7 AST 20 ALT 13 Alkaline Phosphatase 53 Total Protein 6.2 Albumin 3.5 Globulin 2.7 Albumin/Globulin Ratio 1.3 25-OH Vitamin D Total 19.8 L PTH Intact Whole Molec MARIO Screen Radiology Impressions: Radiology Impressions Interventional Vascular Procedure 01/30/19 09:48 IMPRESSION: 1. [id number] right hydronephrosis. Obstructing right ureteral stone at the level of L4-5 2. Successful placement of a 12 Slovak right nephrostomy tube. Critical Care Progress Note - Nutrition Nutrition: Nutrition Category Date Time Status Renal Diet [DIET] Diets 01/30/19 Dinner Ordered Attending/Attestation - Attestation I have personally seen and examined this patient.: Yes I have fully participated in the care of the patient.: Yes I have reviewed all pertinent clinical information: Yes Notes (Text): 01/31/19 16:41 63 yo male admitted with obstructive uropathy, now s/p R. perc nephrostomy. creatinine, lites, clinical status improved. hemodynamically stable. no HD required after first emergent session. ok to downgrade to tele ccm time 40 min 01/31/19 16:43
--- NOTE | 2019-01-31 13:26 | CP.PCM.PN ---
Subjective - Date & Time of Evaluation Date of Evaluation: 01/31/19 Time of Evaluation: 13:25 - Subjective Subjective: Nephrology Consultation Note Assessment: critical Acute Kidney Injury (N17.9) likely due to obs uropathy due to stone Chronic Kidney Disease (N18.3) Stage 3 with left atrophic kidney, baseline cr 1.6-1.8 b12 def, hyperkalemia, AMS, metabolic acidosis, uremia started HD 01/28/19, hyperphos, anemia vit d def Plan urology eval appreciated. pt had nephrostomy tube placment by IR 01/30/19. hopefully, renal function will continue to improve and dialysis will not be needed further and shiley can be removed tomorrow Hypertension control with meds as ordered. Maintain hemodynamics stable. Avoid hypotension. Patient not on ACEI/ARB due to recent MARCUS Monitor Input/Output, daily weights and renal function with basic metabolic panel supplement B12 as pt with level very low, weekly vit D supplement lytes as needed work up for stone as outpt Dose meds/antibiotics for reduced GFR. Avoid fleets enema/magnesium based laxatives. Avoid nephrotoxins/NSAIDs/ iodinated contrast (unless needed emergently) Glycemic control Further work up for as per primary team Thanks for allowing me to participate in care of your patient. Will follow patient with you. Please call if any Qs. had d/w team Dr Taiwo Vyas Office: [phone] Subjective: Noted events overnight. Patients feels better Denies chest pain, palpitation, shortness of breath, leg swelling. All other negative Physical Examination: General Appearance: Comfortable, in no acute respiratory distress, co-operative . shaky/tremors improved Vitals reviewed and noted as below Head; Atraumatic, normocephalic ENT: no ulcers no thrush. Tongue is midline. Oropharynx: no rash or ulcers. EYES: Pupils are equal, round and reactive to light accommodation. Eye muscles and extraocular movement intact. Sclera is anicteric. Neck; supple no lymphadenopathy, no thyromegaly or bruit Lungs: Normal respiratory rate/effort. Breath sounds bilateral equal and clear Heart: Normal rate. s1s2 normal. No rub or gallop. Extremities: no edema. No varicose veins Neurological: Patient is alert, awake and oriented. No focal deficit. Strength bilateral appropriate and equal Skin: Warm and dry. Normal turgor. No rash. Palpitation: Normal elasticity for age Abdomen: Abdomen is soft. Bowel sounds +. There is no abdominal tenderness, no guarding/rigidity no organomegaly Psych: normal affect/mood MSK: no joint tenderness or swelling. Digits and nails normal, no deformity : kidney or bladder not palpable. s/p Rt PCN Rt IJ shiley Labs/imaging reviewed. Past medical history, past surgical history, family history, social history, allergy reviewed and noted as below Family hx: no hx of CKD. Rest non-contributory Objective - Vital Signs/Intake and Output Vital Signs (last 24 hours): Temp Pulse Resp BP Pulse Ox 99.5 F 97 H 18 142/74 72 L 01/31/19 08:00 01/31/19 13:00 01/31/19 13:00 01/31/19 13:00 01/31/19 11:59 Intake and Output: 01/31/19 01/31/19 06:59 18:59 Intake Total 1400 1340 Output Total 1975 840 Balance -575 500 - Medications Medications: Current Medications Cyanocobalamin (Vitamin B12 1000 Mcg Tab) 1,000 mcg PO DAILY [facility] Last Admin: 01/31/19 09:20 Dose: 1,000 mcg Ergocalciferol (Drisdol 50,000 Intl Units Cap) 1 cap PO Q7D [facility] Heparin Sodium (Porcine) (Heparin) 5,000 units SC Q8 JAQUAN; Protocol Sodium Chloride (Sodium Chloride 0.9%) 1,000 mls @ 75 mls/hr IV .[id number] [facility] Last Admin: 01/31/19 05:33 Dose: 75 mls/hr Pantoprazole Sodium (Protonix Ec Tab) 40 mg PO 0600 [facility] Last Admin: 01/31/19 05:34 Dose: 40 mg Vitamin B Complex/Vit C/Folic Acid (Nephro-Madison) 1 tab PO 0800 [facility] Last Admin: 01/31/19 09:20 Dose: 1 tab - Labs Labs: 01/31/19 05:30 01/31/19 05:30 PT 12.5 SECONDS (9.4-12.5) 01/28/19 16:50 INR 1.13 01/28/19 16:50 APTT 34.1 Seconds (26.9-38.3) 01/28/19 16:50
[2019-01-31] MEDS: Ergocalciferol 50,000 Intl Units Cap PO SCH (14:19)
--- NOTE | 2019-01-31 14:52 | PN ---
DATE: 01/31/2019 SUBJECTIVE: I saw Marlon in the intensive care unit. He is looking better each day, more and more. He is more coherent. He is comfortable in bed. No acute distress. He has had an appetite. He is on acetaminophen, Dilaudid which we discontinued. He is on heparin, vitamin B complex, Protonix, IV fluids, B12. PHYSICAL EXAMINATION: VITAL SIGNS: He has got 99 temp, 89 pulse, 151/88 blood pressure, 24 respiratory rate, 96% O2 sat on room air. HEENT: Head is atraumatic, normocephalic. Throat is moist. NECK: Supple. More alert and talking well. HEART: Regular rate. LUNGS: Decreased breath sounds but clear. ABDOMEN: Soft, nontender. Positive bowel sounds. He has got a nephrostomy tube in place now which is draining. EXTREMITIES: No edema. Came in with acute renal failure with hydronephrosis and he had a kidney stone blocking the kidney. We had put a nephrostomy tube in. LABORATORY DATA: He has 140 sodium, potassium 4.6, BUN is down to 73, creatinine is down to 9.9. GFR is up to 5. Sugar is 114. Calcium is 8.4. Total bili is 0.7, AST is 20, ALT 13, alk phos 53. Total protein 6.2. He is on vitamin B12 because it was low. TSH is good at 2.42. White count is 11.2, hemoglobin 8, dropped, if goes into 7s, I will transfuse him. Hematocrit is 24.1, platelets are 371. He is being seen by Renal, Urology, intensive care doctor. So, he may need to be transfused and he may needed antibiotic if white count started to go up, 99 temp. We will watch him closely in the intensive care unit. Continue with monitoring his kidney functions, encouraged him to eat, get him out of bed to chair. Ryne Dunn DO
--- NOTE | 2019-01-31 15:51 | PCM.URO ---
Urology Progress Note - Subjective Other: plans : cysto for saturday 02/03 - Objective Lab Results Last 24 Hours: Laboratory Results - last 24 hr 01/29/19 01/30/19 01/31/19 05:01 12:15 05:30 WBC 11.2 H D RBC 2.66 L Hgb 8.0 L Hct 24.1 L MCV 90.6 MCH 30.1 MCHC 33.2 RDW 13.1 Plt Count 371 MPV 8.9 Neut % (Auto) 91.9 H Lymph % (Auto) 4.6 L [place] % (Auto) 3.4 Eos % (Auto) 0.0 L Baso % (Auto) 0.1 Lymph # (Auto) 0.5 L [place] # (Auto) 0.4 Eos # (Auto) 0.0 Baso # (Auto) 0.01 Absolute Neuts (auto) 10.31 H Neutrophils % (Manual) 93 H Lymphocytes % (Manual) 6 L Monocytes % (Manual) 1 Sodium Potassium Chloride Carbon Dioxide Anion Gap BUN Creatinine Est GFR ( Amer) Est GFR (Non-Af Amer) Random Glucose Calcium Phosphorus Total Bilirubin AST ALT Alkaline Phosphatase Total Protein Albumin Globulin Albumin/Globulin Ratio 25-OH Vitamin D Total PTH Intact Whole Molec 277 H MARIO Screen Negative 01/31/19 01/31/19 01/31/19 05:30 05:30 06:05 WBC RBC Hgb Hct MCV MCH MCHC RDW Plt Count MPV Neut % (Auto) Lymph % (Auto) [place] % (Auto) Eos % (Auto) Baso % (Auto) Lymph # (Auto) [place] # (Auto) Eos # (Auto) Baso # (Auto) Absolute Neuts (auto) Neutrophils % (Manual) Lymphocytes % (Manual) Monocytes % (Manual) Sodium 140 Potassium 4.6 Chloride 107 Carbon Dioxide 17 L Anion Gap 20 BUN 73 H Creatinine 9.9 H* D Est GFR ( Amer) 6 Est GFR (Non-Af Amer) 5 Random Glucose 114 H Calcium 8.4 Phosphorus Cancelled 7.5 H Total Bilirubin 0.7 AST 20 ALT 13 Alkaline Phosphatase 53 Total Protein 6.2 Albumin 3.5 Globulin 2.7 Albumin/Globulin Ratio 1.3 25-OH Vitamin D Total 19.8 L PTH Intact Whole Molec MARIO Screen Intake & Output: Intake & Output 01/30/19 01/31/19 01/31/19 18:59 06:59 18:59 Intake Total 1300 1400 1880 Output Total 900 1975 1340 Balance 400 -575 540 Intake: IV 900 900 IVF 900 900 Oral 534 841 9015 Output: Drainage 1775 1340 Right Lower 1775 1340 Urine 400 200 Urethral (Howe) 400 200 Other 500 Vital Signs: Vital Signs - 24 hr 01/30/19 01/30/19 01/30/19 16:00 16:02 16:10 Temperature 99.0 F Pulse Rate 102 H 83 90 Respiratory 23 20 Rate Blood Pressure 151/88 H O2 Sat by Pulse 98 97 98 Oximetry 01/30/19 01/30/19 01/30/19 16:20 16:30 16:40 Temperature Pulse Rate 89 92 H 97 H Respiratory 24 31 H 29 H Rate Blood Pressure O2 Sat by Pulse 96 95 96 Oximetry 01/30/19 01/30/19 01/30/19 16:50 17:00 17:10 Temperature Pulse Rate 95 H 94 H 103 H Respiratory 27 H 22 20 Rate Blood Pressure 147/82 O2 Sat by Pulse 95 98 99 Oximetry 01/30/19 01/30/19 01/30/19 17:20 17:30 17:40 Temperature Pulse Rate 100 H 102 H 103 H Respiratory 34 H 39 H Rate Blood Pressure O2 Sat by Pulse 98 98 97 Oximetry 01/30/19 01/30/19 01/30/19 17:50 18:00 18:01 Temperature Pulse Rate 102 H 101 H 102 H Respiratory 50 H 29 H 28 H Rate Blood Pressure 157/85 H O2 Sat by Pulse 96 95 79 L Oximetry 01/30/19 01/30/19 01/30/19 18:10 18:20 18:25 Temperature Pulse Rate 97 H 96 H 103 H Respiratory 15 15 Rate Blood Pressure O2 Sat by Pulse 98 97 Oximetry 01/30/19 01/30/19 01/30/19 18:26 18:30 18:40 Temperature Pulse Rate 100 H 99 H 104 H Respiratory 30 H 19 36 H Rate Blood Pressure O2 Sat by Pulse 84 L 98 Oximetry 01/30/19 01/30/19 01/30/19 18:46 18:50 19:00 Temperature Pulse Rate 105 H 98 H 97 H Respiratory 16 18 22 Rate Blood Pressure 149/84 O2 Sat by Pulse 97 96 96 Oximetry 01/30/19 01/30/19 01/30/19 19:10 19:20 19:30 Temperature Pulse Rate 97 H 112 H 101 H Respiratory 34 H 22 28 H Rate Blood Pressure O2 Sat by Pulse 96 97 89 L Oximetry 01/30/19 01/30/19 01/30/19 19:40 19:50 20:00 Temperature Pulse Rate 97 H 98 H 100 H Respiratory 17 25 H 13 Rate Blood Pressure 151/86 H O2 Sat by Pulse 96 96 97 Oximetry 01/30/19 01/30/19 01/30/19 20:10 20:20 20:30 Temperature Pulse Rate 102 H 104 H 99 H Respiratory 21 29 H 27 H Rate Blood Pressure O2 Sat by Pulse 99 97 98 Oximetry 01/30/19 01/30/19 01/30/19 20:40 20:50 21:00 Temperature Pulse Rate 105 H 102 H 96 H Respiratory 23 24 28 H Rate Blood Pressure 163/82 H O2 Sat by Pulse 100 99 96 Oximetry 01/30/19 01/30/19 01/30/19 21:10 21:20 21:30 Temperature Pulse Rate 107 H 107 H 108 H Respiratory 17 28 H Rate Blood Pressure O2 Sat by Pulse 97 97 97 Oximetry 01/30/19 01/30/19 01/30/19 21:40 21:50 22:00 Temperature Pulse Rate 112 H 128 H 132 H Respiratory 22 38 H 71 H Rate Blood Pressure 134/85 O2 Sat by Pulse 98 95 95 Oximetry 01/30/19 01/30/19 01/30/19 22:10 22:20 22:30 Temperature Pulse Rate 118 H 118 H 126 H Respiratory 17 Rate Blood Pressure O2 Sat by Pulse 97 97 97 Oximetry 01/30/19 01/30/19 01/30/19 22:40 22:50 23:00 Temperature Pulse Rate 123 H 112 H 128 H Respiratory 17 31 H Rate Blood Pressure O2 Sat by Pulse 97 97 96 Oximetry 01/30/19 01/30/19 01/30/19 23:01 23:10 23:20 Temperature Pulse Rate 138 H 113 H 110 H Respiratory 19 20 Rate Blood Pressure 118/82 O2 Sat by Pulse 96 95 92 L Oximetry 01/30/19 01/30/19 01/30/19 23:30 23:40 23:50 Temperature Pulse Rate 109 H 108 H 108 H Respiratory 21 26 H 22 Rate Blood Pressure O2 Sat by Pulse 96 97 97 Oximetry 01/31/19 01/31/19 01/31/19 00:00 00:10 00:20 Temperature Pulse Rate 110 H 107 H 107 H Respiratory 20 15 19 Rate Blood Pressure 148/85 O2 Sat by Pulse 97 98 97 Oximetry 01/31/19 01/31/19 01/31/19 00:30 00:40 00:50 Temperature Pulse Rate 104 H 107 H 108 H Respiratory 12 14 39 H Rate Blood Pressure O2 Sat by Pulse 97 96 97 Oximetry 01/31/19 01/31/19 01/31/19 01:00 01:10 01:20 Temperature Pulse Rate 106 H 124 H 108 H Respiratory 24 54 H 13 Rate Blood Pressure 139/83 O2 Sat by Pulse 97 93 L 97 Oximetry 01/31/19 01/31/19 01/31/19 01:30 01:40 01:50 Temperature Pulse Rate 108 H 103 H 97 H Respiratory 40 H 18 23 Rate Blood Pressure O2 Sat by Pulse 98 99 97 Oximetry 01/31/19 01/31/19 01/31/19 02:00 02:10 02:20 Temperature Pulse Rate 97 H 97 H 98 H Respiratory 19 22 22 Rate Blood Pressure 123/64 O2 Sat by Pulse 95 96 96 Oximetry 01/31/19 01/31/19 01/31/19 02:30 02:40 02:50 Temperature Pulse Rate 100 H 99 H 98 H Respiratory 22 21 18 Rate Blood Pressure O2 Sat by Pulse 96 97 96 Oximetry 01/31/19 01/31/19 01/31/19 03:00 03:10 03:20 Temperature Pulse Rate 100 H 103 H 100 H Respiratory 18 22 21 Rate Blood Pressure 151/77 H O2 Sat by Pulse 98 96 96 Oximetry 01/31/19 01/31/19 01/31/19 03:30 03:40 03:50 Temperature Pulse Rate 103 H 113 H 104 H Respiratory 25 H 11 L 29 H Rate Blood Pressure O2 Sat by Pulse 98 100 98 Oximetry 01/31/19 01/31/19 01/31/19 04:00 04:10 04:20 Temperature Pulse Rate 106 H 105 H 107 H Respiratory 18 13 17 Rate Blood Pressure 147/80 O2 Sat by Pulse Oximetry 01/31/19 01/31/19 01/31/19 04:29 04:30 04:40 Temperature Pulse Rate 126 H 147 H 115 H Respiratory 36 H 20 Rate Blood Pressure O2 Sat by Pulse Oximetry 01/31/19 01/31/19 01/31/19 04:50 05:00 05:10 Temperature Pulse Rate 107 H 112 H 112 H Respiratory 24 22 16 Rate Blood Pressure 125/80 O2 Sat by Pulse Oximetry 01/31/19 01/31/19 01/31/19 05:20 05:30 05:40 Temperature Pulse Rate 113 H 111 H 120 H Respiratory 16 17 22 Rate Blood Pressure O2 Sat by Pulse Oximetry 01/31/19 01/31/19 01/31/19 05:50 06:00 06:01 Temperature Pulse Rate 119 H 107 H 107 H Respiratory 51 H 19 22 Rate Blood Pressure 145/93 H O2 Sat by Pulse 97 91 L Oximetry 01/31/19 01/31/19 01/31/19 06:10 06:20 06:30 Temperature Pulse Rate 105 H 103 H 101 H Respiratory 20 20 17 Rate Blood Pressure O2 Sat by Pulse 96 96 98 Oximetry 01/31/19 01/31/19 01/31/19 06:40 06:50 07:00 Temperature Pulse Rate 101 H 93 H 98 H Respiratory 22 20 20 Rate Blood Pressure 143/77 O2 Sat by Pulse 95 96 97 Oximetry 01/31/19 01/31/19 01/31/19 08:00 11:13 11:14 Temperature 99.5 F Pulse Rate 108 H 107 H Respiratory 18 10 L Rate Blood Pressure O2 Sat by Pulse Oximetry 01/31/19 01/31/19 01/31/19 11:15 11:16 11:17 Temperature Pulse Rate 107 H 105 H 107 H Respiratory 12 31 H 21 Rate Blood Pressure O2 Sat by Pulse Oximetry 01/31/19 01/31/19 01/31/19 11:18 11:19 11:20 Temperature Pulse Rate 109 H 111 H 108 H Respiratory 19 22 24 Rate Blood Pressure O2 Sat by Pulse Oximetry 01/31/19 01/31/19 01/31/19 11:21 11:22 11:23 Temperature Pulse Rate 115 H 103 H 110 H Respiratory 57 H 22 20 Rate Blood Pressure O2 Sat by Pulse Oximetry 01/31/19 01/31/19 01/31/19 11:24 11:25 11:26 Temperature Pulse Rate 109 H 110 H 108 H Respiratory 21 21 20 Rate Blood Pressure O2 Sat by Pulse Oximetry 01/31/19 01/31/19 01/31/19 11:27 11:28 11:29 Temperature Pulse Rate 108 H 111 H 109 H Respiratory 22 21 24 Rate Blood Pressure O2 Sat by Pulse Oximetry 01/31/19 01/31/19 01/31/19 11:30 11:31 11:32 Temperature Pulse Rate 109 H 109 H 109 H Respiratory 23 22 14 Rate Blood Pressure O2 Sat by Pulse Oximetry 01/31/19 01/31/19 01/31/19 11:33 11:34 11:35 Temperature Pulse Rate 108 H 108 H 108 H Respiratory 25 H 15 34 H Rate Blood Pressure O2 Sat by Pulse Oximetry 01/31/19 01/31/19 01/31/19 11:36 11:37 11:38 Temperature Pulse Rate 112 H 112 H 108 H Respiratory 30 H 22 17 Rate Blood Pressure O2 Sat by Pulse Oximetry 01/31/19 01/31/19 01/31/19 11:39 11:40 11:41 Temperature Pulse Rate 108 H 107 H 109 H Respiratory 14 18 14 Rate Blood Pressure O2 Sat by Pulse Oximetry 01/31/19 01/31/19 01/31/19 11:42 11:43 11:44 Temperature Pulse Rate 109 H 108 H 109 H Respiratory 18 14 Rate Blood Pressure O2 Sat by Pulse Oximetry 01/31/19 01/31/19 01/31/19 11:45 11:46 11:47 Temperature Pulse Rate 110 H 113 H 118 H Respiratory 21 37 H Rate Blood Pressure O2 Sat by Pulse Oximetry 01/31/19 01/31/19 01/31/19 11:48 11:49 11:50 Temperature Pulse Rate 116 H 116 H 119 H Respiratory 45 H 16 19 Rate Blood Pressure O2 Sat by Pulse Oximetry 01/31/19 01/31/19 01/31/19 11:51 11:52 11:59 Temperature Pulse Rate 123 H 138 H 129 H Respiratory 28 H Rate Blood Pressure O2 Sat by Pulse 72 L Oximetry 01/31/19 01/31/19 01/31/19 12:00 12:01 12:10 Temperature Pulse Rate 96 H 135 H 114 H Respiratory 21 Rate Blood Pressure 131/90 O2 Sat by Pulse Oximetry 01/31/19 01/31/19 01/31/19 12:20 12:30 12:40 Temperature Pulse Rate 112 H 110 H 106 H Respiratory 22 25 H 15 Rate Blood Pressure O2 Sat by Pulse Oximetry 01/31/19 01/31/19 01/31/19 12:50 13:00 13:10 Temperature Pulse Rate 101 H 97 H 95 H Respiratory 36 H 18 24 Rate Blood Pressure 142/74 O2 Sat by Pulse Oximetry 01/31/19 01/31/19 01/31/19 13:20 13:30 13:40 Temperature Pulse Rate 101 H 103 H 101 H Respiratory 22 39 H 38 H Rate Blood Pressure O2 Sat by Pulse Oximetry 01/31/19 01/31/19 13:50 14:00 Temperature Pulse Rate 95 H 91 H Respiratory 22 18 Rate Blood Pressure 133/71 O2 Sat by Pulse Oximetry
--- NOTE | 2019-01-31 22:49 | CON ---
DATE OF CONSULTATION: 01/31/2019 HISTORY OF PRESENT ILLNESS: In short, the patient is a 63-year-old male with reported history of mental illness. The patient has psychiatrist in the community, Dr. Farr. The patient was admitted to ICU for evaluation of altered mental status and acute kidney injuries. Psych consult was called for evaluation of altered mental status and bizarre behavior. Prior to coming to the hospital, the patient was confused, was throwing his medications in the garbage, also was taking his clothing off and taking either more medications than he should or taking less medication than he was prescribed. The patient was seen and examined today in ICU. The patient presented to be alert, poor personal hygiene. The patient is very well known to this proposal lead writer from the previous admission to the psychiatric inpatient unit, which took place here in [place] in 2014, back then, the patient was paranoid and psychotic and was stabilized on Seroquel 200 mg twice a day, Remeron 30 mg at the nighttime, and Cogentin twice a day. The patient was not able to recognize this proposal lead writer. The patient knows that he is in [place]. The patient was not aware of the circumstances of his admission to the ICU, but remembers taking more or less medication due to confusion. The patient reported for the past couple of weeks he was doing relatively fine, he was not feeling depressed. The patient denied any thoughts of harming himself prior to coming to the hospital or at the moment of the interview. The patient reports that he sees Dr. Farr in the community, last time was last month. The patient reported that he fills his medications at [facility], which was contacted [phone]. The patient filled his medication on 01/06. He was on alprazolam 1 mg t.i.d., benztropine 0.5 mg daily, Seroquel 100 mg daily, Cymbalta 60 mg daily, buprenorphine Subutex 2 mg q.i.d. The patient has refills for all of his medications in the pharmacy. PHYSICAL EXAMINATION: VITAL SIGNS: Reviewed. The patient is tachycardic. Blood pressure 142/74, respirations 18. MEDICATIONS: Reviewed. The patient is on vitamin B12, Drisdol, heparin, Protonix, sodium chloride. LABORATORY DATA: Labs reviewed. Leukocytosis 11.2 today. Chemistry reviewed. Creatinine from 13 is going down to 9.9 today. Urinalysis reviewed, leukocyte esterase, small. Toxicology was positive for benzodiazepines. MENTAL STATUS EXAMINATION: The patient presented to be alert, somewhat confused. Intense eye contact. Speech was underproductive. Mood described as okay. Affect was at times oddly related. Thought process, concrete. Thought content, the patient denied visual, auditory, or tactile hallucinations. Denied paranoid ideation. As this proposal lead writer mentioned above, the patient is oddly related, but not acutely psychotic. Insight and judgment seemed to be limited. Impulses are well controlled. Collaterals from the resident of nursing staff, the patient does not exhibit any aggressive or agitated behavior and never verbalized any thoughts of killing himself or others. IMPRESSION: As per history, the patient has psychotic spectrum disorder, substance abuse, altered mental status could be related to acute kidney injury as well as polypharmacy and noncompliance or over abuse of his psychotropic medications. PLAN: Family needs to be involved. Medications were confirmed with the patient's pharmacy. Please monitor possible withdrawal symptoms. The patient was on benzodiazepines and right now the patient is tachycardic. The patient's needs to be advised to distribute medications to the patient because the patient seems to be confused and not taking medication that was prescribed. The patient was in agreement with that. Over the weekend Dr. Blas will follow up on this patient. Should you have any questions give me a call back. Roz Stevens MD MTDD
[2019-02-01] MEDS: Sodium Chloride 0.9% 1,000 ML IV SCH (03:44)
[2019-02-01] MEDS: Pantoprazole 40 mg EC Tab PO SCH (05:34)
[2019-02-01 07:21] LABS: EOS % 0.3 % (1.5-5.0); LYMPH # 1.1 (1.2-3.4); LYMPH % 12.3 % (22.0-35.0); MEAN CELL VOLUME 90.1 fl (80.0-105.0); MEAN CORPUSCULAR HEMOGLOBIN 30.5 pg (25.0-35.0); MEAN CORPUSCULAR HGB CONC 33.9 g/dl (31.0-37.0); MONO # 0.5 (0.1-0.6); RBC 2.13 10^6/uL (3.5-6.1); WHITE BLOOD COUNT 9.2 10^3/uL (4.5-11.0)
[2019-02-01 07:38] LABS: ALB/GLOB RATIO 1.1 (1.1-1.8); ALBUMIN 3.1 g/dL (3.0-4.8)
[2019-02-01 08:04] LABS: HEMOGLOBIN 6.5 g/dL (14.0-18.0)
[2019-02-01] MEDS: Multivitamin Vitamin B Complex (Nephro-Vite) Tab PO SCH (10:16)
--- NOTE | 2019-02-01 13:27 | CP.PCM.PN ---
Subjective - Date & Time of Evaluation Date of Evaluation: 02/01/19 Time of Evaluation: 13:25 - Subjective Subjective: Nephrology Consultation Note Assessment: critical Acute Kidney Injury (N17.9) likely due to obs uropathy due to stone Chronic Kidney Disease (N18.3) Stage 3 with left atrophic kidney, baseline cr 1.6-1.8 b12 def, hyperkalemia, AMS, metabolic acidosis, uremia started HD 01/28/19, hyperphos, anemia vit d def Plan urology eval appreciated. pt had nephrostomy tube placment by IR 01/30/19. hgb dropped transfusions nd work up for source per primary team renal function much improved - ok from renal standpoint for shiley removal Hypertension control with meds as ordered. Maintain hemodynamics stable. Avoid hypotension. Patient not on ACEI/ARB due to recent MARCUS Monitor Input/Output, daily weights and renal function with basic metabolic panel cont vit d Dose meds/antibiotics for reduced GFR. Avoid fleets enema/magnesium based laxatives. Avoid nephrotoxins/NSAIDs/ iodinated contrast (unless needed emergently) Glycemic control Further work up for as per primary team s: seen and examined denies n/v Physical Examination: General Appearance: Comfortable, in no acute respiratory distress, co-operative . Vitals reviewed and noted as below Head; Atraumatic, normocephalic ENT: no ulcers no thrush. Tongue is midline. Oropharynx: no rash or ulcers. EYES: Pupils are equal, round and reactive to light accommodation. Eye muscles and extraocular movement intact. Sclera is anicteric. Neck; supple no lymphadenopathy, no thyromegaly or bruit Lungs: Normal respiratory rate/effort. Breath sounds bilateral equal and clear Heart: Normal rate. s1s2 normal. No rub or gallop. Extremities: no edema. No varicose veins Neurological: Patient is alert, awake and oriented. No focal deficit. Strength bilateral appropriate and equal Skin: Warm and dry. Normal turgor. No rash. Palpitation: Normal elasticity for age Abdomen: Abdomen is soft. Bowel sounds +. There is no abdominal tenderness, no guarding/rigidity no organomegaly Psych: normal affect/mood MSK: no joint tenderness or swelling. Digits and nails normal, no deformity : kidney or bladder not palpable. s/p Rt PCN Rt IJ shiley Labs/imaging reviewed. Past medical history, past surgical history, family history, social history, allergy reviewed and noted as below Family hx: no hx of CKD. Rest non-contributory Objective - Vital Signs/Intake and Output Vital Signs (last 24 hours): Temp Pulse Resp BP Pulse Ox 98.2 F 87 19 133/78 97 02/01/19 12:55 02/01/19 12:55 02/01/19 12:55 02/01/19 12:55 02/01/19 05:43 Intake and Output: 02/01/19 02/01/19 06:59 18:59 Intake Total 1088 0 Balance 1088 0 - Medications Medications: Current Medications Alprazolam (Xanax) 0.5 mg PO Q8 [facility]; Protocol Cyanocobalamin (Vitamin B12 1000 Mcg Tab) 1,000 mcg PO DAILY [facility] Last Admin: 02/01/19 10:17 Dose: 1,000 mcg Duloxetine HCl (Cymbalta) 60 mg PO DAILY [facility] Ergocalciferol (Drisdol 50,000 Intl Units Cap) 1 cap PO Q7D [facility] Last Admin: 01/31/19 14:19 Dose: 1 cap Heparin Sodium (Porcine) (Heparin) 5,000 units SC Q8 [facility]; Protocol Sodium Chloride (Sodium Chloride 0.9%) 1,000 mls @ 75 mls/hr IV .[id number] [facility] Last Admin: 02/01/19 03:44 Dose: 75 mls/hr Pantoprazole Sodium (Protonix Ec Tab) 40 mg PO 0600 [facility] Last Admin: 02/01/19 05:34 Dose: 40 mg Quetiapine Fumarate (Seroquel) 12.5 mg PO BID [facility]; Protocol Quetiapine Fumarate (Seroquel) 50 mg PO HS [facility]; Protocol Vitamin B Complex/Vit C/Folic Acid (Nephro-Madison) 1 tab PO 0800 [facility] Last Admin: 02/01/19 10:16 Dose: 1 tab - Labs Labs: 02/01/19 06:30 02/01/19 06:30 PT 12.5 SECONDS (9.4-12.5) 01/28/19 16:50 INR 1.13 01/28/19 16:50 APTT 34.1 Seconds (26.9-38.3) 01/28/19 16:50
--- NOTE | 2019-02-01 13:54 | PN ---
DATE: 02/01/2019 SUBJECTIVE: He is now out of the Intensive Care Unit. He is in room 253, on telemetry. He is doing much better in bed, the problem is if he became anemic, we may transfuse him, but he is alert. He is not shaking anymore. He is more comfortable. No pain. PHYSICAL EXAMINATION: VITAL SIGNS: Temperature 98, pulse 96, blood pressure 136/79, respiratory rate 20, and O2 saturation 97% on room air. HEENT: His head is atraumatic and normocephalic. HEART: Regular rate. LUNGS: Decreased breath sounds, but clear. ABDOMEN: Soft and nontender. Positive bowel sounds. He has a right nephrostomy tube, draining well. EXTREMITIES: No edema. MEDICATIONS: He is currently on Cymbalta, Drisdol, heparin, Nephro-Madison, Protonix, Seroquel, IV fluids, vitamin B12, and Xanax. LABORATORY DATA: White count 9.2. His hemoglobin dropped from 10.9 to 6.5, we are going to give him 2 units of packed red blood cells, Lasix 40 mg one-time dose in between the 2 units. Hematocrit 19.2 and platelets 322. INR is 1.13. Sodium 142, potassium 3.7, BUN is down to 48, and creatinine is down to 4.4, it was as high as 19.2. He is doing very well. GFR is up to 14 and sugar is 93. Calcium is 8. AST is 14, ALT is 10, alk phos 48, and total protein is 5.8. He is on vitamin D. His vitamin D level is 19.8. ASSESSMENT AND PLAN: He is being seen by Urology. He is going to do a cystoscopy on Sunday, hopefully get that stone out. 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 He was in deep trouble. His left kidney does not work. His right kidney has got a kidney stone blocking, severe hydronephrosis, acute kidney injury, and severe acute renal failure, needing hemodialysis. Now that he has got a nephrostomy tube in, he is doing well. Now, he is quite anemic. We are going to transfuse him 2 units today. Lasix 40 mg one-time dose in between and hopefully he will do very well. We will check his labs tomorrow. We are going to get him out of bed to chair and physical therapy. Ryne Dunn DO CARLEEN
--- NOTE | 2019-02-01 20:00 | CON ---
DATE: 02/01/2019 HISTORY OF PRESENT ILLNESS: The patient is a 63-year-old male with history of depression and disorganization as well as drug dependency as well, prior psychiatric hospitalization at [place] in 2015 with presentation of paranoid psychosis, who a psychiatrist has been following up because of altered mental status and bizarre behaviors. Dr. Stevens met with the patient on 01/01/2019 and I reviewed her comprehensive consultation. I also reviewed recent staff notes and met with the patient at bedside. The patient is superficially pleasant, calm and cooperative with my questioning. Presentation is although unkempt, nonetheless he is aware what month it is, what year it is and quite prompt in giving me these responses; however, he already believes that he is not in [place] because he heard voices in the middle of the night indicating that they were not in [place] and there are other patients requesting to be transferred to [place], hence the patient felt that he could not be in [place]. The patient was repeatedly reminded that he was at [facility]. He is not adamant or angry, he just appears perplexed during the course of my questioning and reassurance. He does not appear to be typically hallucinating. He denies any perceptual disturbance in that regard; however, he is also aware that he has been confused and reports that he has not had any drugs or medications in a while. He is superficially aware of his circumstances. The patient appears also to be agreeable to medical treatment recommended by his team. There have been no major behavioral issues thus far. The patient denies any depression. He reports that his mood is pretty good. He is hopeful about improving. He does report anxiety, does report poor sleep last night and the staff seems to confirm this as well. Labs and vitals were reviewed. MEDICATIONS: The patient is not on any standing medication, but did receive Xanax 1 mg one dose last night. IMPRESSION: The patient has a history of psychosis in the past as well as substance abuse. His delirium could be related to his current medical issues as well as withdrawal from his medications or use of his medications. RECOMMENDATIONS: Dr. Stevens did confirm the patient's medications with the pharmacy and it does appear that the patient was prescribed Xanax 1 mg t.i.d., Cogentin 0.5 mg daily, Seroquel 100 mg, Cymbalta 60 mg and Subutex 2 mg 4 times a day. At this time, this provider will restart the Seroquel 100 mg at h.s. and 12.5 mg b.i.d. to help with the patient's confusion and lability. I will also restart Cymbalta at 60 mg daily and Xanax at 0.5 mg t.i.d. and follow up with the patient tomorrow, 02/02/2019. Sherice Blas MD
[2019-02-02 00:12] LABS: ANCA SCREEN NEGATIVE (NEGATIVE)
[2019-02-02] MEDS: Pantoprazole 40 mg EC Tab PO SCH (05:38)
[2019-02-02 07:12] LABS: BASO # 0.01 K/mm3 (0.0-2.0); BASO % 0.1 % (0.0-3.0); EOS # 0.1 (0.0-0.7); EOS % 1.1 % (1.5-5.0); LYMPH # 0.8 (1.2-3.4); LYMPH % 9.9 % (22.0-35.0); MEAN CELL VOLUME 87.5 fl (80.0-105.0); MEAN CORPUSCULAR HEMOGLOBIN 30.2 pg (25.0-35.0); MEAN CORPUSCULAR HGB CONC 34.5 g/dl (31.0-37.0); MEAN PLATELET VOLUME 9.3 fl (7.0-11.0); MONO # 0.4 (0.1-0.6); MONO % 4.3 % (1.0-6.0); RBC 2.65 10^6/uL (3.5-6.1); RED CELL DISTRIBUTION WIDTH 13.5 % (11.5-14.5); WHITE BLOOD COUNT 8.1 10^3/uL (4.5-11.0)
[2019-02-02 07:22] LABS: ALB/GLOB RATIO 1.1 (1.1-1.8); ALBUMIN 2.9 g/dL (3.0-4.8); CALCIUM 7.2 mg/dL (8.4-10.5)
[2019-02-02] MEDS ORDERED: Potassium Chloride 20 mEq ER Tab PO ONE (08:09)
[2019-02-02] MEDS: Multivitamin Vitamin B Complex (Nephro-Vite) Tab PO SCH (08:49)
[2019-02-02] MEDS: Sodium Chloride 0.9% 1,000 ML IV SCH (10:48)
--- NOTE | 2019-02-02 12:47 | PN ---
DATE: 02/02/2019 SUBJECTIVE: I saw him resting comfortably in bed. He is alert, no acute distress this morning. He is on Cymbalta, Drisdol, Nephro-Madison, potassium replacement, Protonix, Seroquel, IV fluids, Tylenol, vitamin B12, and Xanax. PHYSICAL EXAMINATION: GENERAL: He is comfortable in bed, alert, not shaking anymore, very calm, almost back to his baseline. VITAL SIGNS: He has 100.3 temperature, 101 pulse, 132/77 blood pressure, 20 respiratory rate, 97% O2 sat on room air. Temperature breaking 100 is new for him. HEENT: His head is atraumatic, normocephalic. HEART: Regular rate. LUNGS: Clear to auscultation with decreased breath sounds. ABDOMEN: Soft, nontender. Positive bowel sounds. He has a right nephrostomy tube draining a lot. EXTREMITIES: No edema. MEDICATIONS: He is currently on Cymbalta, Drisdol, heparin, Nephro-Madison, potassium, Protonix, Seroquel, IV fluids, Tylenol, vitamin B12, Xanax. LABORATORY DATA: His white count is 8.1. He was transfused when his hemoglobin dropped to 6.5, it is now up to 8, also 22.2 hematocrit and 262 platelets. He might need another transfusion. He has 141 sodium, potassium 2.6, I will replace potassium. BUN is down to 35. Creatinine is down to 3.1, it was as high as 19. He is doing great. GFR is only up to 20. Sugar is 96. Calcium is 7.2. Total bili is 0.8. AST is 19, ALT is 13, alk phos 45, total protein is 5.6. ASSESSMENT AND PLAN: He is being seen by Renal, Psychiatry, Urology who I believe wants to do a cystoscopy on Sunday. There is a stone blocking the right kidney. I am going to transfuse him 2 more units of packed red blood cells and see if I can get him above 10. I will check his labs tomorrow. Watch his temperature. I will keep a close eye on him. Marlon Campos had acute renal failure from a hydronephrosis from a stone blocking the right kidney. I have called in Infectious Disease for their opinion of the temperature. Ryne Dunn DO [facility] # [id number]
--- NOTE | 2019-02-02 13:11 | CP.PCM.PN ---
Subjective - Date & Time of Evaluation Date of Evaluation: 02/02/19 Time of Evaluation: 13:09 - Subjective Subjective: Nephrology Consultation Note Assessment: critical Acute Kidney Injury (N17.9) likely due to obs uropathy due to stone Chronic Kidney Disease (N18.3) Stage 3 with left atrophic kidney, baseline cr 1.6-1.8 b12 def, hyperkalemia, AMS, metabolic acidosis, uremia started HD 01/28/19, hyperphos, anemia vit d def Plan pt had nephrostomy tube placment by IR 01/30/19. transfusiosn per primary team renal function much improved - ok from renal standpoint for shiley removal Hypertension control with meds as ordered. Maintain hemodynamics stable. Avoid hypotension. Patient not on ACEI/ARB due to recent MARCUS k repletion ordered will check mag tomorrow Monitor Input/Output, daily weights and renal function with basic metabolic panel cont vit d recc switch fluids to 1/2 ns at 75 cc/hr Dose meds/antibiotics for reduced GFR. Avoid fleets enema/magnesium based laxatives. Avoid nephrotoxins/NSAIDs/ iodinated contrast (unless needed emergently) Glycemic control Further work up for as per primary team s: seen and examined denies n/v Physical Examination: General Appearance: Comfortable, in no acute respiratory distress, co-operative . Vitals reviewed and noted as below Head; Atraumatic, normocephalic ENT: no ulcers no thrush. Tongue is midline. Oropharynx: no rash or ulcers. EYES: Pupils are equal, round and reactive to light accommodation. Eye muscles and extraocular movement intact. Sclera is anicteric. Neck; supple no lymphadenopathy, no thyromegaly or bruit Lungs: Normal respiratory rate/effort. Breath sounds bilateral equal and clear Heart: Normal rate. s1s2 normal. No rub or gallop. Extremities: no edema. No varicose veins Neurological: Patient is alert, awake and oriented. No focal deficit. Strength bilateral appropriate and equal Skin: Warm and dry. Normal turgor. No rash. Palpitation: Normal elasticity for age Abdomen: Abdomen is soft. Bowel sounds +. There is no abdominal tenderness, no guarding/rigidity no organomegaly Psych: normal affect/mood MSK: no joint tenderness or swelling. Digits and nails normal, no deformity : kidney or bladder not palpable. s/p Rt PCN Rt IJ shiley Labs/imaging reviewed. Past medical history, past surgical history, family history, social history, allergy reviewed and noted as below Family hx: no hx of CKD. Rest non-contributory Objective - Vital Signs/Intake and Output Vital Signs (last 24 hours): Temp Pulse Resp BP Pulse Ox 100.3 F H 100 H 20 132/77 97 02/02/19 06:00 02/02/19 13:02 02/02/19 06:00 02/02/19 06:00 02/02/19 06:00 Intake and Output: 02/02/19 02/02/19 06:59 18:59 Intake Total 1615 Output Total 1750 Balance -135 - Medications Medications: Current Medications Acetaminophen (Tylenol 325mg Tab) 650 mg PO Q6H PRN PRN Reason: Fever >100.4 F Last Admin: 02/02/19 05:38 Dose: 650 mg Alprazolam (Xanax) 0.5 mg PO Q8 [facility]; Protocol Last Admin: 02/02/19 05:38 Dose: 0.5 mg Cyanocobalamin (Vitamin B12 1000 Mcg Tab) 1,000 mcg PO DAILY [facility] Last Admin: 02/02/19 10:49 Dose: 1,000 mcg Duloxetine HCl (Cymbalta) 60 mg PO DAILY [facility] Last Admin: 02/02/19 10:49 Dose: 60 mg Ergocalciferol (Drisdol 50,000 Intl Units Cap) 1 cap PO Q7D [facility] Last Admin: 01/31/19 14:19 Dose: 1 cap Heparin Sodium (Porcine) (Heparin) 5,000 units SC Q8 [facility]; Protocol Sodium Chloride (Sodium Chloride 0.9%) 1,000 mls @ 75 mls/hr IV .[id number] [facility] Last Admin: 02/02/19 10:48 Dose: 75 mls/hr Potassium Chloride (Potassium Chloride 20 Meq/100 Ml) 20 meq in 100 mls @ 50 mls/hr IVPB Q2H [facility] Stop: 02/02/19 14:14 Last Admin: 02/02/19 10:49 Dose: 50 mls/hr Pantoprazole Sodium (Protonix Ec Tab) 40 mg PO 0600 [facility] Last Admin: 02/02/19 05:38 Dose: 40 mg Quetiapine Fumarate (Seroquel) 12.5 mg PO 1600 [facility]; Protocol Quetiapine Fumarate (Seroquel) 75 mg PO HS [facility]; Protocol Vitamin B Complex/Vit C/Folic Acid (Nephro-Madison) 1 tab PO 0800 [facility] Last Admin: 02/02/19 08:49 Dose: 1 tab - Labs Labs: 02/02/19 06:30 02/02/19 06:30 PT 12.5 SECONDS (9.4-12.5) 01/28/19 16:50 INR 1.13 01/28/19 16:50 APTT 34.1 Seconds (26.9-38.3) 01/28/19 16:50
--- NOTE | 2019-02-02 19:48 | CON ---
DATE: 02/02/2019 HISTORY OF PRESENT ILLNESS: The patient is a 63-year-old male with a history of depression and disorganization as well as drug dependency, prior psychiatric hospitalization at [facility] in 2014, who Psychiatry has been following up on the medical floor due to altered mental status and bizarre behaviors. Dr. Stevens met with the patient during the week and I reviewed her consultation and I have also met with the patient yesterday as well as today. The patient remains superficially pleasant with me, calm and cooperative with questioning. He is well oriented to the month and year and is quite prompt in giving me these responses; however, he still has periods of disorientation and confusion in which he believes his location is changing. Yesterday, he did not believe he was at [facility]. Today he responds well, "they tell me that I'm at [facility]." Again, they reorient him at bedside, he does not appear adamant or angry, he is just skeptical. The patient also tells me that he is sure that he was at home during the night and this provider also had to remind him that he has been in the hospital overnight and he has been confused. The patient is not agitated; again, he just appears skeptical when I orient him and I review his hospital course at bedside again. He denies any perceptual disturbance regarding hallucinations at this time, and again, skeptical whether he has been confused. The patient reports that sleep was restless and he is generally tired during the day. He wants to get better. He denies having any suicidal thoughts or acute depressive symptoms. He is tolerating medications restarted by this provider and anxiety is just now under better control now. His insight and judgment are improving slowly, although the patient still has periods of inattentiveness and vacillating progress. Labs and vitals were reviewed. RELEVANT PSYCHIATRIC MEDICATIONS: Include Xanax 0.5 mg every 8 hours scheduled, Seroquel 12.5 mg b.i.d. and 50 mg at bedtime, and Cymbalta 60 mg daily. IMPRESSION: At this time, the patient's most significant etiology of his vacillating focus and inattentiveness is delirium. Delirium may even take a few weeks to clear even after the admission medical situation has been resolved. Nonetheless, the patient could and has been benefiting from restart of some psychiatric medications. He has also been calm on the unit. The patient has had a history of psychosis in the past as well. RECOMMENDATIONS: We will continue Xanax 0.5 mg t.i.d., we will keep it at this dose as the patient reports that anxiety is under good control. We will also continue Cymbalta 60 mg daily, this was the patient's prior effective dose. Seroquel will be continued; however, at higher dose of 75 mg at bedtime and 12.5 mg in the afternoon, this is to help the patient calm down in the evening in case of owning and sleep better. I have discontinued the a.m. dose to help with alertness during the day as the patient reports daytime fatigue. Psychiatry will continue to follow up. Next followup will be on 02/03/2019. Sherice Blas MD
[2019-02-03] MEDS: Sodium Chloride 0.9% 1,000 ML IV SCH ×2 (02:02→09:05)
[2019-02-03 03:01] LABS: URINE BILIRUBIN NEGATIVE (NEGATIVE); URINE BLOOD LARGE (NEGATIVE); URINE GLUCOSE (UA) NEGATIVE (NEGATIVE); URINE LEUKOCYTE ESTERASE MODERATE Leu/uL (NEGATIVE); URINE PROTEIN 30 mg/dL (<30 mg/dL); URINE UROBILINOGEN 0.2 E.U./dL (<1 E.U./dL)
[2019-02-03 03:03] LABS: URINE APPEARANCE CLEAR (CLEAR); URINE COLOR YELLOW (YELLOW)
[2019-02-03 03:25] LABS: URINE EPITHELIAL CELLS 0 - 2 /hpf (0-5); URINE WBC 20 - 25 /hpf (0-6)
[2019-02-03 03:26] LABS: URINE BACTERIA MOD /hpf; URINE COARSE GRANULAR CAST TRACE /hpf
[2019-02-03] MEDS: Pantoprazole 40 mg EC Tab PO SCH (04:59)
[2019-02-03 07:01] LABS: EOS # 0.2 (0.0-0.7); EOS % 2.2 % (1.5-5.0); HEMOGLOBIN 7.8 g/dL (14.0-18.0); LYMPH % 12.3 % (22.0-35.0); MEAN CORPUSCULAR HEMOGLOBIN 30.1 pg (25.0-35.0); MEAN CORPUSCULAR HGB CONC 34.2 g/dl (31.0-37.0); MEAN PLATELET VOLUME 9.1 fl (7.0-11.0); MONO # 0.4 (0.1-0.6); MONO % 5.4 % (1.0-6.0); RBC 2.59 10^6/uL (3.5-6.1); RED CELL DISTRIBUTION WIDTH 13.6 % (11.5-14.5); WHITE BLOOD COUNT 7.7 10^3/uL (4.5-11.0)
[2019-02-03 07:30] LABS: ALBUMIN 2.7 g/dL (3.0-4.8); CALCIUM 6.9 mg/dL (8.4-10.5)
[2019-02-03] MEDS ORDERED: Vancomycin 1gm in NS 250ml 1 GM/250 ML BAG IVPB STA (07:31)
[2019-02-03] MEDS ORDERED: Cefepime 1gm in NS 100ml 1 GM/100 ML BAG IVPB SCH (07:45)
[2019-02-03] MEDS ORDERED: Calcium Gluconate in NS 1 GM/50 ML BAG IV ONE (08:36)
[2019-02-03] MEDS: Multivitamin Vitamin B Complex (Nephro-Vite) Tab PO SCH (09:16)
[2019-02-03] MEDS ORDERED: Cholecalciferol 1,000 INTLU TAB PO SCH (10:00)
[2019-02-03] MEDS: Potassium Chloride 20 mEq ER Tab PO SCH ×2 (10:30→12:19)
--- NOTE | 2019-02-03 11:31 | PN ---
DATE: 02/03/2019 SUBJECTIVE: I was under the impression, he was going to go for cystoscopy today with Dr. Singh. There was a liquid tray at his bedside, I asked him not to eat the breakfast . I want to keep him n.p.o. before the procedure. MEDICATIONS: He is on Cymbalta, Drisdol, Maxipime, Nephro-Madison, Protonix, Seroquel, IV fluids, Tylenol, vancomycin, vitamin B12, and Xanax. PHYSICAL EXAMINATION: VITAL SIGNS: Temperature 100.2, pulse 89, blood pressure 133/79, respiratory rate 20, and O2 saturation 90% on room air. Temperature is little bit high. HEENT: Head is atraumatic and normocephalic. HEART: Regular rate. LUNGS: Decreased breath sounds. ABDOMEN: Soft and obese. He has a right nephrostomy tube. EXTREMITIES: No edema. LABORATORY DATA: White count 7.7, hemoglobin 7.8, hematocrit 22.8, and platelets 268. Sodium 139, potassium is 2.8, I did give him some potassium this morning, BUN 24, creatinine 2.3, coming down nicely, GFR is up to 29, sugar is 97, and calcium is 6.9, I will give some calcium. Total bili is 0.6, AST is 18, ALT is 13, alk phos 44, and total protein is 5.5. I think he might need to be transfuse if the hemoglobin drops any further. ASSESSMENT AND PLAN: We will see if he goes for a cystoscopy today. His kidney function is definitely improving. He is being seen by Renal, Urology, and Infectious Disease. We check his labs. Hopefully, get the cystoscopy done, treat him with IV antibiotics and nephrostomy tube treatment IV fluids and we will see if we could do a cystoscopy as per Urology for the kidney stone as it is blocking the kidney having hydronephrosis. Ryne Dunn DO [facility]Wang
--- NOTE | 2019-02-03 11:49 | CP.PCM.PN ---
Subjective - Date & Time of Evaluation Date of Evaluation: 02/03/19 Time of Evaluation: 11:47 - Subjective Subjective: Nephrology Consultation Note Assessment: stable Acute Kidney Injury (N17.9) likely due to obs uropathy due to stone Chronic Kidney Disease (N18.3) Stage 3 with left atrophic kidney, baseline cr 1.6-1.8 b12 def, hyperkalemia, AMS, metabolic acidosis, uremia started HD 01/28/19, hyperphos, anemia vit d def sepsis Plan urology eval appreciated. pt had nephrostomy tube placment by IR 01/30/19. no further dialysis need. shiley removed by me 02/03/19 Hypertension control with meds as ordered. Maintain hemodynamics stable. Avoid hypotension. Patient not on ACEI/ARB due to recent MARCUS Monitor Input/Output, daily weights and renal function with basic metabolic panel supplement B12 as pt with level very low, weekly vit D. started iron and MVI. PRBC as needed supplement lytes as needed work up for stone as outpt ID following Dose meds/antibiotics for reduced GFR. Avoid fleets enema/magnesium based laxatives. Avoid nephrotoxins/NSAIDs/ iodinated contrast (unless needed emergently) Glycemic control Further work up for as per primary team Thanks for allowing me to participate in care of your patient. Will follow patient with you. Please call if any Qs. had d/w team Dr Taiwo Vyas Office: [phone] Subjective: Noted events overnight. Patients feels better Denies chest pain, palpitation, shortness of breath, leg swelling. All other negative Physical Examination: General Appearance: Comfortable, in no acute respiratory distress, co-operative Vitals reviewed and noted as below Head; Atraumatic, normocephalic ENT: no ulcers no thrush. Tongue is midline. Oropharynx: no rash or ulcers. EYES: Pupils are equal, round and reactive to light accommodation. Eye muscles and extraocular movement intact. Sclera is anicteric. Neck; supple no lymphadenopathy, no thyromegaly or bruit Lungs: Normal respiratory rate/effort. Breath sounds bilateral reduced with few rales Heart: Normal rate. s1s2 normal. No rub or gallop. Extremities: no edema. No varicose veins Neurological: Patient is alert, awake and oriented. No focal deficit. Strength bilateral appropriate and equal Skin: Warm and dry. Normal turgor. No rash. Palpitation: Normal elasticity for age Abdomen: Abdomen is soft. Bowel sounds +. There is no abdominal tenderness, no guarding/rigidity no organomegaly Psych: normal affect/mood MSK: no joint tenderness or swelling. Digits and nails normal, no deformity : kidney or bladder not palpable. s/p Rt PCN Rt IJ terry Labs/imaging reviewed. Past medical history, past surgical history, family history, social history, allergy reviewed and noted as below Family hx: no hx of CKD. Rest non-contributory Objective - Vital Signs/Intake and Output Vital Signs (last 24 hours): Temp Pulse Resp BP Pulse Ox 100.2 F H 89 20 133/79 98 02/03/19 06:20 02/03/19 06:00 02/03/19 06:00 02/03/19 06:00 02/03/19 06:00 Intake and Output: 02/03/19 02/03/19 06:59 18:59 Intake Total 1260 Output Total 720 Balance 540 - Medications Medications: Current Medications Acetaminophen (Tylenol 325mg Tab) 650 mg PO Q6H PRN PRN Reason: Fever >100.4 F Last Admin: 02/03/19 06:20 Dose: 650 mg Alprazolam (Xanax) 0.5 mg PO Q8 [facility]; Protocol Last Admin: 02/03/19 04:59 Dose: 0.5 mg Cyanocobalamin (Vitamin B12 1000 Mcg Tab) 1,000 mcg PO DAILY [facility] Last Admin: 02/03/19 09:16 Dose: 1,000 mcg Duloxetine HCl (Cymbalta) 60 mg PO DAILY [facility] Last Admin: 02/03/19 09:16 Dose: 60 mg Ergocalciferol (Drisdol 50,000 Intl Units Cap) 1 cap PO Q7D [facility] Last Admin: 01/31/19 14:19 Dose: 1 cap Ferrous Gluconate (Fergon) 324 mg PO TID [facility] Heparin Sodium (Porcine) (Heparin) 5,000 units SC Q8 [facility]; Protocol Cefepime HCl (Maxipime 1gm) 1 gm in 100 mls @ 100 mls/hr IVPB Q24H [facility]; Protocol Stop: 02/10/19 07:46 Pantoprazole Sodium (Protonix Ec Tab) 40 mg PO 0600 [facility] Last Admin: 02/03/19 04:59 Dose: 40 mg Potassium Chloride (K-Dur 20 Meq Er Tab) 40 meq PO Q6 [facility] Stop: 02/03/19 12:01 Last Admin: 02/03/19 10:30 Dose: 40 meq Quetiapine Fumarate (Seroquel) 12.5 mg PO 1600 [facility]; Protocol Last Admin: 02/02/19 17:48 Dose: 12.5 mg Quetiapine Fumarate (Seroquel) 75 mg PO HS [facility]; Protocol Last Admin: 02/02/19 21:56 Dose: 75 mg Vitamin B Complex/Vit C/Folic Acid (Nephro-Madison) 1 tab PO 0800 [facility] Last Admin: 02/03/19 09:16 Dose: 1 tab - Labs Labs: 02/03/19 06:25 02/03/19 06:25 PT 12.5 SECONDS (9.4-12.5) 01/28/19 16:50 INR 1.13 01/28/19 16:50 APTT 34.1 Seconds (26.9-38.3) 01/28/19 16:50
--- NOTE | 2019-02-03 12:28 | CP.PCM.CON ---
<Raf Baum - Last Filed: 02/03/19 17:08> History of Present Illness - History of Present Illness History of Present Illness: Infectious disease consult note: 63-year-old male with past medical history of hypertension, COPD, anxiety, depression, unspecified tremors that he had since his childhood was brought into the ambulance for altered mental status. As per the patient's upon p resentation the patient has been altered for the past several weeks. At baseline patient is intermittently disoriented however has been getting progressive worse. CT of the abdomen was performed and showed a right sided proximal ureteral calculi and the patient is s/p percutaneous nephrostomy. Pat ient subsequently developed fevers and therefore infectious disease was consulted. This morning the patient has no complaints states that he is feeling well. T-max was of 100.2 in the past 24 hours. No other complaints 12 point ROS performed negative unless stated above. PMH: As stated above PSH: Left forehead cyst removal, right hip fracture repair, partial colectomy with colostomy and subsequent reversal Family History: Unknown Social History: Previous heroin, cocaine, alcohol and tobacco abuse noted per chart review but patients reports that the patient has not used any of these substances in eight years Allergies: NKDA Home Medications: Reviewed; As per MAR Review of Systems - Review of Systems All systems: reviewed and no additional remarkable complaints except Past Patient History - Infectious Disease Hx of Infectious Diseases: None - Tetanus Immunizations Tetanus Immunization: Up to Date - Past Social History Smoking Status: Heavy Smoker > 10 Cigarettes Daily - CARDIAC Hx Cardiac Disorders: Yes Hx Hypertension: Yes - PULMONARY Hx Respiratory Disorders: No Hx Tuberculosis: No - NEUROLOGICAL Hx Neurological Disorder: No Other/Comment: TREMORS since young age - HEENT Hx HEENT Problems: No - RENAL Hx Chronic Kidney Disease: Yes Other/Comment: acute renal failure 2011 - ENDOCRINE/METABOLIC Hx Endocrine Disorders: No - HEMATOLOGICAL/ONCOLOGICAL Hx Blood Disorders: Yes (sepsis) - INTEGUMENTARY Hx Dermatological Problems: Yes Other/Comment: healed surgical scars abd, r hip - MUSCULOSKELETAL/RHEUMATOLOGICAL Hx Falls: Yes - GASTROINTESTINAL Hx Gastrointestinal Disorders: Yes Other/Comment: pt had a fall in 2010 and fx r hip admits to being intoxicated at the time, pt stated "they removed 6 to 8 feet of intestine, but I'm not sure why" wound up with colostomy which was reversed in 2011 - GENITOURINARY/GYNECOLOGICAL Hx Genitourinary Disorders: No - PSYCHIATRIC Hx Anxiety: Yes Hx Depression: Yes Hx Substance Use: No (Denies) Other/Comment: acute psychosis 2014, suicidal thoughts in the past none recently, quit smoking 1 ppd 7 days ago, quit heroin/cocaine use 2010, and alcohol dillan vizcaino 2010, due to r hip fx - SURGICAL HISTORY Hx Joint Replacement: Yes (rt hip relacement) Other/Comment: excision left forehead cyst, pac removal 05/07/2012 - ANESTHESIA Hx Anesthesia: Yes Hx Anesthesia Reactions: No Hx Malignant Hyperthermia: No Meds Allergies/Adverse Reactions: Allergies Allergy/AdvReac Type Severity Reaction Status Date / Time No Known Allergies Allergy Verified 03/01/18 12:14 - Medications Medications: Current Medications Acetaminophen (Tylenol 325mg Tab) 650 mg PO Q6H PRN PRN Reason: Fever >100.4 F Last Admin: 02/03/19 06:20 Dose: 650 mg Alprazolam (Xanax) 0.5 mg PO Q8 [facility]; Protocol Last Admin: 02/03/19 04:59 Dose: 0.5 mg Cyanocobalamin (Vitamin B12 1000 Mcg Tab) 1,000 mcg PO DAILY [facility] Last Admin: 02/03/19 09:16 Dose: 1,000 mcg Duloxetine HCl (Cymbalta) 60 mg PO DAILY [facility] Last Admin: 02/03/19 09:16 Dose: 60 mg Ergocalciferol (Drisdol 50,000 Intl Units Cap) 1 cap PO Q7D JAQUAN Last Admin: 01/31/19 14:19 Dose: 1 cap Ferrous Gluconate (Fergon) 324 mg PO TID JAQUAN Heparin Sodium (Porcine) (Heparin) 5,000 units SC Q8 JAQUAN; Protocol Cefepime HCl (Maxipime 1gm) 1 gm in 100 mls @ 100 mls/hr IVPB Q24H JAQUAN; Protocol Stop: 02/10/19 07:46 Pantoprazole Sodium (Protonix Ec Tab) 40 mg PO 0600 JAQUAN Last Admin: 02/03/19 04:59 Dose: 40 mg Quetiapine Fumarate (Seroquel) 12.5 mg PO 1600 JAQUAN; Protocol Last Admin: 02/02/19 17:48 Dose: 12.5 mg Quetiapine Fumarate (Seroquel) 75 mg PO HS JAQUAN; Protocol Last Admin: 02/02/19 21:56 Dose: 75 mg Vitamin B Complex/Vit C/Folic Acid (Nephro-Madison) 1 tab PO 0800 JAQUAN Last Admin: 02/03/19 09:16 Dose: 1 tab Physical Exam - Constitutional Appears: No Acute Distress - Head Exam Head Exam: ATRAUMATIC, NORMOCEPHALIC - Eye Exam Eye Exam: EOMI - ENT Exam ENT Exam: Mucous Membranes Moist - Respiratory Exam Respiratory Exam: Clear to Auscultation Bilateral. absent: Rales, Wheezes - Cardiovascular Exam Cardiovascular Exam: REGULAR RHYTHM, +S1, +S2 - GI/Abdominal Exam GI & Abdominal Exam: Normal Bowel Sounds, Soft - Extremities Exam Extremities exam: Negative for: calf tenderness, pedal edema - Neurological Exam Neurological exam: Alert, CN II-XII Intact, Oriented x3 - Psychiatric Exam Psychiatric exam: Normal Mood - Skin Skin Exam: Dry, Warm Results - Vital Signs Recent Vital Signs: Last Vital Signs Temp 100.2 F H 02/03/19 06:20 Pulse 89 02/03/19 06:00 Resp 20 02/03/19 06:00 BP 133/79 02/03/19 06:00 Pulse Ox 98 02/03/19 06:00 - Labs Result Diagrams: 02/03/19 06:25 02/03/19 06:25 Labs: Laboratory Results - last 24 hr 02/01/19 02/03/19 02/03/19 09:55 02:37 06:25 WBC 7.7 RBC 2.59 L Hgb 7.8 L Hct 22.8 L MCV 88.0 MCH 30.1 MCHC 34.2 RDW 13.6 Plt Count 268 MPV 9.1 Neut % (Auto) 80.1 H Lymph % (Auto) 12.3 L Park % (Auto) 5.4 Eos % (Auto) 2.2 Baso % (Auto) 0.0 Lymph # (Auto) 1.0 L [place] # (Auto) 0.4 Eos # (Auto) 0.2 Baso # (Auto) 0.00 Absolute Neuts (auto) 6.20 Sodium Potassium Chloride Carbon Dioxide Anion Gap BUN Creatinine Est GFR ( Amer) Est GFR (Non-Af Amer) Random Glucose Calcium Total Bilirubin AST ALT Alkaline Phosphatase Total Protein Albumin Globulin Albumin/Globulin Ratio Urine Color Yellow Urine Appearance Clear Urine pH 6.0 Ur Specific [place] 1.015 Urine Protein 30 H Urine Glucose (UA) Negative Urine Ketones Negative Urine Blood Large H Urine Nitrate Negative Urine Bilirubin Negative Urine Urobilinogen 0.2 Ur Leukocyte Esterase Moderate H Urine RBC 1 - 3 H Urine WBC 20 - 25 H Ur Epithelial Cells 0 - 2 Urine Bacteria Mod Coarse Granular Casts Trace Blood Type A POSITIVE Antibody Screen Negative Crossmatch See Detail BBK History Checked Patient has bt 02/03/19 06:25 WBC RBC Hgb Hct MCV MCH MCHC RDW Plt Count MPV Neut % (Auto) Lymph % (Auto) Park % (Auto) Eos % (Auto) Baso % (Auto) Lymph # (Auto) [place] # (Auto) Eos # (Auto) Baso # (Auto) Absolute Neuts (auto) Sodium 139 Potassium 2.8 L* Chloride 106 Carbon Dioxide 25 Anion Gap 11 BUN 24 H Creatinine 2.3 H Est GFR ( Amer) 35 Est GFR (Non-Af Amer) 29 Random Glucose 97 Calcium 6.9 L* Total Bilirubin 0.6 AST 18 ALT 13 Alkaline Phosphatase 44 Total Protein 5.5 L Albumin 2.7 L Globulin 2.8 Albumin/Globulin Ratio 1.0 L Urine Color Urine Appearance Urine pH Ur Specific [place] Urine Protein Urine Glucose (UA) Urine Ketones Urine Blood Urine Nitrate Urine Bilirubin Urine Urobilinogen Ur Leukocyte Esterase Urine RBC Urine WBC Ur Epithelial Cells Urine Bacteria Coarse Granular Casts Blood Type Antibody Screen Crossmatch BBK History Checked Assessment & Plan - Assessment and Plan (Free Text) Assessment: 1. Obstructive uropathy status post nephrostomy tube placement 2. Bacteremia with enteroccocus feacalis r/o endocarditis 3. COPD 4. Hypertension 5. Depression 6. History of IV drug use 7. Acute on chronic kidney injury Plan for a cystoscopy done today we will follow-up with urology recommendations D/c cefepime, and started zosyn, intermittent Vanc x 1 today F/u Vanc random Continue to monitor for fevers Septic work-up shows gram-positive cocci in blood x1 however second blood culture has been negative, enteroccocus feacalis bacteremia likely source is urine Follow up repeat blood cx and urine cx F/u CXR ordered Continue to monitor for any changes Case and plan to be reviewed and discussed with Dr Roberts. <Dillan Roberts - Last Filed: 02/03/19 17:14> Meds - Medications Medications: Current Medications Acetaminophen (Tylenol 325mg Tab) 650 mg PO Q6H PRN PRN Reason: Fever >100.4 F Last Admin: 02/03/19 06:20 Dose: 650 mg Alprazolam (Xanax) 0.5 mg PO Q8 [facility]; Protocol Last Admin: 02/03/19 13:00 Dose: 0.5 mg Cyanocobalamin (Vitamin B12 1000 Mcg Tab) 1,000 mcg PO DAILY JAQUAN Last Admin: 02/03/19 09:16 Dose: 1,000 mcg Duloxetine HCl (Cymbalta) 60 mg PO DAILY [facility] Last Admin: 02/03/19 09:16 Dose: 60 mg Ergocalciferol (Drisdol 50,000 Intl Units Cap) 1 cap PO Q7D [facility] Last Admin: 01/31/19 14:19 Dose: 1 cap Ferrous Gluconate (Fergon) 324 mg PO TID [facility] Last Admin: 02/03/19 13:00 Dose: 324 mg Heparin Sodium (Porcine) (Heparin) 5,000 units SC Q8 [facility]; Protocol Piperacillin Sod/Tazobactam Sod (Zosyn 2.25 Gm In 0.9% 100 Ml) 2.25 gm in 100 mls @ 100 mls/hr IVPB Q8 [facility]; Protocol Stop: 02/12/19 22:01 Pantoprazole Sodium (Protonix Ec Tab) 40 mg PO 0600 [facility] Last Admin: 02/03/19 04:59 Dose: 40 mg Quetiapine Fumarate (Seroquel) 75 mg PO HS JAQUAN; Protocol Last Admin: 02/02/19 21:56 Dose: 75 mg Quetiapine Fumarate (Seroquel) 25 mg PO 1600 JAQUAN; Protocol Vitamin B Complex/Vit C/Folic Acid (Nephro-[place]) 1 tab PO 0800 [facility] Last Admin: 02/03/19 09:16 Dose: 1 tab Results - Vital Signs Recent Vital Signs: Last Vital Signs Temp 100.1 F H 02/03/19 12:00 Pulse 90 02/03/19 14:00 Resp 18 02/03/19 12:00 BP 130/78 02/03/19 12:00 Pulse Ox 98 02/03/19 06:00 - Labs Result Diagrams: 02/03/19 06:25 02/03/19 06:25 Labs: Laboratory Results - last 24 hr 02/03/19 02/03/19 02/03/19 02:37 06:25 06:25 WBC 7.7 RBC 2.59 L Hgb 7.8 L Hct 22.8 L MCV 88.0 MCH 30.1 MCHC 34.2 RDW 13.6 Plt Count 268 MPV 9.1 Neut % (Auto) 80.1 H Lymph % (Auto) 12.3 L Park % (Auto) 5.4 Eos % (Auto) 2.2 Baso % (Auto) 0.0 Lymph # (Auto) 1.0 L [place] # (Auto) 0.4 Eos # (Auto) 0.2 Baso # (Auto) 0.00 Absolute Neuts (auto) 6.20 Sodium 139 Potassium 2.8 L* Chloride 106 Carbon Dioxide 25 Anion Gap 11 BUN 24 H Creatinine 2.3 H Est GFR ( Amer) 35 Est GFR (Non-Af Amer) 29 Random Glucose 97 Calcium 6.9 L* Total Bilirubin 0.6 AST 18 ALT 13 Alkaline Phosphatase 44 Total Protein 5.5 L Albumin 2.7 L Globulin 2.8 Albumin/Globulin Ratio 1.0 L Urine Color Yellow Urine Appearance Clear Urine pH 6.0 Ur Specific [place] 1.015 Urine Protein 30 H Urine Glucose (UA) Negative Urine Ketones Negative Urine Blood Large H Urine Nitrate Negative Urine Bilirubin Negative Urine Urobilinogen 0.2 Ur Leukocyte Esterase Moderate H Urine RBC 1 - 3 H Urine WBC 20 - 25 H Ur Epithelial Cells 0 - 2 Urine Bacteria Mod Coarse Granular Casts Trace Assessment & Plan - Assessment and Plan (Free Text) Assessment: SEVERE SEPSIS WITH ENTROCOCCUS BACTEREMIA R/O ENDOCARDITS WITH MARCUS Attending/Attestation - Attestation I have personally seen and examined this patient.: Yes I have fully participated in the care of the patient.: Yes I have reviewed all pertinent clinical information: Yes
--- NOTE | 2019-02-03 17:21 | PN ---
DATE: 02/03/2019 SUBJECTIVE: The patient was followed up today. The patient presented to be sleepy, but easily arousable. The patient reported that he is not feeling that well, reported that he feels weak. The patient reported no voices, no thoughts of harming himself or others were expressed. Based on report from the nursing staff, the patient does not exhibit any aggressive or agitated behavior. The patient has episodes of forgetfulness as well as confusion, but no aggression, no agitation. OBJECTIVE: VITAL SIGNS: Reviewed. The patient had episodes of fever 100.2, blood pressure 133/79, respirations 26 and saturation is 98. MEDICATIONS: Reviewed. The patient is on Tylenol, Xanax 0.5 mg every 8 hours scheduled, cefepime, vitamin B12, Cymbalta 15 mg daily, Drisdol, Fergon, heparin, Protonix, Seroquel was resumed over the weekend 75 mg at the nighttime and 12.5 mg at the daytime and vitamin B complex. This selling underwriter will increase the dose of Seroquel to 25 mg at the morning time and will 75 mg at the nighttime. Blood culture was positive for Gram-positive cocci. MENTAL STATUS EXAM: The patient presented to be sleepy but easily arousable, intermittent eye contact. Mood described as not that good. Affect was constricted, but more reactive, mood congruent. Thought process seems to be more coherent. Goal-directed. Thought content, the patient denied visual, auditory or tactile hallucinations. Denied paranoid ideation. The patient denied thoughts of harming himself or others, denied intent or plan. Insight and judgment seems to be improving. Impulses are well controlled. IMPRESSION: As per history, the patient has psychosis. This time, the patient was admitted for altered mental status was downgraded from ICU to the medical floor. The patient seems to be improving. PLAN: Medications were confirmed. Please see initial consultation note for more detailed information. The patient has followup appointment with . The patient is on Subutex, Seroquel which was resumed Subutex is known formulary in the hospital. Patient currently waiting for subacute rehab. The patient posed no imminent danger to self or others, but definitely needs to follow up with psychiatrist as subacute rehab. Should you have any questions give me a call back. This selling underwriter will follow up and advise accordingly. Thank you very much. Roz Stevens MD MTDWang
--- NOTE | 2019-02-03 19:20 | PCM.URO ---
Urology Progress Note - Subjective Abdominal Pain: Yes Other: we were planning for cysto ureteroscopy and laser but potassium too low. will need to reschedule //pt doesnt think he can learn to take care of the nephrostomy tube so he will need to remain in the hospital for now . will discuss timing for cystoscopy gerson 02/05 - Objective Lab Results Last 24 Hours: Laboratory Results - last 24 hr 02/03/19 02/03/19 02/03/19 02:37 06:00 06:25 WBC 7.7 RBC 2.59 L Hgb 7.8 L Hct 22.8 L MCV 88.0 MCH 30.1 MCHC 34.2 RDW 13.6 Plt Count 268 MPV 9.1 Neut % (Auto) 80.1 H Lymph % (Auto) 12.3 L [place] % (Auto) 5.4 Eos % (Auto) 2.2 Baso % (Auto) 0.0 Lymph # (Auto) 1.0 L [place] # (Auto) 0.4 Eos # (Auto) 0.2 Baso # (Auto) 0.00 Absolute Neuts (auto) 6.20 ESR 65 H Sodium Potassium Chloride Carbon Dioxide Anion Gap BUN Creatinine Est GFR ( Amer) Est GFR (Non-Af Amer) Random Glucose Calcium Total Bilirubin AST ALT Alkaline Phosphatase Total Protein Albumin Globulin Albumin/Globulin Ratio Urine Color Yellow Urine Appearance Clear Urine pH 6.0 Ur Specific [place] 1.015 Urine Protein 30 H Urine Glucose (UA) Negative Urine Ketones Negative Urine Blood Large H Urine Nitrate Negative Urine Bilirubin Negative Urine Urobilinogen 0.2 Ur Leukocyte Esterase Moderate H Urine RBC 1 - 3 H Urine WBC 20 - 25 H Ur Epithelial Cells 0 - 2 Urine Bacteria Mod Coarse Granular Casts Trace 02/03/19 06:25 WBC RBC Hgb Hct MCV MCH MCHC RDW Plt Count MPV Neut % (Auto) Lymph % (Auto) [place] % (Auto) Eos % (Auto) Baso % (Auto) Lymph # (Auto) [place] # (Auto) Eos # (Auto) Baso # (Auto) Absolute Neuts (auto) ESR Sodium 139 Potassium 2.8 L* Chloride 106 Carbon Dioxide 25 Anion Gap 11 BUN 24 H Creatinine 2.3 H Est GFR ( Amer) 35 Est GFR (Non-Af Amer) 29 Random Glucose 97 Calcium 6.9 L* Total Bilirubin 0.6 AST 18 ALT 13 Alkaline Phosphatase 44 Total Protein 5.5 L Albumin 2.7 L Globulin 2.8 Albumin/Globulin Ratio 1.0 L Urine Color Urine Appearance Urine pH Ur Specific [place] Urine Protein Urine Glucose (UA) Urine Ketones Urine Blood Urine Nitrate Urine Bilirubin Urine Urobilinogen Ur Leukocyte Esterase Urine RBC Urine WBC Ur Epithelial Cells Urine Bacteria Coarse Granular Casts Intake & Output: Intake & Output 02/03/19 02/03/19 02/04/19 06:59 18:59 06:59 Intake Total 1260 1796 Output Total 720 1150 Balance 540 646 Intake: IV 900 956 Right Forearm 900 956 Oral 360 840 Output: Drainage 720 Right Lower 720 Urine 1150 Urethral (Howe) 1150 Other: # Bowel Movements 0 2 Vital Signs: Vital Signs - 24 hr 02/02/19 02/03/19 02/03/19 22:00 00:01 01:58 Temperature 99.2 F Pulse Rate 83 85 85 Respiratory 19 Rate Blood Pressure 120/73 O2 Sat by Pulse 97 Oximetry 02/03/19 02/03/19 02/03/19 05:51 06:00 06:20 Temperature 100.2 F H 100.2 F H Pulse Rate 89 89 Respiratory 20 Rate Blood Pressure 133/79 O2 Sat by Pulse 98 Oximetry 02/03/19 02/03/19 02/03/19 10:00 12:00 14:00 Temperature 100.1 F H Pulse Rate 86 87 90 Respiratory 18 Rate Blood Pressure 130/78 O2 Sat by Pulse Oximetry 02/03/19 02/03/19 02/03/19 17:10 17:51 18:00 Temperature 100.8 F H 100.8 F H Pulse Rate 88 91 H Respiratory 18 Rate Blood Pressure 136/84 O2 Sat by Pulse Oximetry 02/03/19 18:47 Temperature 98.3 F Pulse Rate Respiratory Rate Blood Pressure O2 Sat by Pulse Oximetry
[2019-02-03] MEDS: Piperacillin/Tazobact 2.25gm 2.25 GM/100 ML BAG IVPB SCH (21:38)
--- NOTE | 2019-02-04 00:38 | PN ---
DATE: 02/03/2019 See previously dictated notes for the consultation. SUBJECTIVE: The patient is now with a nephrostomy tube. It is draining well. His creatinine has really improved, it is down, creatinine today is 2.3. BUN and creatinine were 24/2.3 this has drastically improved. Originally it was 73/9.9 then 48/4.4. See the previous notes dictated. We kept the patient n.p.o. with the plan for cystoscopy, ureteroscopy, laser lithotripsy for the stone, particularly because he does not think he can take care of the nephrostomy tube himself. We discussed the wound care, etc. and it will be very difficult for the patient. However, the potassium today is noted to be 2.8. He is receiving to supplement, but at this point given the hour and the fact that we need the laser, we are not going to be able to complete the procedure today. I explained this all to the patient. See the plans listed above. PAST MEDICAL AND SURGICAL HISTORY: No other changes. REVIEW OF SYSTEMS: No change. PHYSICAL EXAMINATION: GENERAL: Resting comfortably in his bed. VITAL SIGNS: Within normal limits included in the chart. DIAGNOSES: Urolithiasis, hematuria, renal failure, obstructed kidney, atrophic contralateral kidney. We have discussed options with the patient at length. PLAN: The plan for now is we cancel the procedure. We fed the patient, and the plan will be to reschedule. Most likely we will not be able to do it tomorrow on 02/04/2019, so we are going to have to reschedule for 02/05/2019. I explained this to the patient in detail. We are going to try to work this as fast as we can within the limits of the system. Raghav Singh MD
[2019-02-04] MEDS: Pantoprazole 40 mg EC Tab PO SCH (05:20)
[2019-02-04] MEDS: Piperacillin/Tazobact 2.25gm 2.25 GM/100 ML BAG IVPB SCH ×3 (05:20→22:02)
[2019-02-04 07:31] LABS: EOS # 0.2 (0.0-0.7); HEMOGLOBIN 8.5 g/dL (14.0-18.0); LYMPH % 13.4 % (22.0-35.0); MEAN CORPUSCULAR HGB CONC 33.7 g/dl (31.0-37.0); MEAN PLATELET VOLUME 9.4 fl (7.0-11.0); MONO # 0.5 (0.1-0.6); MONO % 6.9 % (1.0-6.0); RBC 2.83 10^6/uL (3.5-6.1); RED CELL DISTRIBUTION WIDTH 13.5 % (11.5-14.5); WHITE BLOOD COUNT 7.4 10^3/uL (4.5-11.0)
[2019-02-04] MEDS: Multivitamin Vitamin B Complex (Nephro-Vite) Tab PO SCH (07:55)
[2019-02-04 07:56] LABS: ALBUMIN 2.9 g/dL (3.0-4.8); CALCIUM 7.1 mg/dL (8.4-10.5)
--- NOTE | 2019-02-04 09:07 | RAD ---
Date of service: 02/03/2019 HISTORY: Pneumonia. COMPARISON: 01/28/2019. FINDINGS: LUNGS: No active pulmonary disease. PLEURA: No significant pleural effusion identified, no pneumothorax apparent. CARDIOVASCULAR: Atherosclerotic calcifications identified primarily aortic arch. No radiographic findings to suggest acute or significant cardiovascular disease. Removal of support apparatus since the prior study: Right IJ catheter. OSSEOUS STRUCTURES: No significant abnormalities. Healed left clavicular fracture. VISUALIZED UPPER ABDOMEN: Normal. OTHER FINDINGS: None. IMPRESSION: No active disease. No significant interval change compared to the prior examination(s).
[2019-02-04] MEDS ORDERED: Darbepoetin Alfa 60 mcg/ml Inj SC ONE (09:46)
[2019-02-04] MEDS ORDERED: Potassium Chloride 20 mEq ER Tab PO ONE (09:46)
--- NOTE | 2019-02-04 10:17 | PN ---
DATE: 02/04/2019 SUBJECTIVE: I saw the Marlon, he is resting comfortably in his room 263. He slept fairly well. No acute distress this morning. Dr. Singh, the urologist is planning on doing a cystoscopy and stone removal tomorrow, now I understand. PHYSICAL EXAMINATION: VITAL SIGNS: He has a 98.1 temperature, 87 pulse, 130/77 blood pressure, 20 respiratory rate, 98% O2 sat on room air. HEENT: Head is atraumatic, normocephalic. HEART: Regular rate. LUNGS: Clear to auscultation. ABDOMEN: Soft. EXTREMITIES: No edema. He has got a right nephrostomy tube, draining well. MEDICATIONS: He is currently on Cymbalta, Drisdol, Fergon, heparin, Nephro-[place], potassium replacement, Protonix, Seroquel, Tylenol, vitamin B12, Xanax and Zosyn IV. LABORATORY DATA: He has a 7.4 white count, 8.5 hemoglobin, 25.2 hematocrit with 286 platelets. He has a 141 sodium, potassium is up to 3.5 better I gave him two more riders. His BUN is down normal at 20, his creatinine is down to 2.1. His GFR is up to 32. He is definitely improving with his kidney. Sugar is 86, calcium is 7.1, total bili is 0.7. AST is 30, ALT is 21, alk phos 47, total protein is 5.8. ASSESSMENT AND PLAN: He continues to improve with his kidney, IV fluids. He has a Gram-positive cocci. He is on antibiotics for that, those are in the blood culture. He is being seen by Infectious Disease, Renal, Psychiatry, Urology, and hopefully tomorrow they can do the cystoscopy and the stone removal. We will check his labs tomorrow, watch his potassium. Get him out of bed to chair. As per urology for the next procedure, continue with IV fluids, IV antibiotics and he had a very severe hydronephrosis with stone blocking the kidney and severe acute kidney injury. Now he is improving. Ryne Dunn DO [facility] # [id number]
--- NOTE | 2019-02-04 10:36 | CARD ---
APPROVED REPORT Date of service: 02/04/2019 EXAM: Two-dimensional and M-mode echocardiogram with Doppler and color Doppler. INDICATION Infection:Rule out subacute bacterial endocarditis Aortic Valve AoV Peak Wpbflrab027.0cm/Megan Peak GR.5mmHg Mitral Valve E/A ratio0.0 TDI E/Lateral E'0.0E/Medial E'0.0 Tricuspid Valve TR Peak [id number] Peak Gr.32mmHg [id number] <Conclusion> Technically very limited study. Chamber sizes appear normal in size. LV systolic function likely normal. Visualization of the valves is very poor. No vegetations seen, but imaging is very suboptimal. If suspicion for endocarditis is high, consider [facility] imaging.
--- NOTE | 2019-02-04 11:00 | PN ---
DATE: 02/04/2019 See the previously dictated note. SUBJECTIVE: Mr. Campos is currently resting comfortably in his bed. See the previously dictated notes. He came in with an obstructive stone. The latest creatinine is about 2.4. We have scheduled a cystoscopy yesterday, but the potassium has been 2.4 to 2.6. He is getting replacements. Therefore, we chose to postpone the procedure. The patient is currently resting comfortably in his bed. See the plan listed below. PAST MEDICAL AND SURGICAL HISTORY: All listed on the chart. REVIEW OF SYSTEMS: Listed above. PHYSICAL EXAMINATION: GENERAL: Well-developed male. No apparent distress. VITAL SIGNS: Within normal limits included in the chart. . Nephrostomy tube in the patient. DIAGNOSES: Obstructive uropathy, urolithiasis, renal failure, that is not resolved. From Urology standpoint, the patient is much improved. Creatinine is now down to about 2.5. See the yesterday's labs. His potassium is being replaced. From a Urology standpoint, the patient cannot take care of his nephrostomy tube at home. Therefore, he is to remain in the hospital. We are going to do uteroscopy and later lithotripsy and try to remove the nephrostomy tube. Try to remove the nephrostomy tube and plan for a double J stent and then tried to discharge the patient tomorrow on 02/05/2019. Raghav Singh MD
--- NOTE | 2019-02-04 12:06 | CP.PCM.PN ---
Subjective - Date & Time of Evaluation Date of Evaluation: 02/04/19 Time of Evaluation: 12:05 - Subjective Subjective: Nephrology Consultation Note Assessment: stable Acute Kidney Injury (N17.9) likely due to obs uropathy due to stone Chronic Kidney Disease (N18.3) Stage 3 with left atrophic kidney, baseline cr 1.6-1.8 b12 def, hyperkalemia, AMS, metabolic acidosis, uremia started HD 01/28/19, hyperphos, anemia vit d def hypokalemia sepsis Plan urology eval appreciated. pt had nephrostomy tube placment by IR 01/30/19. no further dialysis need. shiley removed by me 02/03/19 Hypertension control with meds as ordered. Maintain hemodynamics stable. Avoid hypotension. Patient not on ACEI/ARB due to recent MARCUS Monitor Input/Output, daily weights and renal function with basic metabolic panel supplement B12 as pt with level very low, weekly vit D. started iron and MVI. PRBC as needed. weekly aransep supplement lytes as needed work up for stone as outpt ID following Dose meds/antibiotics for reduced GFR. Avoid fleets enema/magnesium based laxatives. Avoid nephrotoxins/NSAIDs/ iodinated contrast (unless needed emergently) Glycemic control Further work up for as per primary team Thanks for allowing me to participate in care of your patient. Will follow patient with you. Please call if any Qs. had d/w team and sister Dr Taiwo Vyas Office: [phone] Subjective: Noted events overnight. Patients feels better Denies chest pain, palpitation, shortness of breath, leg swelling. All other negative Physical Examination: General Appearance: Comfortable, in no acute respiratory distress, co-operative Vitals reviewed and noted as below Head; Atraumatic, normocephalic ENT: no ulcers no thrush. Tongue is midline. Oropharynx: no rash or ulcers. EYES: Pupils are equal, round and reactive to light accommodation. Eye muscles and extraocular movement intact. Sclera is anicteric. Neck; supple no lymphadenopathy, no thyromegaly or bruit Lungs: Normal respiratory rate/effort. Breath sounds bilateral reduced with few rales Heart: Normal rate. s1s2 normal. No rub or gallop. Extremities: no edema. No varicose veins Neurological: Patient is alert, awake and oriented. No focal deficit. Strength bilateral appropriate and equal Skin: Warm and dry. Normal turgor. No rash. Palpitation: Normal elasticity for age Abdomen: Abdomen is soft. Bowel sounds +. There is no abdominal tenderness, no guarding/rigidity no organomegaly Psych: normal affect/mood. limited insight MSK: no joint tenderness or swelling. Digits and nails normal, no deformity : kidney or bladder not palpable. s/p Rt PCN Labs/imaging reviewed. Past medical history, past surgical history, family history, social history, allergy reviewed and noted as below Family hx: no hx of CKD. Rest non-contributory Objective - Vital Signs/Intake and Output Vital Signs (last 24 hours): Temp Pulse Resp BP Pulse Ox 98.1 F 87 20 130/77 98 02/04/19 06:00 02/04/19 06:00 02/04/19 06:00 02/04/19 06:00 02/04/19 06:00 Intake and Output: 02/04/19 02/04/19 06:59 18:59 Intake Total 440 Balance 440 - Medications Medications: Current Medications Acetaminophen (Tylenol 325mg Tab) 650 mg PO Q6H PRN PRN Reason: Fever >100.4 F Last Admin: 02/04/19 03:05 Dose: 650 mg Alprazolam (Xanax) 0.5 mg PO Q8 [facility]; Protocol Last Admin: 02/04/19 05:19 Dose: 0.5 mg Cyanocobalamin (Vitamin B12 1000 Mcg Tab) 1,000 mcg PO DAILY [facility] Last Admin: 02/04/19 09:49 Dose: 1,000 mcg Duloxetine HCl (Cymbalta) 60 mg PO DAILY [facility] Last Admin: 02/04/19 09:48 Dose: 60 mg Ergocalciferol (Drisdol 50,000 Intl Units Cap) 1 cap PO Q7D [facility] Last Admin: 01/31/19 14:19 Dose: 1 cap Ferrous Gluconate (Fergon) 324 mg PO TID [facility] Last Admin: 02/04/19 09:48 Dose: 324 mg Heparin Sodium (Porcine) (Heparin) 5,000 units SC Q8 [facility]; Protocol Piperacillin Sod/Tazobactam Sod (Zosyn 2.25 Gm In 0.9% 100 Ml) 2.25 gm in 100 mls @ 100 mls/hr IVPB Q8 [facility]; Protocol Stop: 02/12/19 22:01 Last Admin: 02/04/19 05:20 Dose: 100 mls/hr Pantoprazole Sodium (Protonix Ec Tab) 40 mg PO 0600 [facility] Last Admin: 02/04/19 05:20 Dose: 40 mg Quetiapine Fumarate (Seroquel) 75 mg PO HS [facility]; Protocol Last Admin: 02/03/19 21:37 Dose: 75 mg Quetiapine Fumarate (Seroquel) 25 mg PO 1600 [facility]; Protocol Last Admin: 02/03/19 17:51 Dose: 25 mg Vitamin B Complex/Vit C/Folic Acid (Nephro-Madison) 1 tab PO 0800 [facility] Last Admin: 02/04/19 07:55 Dose: 1 tab - Labs Labs: 02/04/19 07:00 02/04/19 07:00 PT 12.5 SECONDS (9.4-12.5) 01/28/19 16:50 INR 1.13 01/28/19 16:50 APTT 34.1 Seconds (26.9-38.3) 01/28/19 16:50
--- NOTE | 2019-02-04 15:52 | PN ---
DATE: 02/04/2019 SUBJECTIVE: The patient is a 63-year-old male with reported history of psychosis. The patient has history of substance abuse. At this time, the patient was admitted on the medical side for obstructive uropathy. The patient had nephrostomy tube placement. The patient also has bacteremia with Enterococcus faecalis. Also, the patient has COPD, hypertension and acute kidney injury. This lyric writer is following the patient because the patient has history of mental illness and psychosis. The patient was seen today. The patient presented relatively well. The patient reported that he has some back pain. The patient denied feeling depressed, denied thoughts of harming himself or others. The patient expressed no concerns about any psychotic symptoms and none was identified. The patient as per social services technician and as per nursing staff notes and report, the patient does not exhibit any aggressive or agitated behavior. Overall, the patient participates in treatment and does not exhibit any aggressive or agitated behavior. PHYSICAL EXAMINATION: VITAL SIGNS: Reviewed, within normal limits. MEDICATIONS: Reviewed. The patient is on Xanax 0.5 mg p.o. every 8 hours schedule, Cymbalta 60 mg daily, Drisdol, heparin, Protonix, Zosyn, Seroquel 25 mg daily and 75 mg at the nighttime, and vitamin B complex. LABORATORY DATA: Labs reviewed. Microbiology reviewed. Urine showed gram-positive cocci, most recently notes reviewed from the urologist, from primary care physician as well as Infectious Disease and flight engineer instructor. MENTAL STATUS EXAMINATION: The patient presented to be alert and oriented, pleasant, cooperative, fair eye contact. Mood described as okay. Affect was constricted, but reactive, mood congruent. Thought process coherent and goal-directed. Thought content, the patient denied any psychotic symptoms, denied any thoughts of harming himself or others, denied intent or plan. Insight and judgment seems to be improving. Impulses are well controlled. IMPRESSION: History of psychotic spectrum disorder, history of substance abuse. At present moment, the patient is on the medical side for multiple medical issues including obstructive uropathy, also status post nephrostomy tube placement, bacteremia with Enterococcus faecalis, urinary tract infection. The patient also has chronic obstructive pulmonary disease, hypertension, acute kidney injury, and septic shock. Please see medical team note for more detailed information. PLAN: Continue current management. Continue current medication. The patient presented well. The patient has followup appointment with his primary care physician, . Medication radford, the patient will continue on all of his current medication. He tolerated them well. No side effects observed or reported. The patient posed no imminent danger to self or others. Should you have any questions, give me a call back. Roz Stevens MD MTDWang
[2019-02-04] MEDS ORDERED: Vancomycin 1.5 GM in Sodium Chloride 0.9% 500 ML IVPB ONE (17:35)
--- NOTE | 2019-02-04 22:50 | PN ---
DATE: 02/04/2019 SUBJECTIVE: The patient was seen earlier today in 263, bed 1. He had no fevers, no chills. He appears to be comfortable. PHYSICAL EXAMINATION: VITAL SIGNS: Temperature is 98, T-max is 100.8, blood pressure is 120/70, respiratory rate of 16. HEENT: Unremarkable. NECK: Supple. LUNGS: Decreased breath sounds. HEART: Normal S1, S2. ABDOMEN: Soft. LABORATORY EXAMINATION: Reveals a white count of 7.4, hemoglobin of 8, BUN of 20, creatinine of 2.1. Urinalysis is noted. Toxicology is noted. Serology is noted. Microbiology reveals the blood culture initial one has cocci in chain and the urine has a gram-positive cocci also. ASSESSMENT AND PLAN: Review of orders reveals the patient is to be on intermittent vancomycin with a vancomycin random level of 6.4. We will give another dose of vancomycin today with a creatinine of 2.1 and 1.5 g of vancomycin x1 dose. Pending identification and sensitivity of gram positive cocci in the blood and urine. Dillan Roberts MD
[2019-02-04] MEDS: Dextrose 5%/0.45% NS 1,000 ML IV SCH (23:45)
[2019-02-05] MEDS: Pantoprazole 40 mg EC Tab PO SCH (05:18)
[2019-02-05] MEDS: Piperacillin/Tazobact 2.25gm 2.25 GM/100 ML BAG IVPB SCH (05:18)
[2019-02-05 07:14] LABS: ALBUMIN 2.7 g/dL (3.0-4.8); CALCIUM 6.7 mg/dL (8.4-10.5)
[2019-02-05 07:22] LABS: MEAN CELL VOLUME 88.8 fl (80.0-105.0); MEAN CORPUSCULAR HGB CONC 33.8 g/dl (31.0-37.0); MEAN PLATELET VOLUME 9.2 fl (7.0-11.0); RBC 2.67 10^6/uL (3.5-6.1); RED CELL DISTRIBUTION WIDTH 13.7 % (11.5-14.5); WHITE BLOOD COUNT 6.5 10^3/uL (4.5-11.0)
[2019-02-05] MEDS ORDERED: Calcium Gluconate in NS 1 GM/50 ML BAG IV ONE (08:46)
[2019-02-05] MEDS: Multivitamin Vitamin B Complex (Nephro-Vite) Tab PO SCH (10:05)
[2019-02-05] MEDS ORDERED: AMPicillin 2 GM in Sodium Chloride 0.9% 100 ML IVPB SCH (12:00)
--- NOTE | 2019-02-05 13:25 | PN ---
DATE: 02/05/2019 SUBJECTIVE: He is in the intensive care unit. He has a nephrostomy tube which actually is leaking right now. I discussed it with the nurse to bandage it more. Also he was going for a cystoscopy and hopefully removal of the stone or place the stent around the stone, and if get the kidney urinating to the draining into the bladder then we get the nephrostomy tube out. Otherwise he is resting in bed, improving slowly. OBJECTIVE: VITAL SIGNS: Temperature 97.8, 83 pulse, 125/72 blood pressure, 20 respiratory rate, 99% O2 sat on room air. HEENT: Head is atraumatic, normocephalic. HEART: Regular rate. LUNGS: Decreased breath sounds. ABDOMEN: Soft. Positive bowel sounds. No guarding, no rebound, no CVA tenderness. EXTREMITIES: No edema. MEDICATIONS: He is currently on Cymbalta, dextrose, Drisdol, Fergon, Nephro-Madison, Protonix, Seroquel, Toradol, Tylenol, vitamin, Xanax, Zosyn. He is being seen by Infectious Disease, Renal, Psychiatry, Urology. We will do a procedure today. He has a right hydronephrosis with a kidney stone. He had some electrolyte abnormalities. We will correct them hopefully on time. He has a 6.5 white count, hemoglobin is 8, hematocrit 23.7, platelets of 303. He has a 139 sodium, potassium 3.1, we will replace the potassium. His calcium is 6.7, we will replace the calcium. BUN is down to 19, creatinine 2.1, GFR is up to 32. AST is 32, AST is 22, alk phos is 48, total protein is 5.5. C-reactive protein is We will continue with aggressive treatment and care. He is having multiple issues and hopefully he will improve. Ryne Dunn DO MTDD
[2019-02-05] MEDS: Potassium Chloride 20 mEq ER Tab PO SCH ×2 (13:38→21:17)
[2019-02-05] MEDS ORDERED: Iohexol 240 (50 ml) ONE (14:07)
[2019-02-05] MEDS ORDERED: cefTRIAXone (Rocephin) 1 gm Inj ONE (14:07)
--- NOTE | 2019-02-05 14:19 | CP.PCM.PN ---
Subjective - Date & Time of Evaluation Date of Evaluation: 02/05/19 Time of Evaluation: 14:19 - Subjective Subjective: Nephrology Consultation Note Assessment: stable Acute Kidney Injury (N17.9) likely due to obs uropathy due to stone Chronic Kidney Disease (N18.3) Stage 3 with left atrophic kidney, baseline cr 1.6-1.8 b12 def, hyperkalemia, AMS, metabolic acidosis, uremia started HD 01/28/19, hyperphos, anemia vit d def hypokalemia sepsis Plan urology eval appreciated. pt had nephrostomy tube placement by IR 01/30/19. no further dialysis need. shiley removed by me 02/03/19 Hypertension control with meds as ordered. Maintain hemodynamics stable. Avoid hypotension. Patient not on ACEI/ARB due to recent MARCUS Monitor Input/Output, daily weights and renal function with basic metabolic panel supplement B12 as pt with level very low, weekly vit D. started iron and MVI. PRBC as needed. weekly aransep supplement lytes as needed. ordered for K and Ca supplement work up for stone as outpt ID following Dose meds/antibiotics for reduced GFR. Avoid fleets enema/magnesium based laxatives. Avoid nephrotoxins/NSAIDs/ iodinated contrast (unless needed emerg ently) Glycemic control Further work up for as per primary team Thanks for allowing me to participate in care of your patient. Will follow patient with you. Please call if any Qs. had d/w team and sister Dr Taiwo Vyas Office: [phone] Subjective: Noted events overnight. Patients feels better Denies chest pain, palpitation, shortness of breath, leg swelling. All other negative Physical Examination: General Appearance: Comfortable, in no acute respiratory distress, co-operative Vitals reviewed and noted as below Head; Atraumatic, normocephalic ENT: no ulcers no thrush. Tongue is midline. Oropharynx: no rash or ulcers. EYES: Pupils are equal, round and reactive to light accommodation. Eye muscles and extraocular movement intact. Sclera is anicteric. Neck; supple no lymphadenopathy, no thyromegaly or bruit Lungs: Normal respiratory rate/effort. Breath sounds bilateral reduced with few rales Heart: Normal rate. s1s2 normal. No rub or gallop. Extremities: no edema. No varicose veins Neurological: Patient is alert, awake and oriented. No focal deficit. Strength bilateral appropriate and equal Skin: Warm and dry. Normal turgor. No rash. Palpitation: Normal elasticity for age Abdomen: Abdomen is soft. Bowel sounds +. There is no abdominal tenderness, no guarding/rigidity no organomegaly Psych: normal affect/mood. limited insight MSK: no joint tenderness or swelling. Digits and nails normal, no deformity : kidney or bladder not palpable. s/p Rt PCN Labs/imaging reviewed. Past medical history, past surgical history, family history, social history, allergy reviewed and noted as below Family hx: no hx of CKD. Rest non-contributory Objective - Vital Signs/Intake and Output Vital Signs (last 24 hours): Temp Pulse Resp BP Pulse Ox 97.8 F 83 20 125/72 99 02/05/19 06:00 02/05/19 06:00 02/05/19 06:00 02/05/19 06:00 02/05/19 06:00 Intake and Output: 02/05/19 02/05/19 06:59 18:59 Intake Total 1620 Output Total 1300 Balance 320 - Medications Medications: Current Medications Acetaminophen (Tylenol 325mg Tab) 650 mg PO Q6H PRN PRN Reason: Fever >100.4 F Last Admin: 02/04/19 03:05 Dose: 650 mg Alprazolam (Xanax) 0.5 mg PO Q8 [facility]; Protocol Last Admin: 02/05/19 05:18 Dose: 0.5 mg Calcium Carbonate (Oscal) 500 mg PO BID [facility] Cyanocobalamin (Vitamin B12 1000 Mcg Tab) 1,000 mcg PO DAILY [facility] Last Admin: 02/05/19 10:06 Dose: 1,000 mcg Duloxetine HCl (Cymbalta) 60 mg PO DAILY [facility] Last Admin: 02/05/19 10:05 Dose: 60 mg Ergocalciferol (Drisdol 50,000 Intl Units Cap) 1 cap PO Q7D [facility] Last Admin: 01/31/19 14:19 Dose: 1 cap Ferrous Gluconate (Fergon) 324 mg PO TID [facility] Last Admin: 02/05/19 10:06 Dose: 324 mg Dextrose/Sodium Chloride (Dextrose 5%/0.45% Ns 1000 Ml) 1,000 mls @ 50 mls/hr IV .Q20H [facility] Last Admin: 02/04/19 23:45 Dose: 50 mls/hr Daptomycin 500 mg/ Sodium (Chloride) 100 mls @ 200 mls/hr IV Q48H [facility]; Protocol Stop: 02/10/19 13:46 Ketorolac Tromethamine (Toradol) 15 mg IVP Q6 PRN PRN Reason: Pain, moderate (4-7) Pantoprazole Sodium (Protonix Ec Tab) 40 mg PO 0600 [facility] Last Admin: 02/05/19 05:18 Dose: 40 mg Potassium Chloride (K-Dur 20 Meq Er Tab) 40 meq PO Q6 [facility] Stop: 02/06/19 00:01 Last Admin: 02/05/19 13:38 Dose: 40 meq Quetiapine Fumarate (Seroquel) 75 mg PO HS [facility]; Protocol Last Admin: 02/04/19 21:24 Dose: Not Given Quetiapine Fumarate (Seroquel) 25 mg PO 1600 [facility]; Protocol Last Admin: 02/04/19 17:07 Dose: Not Given Vitamin B Complex/Vit C/Folic Acid (Nephro-Madison) 1 tab PO 0800 [facility] Last Admin: 02/05/19 10:05 Dose: 1 tab - Labs Labs: 02/05/19 06:20 02/05/19 06:20 PT 12.5 SECONDS (9.4-12.5) 01/28/19 16:50 INR 1.13 01/28/19 16:50 APTT 34.1 Seconds (26.9-38.3) 01/28/19 16:50
--- NOTE | 2019-02-05 14:33 | PN ---
DATE: 02/05/2019 SUBJECTIVE: The patient is in bed, in no acute distress, nontoxic. PHYSICAL EXAMINATION: VITAL SIGNS: Temperature is 97, blood pressure is 125/70, and respiratory rate of 18. HEENT: Unremarkable. NECK: Supple. LUNGS: Decreased breath sounds. HEART: Normal S1 and S2. ABDOMEN: Soft. LABORATORY DATA: Reveals a white count of 6.5, hemoglobin of 8, sed rate is 65, and creatinine is 2.1. Urinalysis is noted. screen is negative. Hepatitis profile is negative. Microbiology reveals the patient has Enterococcus faecalis in the blood and the urine with sensitive ampicillin and sensitive Enterococcus. The repeat blood cultures are negative. ASSESSMENT AND PLAN: A 63-year-old male seen earlier today in room 263, bed 1 with hypertension, chronic obstructive pulmonary disease, anxiety, depression, and unspecified tremors, who is admitted now with severe sepsis, Enterococcus bacteremia with acute kidney injury, must rule out endocarditis. The patient had an echo, no vegetation was seen on the echo. However, the repeat blood cultures are negative in 24 hours, initially only one bottle was positive, does not meet criteria and there is a urine culture. We will start the patient on Zosyn, which has penicillin coverage. We will follow with you. We will check on the repeat cultures, and we will make further recommendations. Dillan Roberts MD
[2019-02-05] MEDS ORDERED: Midazolam 2 MG/2 ML VIAL ONE (15:46)
[2019-02-05] MEDS ORDERED: Etomidate 20 mg/10ml Inj IV ONE (15:46)
[2019-02-05] MEDS ORDERED: Propofol 10 mg/ml Inj (20 ML) ONE (15:46)
[2019-02-05] MEDS ORDERED: Ciprofloxacin 400mg/200ml D5W 400 MG/200 ML BAG IVPB ONE (15:53)
[2019-02-05] MEDS ORDERED: Lactated Ringer's 1,000 ML IV SCH (16:45)
[2019-02-05] MEDS: DAPTOmycin 500 MG in Sodium Chloride 0.9% 100 ML IV SCH (19:19)
--- NOTE | 2019-02-05 21:31 | PN ---
DATE: 02/05/2019 SUBJECTIVE: The patient was seen today. The patient presented well. No acute events. The patient is deciding with his what will be the aftercare plan. The patient's was insisting that the patient needs to go to subacute rehab. The patient wants to go back home and waiting for physical therapy notes to make final decision. The patient presented much better to compare with the last admission. The patient was alert and oriented, pleasant, and cooperative. The patient reported that he does not feel depressed. Denied any thoughts of harming himself or others. Reported he had sporadic sleep, but it is expected in the hospital. PHYSICAL EXAMINATION: VITAL SIGNS: Reviewed. Temperature is 98.7, pulse is 91, blood pressure 143/82, respirations 18, and oxygen saturation is 98. MEDICATIONS: Reviewed. Tylenol, Xanax 0.5 mg every 8 hours, Os-Phil, dextrose, Cymbalta, Drisdol, Fergon, Toradol, Protonix, potassium chloride, Seroquel, and Neutra-Phos. LABORATORY DATA: Labs reviewed. Coagulation reviewed. Chemistry reviewed. Urinalysis reviewed. Toxicology reviewed. MENTAL STATUS EXAMINATION: The patient was alert and oriented, pleasant, cooperative, and socially appropriate. Mood described as okay. Affect was reactive and mood congruent. Thought process was coherent and goal-directed. Thought content, the patient denied thoughts of harming himself or others. Denies any psychotic symptoms. The patient does not presented to be depressed or psychotic. Insight and judgment seems to be improving. Impulses are well controlled. IMPRESSION: As per history, the patient has psychotic spectrum disorder and had one admission in the past. The patient also has a history of substance abuse. At this time, the patient was admitted to medical side, initially ICU and downgraded to the medical side for altered mental status and multiple medical issues. Please see medical team note for more detailed information. PLAN: The patient has followup appointment with Dr. Farr. The patient is to continue all current medications and final disposition either to subacute rehab versus the patient discharged back home needs to be finalized. The patient does not exhibit any aggressive or agitated behavior. Pleasant and cooperative. Posed no imminent danger to self or others. This publications writer will sign off. Should you have any questions, give me a call back. Roz Stevens MD [facility] # [id number]
[2019-02-06] MEDS: Pantoprazole 40 mg EC Tab PO SCH (05:20)
[2019-02-06 07:07] LABS: HEMOGLOBIN 7.7 g/dL (14.0-18.0); MEAN CELL VOLUME 88.9 fl (80.0-105.0); MEAN CORPUSCULAR HEMOGLOBIN 29.5 pg (25.0-35.0); MEAN CORPUSCULAR HGB CONC 33.2 g/dl (31.0-37.0); MEAN PLATELET VOLUME 9.3 fl (7.0-11.0); RBC 2.61 10^6/uL (3.5-6.1); RED CELL DISTRIBUTION WIDTH 13.7 % (11.5-14.5); WHITE BLOOD COUNT 6.7 10^3/uL (4.5-11.0)
[2019-02-06 07:28] LABS: ALB/GLOB RATIO 0.9 (1.1-1.8); ALBUMIN 2.7 g/dL (3.0-4.8)
--- NOTE | 2019-02-06 07:58 | PCM.RRT ---
EMPLOYEE PLACEMENT SPECIALIST Nurse Assessment - Situation Date: 02/06/19 Time EMPLOYEE PLACEMENT SPECIALIST was called: 07:30 EMPLOYEE PLACEMENT SPECIALIST Responder Arrival Time: 07:30 EMPLOYEE PLACEMENT SPECIALIST Location:: [address] [place] [address] EMPLOYEE PLACEMENT SPECIALIST Reason for Call: Looks Sicker EMPLOYEE PLACEMENT SPECIALIST Called By: Physician I.Reason for EMPLOYEE PLACEMENT SPECIALIST - A) Acute Change in Patient: (Select all that apply): Uncontrolled Bleeding, Hemoptysis, Hematemesis, Melena - Neurological Status (Select all that apply): Alert, Responsive, Oriented, Verbal, Follows Commands - Respiratory Oxygen Delivery Method: Room Air - Constitutional Appears: Well, Non-toxic, No Acute Distress - Head Head Exam: ATRAUMATIC, NORMAL INSPECTION, NORMOCEPHALIC - Eyes Eye Exam: EOMI, PERRL - Respiratory Exam Respiratory Exam: Clear to Ausculation Bilateral, NORMAL BREATHING PATTERN - Cardiovascular Exam Cardiovascular Exam: REGULAR RHYTHM, RRR, +S1, +S2. absent: Clicks, Gallop, Rubs - GI/Abdominal Exam GI & Abdominal Exam: Soft, Normal Bowel Sounds. absent: Distended, Firm, Guarding, Tenderness - Neurological Exam Neurological Exam: Alert, Awake, CN II-XII Intact, Oriented x3 - Extremities Exam Extremities Exam: Full ROM, Normal Capillary Refill, Normal Inspection Plan - Assessment of Findings&Treatment Plan HPI: 63 year old male with a past medical history significant for COPD, HTN, anxiety, depression, and unspecified tremors "since childhood" initially presented for altered mental status. Patient had nephrostomy tube placed for right nephrolithiasis with hydronephrosis. Nephrostomy tube was removed this morning by Dr. Singh. Subsequently around 7:30, patient started to have oozing for the site and bleeding would not stop. As a result, rapid response was called around 7:30. Patient was hemodynamically stable and awake, alert, and orientedx3. Patient reported having no complaints at this time except for pain at the site of pressure that the nurses were placing on the nephrostomy tube site to stop the bleeding. 12-point ROS was unremarkable except for what was mentioned above. Vitals: Temp: 97.6, BP: 131/65, HR: 57, O2 sat: 100% Exam: Cardio: RRR, +S1, +S2 Resp: CTA Bilaterally Abdominal Exam: nontender, nondistended, bowel sounds auscultated Back exam: tenderness in area of nephrostomy tube removal site. oozing noted from the site Extremities: no swelling of bilateral lower extremity Assessment: 63 year old male with a past medical history significant for COPD, HTN, anxiety, depression, and unspecified tremors "since childhood" presents with bleeding from nephrostomy tube site. Plan: At this time, vitals are stable. We will repeat vitals every 15 minutes for the next hour and then perform vital signs every 1 hour for today. 2 U of PRBCs will be ready for transfusion for the patient. Stat CBC and CMP were ordered. Dr. Singh was alerted of this occurance. Surgery residents were alerted of this occurance. We will continue to place pressure on site of bleeding.
[2019-02-06 08:04] LABS: HEMOGLOBIN 8.3 g/dL (14.0-18.0); MEAN CELL VOLUME 89.1 fl (80.0-105.0); MEAN CORPUSCULAR HEMOGLOBIN 30.1 pg (25.0-35.0); MEAN CORPUSCULAR HGB CONC 33.7 g/dl (31.0-37.0); MEAN PLATELET VOLUME 9.2 fl (7.0-11.0); RBC 2.76 10^6/uL (3.5-6.1); RED CELL DISTRIBUTION WIDTH 13.6 % (11.5-14.5); WHITE BLOOD COUNT 7.9 10^3/uL (4.5-11.0)
[2019-02-06 08:14] LABS: ALBUMIN 2.9 g/dL (3.0-4.8); CALCIUM 7.1 mg/dL (8.4-10.5)
[2019-02-06 08:19] LABS: INR 1.42; PARTIAL THROMBOPLASTIN TIME 28.2 Seconds (26.9-38.3)
[2019-02-06] MEDS: Multivitamin Vitamin B Complex (Nephro-Vite) Tab PO SCH (09:04)
--- NOTE | 2019-02-06 09:37 | PN ---
DATE: UROLOGY IMMEDIATE POSTOPERATIVE NOTE See the operative note. The patient is in the recovery room stable, status post cystoscopy and ureteroscopy, retrograde pyelogram, ureteral dilation, attempted ureteroscopy, laser lithotripsy. He has a indwelling Howe has indwelling double J stent. There were no complications. PHYSICAL EXAMINATION: VITAL SIGNS: The patient vital signs within normal limits. UROLOGY PLAN: As follows; the patient is to remain in the hospital and further plans will follow. He will remain overnight and if there is no interim complications, we will plan to discharge the patient. Raghav Singh MD
[2019-02-06] MEDS ORDERED: Potassium Chloride 20 mEq ER Tab PO ONE (09:50)
[2019-02-06] MEDS ORDERED: cefTRIAXone 2 GM IN NS 2 GM/100 ML BAG IVPB SCH (10:00)
--- NOTE | 2019-02-06 10:28 | PN ---
DATE: 02/03/2019 See the previously dictated note. SUBJECTIVE: The patient has obstructive uropathy. His creatinine is now dramatically improved from 9 almost down to 2.5. From Urology standpoint, we are planning today for an insertion of a cystoscopy, ureteroscopy, and laser lithotripsy. Due to secondary to his potassium being low still. He is receiving potassium riders and the potassium is still low from anesthesia standpoint, so we are going to delay the procedure and reschedule it. See operative notes in the chart. DIAGNOSES: 1. . 2. Renal failure that is now improved. 3. Obstructive uropathy . UROLOGY PLAN: As follows: 1. Cystoscopy. 2. Ureteroscopy. 3. Laser lithotripsy at the stent insertion and possible laser lithotripsy if possible. I have explained this to the patient in great detail. We are going make arrangement 02/05/2019. Again I do not think the patient from his standpoint can go home with nephrostomy tube, so we are going try and make arrangement. Raghav Singh MD
--- NOTE | 2019-02-06 10:28 | PN ---
DATE: 01/29/2019 Please see the previous notes. SUBJECTIVE: After the patient obstructive uropathy, he has been in the Intensive Care Unit. PAST MEDICAL AND SURGICAL HISTORY: No other major changes. PHYSICAL EXAMINATION: No other major changes. DIAGNOSES: Urolithiasis, hematuria, acute renal failure and obstructive uropathy. UROLOGY PLAN: As follows, now he is going to have nephrostomy tube inserted and then further plans will follow. Raghav Singh MD
--- NOTE | 2019-02-06 10:50 | CP.PCM.PN ---
Subjective - Date & Time of Evaluation Date of Evaluation: 02/06/19 Time of Evaluation: 10:49 - Subjective Subjective: Nephrology Consultation Note Assessment: stable Acute Kidney Injury (N17.9) likely due to obs uropathy due to stone Chronic Kidney Disease (N18.3) Stage 3 with left atrophic kidney, baseline cr 1.6-1.8 b12 def, hyperkalemia, AMS, metabolic acidosis, uremia started HD 01/28/19, hyperphos, anemia vit d def hypokalemia sepsis s/p Rt PCN removal, insertion of stent, laser lithotripsy Plan urology eval appreciated. pt had nephrostomy tube placement by IR 01/30/19. underwent Rt PCN removal, insertion of stent, laser lithotripsy 02/05/19 no further dialysis need. shiley removed by me 02/03/19 Hypertension control with meds as ordered. Maintain hemodynamics stable. Avoid hypotension. Patient not on ACEI/ARB due to recent MARCUS Monitor Input/Output, daily weights and renal function with basic metabolic panel supplement B12 as pt with level very low, weekly vit D. started iron and MVI. PRBC as needed. weekly aransep supplement lytes as needed. ordered for K and Ca supplement work up for stone as outpt ID following d/c IVF Dose meds/antibiotics for reduced GFR. Avoid fleets enema/magnesium based laxatives. Avoid nephrotoxins/NSAIDs/ iodinated contrast (unless needed emergently) Glycemic control Further work up for as per primary team Thanks for allowing me to participate in care of your patient. Will follow patient with you. Please call if any Qs. had d/w team and sister Dr Taiwo Vyas Office: [phone] Subjective: Noted events overnight. Patients feels sick today Denies chest pain, palpitation, shortness of breath, leg swelling. All other negative Physical Examination: General Appearance: Comfortable, in no acute respiratory distress, co-operative Vitals reviewed and noted as below Head; Atraumatic, normocephalic ENT: no ulcers no thrush. Tongue is midline. Oropharynx: no rash or ulcers. EYES: Pupils are equal, round and reactive to light accommodation. Eye muscles a nd extraocular movement intact. Sclera is anicteric. Neck; supple no lymphadenopathy, no thyromegaly or bruit Lungs: Normal respiratory rate/effort. Breath sounds bilateral reduced with few rales Heart: Normal rate. s1s2 normal. No rub or gallop. Extremities: no edema. No varicose veins Neurological: Patient is alert, awake and oriented. No focal deficit. Strength bilateral appropriate and equal Skin: Warm and dry. Normal turgor. No rash. Palpitation: Normal elasticity for age Abdomen: Abdomen is soft. Bowel sounds +. There is no abdominal tenderness, no guarding/rigidity no organomegaly Psych: normal affect/mood. limited insight MSK: no joint tenderness or swelling. Digits and nails normal, no deformity : kidney or bladder not palpable. s/p Rt PCN removal Labs/imaging reviewed. Past medical history, past surgical history, family history, social history, allergy reviewed and noted as below Family hx: no hx of CKD. Rest non-contributory Objective - Vital Signs/Intake and Output Vital Signs (last 24 hours): Temp Pulse Resp BP Pulse Ox 99.2 F 98 H 18 111/59 L 99 02/06/19 10:15 02/06/19 10:15 02/06/19 10:15 02/06/19 10:15 02/05/19 17:25 Intake and Output: 02/06/19 02/06/19 06:59 18:59 Intake Total 240 0 Output Total 100 Balance 140 0 - Medications Medications: Current Medications Acetaminophen (Tylenol 325mg Tab) 650 mg PO Q6H PRN PRN Reason: Fever >100.4 F Last Admin: 02/04/19 03:05 Dose: 650 mg Alprazolam (Xanax) 0.5 mg PO Q8 [facility]; Protocol Last Admin: 02/06/19 05:20 Dose: 0.5 mg Calcium Carbonate (Oscal) 500 mg PO BID [facility] Last Admin: 02/06/19 09:04 Dose: 500 mg Cyanocobalamin (Vitamin B12 1000 Mcg Tab) 1,000 mcg PO DAILY [facility] Last Admin: 02/06/19 09:04 Dose: 1,000 mcg Duloxetine HCl (Cymbalta) 60 mg PO DAILY [facility] Last Admin: 02/06/19 09:04 Dose: 60 mg Ergocalciferol (Drisdol 50,000 Intl Units Cap) 1 cap PO Q7D [facility] Last Admin: 01/31/19 14:19 Dose: 1 cap Ferrous Gluconate (Fergon) 324 mg PO TID [facility] Last Admin: 02/06/19 09:04 Dose: 324 mg Daptomycin 500 mg/ Sodium (Chloride) 100 mls @ 200 mls/hr IV Q48H [facility]; Protocol Stop: 02/10/19 13:46 Last Admin: 02/05/19 19:19 Dose: 200 mls/hr Ketorolac Tromethamine (Toradol) 15 mg IVP Q6 PRN PRN Reason: Pain, moderate (4-7) Last Admin: 02/05/19 11:35 Dose: 15 mg Pantoprazole Sodium (Protonix Ec Tab) 40 mg PO 0600 [facility] Last Admin: 02/06/19 05:20 Dose: 40 mg Quetiapine Fumarate (Seroquel) 75 mg PO HS [facility]; Protocol Last Admin: 02/05/19 21:18 Dose: 75 mg Quetiapine Fumarate (Seroquel) 25 mg PO 1600 [facility]; Protocol Last Admin: 02/05/19 19:10 Dose: 25 mg Vitamin B Complex/Vit C/Folic Acid (Nephro-Madison) 1 tab PO 0800 [facility] Last Admin: 02/06/19 09:04 Dose: 1 tab - Labs Labs: 02/06/19 07:55 02/06/19 07:55 PT 16.0 SECONDS (9.4-12.5) H 02/06/19 07:55 INR 1.42 02/06/19 07:55 APTT 28.2 Seconds (26.9-38.3) 02/06/19 07:55
[2019-02-06] MEDS: Potassium Chloride 20 mEq ER Tab PO SCH (12:09)
[2019-02-06] MEDS: Dextrose 5%/0.45% NS 1,000 ML IV SCH (12:12)
--- NOTE | 2019-02-06 12:29 | PN ---
DATE: 02/06/2019 See many previously dictated notes. SUBJECTIVE: The patient is currently resting comfortably, status post cystoscopy and a stent insertion. Past medical and surgical, no other changes. Today, at the bedside, I have removed his Howe catheter and I removed his right nephrostomy tube. From Urology standpoint, at this point, the patient is cleared for discharge home. DIAGNOSES: 1. Urolithiasis. 2. Hematuria. 3. Hydronephrosis. 4. Renal failure that is now all improved. We discussed at length. PLAN: I explained the patient that he has an indwelling stent but they just see appeared. The patient is now cleared for discharge home and then further plans will be for outpatient. I have given the patient both my office number, my card, my cell number and I will give him plan, arrange for followup with the patient. Again, I have explained in clear detail that he has an indwelling stent and he needs followup and he still has a stone. Further plans as follows. Raghav Singh MD
--- NOTE | 2019-02-06 12:52 | PN ---
DATE: 02/06/2019 SUBJECTIVE: He has a nephrostomy tube in place which Dr. Singh removed this morning after a procedure he did yesterday cystoscopy with stent placement to go around the stone that was blocked in his kidney. He took the stent out this morning at the 7, but the time I got, it was 7:40. He must have blood out at least the point may be more than bed was covered in blood and was shooting out through the site of the nephrostomy site, pumping out. We put a lot of pressure on it and called a rapid response. We are going to probably transfuse him two units of packed red blood cells this morning. We are doing a stat CBC. The patient is alert and aware, comfortable. No acute distress actually. No shortness of breath. No chest pain. Just concerned about the bleeding. He is on daptomycin, Cymbalta, dextrose, Drisdol, Fergon, Nephro-Madison, Os-Phil, Protonix, Seroquel, Toradol as needed, vitamin, and Xanax. PHYSICAL EXAMINATION: VITAL SIGNS: He has a 98.7 temperature, 112 pulse at this time, 113/76 blood pressure, 20 respiratory rate, and 99% O2 saturation on 2 liters. HEENT: His head is atraumatic and normocephalic. He is concerned. HEART: Regular rate. LUNGS: Decreased breath sounds, but clear. ABDOMEN: Soft and nontender. The right nephrostomy tube site is little bit pumping out blood and it has got pressure on the right now soaking to the pads. EXTREMITIES: No edema. Dr. Singh was called and hopefully the bleeding will stop and we will going to transfuse him this morning depending on the CBC state. LABORATORY DATA: He has a 139 sodium, potassium is 3.6, BUN is 17, creatinine 2.1, GFR is 32, and sugar is 118. Calcium is 7.1, total bili is 0.7, AST is 57, ALT is 64, alk phos 60, and total protein is 5.1. White count is 7.9, before the procedure it was 7.7; 8.3 hemoglobin, and 347 platelets. I am waiting for the stat CBC to come back. His sed rate was 565. ASSESSMENT AND PLAN: He is having multiple issues, right hydronephrosis with the kidney stone. I believe yesterday with stent placement to go around the kidney stone that is what I took out the nephrostomy tube, and now he is having some bleeding. We will control the bleeding his hemoglobin possibly transfuse him today. Ryne Dunn DO MTDD
--- NOTE | 2019-02-06 13:17 | CON ---
DATE: 01/29/2019 REASON FOR CONSULTATION: Renal failure and obstructive stone. HISTORY OF PRESENT ILLNESS: Mr. Campos is a very pleasant 63-year-old currently in intensive care unit preparing for dialysis. Presented with a creatinine of almost 10. With an obstructive stone in his right kidney with a essentially nonfunctioning left kidney. Urology is consulted for further recommendation, see the plan listed below. PAST MEDICAL AND SURGICAL HISTORY: As listed. REVIEW OF SYSTEMS: Listed on the chart. PHYSICAL EXAMINATION: GENERAL: The patient is resting comfortably. VITAL SIGNS: Noted. DIAGNOSES: Urolithiasis, obstructive kidney, acute renal failure, acute renal injury. PLAN: As follows; the patient for now is receiving dialysis to improve his fluid status and electrolytes, etc. This is all being monitored and managed through the ICU team. From Urology standpoint, he need drainage of his right kidney. We will discuss rather It should be with pecutaneous nephrostomy versus attempted cystoscopy and stent insertion and further plan will follow. is more likely for a nephrostomy tube. Discussed the options of . Further plans will be discussed. Raghav Singh MD
--- NOTE | 2019-02-06 16:29 | RAD ---
Date of service: 02/06/2019 HISTORY: fever COMPARISON: 02/03/2019 TECHNIQUE: 1 view obtained. FINDINGS: LUNGS: No active pulmonary disease. PLEURA: No significant pleural effusion identified, no pneumothorax apparent. CARDIOVASCULAR: No aortic atherosclerotic calcification present. Normal cardiac size. No pulmonary vascular congestion. OSSEOUS STRUCTURES: No significant abnormalities. VISUALIZED UPPER ABDOMEN: Normal. OTHER FINDINGS: None. IMPRESSION: No active disease.
--- NOTE | 2019-02-06 17:55 | PN ---
DATE: 02/06/2019 SUBJECTIVE: The patient is in bed, seen earlier today in room 263 bed 1. No fevers, no chills reported, however, now he has low-grade fevers and was called. PHYSICAL EXAMINATION: VITAL SIGNS: Temperature of 100.1, blood pressure is 118/70, respiratory rate of 18. HEENT: Unremarkable. NECK: Supple. LUNGS: Have decreased breath sounds. HEART: Normal S1 and S2. ABDOMEN: Soft. LABORATORY DATA: Reveals the patient's white count of 7.9, hemoglobin of 8. Chemistries reveals a BUN of 17, creatinine of 2.1 and the urinalysis is noted. Toxicology is noted and immunology is noted. Serology is reviewed. Microbiology reveals the blood cultures are negative. MEDICATIONS: Review of orders reveals the patient to be on daptomycin. ASSESSMENT AND PLAN: This is a 63-year-old male who was admitted with chronic obstructive lung disease, hypertension, anxiety, depression, unspecified tremors with severe sepsis, Enterococcus bacteremia, acute kidney injury, doubt endocarditis. Repeat cultures negative, an echo is negative, and now has low-grade fevers in a patient who has had an allergic reaction to ampicillin, currently on daptomycin day number 4. We will need 14 days of antibiotics. We will repeat pancultures because of the low-grade fevers, blood, sputum, urine. Urinalysis, procalcitonin. Also a chest x-ray. We will make further recommendations upon the availability of initial results. The patient also had a CPK which is reported to be 44. We will follow the fever curve with you pending initial workup results. Dillan Roberts MD
[2019-02-07] MEDS: Pantoprazole 40 mg EC Tab PO SCH (05:49)
[2019-02-07 06:53] LABS: HEMOGLOBIN 7.7 g/dL (14.0-18.0); MEAN CELL VOLUME 88.8 fl (80.0-105.0); MEAN CORPUSCULAR HEMOGLOBIN 29.6 pg (25.0-35.0); MEAN CORPUSCULAR HGB CONC 33.3 g/dl (31.0-37.0); MEAN PLATELET VOLUME 9.2 fl (7.0-11.0); RBC 2.6 10^6/uL (3.5-6.1); RED CELL DISTRIBUTION WIDTH 14.1 % (11.5-14.5); WHITE BLOOD COUNT 6.9 10^3/uL (4.5-11.0)
[2019-02-07 07:34] LABS: ALBUMIN 2.9 g/dL (3.0-4.8); CALCIUM 7.1 mg/dL (8.4-10.5)
--- NOTE | 2019-02-07 08:33 | OP ---
PROCEDURE DATE: 02/05/2019 PREOPERATIVE DIAGNOSES: Urolithiasis, obstructive uropathy, acute renal failure that is now improved and moderate voiding dysfunction. POSTOPERATIVE DIAGNOSES: Urolithiasis, obstructive uropathy, acute renal failure that is now improved and moderate voiding dysfunction. PROCEDURES: Cystoscopy, ureteral dilation, right retrograde pyelogram, right ureteral dilation, and an attempted right laser lithotripsy and insertion of a right double-J stent. COMPLICATIONS: There were no complications. ESTIMATED BLOOD LOSS: Less than 25 mL. UROLOGY INDICATIONS: See history and physical for further details. A very pleasant gentleman, here for the above listed procedure. We had discussed various options with the patient at length. He is not able to go home with a double-J stent. Today after discussing options with the patient, we came out for the above-listed procedure. We discussed options and location for treatment. We discussed other options. UROLOGY OPERATIVE FINDINGS: 1. Normal anterior urethra, no strictures. 2. The verumontanum was moderately visually occlusive for size and age, all within normal limits. 3. There is an obstructing stone in the right ureter. In fact, the first wire would not go up. See the body in detail. We were able to eventually get a wire in and get the scope advanced. We attempted to do laser lithotripsy. We were not able to shatter the stone well enough. However given the whole situation, see the bottom of the operative report, just place the stent. At the termination of the procedure, the patient had an indwelling double-J stent and an indwelling Howe catheter. There were no complications. See the immediate postop notes for postop events. After obtaining informed consent, the patient was placed on the table. Routine monitors were placed. Time-out was called to confirm the patient and positioning. notes. There were no listed allergies today . For the procedure today, the patient was placed on the table in routine manner. Time-out was called to confirm the patient and positioning. Time-out was called. The patient in lithotomy . The procedure continued in the following way, the patient in the lithotomy position, confirming the patient and positioning. Cystoscope was introduced via urethra, anterior urethra normal, the verumontanum was visually occlusive, all within normal limits for age. We identified the right ureteral orifice and I attempted at this point to insert a wire. The wire goes right to the stone and then it curls back on itself . So at this point, knowing that we have to nephrostomy tube in place. We are going to be a little more aggressive even without the wire up. I now introduced an ureteroscope. With the ureteroscope, I used a second wire to dilate the ureter and I was able to get that wire up to the stone, now at the stone I manipulated gently and carefully and the wire goes up to the kidney. At this point, I confirmed the positioning. I took the wire out. I injected the contrast. I confirmed that positioning with the retrograde pyelogram. Now when I manipulated further, I could get the scope, I could see the stone. No pictures were taken. I actually was able to advance the scope past the stone. I am all the way up to the renal pelvis. See the fluoroscopic imaging. There was very nice imaging to show very dilated cystoscope and nephrostomy tube was in good location. I have a wire up in the kidney. I now as I backed down and I am near the stone. I am not able to get back to the stone well at that angle. After manipulating the technique, I am not able to get the directly on it and I am concerned for the fragility of the ureteral wall. At this point, I have a wire up to the kidney and nephrostomy tube in place. I decided to terminate the procedure . At this point, I put a double J stent and this passed easily. fluoroscopy with my marketing operations assistant helping me through this. We have a good, well-placed double J stent in place. We have a fairly impacted stone. I just wanted to make sure that the patient had a double-J stent in place. At this point also because of my concerns of his voiding and some bleeding from the prostate, we also inserted a Howe catheter via the urethra. The patient tolerated the procedure well without complications. We will are going to keep him with the nephrostomy tube overnight and a Howe overnight and we are going to review them further and review postop note . Raghav Singh MD [facility] # [id number]
[2019-02-07] MEDS: Ergocalciferol 50,000 Intl Units Cap PO SCH (11:21)
[2019-02-07] MEDS: Multivitamin Vitamin B Complex (Nephro-Vite) Tab PO SCH (11:21)
[2019-02-07] MEDS: Potassium Chloride 20 mEq ER Tab PO SCH (11:22)
[2019-02-07 12:21] LABS: PH,URINE 6.5 (4.7-8.0); URINE BILIRUBIN MODERATE (NEGATIVE); URINE BLOOD LARGE (NEGATIVE); URINE GLUCOSE (UA) 100 mg/dL (NEGATIVE); URINE LEUKOCYTE ESTERASE MODERATE Leu/uL (NEGATIVE); URINE PROTEIN >=300 mg/dL (<30 mg/dL)
[2019-02-07 12:22] LABS: URINE APPEARANCE BLOODY (CLEAR); URINE COLOR DARK RED (YELLOW)
[2019-02-07 12:28] LABS: URINE RBC TNTC /hpf (0-2); URINE WBC TNTC /hpf (0-6)
--- NOTE | 2019-02-07 12:55 | CP.PCM.PN ---
Subjective - Date & Time of Evaluation Date of Evaluation: 02/07/19 Time of Evaluation: 12:54 - Subjective Subjective: Nephrology Consultation Note Assessment: stable Acute Kidney Injury (N17.9) likely due to obs uropathy due to stone Chronic Kidney Disease (N18.3) Stage 3 with left atrophic kidney, baseline cr 1.6-1.8 b12 def, hyperkalemia, AMS, metabolic acidosis, uremia started HD 01/28/19, hyperphos, anemia vit d def hypokalemia sepsis s/p Rt PCN removal, insertion of stent, laser lithotripsy Plan urology eval appreciated. pt had nephrostomy tube placement by IR 01/30/19. underwent Rt PCN removal, insertion of stent, laser lithotripsy 02/05/19 no further dialysis need. shiley removed by me 02/03/19 Hypertension control with meds as ordered. Maintain hemodynamics stable. Avoid hypotension. Patient not on ACEI/ARB due to recent MARCUS Monitor Input/Output, daily weights and renal function with basic metabolic panel supplement B12 as pt with level very low, weekly vit D. started iron and MVI. PRBC as needed. weekly aransep supplement lytes as needed. ordered for K and Ca supplement work up for stone as outpt ID following Dose meds/antibiotics for reduced GFR. Avoid fleets enema/magnesium based laxatives. Avoid nephrotoxins/NSAIDs/ iodinated contrast (unless needed emergently) Glycemic control Further work up for as per primary team pt stable for d/c from renal perspective when planned Thanks for allowing me to participate in care of your patient. Will follow patient with you. Please call if any Qs. had d/w team and sister Dr Taiwo Vyas Office: [phone] Subjective: Noted events overnight. Patients feels better today Denies chest pain, palpitation, shortness of breath, leg swelling. All other negative Physical Examination: General Appearance: Comfortable, in no acute respiratory distress, co-operative Vitals reviewed and noted as below Head; Atraumatic, normocephalic ENT: no ulcers no thrush. Tongue is midline. Oropharynx: no rash or ulcers. EYES: Pupils are equal, round and reactive to light accommodation. Eye muscles and extraocular movement intact. Sclera is anicteric. Neck; supple no lymphadenopathy, no thyromegaly or bruit Lungs: Normal respiratory rate/effort. Breath sounds bilateral reduced with few rales Heart: Normal rate. s1s2 normal. No rub or gallop. Extremities: no edema. No varicose veins Neurological: Patient is alert, awake and oriented. No focal deficit. Strength bilateral appropriate and equal Skin: Warm and dry. Normal turgor. No rash. Palpitation: Normal elasticity for age Abdomen: Abdomen is soft. Bowel sounds +. There is no abdominal tenderness, no guarding/rigidity no organomegaly Psych: normal affect/mood. limited insight MSK: no joint tenderness or swelling. Digits and nails normal, no deformity : kidney or bladder not palpable. s/p Rt PCN removal Labs/imaging reviewed. Past medical history, past surgical history, family history, social history, allergy reviewed and noted as below Family hx: no hx of CKD. Rest non-contributory Objective - Vital Signs/Intake and Output Vital Signs (last 24 hours): Temp Pulse Resp BP Pulse Ox 98.5 F 104 H 20 100/64 99 02/07/19 12:00 02/07/19 12:00 02/07/19 12:00 02/07/19 12:00 02/07/19 06:00 Intake and Output: 02/07/19 02/07/19 06:59 18:59 Intake Total 3320 Output Total 1200 Balance 2120 - Medications Medications: Current Medications Acetaminophen (Tylenol 325mg Tab) 650 mg PO Q6H PRN PRN Reason: Fever >100.4 F Alprazolam (Xanax) 0.5 mg PO Q8 [facility]; Protocol Last Admin: 02/07/19 05:49 Dose: 0.5 mg Calcium Carbonate (Oscal) 500 mg PO BID [facility] Last Admin: 02/07/19 11:21 Dose: 500 mg Cyanocobalamin (Vitamin B12 1000 Mcg Tab) 1,000 mcg PO DAILY [facility] Last Admin: 02/07/19 11:21 Dose: 1,000 mcg Darbepoetin Lux (Aranesp) 60 mcg SC QWK [facility] Duloxetine HCl (Cymbalta) 60 mg PO DAILY [facility] Last Admin: 02/07/19 11:21 Dose: 60 mg Ergocalciferol (Drisdol 50,000 Intl Units Cap) 1 cap PO Q7D [facility] Last Admin: 02/07/19 11:21 Dose: 1 cap Ferrous Gluconate (Fergon) 324 mg PO TID [facility] Last Admin: 02/07/19 11:21 Dose: 324 mg Daptomycin 500 mg/ Sodium (Chloride) 100 mls @ 200 mls/hr IV Q48H [facility]; Protocol Stop: 02/10/19 13:46 Last Admin: 02/05/19 19:19 Dose: 200 mls/hr Ketorolac Tromethamine (Toradol) 15 mg IVP Q6 PRN PRN Reason: Pain, moderate (4-7) Last Admin: 02/05/19 11:35 Dose: 15 mg Pantoprazole Sodium (Protonix Ec Tab) 40 mg PO 0600 [facility] Last Admin: 02/07/19 05:49 Dose: 40 mg Potassium Chloride (K-Dur 20 Meq Er Tab) 20 meq PO BRK [facility] Last Admin: 02/07/19 11:22 Dose: 20 meq Quetiapine Fumarate (Seroquel) 75 mg PO HS [facility]; Protocol Last Admin: 02/06/19 21:39 Dose: 75 mg Quetiapine Fumarate (Seroquel) 25 mg PO 1600 [facility]; Protocol Last Admin: 02/06/19 17:12 Dose: 25 mg Vitamin B Complex/Vit C/Folic Acid (Nephro-Madison) 1 tab PO 0800 [facility] Last Admin: 02/07/19 11:21 Dose: 1 tab - Labs Labs: 02/07/19 06:20 02/07/19 06:20 PT 16.0 SECONDS (9.4-12.5) H 02/06/19 07:55 INR 1.42 02/06/19 07:55 APTT 28.2 Seconds (26.9-38.3) 02/06/19 07:55
--- NOTE | 2019-02-07 13:02 | PN ---
DATE: 02/07/2019 SUBJECTIVE: He is in bed, not feeling that well, slept fairly well. He is on Cymbalta, daptomycin, Drisdol, Fergon, Nephro-Madison, Os-Phil, Protonix, Seroquel, Toradol, Tylenol, vitamin B12, and Xanax. He just urinated the nurse told me, it was dark, almost black urine. Yesterday, he had a nephrostomy tube that was pumping out blood that calmed down. The nephrostomy tube was out, he has got a stent placed around the kidney stone that is blocking the right ureter. PHYSICAL EXAMINATION: VITAL SIGNS: He has a 98.1 temperature, 91 pulse, 111/74 blood pressure, 18 respiratory rate, and 99% O2 sat on room air. HEENT: His head is atraumatic, normocephalic. HEART: Regular rate. LUNGS: Decreased breath sounds. ABDOMEN: Soft. EXTREMITIES: No edema. No CVA tenderness. LABORATORY DATA: He has a 6.9 white count, hemoglobin 7.7. He is having dark urine. He bled out a lot yesterday. I am going to transfuse him 2 units of packed red blood cells today. Hematocrit 23.1, platelets of 373. INR is 1.42. He has a 140 sodium, potassium 3.5, I am going to replace the potassium. BUN is 16, creatinine 1.9, getting better. GFR is 36, sugar is 103, calcium is 7.1, total bili is 12.6, AST is 51, ALT is 51, alk phos 53, total protein is 5.3. ASSESSMENT AND PLAN: I am re-doing another urinalysis on him. He is being seen by Urology, Infectious Disease, Renal. We are going to transfuse him two units of packed red blood cells, get physical therapy involved, UA C and S, get Urology back to evaluate very dark urine he is putting out. We will also get him out of bed to chair and physical therapy. Ryne Dunn DO
[2019-02-07] MEDS: DAPTOmycin 500 MG in Sodium Chloride 0.9% 100 ML IV SCH (13:29)
--- NOTE | 2019-02-07 15:51 | PN ---
DATE: 02/07/2019 SUBJECTIVE: The patient is in bed in no acute distress, nontoxic. PHYSICAL EXAMINATION: VITAL SIGNS: On exam, temperature is 98, blood pressure is 100/60, respiratory rate of 20. HEENT: Examination of HEENT is unremarkable. NECK: Supple. LUNGS: Have decreased breath sounds. HEART: Normal S1, S2. ABDOMEN: Soft. LABORATORY DATA: Laboratory examination reveals a white count of 6.9, hemoglobin of 7 and platelets are noted. Chemistries revealed a BUN of 16, creatinine of 1.9. Urinalysis is noted. Toxicology is noted. Immunology is noted. Serology is reviewed. Microbiology reveals the blood cultures are negative. Repeat blood cultures is positive for Enterococcus. ASSESSMENT AND PLAN: A 63-year-old male, who was admitted with chronic obstructive lung disease, hypertension, anxiety, depression, unspecified tremors, admitted with severe sepsis, Enterococcus bacteremia, acute kidney injury. I doubt endocarditis. Repeat culture is negative. Echo is negative. Low grade fevers. Allergic to ampicillin. Today is day #4 of daptomycin. Hepatitis profile is negative and the patient's CPK is 44 with repeat blood cultures negative. Since the patient has bacteremia with Enterococcus, will need 14 days' of therapy. Dillan Roberts MD
[2019-02-08] MEDS: Pantoprazole 40 mg EC Tab PO SCH (05:56)
[2019-02-08 07:31] LABS: CALCIUM 6.8 mg/dL (8.4-10.5)
[2019-02-08 07:32] LABS: ALB/GLOB RATIO 0.9 (1.1-1.8); ALBUMIN 2.7 g/dL (3.0-4.8)
[2019-02-08 07:46] LABS: HEMOGLOBIN 9.3 g/dL (14.0-18.0); MEAN CELL VOLUME 86.3 fl (80.0-105.0); MEAN CORPUSCULAR HEMOGLOBIN 28.9 pg (25.0-35.0); MEAN CORPUSCULAR HGB CONC 33.5 g/dl (31.0-37.0); RBC 3.22 10^6/uL (3.5-6.1); RED CELL DISTRIBUTION WIDTH 14.8 % (11.5-14.5); WHITE BLOOD COUNT 8.3 10^3/uL (4.5-11.0)
[2019-02-08] MEDS: Multivitamin Vitamin B Complex (Nephro-Vite) Tab PO SCH (07:55)
--- NOTE | 2019-02-08 09:30 | PN ---
DATE: 02/08/2019 SUBJECTIVE: The patient is in bed in no acute distress, nontoxic. The patient was seen earlier today in 263. He did have low-grade fevers earlier. PHYSICAL EXAMINATION: VITAL SIGNS: Temperature is 99.8, blood pressure is 115/60, respiratory rate of 18. HEENT: Unremarkable. NECK: Supple. LUNGS: Have decreased breath sounds. HEART: Normal S1 and S2. ABDOMEN: Soft and nontender. LABORATORY DATA: Reveals a white count of 6.9, hemoglobin of 7. Chemistries are noted. BUN of 19, creatinine of 1.8. Procalcitonin is 0.11. Repeat blood cultures are negative. Initial ones positive for Enterococcus faecalis. ASSESSMENT AND PLAN: This is a 63-year-old male admitted with chronic obstructive lung disease, hypertension, anxiety, depression, unspecified tremors. The patient is admitted with, 1. Severe sepsis, Enterococcus bacteremia with acute kidney injury, Enterococcus secondary to urine as the source. Today is day #5 of daptomycin. THE PATIENT IS ALLERGIC TO AMPICILLIN, does have renal insufficiency, concerned about use of vancomycin, would complete a short course of antibiotics, unable to use Zyvox because of Seroquel and drug-drug interaction and serotonin syndrome, vancomycin is limited use because of a renal insufficiency. Today is day #5, would treat with 14 days for bacteremia. The patient's echo revealed to be negative, may benefit from a repeat echo in 1 to 2 days. We will compare the echo from 01/04/2019 to see if there is any evidence of vegetations. Dillan Roberts MD
[2019-02-08] MEDS ORDERED: Calcium Gluconate in NS 1 GM/50 ML BAG IV ONE (10:14)
[2019-02-08] MEDS ORDERED: Potassium Chloride 20 mEq ER Tab PO ONE (10:17)
[2019-02-08] MEDS: Darbepoetin Alfa 60 mcg/ml Inj SC SCH (10:49)
[2019-02-08] MEDS: Potassium Chloride 20 mEq ER Tab PO SCH (10:50)
[2019-02-08] MEDS ORDERED: Levalbuterol 1.25 MG/3 ML Inhal Soln UD IH PRN (13:26)
[2019-02-08] MEDS: Levalbuterol 0.63 MG/3 ML Inhal Soln UD IH SCH ×2 (14:40→19:13)
[2019-02-09] MEDS: Pantoprazole 40 mg EC Tab PO SCH (05:29)
[2019-02-09 07:53] LABS: HEMOGLOBIN 9.5 g/dL (14.0-18.0); MEAN CELL VOLUME 87.7 fl (80.0-105.0); MEAN CORPUSCULAR HEMOGLOBIN 28.5 pg (25.0-35.0); MEAN CORPUSCULAR HGB CONC 32.5 g/dl (31.0-37.0); MEAN PLATELET VOLUME 8.9 fl (7.0-11.0); RBC 3.33 10^6/uL (3.5-6.1); RED CELL DISTRIBUTION WIDTH 15.3 % (11.5-14.5); WHITE BLOOD COUNT 9.6 10^3/uL (4.5-11.0)
[2019-02-09 08:08] LABS: CALCIUM 7.4 mg/dL (8.4-10.5)
[2019-02-09] MEDS: Potassium Chloride 20 mEq ER Tab PO SCH (08:34)
[2019-02-09] MEDS: Multivitamin Vitamin B Complex (Nephro-Vite) Tab PO SCH (08:34)
[2019-02-09] MEDS: Levalbuterol 0.63 MG/3 ML Inhal Soln UD IH SCH ×3 (08:55→21:07)
--- NOTE | 2019-02-09 10:47 | PN ---
DATE: 02/09/2019 SUBJECTIVE: The patient is in bed in no acute distress, nontoxic. PHYSICAL EXAMINATION: VITAL SIGNS: Temperature is 98, blood pressure is 120/70, respiratory rate of 18. HEENT: Unremarkable. NECK: Supple. LUNGS: Have decreased breath sounds. HEART: Normal S1, S2. ABDOMEN: Soft, nontender. LABORATORY EXAMINATION: Reveals a white count of 9.6, hemoglobin of 9, BUN of 21, creatinine of 1.8. Procalcitonin 0.11. Urinalysis is noted. Toxicology is noted and serology is noted. Microbiology reveals the blood cultures are negative. The repeat ones initial ones and Enterococcus and repeat echo was ordered and the patient for the repeat echo as stated for comparing to the echo from earlier. ASSESSMENT AND PLAN: This is a 63-year-old admitted with a chronic obstructive lung disease, hypertension, anxiety, depression. 1. Severe sepsis, Enterococcus bacteremia, acute kidney injury with Enterococcus secondary to urine as a source. Today is day #6 of daptomycin. THE PATIENT IS ALLERGIC TO PENICILLIN. The patient does have renal insufficiency, unable to use vancomycin. We will need 14 days of daptomycin, today is day #6 of 14 days of daptomycin for bacteremia also unable to use Zyvox because of serotonin syndrome with Seroquel and last CPK, the patient had was 44 on the 01/28/2019. We will repeat another CPK. Dillan Roberts MD
[2019-02-09] MEDS: DAPTOmycin 500 MG in Sodium Chloride 0.9% 100 ML IV SCH (13:57)
--- NOTE | 2019-02-09 16:58 | CP.PCM.PN ---
Subjective - Date & Time of Evaluation Date of Evaluation: 02/09/19 Time of Evaluation: 16:57 - Subjective Subjective: renal note Nephrology Consultation Note Assessment: stable Acute Kidney Injury (N17.9) likely due to obs uropathy due to stone Chronic Kidney Disease (N18.3) Stage 3 with left atrophic kidney, baseline cr 1.6-1.8 b12 def, hyperkalemia, AMS, metabolic acidosis, uremia started HD 01/28/19, hyperphos, anemia vit d def hypokalemia sepsis s/p Rt PCN removal, insertion of stent, laser lithotripsy Plan urology eval appreciated. pt had nephrostomy tube placement by IR 01/30/19. underwent Rt PCN removal, insertion of stent, laser lithotripsy 02/05/19 no further dialysis need. shiley removed by me 02/03/19 lytes ok cr stable volume stable Physical Examination: General Appearance: Comfortable, in no acute respiratory distress, co-operative Vitals reviewed and noted as below Head; Atraumatic, normocephalic ENT: no ulcers EYES: Sclera is anicteric. Neck; supple no lymphadenopathy, no thyromegaly or bruit Lungs: Normal respiratory rate/effort. Breath sounds bilateral Heart: Normal rate. s1s2 normal. No rub or gallop. Extremities: no edema. No varicose veins Neurological: Patient is alert, awake and oriented. No focal deficit. Strength bilateral appropriate and equal Skin: Warm and dry. Normal turgor. Abdomen: Abdomen is soft. Bowel sounds +. There is no abdominal tenderness, no guarding/rigidity no organomegaly Psych: normal affect/mood. limited insight MSK: no joint tenderness or swelling. Objective - Vital Signs/Intake and Output Vital Signs (last 24 hours): Temp Pulse Resp BP Pulse Ox 98.3 F 100 H 20 119/66 98 02/09/19 12:00 02/09/19 14:00 02/09/19 12:00 02/09/19 12:00 02/09/19 05:49 Intake and Output: 02/09/19 02/09/19 06:59 18:59 Intake Total 240 Balance 240 - Medications Medications: Current Medications Acetaminophen (Tylenol 325mg Tab) 650 mg PO Q6H PRN PRN Reason: Fever >100.4 F Last Admin: 02/08/19 00:55 Dose: 650 mg Alprazolam (Xanax) 0.5 mg PO Q8 JAQUAN; Protocol Last Admin: 02/09/19 13:58 Dose: 0.5 mg Budesonide (Pulmicort Respules) 0.5 mg IH BIDRESP JAQUAN Calcium Carbonate (Oscal) 500 mg PO BID JAQUAN Last Admin: 02/09/19 09:52 Dose: 500 mg Cyanocobalamin (Vitamin B12 1000 Mcg Tab) 1,000 mcg PO DAILY JAQUAN Last Admin: 02/09/19 09:52 Dose: 1,000 mcg Darbepoetin Lux (Aranesp) 60 mcg SC QWK JAQUAN Last Admin: 02/08/19 10:49 Dose: 60 mcg Duloxetine HCl (Cymbalta) 60 mg PO DAILY [facility] Last Admin: 02/09/19 09:52 Dose: 60 mg Ergocalciferol (Drisdol 50,000 Intl Units Cap) 1 cap PO Q7D [facility] Last Admin: 02/07/19 11:21 Dose: 1 cap Ferrous Gluconate (Fergon) 324 mg PO TID JAQUAN Last Admin: 02/09/19 13:58 Dose: 324 mg Daptomycin 500 mg/ Sodium (Chloride) 100 mls @ 200 mls/hr IV Q48H JAQUAN; Protocol Stop: 02/10/19 13:46 Last Admin: 02/09/19 13:57 Dose: 200 mls/hr Ketorolac Tromethamine (Toradol) 15 mg IVP Q6 PRN PRN Reason: Pain, moderate (4-7) Last Admin: 02/09/19 15:48 Dose: 15 mg Levalbuterol HCl (Xopenex) 0.63 mg IH TIDRESP JAQUAN Last Admin: 02/09/19 13:50 Dose: 0.63 mg Pantoprazole Sodium (Protonix Ec Tab) 40 mg PO 0600 JAQUAN Last Admin: 02/09/19 05:29 Dose: 40 mg Potassium Chloride (K-Dur 20 Meq Er Tab) 20 meq PO BRK JAQUAN Last Admin: 02/09/19 08:34 Dose: 20 meq Quetiapine Fumarate (Seroquel) 75 mg PO HS JAQUAN; Protocol Last Admin: 02/08/19 21:59 Dose: 75 mg Quetiapine Fumarate (Seroquel) 25 mg PO 1600 JAQUAN; Protocol Last Admin: 02/08/19 17:31 Dose: 25 mg Vitamin B Complex/Vit C/Folic Acid (Nephro-Madison) 1 tab PO 0800 JAQUAN Last Admin: 02/09/19 08:34 Dose: 1 tab - Labs Labs: 02/09/19 07:00 02/09/19 07:00 PT 16.0 SECONDS (9.4-12.5) H 02/06/19 07:55 INR 1.42 02/06/19 07:55 APTT 28.2 Seconds (26.9-38.3) 02/06/19 07:55
--- NOTE | 2019-02-09 17:13 | CON ---
DATE: 02/09/2019 PULMONARY CONSULTATION HISTORY OF PRESENT ILLNESS: Mr. Campos has been in the hospital since 01/28/2019. Yesterday, he stated that he had shortness of breath and pulmonary evaluation was requested. The patient does have altered mental status. He is 63 years old. He has had tremors. He is being treated for sepsis syndrome. PAST MEDICAL HISTORY: His past history includes chronic obstructive pulmonary disease. He smokes cigarettes a half a pack of cigarettes a day that continues until this admission. He has chronic renal insufficiency and had episodes of sepsis in the recent past. There is a significant psychiatric history with depression and psychosis. There is also a history of suicidal ideation. On questioning the patient at this time, he has no complaints. He states to having shortness of breath. He denies coughing. ALLERGIES: No known allergies. OUTPATIENT MEDICATIONS: Included Xanax, Cymbalta, Seroquel, Cogentin. SOCIAL HISTORY: The patient continues to smoke. No occupational or travel history noted. REVIEW OF SYSTEMS: Shortness of breath. Other than that described above, negative. History of COPD in the past, taking medications, but not taking so recently. All other systems negative. PHYSICAL EXAMINATION: GENERAL: The patient is sitting in bed comfortable in no acute distress. VITAL SIGNS: He is afebrile with temperature 98.6, pulse 80, respiratory rate 18, blood pressure 140/70, O2 sat 100% on room air. HEENT: Normocephalic, atraumatic. NECK: Supple. No jugular venous distention, no bruit, no mass. HEART: Regular rhythm, S1, S2 without murmur, gallop, or rub. LUNGS: Global decrease in breath sounds. No wheezing, rhonchi, or rales appreciated. ABDOMEN: Soft. Bowel sounds normoactive without mass, guarding, rebound or organomegaly. EXTREMITIES: No clubbing, cyanosis, or edema. There is no evidence of Homans' sign. SKIN: No rash or excoriation. NEUROLOGIC EXAM: Mental status is abnormal, but no focal findings are noted. LABORATORY DATA: Chest x-ray done on 02/06/2019 shows no pulmonary infiltrates, no significant pleural effusion or pneumothorax. Lungs are essentially clear. EKG; sinus rhythm, nonspecific ST-T wave changes. Most recent laboratory data shows a white count of 9000, hemoglobin of 9.5, hematocrit 29.2, platelet count 449,000. No new blood gas is available. Recent chemistries are normal with an SGOT of 64 and an SGPT of 72, BUN 21 and creatinine 1.8. CLINICAL IMPRESSION: 1. Septicemia. 2. Renal insufficiency. 3. Anxiety. 4. Hypertension. 5. Numerous psychiatric illnesses including suicide ideation and psychosis. 6. Shortness of breath - COPD PLAN: Continue the patient on vigorous antibiotic therapy as per Infectious Disease. I would give the patient inhaled bronchodilators as required. At this point in time, there is no evidence of bronchospasm. The patient is unable at this point to do a pulmonary function study. There is levalbuterol that he is receiving via inhalation therapy. I would add budesonide at the same time. No further intervention unless the patient becomes dyspneic. We will follow closely with you and discuss with the attending, Dr. Ryne Dunn. Thank you for the opportunity to participate in the care of this patient. Doron Billings MD MTDWang
--- NOTE | 2019-02-09 18:45 | PN ---
DATE: 02/09/2019 SUBJECTIVE: I saw him in his bed, resting comfortably. This is one of the better days I have seen him. He is much more alert and comfortable. He is in no pain. I will like to see him out of bed to chair. I want to get physical therapy involved. He is on Aranesp; Cymbalta; daptomycin, which puts him in the problem because no facility will take him on daptomycin; Drisdol; Fergon; potassium; Nephro-Madison; Os-Phil; Protonix; Pulmicort; Seroquel; Toradol; Tylenol; vitamin B12; Xanax and Xopenex. PHYSICAL EXAMINATION: VITAL SIGNS: He has a 97.9 temperature, 80 pulse, 122/75 blood pressure, 18 respiratory rate, 90% O2 sat on room air. HEENT: His head is atraumatic and normocephalic. GENERAL: He is much alert today. He is talking with me. HEART: Regular rate with decreased breath sounds. ABDOMEN: Soft. EXTREMITIES: No edema. LABORATORY DATA: He has a 9.6 white count, 9.5 hemoglobin, 29.2 hematocrit with platelets. Sodium 140, potassium 3.9, creatinine is 1.8 and BUN is 21. GFR is 38. He is staying stable so far. Sugar is 128, calcium is up to 7.4, total bili is 0.5. AST is 64, ALT is 72, alk phos 67, total protein 6.1. Still dealing with a bad urinary tract infection. Hepatitis screen is negative. ASSESSMENT AND PLAN: He is being seen by Infectious Disease, Renal, and Urology. He has bad chronic obstructive pulmonary disease, hypertension, anxiety severe sepsis, enterococcus bacteremia, acute kidney injury. He came in with acute kidney failure. He got dialysis. A stent placed by urology and his kidney functions have improved greatly since when he came in. He has 6 days down out of 14 of daptomycin. We will continue with aggressive treatment and care on Mr. Marlon Campos and he is starting to improve. He will need Physical Therapy and out of bed to chair more. Ryne Dunn DO CARLEEN
[2019-02-09] MEDS: Budesonide 0.5 mg/2 ml Inhal Susp UD IH SCH (21:07)
[2019-02-10] MEDS: Pantoprazole 40 mg EC Tab PO SCH (05:11)
[2019-02-10 06:38] LABS: HEMOGLOBIN 9.1 g/dL (14.0-18.0); MEAN CELL VOLUME 88.3 fl (80.0-105.0); MEAN CORPUSCULAR HEMOGLOBIN 28.8 pg (25.0-35.0); MEAN CORPUSCULAR HGB CONC 32.6 g/dl (31.0-37.0); MEAN PLATELET VOLUME 8.9 fl (7.0-11.0); RBC 3.16 10^6/uL (3.5-6.1); RED CELL DISTRIBUTION WIDTH 15.1 % (11.5-14.5); WHITE BLOOD COUNT 8.6 10^3/uL (4.5-11.0)
[2019-02-10 07:20] LABS: ALB/GLOB RATIO 0.9 (1.1-1.8); ALBUMIN 2.8 g/dL (3.0-4.8); CALCIUM 7.5 mg/dL (8.4-10.5)
--- NOTE | 2019-02-10 08:06 | PCM.URO ---
Urology Progress Note - Objective Lab Studies: Reviewed (no major changes if pt is cleared we will repeat procedure 02/12) Lab Results Last 24 Hours: Laboratory Results - last 24 hr 02/09/19 02/09/19 02/09/19 07:00 07:00 07:00 WBC 9.6 RBC 3.33 L Hgb 9.5 L Hct 29.2 L MCV 87.7 MCH 28.5 MCHC 32.5 RDW 15.3 H Plt Count 449 MPV 8.9 Sodium 140 Potassium 3.9 Chloride 110 H Carbon Dioxide 20 L Anion Gap 14 BUN 21 Creatinine 1.8 H Est GFR ( Amer) 46 Est GFR (Non-Af Amer) 38 Random Glucose 128 H Calcium 7.4 L Total Bilirubin 0.5 AST 64 H D ALT 72 H Alkaline Phosphatase 67 Total Creatine Kinase 23 L Total Protein 6.1 Albumin 3.0 Globulin 3.1 Albumin/Globulin Ratio 1.0 L 02/10/19 02/10/19 06:00 06:00 WBC 8.6 RBC 3.16 L Hgb 9.1 L Hct 27.9 L MCV 88.3 MCH 28.8 MCHC 32.6 RDW 15.1 H Plt Count 519 H MPV 8.9 Sodium 141 Potassium 3.9 Chloride 109 H Carbon Dioxide 23 Anion Gap 13 BUN 22 H Creatinine 1.7 H Est GFR ( Amer) 49 Est GFR (Non-Af Amer) 41 Random Glucose 106 Calcium 7.5 L Total Bilirubin 0.5 AST 106 H D ALT 114 H Alkaline Phosphatase 73 Total Creatine Kinase Total Protein 5.9 Albumin 2.8 L Globulin 3.1 Albumin/Globulin Ratio 0.9 L Intake & Output: Intake & Output 02/09/19 02/10/19 02/10/19 18:59 06:59 18:59 Intake Total 100 1980 Output Total 700 Balance 100 1280 Intake: IV 100 Right Forearm 100 Oral 1979 Output: Urine 700 Straight 700 Other: # Voids Straight 2 Urethral (Howe) 2 # Bowel Movements 3 Vital Signs: Vital Signs - 24 hr 02/09/19 02/09/19 02/09/19 10:00 12:00 14:00 Temperature 98.3 F Pulse Rate 98 H 85 100 H Respiratory 20 Rate Blood Pressure 119/66 O2 Sat by Pulse Oximetry 02/09/19 02/09/19 02/10/19 18:00 22:00 00:01 Temperature 98 F 98.2 F Pulse Rate 105 H 95 H 92 H Respiratory 20 20 Rate Blood Pressure 117/73 119/72 O2 Sat by Pulse 98 98 Oximetry 02/10/19 02/10/19 02/10/19 02:00 05:25 06:00 Temperature 98.5 F Pulse Rate 89 95 H 85 Respiratory 18 Rate Blood Pressure 109/74 O2 Sat by Pulse 98 Oximetry
--- NOTE | 2019-02-10 08:28 | PN ---
DATE: 02/08/2019 SUBJECTIVE: I saw him in bed. He is not doing well today. He has a little shortness of breath and weak. He is being seen by Renal, Urology, Infectious Disease. I am also going to call in Pulmonary because he is feeling quite sick and short of breath. PHYSICAL EXAMINATION: VITAL SIGNS: Not that hungry either; 99.8 temperature yesterday, it was 99.9 a little bit now; 115 pulse; 117/69 blood pressure; 18 respiratory rate, 97% O2 sat on room air. HEENT: Head is atraumatic, normocephalic. Little dry in the mouth. HEART: Regular rate. LUNGS: Decreased breath sounds, but clear. No wheezes, no rhonchi, no rales. ABDOMEN: Soft. EXTREMITIES: No edema. LABORATORY DATA: He has a sodium 138, potassium is 3.5. I am going to replace the potassium. He has a BUN 19; creatinine 1.8; GFR is 38; sugar is 145; calcium is 6.8, I will replace the calcium; total bili is 0.6. AST is 53, ALT is 66, alk phos 57, total protein is 5.6. White count 8.3, hemoglobin 9.3, better after transfusion, 27.8 hematocrit with 376 platelets. He has positive urine cultures and blood cultures. MEDICATIONS: He is on Aranesp. I had a calcium replacement. He is on daptomycin, Cymbalta, Drisdol, iron potassium, Nephro-Madison, Protonix, Seroquel, Toradol, Tylenol, vitamins and Xanax. ASSESSMENT AND PLAN: He is being seen by Infectious Disease, renal, acute kidney injury with Enterococcus. He had a nephrostomy placement drain with very elevated BUN and creatinine, which now almost down to normal, much improved. The left kidney does not work anymore. He is on multiple IV antibiotics. He has been treated for 14 days of bacteremia. He is on day #5. He is seen by the TCU evaluation if his insurance will let him to go there. Chest x-ray on the 02/06/2019 was no active disease. We will call Pulmonary if he feels short of breath. He is on oxygen. We will check his labs tomorrow. We will place potassium, calcium. See if he get out of bed to chair physical therapy. Ryne Dunn DO CARLEEN
[2019-02-10] MEDS: Levalbuterol 0.63 MG/3 ML Inhal Soln UD IH SCH ×3 (08:37→19:31)
[2019-02-10] MEDS: Budesonide 0.5 mg/2 ml Inhal Susp UD IH SCH ×2 (08:37→19:31)
[2019-02-10] MEDS: Multivitamin Vitamin B Complex (Nephro-Vite) Tab PO SCH (08:50)
[2019-02-10] MEDS: Potassium Chloride 20 mEq ER Tab PO SCH (08:50)
--- NOTE | 2019-02-10 09:44 | PN ---
DATE: 02/10/2019 SUBJECTIVE: The patient appears quite comfortable this morning. He is not short of breath at rest. PHYSICAL EXAMINATION: VITAL SIGNS: Temperature is 98.5, pulse 85, respirations 18, blood pressure 109/74. Oxygen saturation on room air - 98%. HEENT: Normocephalic, atraumatic. No JVD. CARDIOVASCULAR: Positive S1, S2. No S3 gallop. LUNGS: Decreased breath sounds at the bases. No rhonchi. No wheezing. EXTREMITIES: Mild edema, no cyanosis, no clubbing. Calves are nontender to palpation. GASTROINTESTINAL: Abdomen is soft, nontender and nondistended. Bowel sounds are positive. SKIN: No acute rash. NEUROLOGIC: Exam limited at the present time. IMPRESSION: 1. Sepsis syndrome. 2. Chronic obstructive pulmonary disease. 3. Hypertension. 4. Renal insufficiency. PLAN: The patient appears quite comfortable this morning. He is not short of breath at rest. I did discuss the case with the night nurse at length. The night nurse stated that the patient is doing well overall. On physical exam, there is no significant bronchospasm noted. In addition, there is no significant alveolar arterial gradient. I will continue the current nebulizer treatments and inhaled steroids for now. Inputs by Renal and Infectious Disease are also noted. Clinical status of the patient is significantly improved overall. I will discuss the above with Dr. Dunn. Adam Puente MD MTDD
--- NOTE | 2019-02-10 11:44 | PN ---
DATE: 02/10/2019 SUBJECTIVE: He is on daptomycin by Infectious Disease. He has 7 more days on daptomycin. transfer him to a [facility] or a TCU, but because his daptomycin is too expensive, he is not convey to be discharge. He has had a right hydronephrosis with extremely elevated BUN and creatinine. He has a stent placed and kidney functions are almost back to where they were before this happened. He had a kidney stone, low potassium and low calcium. He has anemia. He was transfused. He is on Aranesp, Cymbalta, daptomycin, Drisdol, Fergon, potassium, nephro-cheryl, Os-Phil, Protonix, Pulmicort, Seroquel, Toradol, Tylenol, vitamins, Xanax and Xopenex. He does not want to be in the hospital anymore, we are trying to switch his room for a different kind of scenery. PHYSICAL EXAMINATION: VITAL SIGNS: He is on 98.5 temp, 85 pulse, 109/74 blood pressure, 18 respiratory rate and 98% O2 sat on room air. HEENT: Head is atraumatic and normocephalic. HEART: Regular rate. LUNGS: Decreased breath sounds. ABDOMEN: Soft. EXTREMITIES: No edema. LABORATORY DATA: He has a 8.6 white count, 9.1 hemoglobin, 27.9 hematocrit with a 519 platelets. Sodium 141, potassium 3.9, BUN is 22, creatinine 1.7, GFR is 41, sugar is 106, calcium is 7.4, total bili is 0.5, AST is 106, ALT is 114, alk phos 70, total protein is 5.9. I am trying to keeping his stimulators possible in at the hospital. he has chronic obstructive pulmonary disease, anxiety, severe sepsis, acute kidney injury and give 7 more days of IV antibiotics as per Infectious Disease. We will continue to follow him. Discussed at length the situation. Discussed with the nurse to try and get a different room. We will check his labs tomorrow and should get out of bed to chair everyday and physical therapy. Ryne Dunn DO MTDD
--- NOTE | 2019-02-10 12:08 | CP.PCM.PN ---
Subjective - Date & Time of Evaluation Date of Evaluation: 02/10/19 Time of Evaluation: 12:08 - Subjective Subjective: Nephrology Consultation Note Assessment: stable Acute Kidney Injury (N17.9) likely due to obs uropathy due to stone Chronic Kidney Disease (N18.3) Stage 3 with left atrophic kidney, baseline cr 1.6-1.8 b12 def, hyperkalemia, AMS, metabolic acidosis, uremia started HD 01/28/19, hyperphos, anemia vit d def hypokalemia sepsis s/p Rt PCN removal, insertion of stent, laser lithotripsy COPD Plan urology eval appreciated. pt had nephrostomy tube placement by IR 01/30/19. underwent Rt PCN removal, insertion of stent, laser lithotripsy 02/05/19 no further dialysis need. shiley removed by me 02/03/19 Hypertension control with meds as ordered. Maintain hemodynamics stable. Avoid hypotension. Patient not on ACEI/ARB due to recent MARCUS Monitor Input/Output, daily weights and renal function with basic metabolic panel supplement B12 as pt with level very low, weekly vit D. started iron and MVI. PRBC as needed. weekly aransep supplement lytes as needed. ordered for K and Ca supplement work up for stone as outpt ID pulmonary following Dose meds/antibiotics for reduced GFR. Avoid fleets enema/magnesium based laxatives. Avoid nephrotoxins/NSAIDs/ iodinated contrast (unless needed emergently) Glycemic control Further work up for as per primary team pt stable for d/c from renal perspective when planned Thanks for allowing me to participate in care of your patient. Will follow patient with you. Please call if any Qs. had d/w team and sister Dr Taiwo Vyas Office: [phone] Subjective: Noted events overnight. Patients feels same Denies chest pain, palpitation, shortness of breath, leg swelling. All other negative Physical Examination: General Appearance: Comfortable, in no acute respiratory distress, co-operative Vitals reviewed and noted as below Head; Atraumatic, normocephalic ENT: no ulcers no thrush. Tongue is midline. Oropharynx: no rash or ulcers. EYES: Pupils are equal, round and reactive to light accommodation. Eye muscles and extraocular movement intact. Sclera is anicteric. Neck; supple no lymphadenopathy, no thyromegaly or bruit Lungs: Normal respiratory rate/effort. Breath sounds bilateral reduced with few rales Heart: Normal rate. s1s2 normal. No rub or gallop. Extremities: no edema. No varicose veins Neurological: Patient is alert, awake and oriented. No focal deficit. Strength bilateral appropriate and equal Skin: Warm and dry. Normal turgor. No rash. Palpitation: Normal elasticity for age Abdomen: Abdomen is soft. Bowel sounds +. There is no abdominal tenderness, no guarding/rigidity no organomegaly Psych: normal affect/mood. limited insight MSK: no joint tenderness or swelling. Digits and nails normal, no deformity : kidney or bladder not palpable. s/p Rt PCN removal Labs/imaging reviewed. Past medical history, past surgical history, family history, social history, allergy reviewed and noted as below Family hx: no hx of CKD. Rest non-contributory Objective - Vital Signs/Intake and Output Vital Signs (last 24 hours): Temp Pulse Resp BP Pulse Ox 98.5 F 108 H 18 109/74 98 02/10/19 06:00 02/10/19 10:00 02/10/19 06:00 02/10/19 06:00 02/10/19 06:00 Intake and Output: 02/10/19 02/10/19 06:59 18:59 Intake Total 1980 Output Total 700 Balance 1280 - Medications Medications: Current Medications Acetaminophen (Tylenol 325mg Tab) 650 mg PO Q6H PRN PRN Reason: Fever >100.4 F Last Admin: 02/08/19 00:55 Dose: 650 mg Alprazolam (Xanax) 0.5 mg PO Q8 [facility]; Protocol Last Admin: 02/10/19 05:12 Dose: 0.5 mg Budesonide (Pulmicort Respules) 0.5 mg IH BIDRESP [facility] Last Admin: 02/10/19 08:37 Dose: 0.5 mg Calcium Carbonate (Oscal) 500 mg PO BID [facility] Last Admin: 02/10/19 10:23 Dose: 500 mg Cyanocobalamin (Vitamin B12 1000 Mcg Tab) 1,000 mcg PO DAILY [facility] Last Admin: 02/10/19 10:23 Dose: 1,000 mcg Darbepoetin Lux (Aranesp) 60 mcg SC QWK [facility] Last Admin: 02/08/19 10:49 Dose: 60 mcg Duloxetine HCl (Cymbalta) 60 mg PO DAILY [facility] Last Admin: 02/10/19 10:23 Dose: 60 mg Ergocalciferol (Drisdol 50,000 Intl Units Cap) 1 cap PO Q7D [facility] Last Admin: 02/07/19 11:21 Dose: 1 cap Ferrous Gluconate (Fergon) 324 mg PO TID [facility] Last Admin: 02/10/19 10:23 Dose: 324 mg Daptomycin 500 mg/ Sodium (Chloride) 100 mls @ 200 mls/hr IV Q48H [facility]; Protocol Stop: 02/10/19 13:46 Last Admin: 02/09/19 13:57 Dose: 200 mls/hr Ketorolac Tromethamine (Toradol) 15 mg IVP Q6 PRN PRN Reason: Pain, moderate (4-7) Last Admin: 02/10/19 10:22 Dose: 15 mg Levalbuterol HCl (Xopenex) 0.63 mg IH TIDRESP [facility] Last Admin: 02/10/19 08:37 Dose: 0.63 mg Pantoprazole Sodium (Protonix Ec Tab) 40 mg PO 0600 [facility] Last Admin: 02/10/19 05:11 Dose: 40 mg Potassium Chloride (K-Dur 20 Meq Er Tab) 20 meq PO BRK [facility] Last Admin: 02/10/19 08:50 Dose: 20 meq Quetiapine Fumarate (Seroquel) 75 mg PO HS [facility]; Protocol Last Admin: 02/09/19 22:32 Dose: 75 mg Quetiapine Fumarate (Seroquel) 25 mg PO 1600 [facility]; Protocol Last Admin: 02/09/19 17:14 Dose: 25 mg Vitamin B Complex/Vit C/Folic Acid (Nephro-Madison) 1 tab PO 0800 [facility] Last Admin: 02/10/19 08:50 Dose: 1 tab - Labs Labs: 02/10/19 06:00 02/10/19 06:00 PT 16.0 SECONDS (9.4-12.5) H 02/06/19 07:55 INR 1.42 02/06/19 07:55 APTT 28.2 Seconds (26.9-38.3) 02/06/19 07:55
[2019-02-10] MEDS ORDERED: DAPTOmycin 500 MG in Sodium Chloride 0.9% 100 ML IV SCH (15:45)
[2019-02-10] MEDS ORDERED: DAPTOmycin 510 MG in Sodium Chloride 0.9% 100 ML IV SCH (18:30)
--- NOTE | 2019-02-10 19:22 | PN ---
DATE: 02/10/2019 SUBJECTIVE: The patient is in bed in no acute distress, nontoxic, was seen earlier in [facility], bed 1. No fevers and chills. PHYSICAL EXAMINATION VITAL SIGNS: Temperature is 98, blood pressure is 112/70, respiratory rate 16. HEENT: Unremarkable. NECK: Supple. LUNGS: Have decreased breath sounds. HEART: Normal S1, S2. ABDOMEN: Soft. LABORATORY EXAMINATION: Reveals a white count of 8.6, hemoglobin of 9. Chemistries are noted. Creatinine is 1.7. Urinalysis is noted. Toxicology is noted. Serology is noted. Microbiology is reviewed. ASSESSMENT AND PLAN: He is a 63-year-old who is admitted with a chronic obstructive lung disease, hypertension, anxiety, depression with; 1. Severe sepsis, Enterococcus bacteremia, acute kidney injury with Enterococcus secondary to urine as the source. Today is day #7 of daptomycin. THE PATIENT IS ALLERGIC TO PENICILLIN. He does have renal insufficiency, and I am unable to give vancomycin, today is day #7 of 14 days. Bacteremia; unable to use Zyvox because of his serotonin syndrome, Seroquel and the patient's CPK from yesterday is 23. Dillan Roberts MD
[2019-02-11] MEDS: Pantoprazole 40 mg EC Tab PO SCH (05:28)
[2019-02-11 07:06] LABS: HEMOGLOBIN 9.2 g/dL (14.0-18.0); MEAN CELL VOLUME 88.4 fl (80.0-105.0); MEAN CORPUSCULAR HEMOGLOBIN 28.8 pg (25.0-35.0); MEAN CORPUSCULAR HGB CONC 32.6 g/dl (31.0-37.0); RBC 3.19 10^6/uL (3.5-6.1); RED CELL DISTRIBUTION WIDTH 14.8 % (11.5-14.5)
[2019-02-11] MEDS: Budesonide 0.5 mg/2 ml Inhal Susp UD IH SCH ×2 (07:09→19:44)
[2019-02-11] MEDS: Levalbuterol 0.63 MG/3 ML Inhal Soln UD IH SCH ×3 (07:09→19:44)
[2019-02-11 07:22] LABS: ALB/GLOB RATIO 0.9 (1.1-1.8); ALBUMIN 2.9 g/dL (3.0-4.8); CALCIUM 7.9 mg/dL (8.4-10.5)
--- NOTE | 2019-02-11 07:56 | PCM.URO ---
Urology Progress Note - Objective Lab Studies: Reviewed (pt to operating tomorrow if medically cleared and ok with infectious diseases) Lab Results Last 24 Hours: Laboratory Results - last 24 hr 02/11/19 02/11/19 06:30 06:30 WBC 8.0 RBC 3.19 L Hgb 9.2 L Hct 28.2 L MCV 88.4 MCH 28.8 MCHC 32.6 RDW 14.8 H Plt Count 565 H MPV 9.0 Sodium 140 Potassium 4.1 Chloride 111 H Carbon Dioxide 23 Anion Gap 11 BUN 24 H Creatinine 1.6 H Est GFR ( Amer) 53 Est GFR (Non-Af Amer) 44 Random Glucose 108 Calcium 7.9 L Total Bilirubin 0.7 AST 97 H ALT 133 H Alkaline Phosphatase 77 Total Protein 6.1 Albumin 2.9 L Globulin 3.2 Albumin/Globulin Ratio 0.9 L Intake & Output: Intake & Output 02/10/19 02/11/19 02/11/19 18:59 06:59 18:59 Intake Total 1080 180 Output Total 1350 Balance -270 180 Intake: Oral 1080 180 Output: Urine 1350 Straight 1350 Other: # Voids Straight 2 # Bowel Movements 3 Vital Signs: Vital Signs - 24 hr 02/10/19 02/10/19 02/10/19 10:00 12:00 17:49 Temperature 98.4 F 98 F Pulse Rate 108 H 90 Respiratory 19 19 Rate Blood Pressure 109/69 110/76 O2 Sat by Pulse Oximetry 02/10/19 02/10/19 02/11/19 21:40 22:54 06:00 Temperature 98.6 F 98.6 F 98.4 F Pulse Rate 91 H 91 H 91 H Respiratory 18 18 97 H Rate Blood Pressure 102/66 102/66 125/77 O2 Sat by Pulse 99 99 Oximetry
[2019-02-11] MEDS: Multivitamin Vitamin B Complex (Nephro-Vite) Tab PO SCH (08:19)
[2019-02-11] MEDS: Potassium Chloride 20 mEq ER Tab PO SCH (08:19)
--- NOTE | 2019-02-11 08:59 | PN ---
DATE: 02/11/2019 SUBJECTIVE: The patient appears comfortable this morning. He is not short of breath at rest. PHYSICAL EXAMINATION: VITAL SIGNS (Last noted in the computer): Temperature 98.6, pulse 91, respirations 18, blood pressure 102/66. Oxygen saturation on room air - 99%. HEENT: Normocephalic, atraumatic. NECK: No JVD. CARDIOVASCULAR: Positive S1, S2. No S3 gallop. LUNGS: Decreased breath sounds at the bases. No rhonchi. No wheezing. EXTREMITIES: Mild edema. No cyanosis. No clubbing. Calves are nontender to palpation. GASTROINTESTINAL: Abdomen is soft, nontender and nondistended. Bowel sounds are positive. SKIN: No acute rash. NEUROLOGIC: Exam limited at the present time. IMPRESSION: 1. Sepsis syndrome. 2. Chronic obstructive pulmonary disease. 3. Hypertension. 4. Renal insufficiency. PLAN: The patient appears very comfortable this morning. He is not short of breath at rest. He does state to feeling much better overall. On physical exam, there is no significant bronchospasm noted. In addition, there is no significant alveolar-arterial gradient. I will continue with the current nebulizer treatments and inhaled steroids for now. Inputs by Renal and Infectious Disease are also noted. The patient remains on antibiotic therapy. There are no temperatures noted. There is no leukocytosis. Clinical status of the patient is significantly improved overall. I will discuss the above with Dr. Dunn. Adam Puente MD MTDD
--- NOTE | 2019-02-11 10:12 | PN ---
DATE: 02/11/2019 SUBJECTIVE: He is now in a new room in 560. He likes it better. He likes the change in scenery. He is getting a little hospital psychosis. He is on Aranesp, Cymbalta, daptomycin IV, Drisdol, Fergon, potassium, Nephro-Madison, Os-Phil, Protonix, Pulmicort, Seroquel, Toradol, Tylenol, vitamin B12, Xanax, and Xopenex. He has 6 more days of daptomycin to go IV. He tells me he is walking. He tells me he can eat. OBJECTIVE: VITAL SIGNS: Temperature 98.4, pulse 91, blood pressure 125/77, respiratory rate 17, O2 sat 99% on room air. HEAD: Atraumatic, normocephalic. HEART: Regular rate. LUNGS: Decreased breath sounds but clear. ABDOMEN: Soft. EXTREMITIES: No edema. He has 8 white count, 9.2 hemoglobin, 28.2 hematocrit with 565 platelets. He has 140 sodium, potassium 4.1, BUN is 24, creatinine 1.6, GFR is 44, sugar is 108, calcium 7.9. When he came in, his BUN and creatinine were over 100 and over 19, now it is down to 24 and 1.6, much improved. He had a blockage of the right kidney from the stone with hydronephrosis severe, a stent was placed, and now he has been doing well. He had a nephrostomy tube before that. He had bleeding from the nephrostomy tube. AST is 97, ALT is 133, alk phos 77, total protein 6.1. He had a very rough stay in the hospital. He has enterococcus in the urine and in the blood. He is being seen by Urology, Pulmonary, Infectious Disease. He is going to go for another procedure with Urology, I believe tomorrow if it is okay with Infectious Disease. I would like him to get out of bed to chair as best he could. He is having a very rough time here in the hospital overall. Physical therapy is recommending TCU IV antibiotics. He is on daptomycin. We will see if they are doing another procedure tomorrow. We will check his labs tomorrow. Recommend out of bed to chair. We will continue aggressive treatment and care on Marlon Campos who had a right hydronephrosis. He has kidney stone blockage. He had anemia, low potassium, acute kidney injury, severe sepsis, COPD, and nephrostomy bleed, acute blood loss anemia. Ryne Dunn DO CARLEEN
--- NOTE | 2019-02-11 11:10 | PN ---
DATE: 02/11/2019 UROLOGY DAILY PROGRESS NOTE Please see history and physical, operative note, consult note, etc. The patient is currently resting comfortably. He is eating breakfast. See the plans listed below. We are going to back to ureteroscopy tomorrow. Plan for laser lithotripsy, . Past medical and surgical, no other changes. Surgical exam, no change. The creatinine is now 1.6 to 1.7 markedly down from his initial presentation, improved very nicely, notes by the medical team and Dr. Vyas is also noted. DIAGNOSES: 1. Urolithiasis. 2. Renal failure. 3. Obstructive uropathy. 4. Atrophic left kidney and now markedly improved right kidney. PLAN: The plan is as follows. We are going to plan for a cystoscopy for tomorrow with the ureteroscopy, possibly laser lithotripsy. Further plans will follow. Raghav Singh MD
--- NOTE | 2019-02-11 12:17 | CP.PCM.PN ---
Subjective - Date & Time of Evaluation Date of Evaluation: 02/11/19 Time of Evaluation: 12:17 - Subjective Subjective: Nephrology Consultation Note Assessment: stable Acute Kidney Injury (N17.9) likely due to obs uropathy due to stone Chronic Kidney Disease (N18.3) Stage 3 with left atrophic kidney, baseline cr 1.6-1.8 b12 def, hyperkalemia, AMS, metabolic acidosis, uremia started HD 01/28/19, hyperphos, anemia vit d def hypokalemia sepsis s/p Rt PCN removal, insertion of stent, laser lithotripsy COPD Plan urology eval appreciated. pt had nephrostomy tube placement by IR 01/30/19. underwent Rt PCN removal, insertion of stent, laser lithotripsy 02/05/19 no further dialysis need. Hypertension control with meds as ordered. Maintain hemodynamics stable. Avoid hypotension. Patient not on ACEI/ARB due to recent MARCUS Monitor Input/Output, daily weights and renal function with basic metabolic panel supplement B12 as pt with level very low, weekly vit D. started iron and MVI. PRBC as needed. weekly aransep supplement lytes as needed. ordered for K and Ca supplement work up for stone as outpt ID pulmonary following Dose meds/antibiotics for reduced GFR. Avoid fleets enema/magnesium based laxatives. Avoid nephrotoxins/NSAIDs/ iodinated contrast (unless needed emergently) Glycemic control Further work up for as per primary team pt stable for d/c from renal perspective when planned Thanks for allowing me to participate in care of your patient. Will follow patient with you. Please call if any Qs. had d/w team and sister Dr Taiwo Vyas Office: [phone] Subjective: Noted events overnight. Patients feels same Denies chest pain, palpitation, shortness of breath, leg swelling. All other negative Physical Examination: General Appearance: Comfortable, in no acute respiratory distress, co-operative Vitals reviewed and noted as below Head; Atraumatic, normocephalic ENT: no ulcers no thrush. Tongue is midline. Oropharynx: no rash or ulcers. EYES: Pupils are equal, round and reactive to light accommodation. Eye muscles and extraocular movement intact. Sclera is anicteric. Neck; supple no lymphadenopathy, no thyromegaly or bruit Lungs: Normal respiratory rate/effort. Breath sounds bilateral reduced at bases with few rales Heart: Normal rate. s1s2 normal. No rub or gallop. Extremities: no edema. No varicose veins Neurological: Patient is alert, awake and oriented. No focal deficit. Strength bilateral appropriate and equal Skin: Warm and dry. Normal turgor. No rash. Palpitation: Normal elasticity for age Abdomen: Abdomen is soft. Bowel sounds +. There is no abdominal tenderness, no g uarding/rigidity no organomegaly Psych: normal affect/mood. limited insight MSK: no joint tenderness or swelling. Digits and nails normal, no deformity : kidney or bladder not palpable. s/p Rt PCN removal Labs/imaging reviewed. Past medical history, past surgical history, family history, social history, allergy reviewed and noted as below Family hx: no hx of CKD. Rest non-contributory Objective - Vital Signs/Intake and Output Vital Signs (last 24 hours): Temp Pulse Resp BP Pulse Ox 98.4 F 91 H 97 H 125/77 99 02/11/19 06:00 02/11/19 06:00 02/11/19 06:00 02/11/19 06:00 02/10/19 22:54 Intake and Output: 02/11/19 02/11/19 06:59 18:59 Intake Total 180 Balance 180 - Medications Medications: Current Medications Acetaminophen (Tylenol 325mg Tab) 650 mg PO Q6H PRN PRN Reason: Fever >100.4 F Last Admin: 02/08/19 00:55 Dose: 650 mg Alprazolam (Xanax) 0.5 mg PO Q8 [facility]; Protocol Last Admin: 02/11/19 05:28 Dose: 0.5 mg Budesonide (Pulmicort Respules) 0.5 mg IH BIDRESP [facility] Last Admin: 02/11/19 07:09 Dose: 0.5 mg Calcium Carbonate (Oscal) 500 mg PO BID [facility] Last Admin: 02/11/19 09:55 Dose: 500 mg Cyanocobalamin (Vitamin B12 1000 Mcg Tab) 1,000 mcg PO DAILY [facility] Last Admin: 02/11/19 09:55 Dose: 1,000 mcg Darbepoetin Lux (Aranesp) 60 mcg SC QWK [facility] Last Admin: 02/08/19 10:49 Dose: 60 mcg Duloxetine HCl (Cymbalta) 60 mg PO DAILY [facility] Last Admin: 02/11/19 09:55 Dose: 60 mg Ergocalciferol (Drisdol 50,000 Intl Units Cap) 1 cap PO Q7D [facility] Last Admin: 02/07/19 11:21 Dose: 1 cap Ferrous Gluconate (Fergon) 324 mg PO TID [facility] Last Admin: 02/11/19 09:55 Dose: 324 mg Daptomycin 500 mg/ Sodium (Chloride) 100 mls @ 200 mls/hr IV Q48H [facility]; Protocol Stop: 02/15/19 23:59 Ketorolac Tromethamine (Toradol) 15 mg IVP Q6 PRN PRN Reason: Pain, moderate (4-7) Last Admin: 02/10/19 20:42 Dose: 15 mg Levalbuterol HCl (Xopenex) 0.63 mg IH TIDRESP [facility] Last Admin: 02/11/19 07:09 Dose: 0.63 mg Pantoprazole Sodium (Protonix Ec Tab) 40 mg PO 0600 [facility] Last Admin: 02/11/19 05:28 Dose: 40 mg Potassium Chloride (K-Dur 20 Meq Er Tab) 20 meq PO BRK [facility] Last Admin: 02/11/19 08:19 Dose: 20 meq Quetiapine Fumarate (Seroquel) 75 mg PO HS [facility]; Protocol Last Admin: 02/10/19 21:50 Dose: 75 mg Quetiapine Fumarate (Seroquel) 25 mg PO 1600 [facility]; Protocol Last Admin: 02/10/19 15:54 Dose: 25 mg Vitamin B Complex/Vit C/Folic Acid (Nephro-Madison) 1 tab PO 0800 [facility] Last Admin: 02/11/19 08:19 Dose: 1 tab - Labs Labs: 02/11/19 06:30 02/11/19 06:30 PT 16.0 SECONDS (9.4-12.5) H 02/06/19 07:55 INR 1.42 02/06/19 07:55 APTT 28.2 Seconds (26.9-38.3) 02/06/19 07:55
--- NOTE | 2019-02-11 20:39 | PN ---
DATE: 02/11/2019 SUBJECTIVE: The patient is in bed, in no acute distress. PHYSICAL EXAMINATION VITAL SIGNS: Temperature is 98, blood pressure is 117/70, respiratory rate of 18. HEENT: Unremarkable. NECK: Supple. LUNGS: Have decreased breath sounds. HEART: Normal S1, S2. ABDOMEN: Soft. LABORATORY EXAMINATION: Reveals the cultures are noted. REVIEW OF ORDERS: Reveal the patient to be on daptomycin. ASSESSMENT AND PLAN: A 63-year-old admitted with a chronic obstructive lung disease, hypertension, anxiety, and depression. 1. Severe sepsis, Enterococcus bacteremia, acute kidney injury with Enterococcus secondary to urine as the source. Today is day #8 of daptomycin. 2. THE PATIENT IS ALLERGIC TO AMPICILLIN AND PENICILLIN. 3. Renal insufficiency, unable to give vancomycin. Unable to use Zyvox. Today is day #8 of 14 days of daptomycin. Dillan Roberts MD
[2019-02-12] MEDS: Pantoprazole 40 mg EC Tab PO SCH (05:08)
[2019-02-12 07:13] LABS: HEMOGLOBIN 9.5 g/dL (14.0-18.0); MEAN CELL VOLUME 89.6 fl (80.0-105.0); MEAN CORPUSCULAR HEMOGLOBIN 28.3 pg (25.0-35.0); MEAN CORPUSCULAR HGB CONC 31.6 g/dl (31.0-37.0); MEAN PLATELET VOLUME 8.8 fl (7.0-11.0); RBC 3.36 10^6/uL (3.5-6.1); RED CELL DISTRIBUTION WIDTH 14.5 % (11.5-14.5); WHITE BLOOD COUNT 7.9 10^3/uL (4.5-11.0)
[2019-02-12 07:31] LABS: ALB/GLOB RATIO 0.9 (1.1-1.8); ALBUMIN 3.1 g/dL (3.0-4.8); CALCIUM 8.4 mg/dL (8.4-10.5)
[2019-02-12] MEDS: Budesonide 0.5 mg/2 ml Inhal Susp UD IH SCH ×2 (07:55→19:29)
[2019-02-12] MEDS: Levalbuterol 0.63 MG/3 ML Inhal Soln UD IH SCH ×3 (07:55→19:29)
--- NOTE | 2019-02-12 09:33 | PN ---
DATE: 02/12/2019 SUBJECTIVE: The patient appears comfortable this morning. He is not short of breath at rest. PHYSICAL EXAMINATION: VITAL SIGNS: Temperature 97.6, pulse 88, respirations 18/20, blood pressure 134/65. Oxygen saturation on room air - 97%. HEENT: Normocephalic, atraumatic. NECK: No JVD. CARDIOVASCULAR: Positive S1, S2. No S3 gallop. LUNGS: Improved breath sounds at the bases. No rhonchi. No wheezing. EXTREMITIES: Mild edema. No cyanosis. No clubbing. Calves are nontender to palpation. GASTROINTESTINAL: Abdomen is soft, nontender and nondistended. Bowel sounds are positive. SKIN: No acute rash. NEUROLOGIC: Exam limited at the present time. IMPRESSION: 1. Sepsis syndrome. 2. Chronic obstructive pulmonary disease. 3. Hypertension. 4. Renal insufficiency. PLAN: The patient appears very comfortable this morning. He is not short of breath at rest. He does state to feeling much better overall. On physical exam, there is no significant bronchospasm noted. In addition, there is no significant alveolar arterial gradient. I will continue with the current nebulizer treatments and inhaled steroids for now. Inputs by Renal and Genitourinary are noted. The patient is for a cystoscopy later today. Input by Dr. Roberts (Infectious Disease) is also noted. Clinical status of the patient is certainly improved - compared to a few days ago. I will discuss the above with Dr. Dunn. Adam Puente MD MTDD
[2019-02-12] MEDS: Multivitamin Vitamin B Complex (Nephro-Vite) Tab PO SCH (09:42)
[2019-02-12] MEDS: Potassium Chloride 20 mEq ER Tab PO SCH (09:42)
--- NOTE | 2019-02-12 09:59 | PN ---
DATE: 02/12/2019 SUBJECTIVE: The patient is in bed in no acute distress, nontoxic. PHYSICAL EXAMINATION: VITAL SIGNS: On exam, temperature is 98, blood pressure is 117/70, respiratory rate 16. HEENT: Unremarkable. NECK: Supple. LUNGS: Have decreased breath sounds. HEART: Normal, S1 and S2. ABDOMEN: Soft. LABORATORY DATA: Reveals a white count of 8000, hemoglobin 9. BUN of 24, creatinine of 1.6. Urinalysis is noted. Immunology is noted. Serology is reviewed. ASSESSMENT AND PLAN: This is a 63-year-old admitted with a chronic obstructive lung disease, hypertension, anxiety, depression with severe sepsis, enterococcus bacteremia, acute kidney injury, enterococcus secondary to urine as the source, day #9 of daptomycin. We would complete 14 days, unable to use vancomycin due to renal insufficiency, unable to use Zyvox due to drug interaction SSRI and unable to use ampicillin because of the allergy. Review of orders confirms the daptomycin to be active. We will recheck the CPK. Dillan Roberts MD
[2019-02-12] MEDS: DAPTOmycin 500 MG in Sodium Chloride 0.9% 100 ML IV SCH (10:35)
--- NOTE | 2019-02-12 10:38 | RAD ---
Date of service: 02/05/2019 PROCEDURE: Retrograde pyelogram HISTORY: R/O STONE COMPARISON: TECHNIQUE: 98.6 sec of fluoro time. 24.55 mGy. 31 images were submitted FINDINGS: The study shows wires and instruments in the right ureter and collecting system with a ventral placement of a ureteral stent. There is a pre-existing nephrostomy catheter in a lower pole infundibulum. IMPRESSION: As above
--- NOTE | 2019-02-12 12:10 | PN ---
DATE: 02/12/2019 SUBJECTIVE: He was first for cystoscopy today with Dr. Singh, the urologist. There was an emergency in the OR and he was postponed, I brought him back up. Hopefully, he will be going to the cysto later today. MEDICATIONS: He is getting Aranesp weekly, Cymbalta, daptomycin every 2 days, Drisdol, Fergon, potassium, Nephro-Madison, Os-Phil, Protonix, Pulmicort, Seroquel, Toradol, Tylenol, Xanax and Xopenex. PHYSICAL EXAMINATION: VITAL SIGNS: He has a 97.6 temperature, 88 pulse, 134/65 blood pressure, 20 respiratory rate, 97% O2 saturation on room air. HEENT: Head is atraumatic, normocephalic. HEART: Regular rate. LUNGS: Decreased breath sounds, but clear. ABDOMEN: Soft. EXTREMITIES: No edema. LABORATORY DATA: He showed me the urine that is drained. There is lot of sediment and small stones. No pain. He has a 7.9 white count, 9.5 hemoglobin, 30.1 hematocrit with 610 platelets. He has a sodium 139, potassium 4.4, BUN is 26, creatinine 1.7, GFR is 41, sugar is 112, calcium is 8.4, total bilirubin is 0.5, AST is 66, ALT is 125, alkaline phosphatase 81, total protein is 6.3. So hopefully today, he will have a cystoscopy with Dr. Singh. He is getting the antibiotics and foster care social worker is trying to arrange for outpatient, may be home, IV antibiotics is every 2 days, intravenous sepsis, acute kidney injury. Continue aggressive treatment and care and hopefully we will get discharge planning IV antibiotics at home cysto today. Ryne Dunn DO MTDWang
--- NOTE | 2019-02-12 15:55 | CP.PCM.PN ---
Subjective - Date & Time of Evaluation Date of Evaluation: 02/12/19 Time of Evaluation: 15:54 - Subjective Subjective: Nephrology Consultation Note Assessment: stable Acute Kidney Injury (N17.9) likely due to obs uropathy due to stone Chronic Kidney Disease (N18.3) Stage 3 with left atrophic kidney, baseline cr 1.6-1.8 b12 def, hyperkalemia, AMS, metabolic acidosis, uremia started HD 01/28/19, hyperphos, anemia vit d def hypokalemia sepsis s/p Rt PCN removal, insertion of stent, laser lithotripsy COPD Plan urology eval appreciated. pt had nephrostomy tube placement by IR 01/30/19. underwent Rt PCN removal, insertion of stent, laser lithotripsy 02/05/19 no further dialysis need. Hypertension control with meds as ordered. Maintain hemodynamics stable. Avoid hypotension. Patient not on ACEI/ARB due to recent MARCUS Monitor Input/Output, daily weights and renal function with basic metabolic panel supplement B12 as pt with level very low, weekly vit D. started iron and MVI. PRBC as needed. weekly aransep supplement lytes as needed. ordered for Ca supplement. stop KCL work up for stone as outpt. send stone sediment for analysis ID pulmonary following Dose meds/antibiotics for reduced GFR. Avoid fleets enema/magnesium based laxatives. Avoid nephrotoxins/NSAIDs/ iodinated contrast (unless needed emergently) Glycemic control Further work up for as per primary team pt stable for d/c from renal perspective when planned Thanks for allowing me to participate in care of your patient. Will follow patient with you. Please call if any Qs. had d/w team and sister Dr Taiwo Vyas Office: [phone] Subjective: Noted events overnight. Patients feels same. passed stone with urination Denies chest pain, palpitation, shortness of breath, leg swelling. All other negative Physical Examination: General Appearance: Comfortable, in no acute respiratory distress, co-operative Vitals reviewed and noted as below Head; Atraumatic, normocephalic ENT: no ulcers no thrush. Tongue is midline. Oropharynx: no rash or ulcers. EYES: Pupils are equal, round and reactive to light accommodation. Eye muscles and extraocular movement intact. Sclera is anicteric. Neck; supple no lymphadenopathy, no thyromegaly or bruit Lungs: Normal respiratory rate/effort. Breath sounds bilateral reduced at bases with few rales Heart: Normal rate. s1s2 normal. No rub or gallop. Extremities: no edema. No varicose veins Neurological: Patient is alert, awake and oriented. No focal deficit. Strength bilateral appropriate and equal Skin: Warm and dry. Normal turgor. No rash. Palpitation: Normal elasticity for age Abdomen: Abdomen is soft. Bowel sounds +. There is no abdominal tenderness, no guarding/rigidity no organomegaly Psych: normal affect/mood. limited insight MSK: no joint tenderness or swelling. Digits and nails normal, no deformity : kidney or bladder not palpable. s/p Rt PCN removal Labs/imaging reviewed. Past medical history, past surgical history, family history, social history, allergy reviewed and noted as below Family hx: no hx of CKD. Rest non-contributory Objective - Vital Signs/Intake and Output Vital Signs (last 24 hours): Temp Pulse Resp BP Pulse Ox 98.7 F 95 H 18 116/74 99 02/12/19 14:00 02/12/19 14:00 02/12/19 14:00 02/12/19 14:00 02/12/19 14:00 Intake and Output: 02/12/19 02/12/19 06:59 18:59 Intake Total 1620 100 Output Total 0 360 Balance 1620 -260 - Medications Medications: Current Medications Acetaminophen (Tylenol 325mg Tab) 650 mg PO Q6H PRN PRN Reason: Fever >100.4 F Last Admin: 02/08/19 00:55 Dose: 650 mg Alprazolam (Xanax) 0.5 mg PO Q8 [facility]; Protocol Last Admin: 02/12/19 14:09 Dose: 0.5 mg Budesonide (Pulmicort Respules) 0.5 mg IH BIDRESP [facility] Last Admin: 02/12/19 07:55 Dose: 0.5 mg Calcium Carbonate (Oscal) 500 mg PO BID [facility] Last Admin: 02/12/19 09:42 Dose: 500 mg Cyanocobalamin (Vitamin B12 1000 Mcg Tab) 1,000 mcg PO DAILY [facility] Last Admin: 02/12/19 09:42 Dose: 1,000 mcg Darbepoetin Lux (Aranesp) 60 mcg SC QWK [facility] Last Admin: 02/08/19 10:49 Dose: 60 mcg Duloxetine HCl (Cymbalta) 60 mg PO DAILY [facility] Last Admin: 02/12/19 09:42 Dose: 60 mg Ergocalciferol (Drisdol 50,000 Intl Units Cap) 1 cap PO Q7D [facility] Last Admin: 02/07/19 11:21 Dose: 1 cap Ferrous Gluconate (Fergon) 324 mg PO TID [facility] Last Admin: 02/12/19 14:09 Dose: 324 mg Daptomycin 500 mg/ Sodium (Chloride) 100 mls @ 200 mls/hr IV Q48H [facility]; Protocol Stop: 02/15/19 23:59 Last Admin: 02/12/19 10:35 Dose: 200 mls/hr Ketorolac Tromethamine (Toradol) 15 mg IVP Q6 PRN PRN Reason: Pain, moderate (4-7) Last Admin: 02/12/19 00:56 Dose: 15 mg Levalbuterol HCl (Xopenex) 0.63 mg IH TIDRESP [facility] Last Admin: 02/12/19 13:50 Dose: 0.63 mg Pantoprazole Sodium (Protonix Ec Tab) 40 mg PO 0600 [facility] Last Admin: 02/12/19 05:08 Dose: 40 mg Quetiapine Fumarate (Seroquel) 75 mg PO HS [facility]; Protocol Last Admin: 02/11/19 22:15 Dose: 75 mg Quetiapine Fumarate (Seroquel) 25 mg PO 1600 [facility]; Protocol Last Admin: 02/11/19 17:50 Dose: 25 mg Vitamin B Complex/Vit C/Folic Acid (Nephro-Madison) 1 tab PO 0800 [facility] Last Admin: 02/12/19 09:42 Dose: 1 tab - Labs Labs: 02/12/19 06:15 02/12/19 06:15 PT 16.0 SECONDS (9.4-12.5) H 02/06/19 07:55 INR 1.42 02/06/19 07:55 APTT 28.2 Seconds (26.9-38.3) 02/06/19 07:55
[2019-02-13] MEDS: Pantoprazole 40 mg EC Tab PO SCH (06:01)
[2019-02-13 07:08] LABS: HEMOGLOBIN 9.5 g/dL (14.0-18.0); MEAN CELL VOLUME 88.6 fl (80.0-105.0); MEAN CORPUSCULAR HEMOGLOBIN 28.6 pg (25.0-35.0); MEAN CORPUSCULAR HGB CONC 32.3 g/dl (31.0-37.0); MEAN PLATELET VOLUME 8.6 fl (7.0-11.0); RBC 3.32 10^6/uL (3.5-6.1); RED CELL DISTRIBUTION WIDTH 14.2 % (11.5-14.5); WHITE BLOOD COUNT 7.9 10^3/uL (4.5-11.0)
[2019-02-13] MEDS: Budesonide 0.5 mg/2 ml Inhal Susp UD IH SCH ×2 (07:26→19:55)
[2019-02-13] MEDS: Levalbuterol 0.63 MG/3 ML Inhal Soln UD IH SCH ×3 (07:26→19:55)
[2019-02-13 07:29] LABS: ALB/GLOB RATIO 0.9 (1.1-1.8); CALCIUM 8.4 mg/dL (8.4-10.5)
[2019-02-13] MEDS: Multivitamin Vitamin B Complex (Nephro-Vite) Tab PO SCH (08:31)
--- NOTE | 2019-02-13 09:31 | PN ---
DATE: 02/13/2019 PULMONARY NOTE SUBJECTIVE: The patient appears quite comfortable this morning. He is not short of breath at rest. PHYSICAL EXAMINATION: VITAL SIGNS: Temperature is 98.5, pulse this morning is 88, respiratory rate 18, blood pressure 117/71. Oxygen saturation on room air 97-99%. HEENT: Normocephalic, atraumatic. No JVD. CARDIOVASCULAR: Positive S1, S2. No S3 gallop. LUNGS: Clear bilaterally. GASTROINTESTINAL: Abdomen is soft, nontender and nondistended. Bowel sounds are positive. EXTREMITIES: Mild edema, no cyanosis, no clubbing. Calves are nontender to palpation. SKIN: No acute rash. NEUROLOGIC: Exam limited at the present time. IMPRESSION: 1. Sepsis syndrome. 2. Chronic obstructive pulmonary disease. 3. Hypertension. 4. Renal insufficiency. PLAN: The patient appears quite comfortable this morning. He is not short of breath at rest. He does state to feeling much, much better overall. On physical exam, his lungs remain clear. In addition, the oxygen saturation on room air is 97-99%. I will continue the current nebulizer treatments and inhaled steroids for now. The patient remains on antibiotic therapy - as per Infectious Disease. Input by Dr. Roberts is noted. Inputs by Renal and Genitourinary are also noted. Clinical status of the patient has significantly improved overall. I will discuss the above with Dr. Dunn. Adam Puente MD [facility]Wang
--- NOTE | 2019-02-13 12:33 | PN ---
DATE: 02/13/2019 SUBJECTIVE: He is actually sitting out of bed to chair this morning, eating his breakfast. He is going to go for a cysto, he tells me, tomorrow because he could not do it yesterday due to emergency in the operating room. He is on Aranesp, Cymbalta, daptomycin, Drisdol, Fergon, Nephro-Madison, Os-Phil, Protonix, Pulmicort, Seroquel, Toradol, Tylenol, vitamin B12, Xanax, and Xopenex. PHYSICAL EXAMINATION: VITAL SIGNS: He has a 98.3 temperature, 94 pulse, 124/78 blood pressure, 18 respiratory rate, 95% O2 sat on room air. HEAD: Atraumatic, normocephalic. HEART: Regular rate. LUNGS: Decreased breath sounds but clear. ABDOMEN: Soft. EXTREMITIES: No edema. LABORATORY DATA: He has a 7.9 white count, 9.5 hemoglobin, 29.4 hematocrit with 589 platelets. Sodium 139, potassium 4.8, BUN is 25, creatinine 1.6, GFR is 44, sugar is 117, calcium 8.4, total bili is 0.6. AST is 64, ALT is 112, alk phos is 80. Total protein 6.1. He is being seen by Renal, Pulmonary, Infectious Disease, Urology. He has sepsis syndrome, COPD, hypertension, renal insufficiency, severe sepsis, waiting for Urology to do their thing tomorrow and then hopefully discharging plans after that. Continue aggressive treatment and care. Ryne Dunn DO
--- NOTE | 2019-02-13 12:36 | CP.PCM.PN ---
Subjective - Date & Time of Evaluation Date of Evaluation: 02/13/19 Time of Evaluation: 12:35 - Subjective Subjective: Nephrology Consultation Note Assessment: stable Acute Kidney Injury (N17.9) likely due to obs uropathy due to stone Chronic Kidney Disease (N18.3) Stage 3 with left atrophic kidney, baseline cr 1.6-1.8 b12 def, hyperkalemia, AMS, metabolic acidosis, uremia started HD 01/28/19, hyperphos, anemia vit d def hypokalemia sepsis s/p Rt PCN removal, insertion of stent, laser lithotripsy COPD Plan urology eval appreciated. pt had nephrostomy tube placement by IR 01/30/19. underwent Rt PCN removal, insertion of stent, laser lithotripsy 02/05/19 no further dialysis need. required only 1 session on emergent basis. Hypertension control with meds as ordered. Maintain hemodynamics stable. Avoid hypotension. Patient not on ACEI/ARB due to recent MARCUS Monitor Input/Output, daily weights and renal function with basic metabolic panel supplement B12 as pt with level very low, weekly vit D. started iron and MVI. PRBC as needed. weekly aransep supplement lytes as needed. stopped Ca supplement. stop KCL work up for stone as outpt. send stone sediment for analysis ID pulmonary following Dose meds/antibiotics for reduced GFR. Avoid fleets enema/magnesium based laxatives. Avoid nephrotoxins/NSAIDs/ iodinated contrast (unless needed emergently) Glycemic control Further work up for as per primary team pt stable for d/c from renal perspective when planned Thanks for allowing me to participate in care of your patient. Will follow patient with you. Please call if any Qs. had d/w team and sister Dr Taiwo Vyas Office: [phone] Subjective: Noted events overnight. Patients feels same. passed stone with urination Denies chest pain, palpitation, shortness of breath, leg swelling. All other negative Physical Examination: General Appearance: Comfortable, in no acute respiratory distress, co-operative Vitals reviewed and noted as below Head; Atraumatic, normocephalic ENT: no ulcers no thrush. Tongue is midline. Oropharynx: no rash or ulcers. EYES: Pupils are equal, round and reactive to light accommodation. Eye muscles and extraocular movement intact. Sclera is anicteric. Neck; supple no lymphadenopathy, no thyromegaly or bruit Lungs: Normal respiratory rate/effort. Breath sounds bilateral reduced at bases with few rales Heart: Normal rate. s1s2 normal. No rub or gallop. Extremities: no edema. No varicose veins Neurological: Patient is alert, awake and oriented. No focal deficit. Strength bilateral appropriate and equal Skin: Warm and dry. Normal turgor. No rash. Palpitation: Normal elasticity for age Abdomen: Abdomen is soft. Bowel sounds +. There is no abdominal tenderness, no guarding/rigidity no organomegaly Psych: normal affect/mood. limited insight MSK: no joint tenderness or swelling. Digits and nails normal, no deformity : kidney or bladder not palpable. s/p Rt PCN removal Labs/imaging reviewed. Past medical history, past surgical history, family history, social history, allergy reviewed and noted as below Family hx: no hx of CKD. Rest non-contributory Objective - Vital Signs/Intake and Output Vital Signs (last 24 hours): Temp Pulse Resp BP Pulse Ox 98.3 F 94 H 18 124/78 95 02/13/19 06:00 02/13/19 06:00 02/13/19 06:00 02/13/19 06:00 02/13/19 06:00 Intake and Output: 02/13/19 02/13/19 06:59 18:59 Intake Total 660 120 Balance 660 120 - Medications Medications: Current Medications Acetaminophen (Tylenol 325mg Tab) 650 mg PO Q6H PRN PRN Reason: Fever >100.4 F Last Admin: 02/08/19 00:55 Dose: 650 mg Alprazolam (Xanax) 0.5 mg PO Q8 [facility]; Protocol Last Admin: 02/13/19 06:09 Dose: 0.5 mg Budesonide (Pulmicort Respules) 0.5 mg IH BIDRESP [facility] Last Admin: 02/13/19 07:26 Dose: 0.5 mg Cyanocobalamin (Vitamin B12 1000 Mcg Tab) 1,000 mcg PO DAILY [facility] Last Admin: 02/13/19 09:01 Dose: 1,000 mcg Darbepoetin Lux (Aranesp) 60 mcg SC QWK [facility] Last Admin: 02/08/19 10:49 Dose: 60 mcg Duloxetine HCl (Cymbalta) 60 mg PO DAILY [facility] Last Admin: 02/13/19 09:00 Dose: 60 mg Ergocalciferol (Drisdol 50,000 Intl Units Cap) 1 cap PO Q7D [facility] Last Admin: 02/07/19 11:21 Dose: 1 cap Ferrous Gluconate (Fergon) 324 mg PO TID [facility] Last Admin: 02/13/19 09:00 Dose: 324 mg Daptomycin 500 mg/ Sodium (Chloride) 100 mls @ 200 mls/hr IV Q48H [facility]; Protocol Stop: 02/15/19 23:59 Last Admin: 02/12/19 10:35 Dose: 200 mls/hr Ketorolac Tromethamine (Toradol) 15 mg IVP Q6 PRN PRN Reason: Pain, moderate (4-7) Last Admin: 02/13/19 11:44 Dose: 15 mg Levalbuterol HCl (Xopenex) 0.63 mg IH TIDRESP [facility] Last Admin: 02/13/19 07:26 Dose: 0.63 mg Pantoprazole Sodium (Protonix Ec Tab) 40 mg PO 0600 [facility] Last Admin: 02/13/19 06:01 Dose: 40 mg Quetiapine Fumarate (Seroquel) 75 mg PO HS [facility]; Protocol Last Admin: 02/12/19 21:18 Dose: 75 mg Quetiapine Fumarate (Seroquel) 25 mg PO 1600 [facility]; Protocol Last Admin: 02/12/19 17:38 Dose: 25 mg Vitamin B Complex/Vit C/Folic Acid (Nephro-Madison) 1 tab PO 0800 [facility] Last Admin: 02/13/19 08:31 Dose: 1 tab - Labs Labs: 02/13/19 06:40 02/13/19 06:40 PT 16.0 SECONDS (9.4-12.5) H 02/06/19 07:55 INR 1.42 02/06/19 07:55 APTT 28.2 Seconds (26.9-38.3) 02/06/19 07:55
--- NOTE | 2019-02-13 15:37 | PN ---
DATE: 02/13/2019 SUBJECTIVE: The patient is in bed in no acute distress, nontoxic. PHYSICAL EXAMINATION: VITAL SIGNS: On exam, temperature is 98, blood pressure is 120/70, respiratory rate 18. HEENT: Unremarkable. NECK: Supple. LUNGS: Have decreased breath sounds. HEART: Normal S1, S2. ABDOMEN: Soft, nontender. LABORATORY DATA: Laboratory examination is noted. The patient's white count of 7.9, BUN of 25, creatinine of 1.6. Review of orders. The patient to be on daptomycin and last CPK that was done on 02/09/2019 4 days ago and a CPK was 23. ASSESSMENT AND PLAN: This is a 63-year-old male who was admitted with chronic obstructive lung disease, hypertension, anxiety, depression, severe sepsis, Enterococcus bacteremia, acute kidney injury, Enterococcus secondary to urine as the source. Today is day #10 of daptomycin with completed 14 days. Dillan Roberts MD
[2019-02-14] MEDS: Pantoprazole 40 mg EC Tab PO SCH (05:20)
[2019-02-14 07:08] LABS: HEMOGLOBIN 9.7 g/dL (14.0-18.0); MEAN CELL VOLUME 88.8 fl (80.0-105.0); MEAN CORPUSCULAR HEMOGLOBIN 28.7 pg (25.0-35.0); MEAN CORPUSCULAR HGB CONC 32.3 g/dl (31.0-37.0); MEAN PLATELET VOLUME 8.9 fl (7.0-11.0); RBC 3.38 10^6/uL (3.5-6.1); RED CELL DISTRIBUTION WIDTH 14.3 % (11.5-14.5); WHITE BLOOD COUNT 6.8 10^3/uL (4.5-11.0)
[2019-02-14 07:28] LABS: ALBUMIN 3.1 g/dL (3.0-4.8); CALCIUM 8.4 mg/dL (8.4-10.5)
--- NOTE | 2019-02-14 07:54 | PN ---
DATE: 02/14/2019 SUBJECTIVE: The patient appears very comfortable this morning. He is not short of breath at rest. PHYSICAL EXAMINATION: VITAL SIGNS: (Last noted in the computer): Temperature is 98.3, pulse this morning is 88, respiratory rate 18/20, blood pressure 105/63. Oxygen saturation on room air - 98%. HEENT: Normocephalic, atraumatic. No JVD. CARDIOVASCULAR: Positive S1, S2. No S3 gallop. LUNGS: Clear bilaterally. EXTREMITIES: Mild edema, no cyanosis, no clubbing. Calves are nontender to palpation. GASTROINTESTINAL: Abdomen is soft, nontender, nondistended. Bowel sounds are positive. SKIN: No acute rash. NEUROLOGIC: Exam limited at the present time. IMPRESSION: 1. Sepsis syndrome. 2. Chronic obstructive pulmonary disease. 3. Hypertension. 4. Renal insufficiency. PLAN: The patient appears very comfortable this morning. He is not short of breath at rest. He does state to feeling much better overall. On physical exam, there is no significant bronchospasm noted. In addition, there is no significant alveolar arterial gradient. I will continue the current nebulizer treatments and inhaled steroids for now. Inputs by Renal and Infectious Disease are noted. Clinical status of the patient is significantly improved overall. I will discuss the above with Dr. Dunn. Adam Puente MD [facility]
[2019-02-14] MEDS: Budesonide 0.5 mg/2 ml Inhal Susp UD IH SCH ×2 (08:00→20:38)
[2019-02-14] MEDS: Levalbuterol 0.63 MG/3 ML Inhal Soln UD IH SCH ×3 (08:00→20:38)
[2019-02-14] MEDS: Multivitamin Vitamin B Complex (Nephro-Vite) Tab PO SCH (08:09)
[2019-02-14] MEDS: DAPTOmycin 500 MG in Sodium Chloride 0.9% 100 ML IV SCH (10:17)
--- NOTE | 2019-02-14 11:08 | PN ---
DATE: 02/14/2019 SUBJECTIVE: The patient is in bed in no acute distress, nontoxic. No fevers. PHYSICAL EXAMINATION: VITAL SIGNS: On exam, temperature is 98, blood pressure is 105/60, respiratory rate 20, heart rate of 97. HEENT: Unremarkable. NECK: Neck: Supple. HEART: Normal S1, S2. LUNGS: Have decreased breath sounds. ABDOMEN: Soft, nontender. LABORATORY DATA: Review of orders reveals the patient to be on daptomycin. Laboratory examination reveals a white count of 6.8, hemoglobin of 9, platelets are noted. Creatinine is 1.7 and the patient's last CPK was 23. Urinalysis is noted. Toxicology is reviewed. Microbiology is noted. ASSESSMENT AND PLAN: This is a 63-year-old admitted with chronic obstructive lung disease, hypertension, anxiety, depression, severe sepsis, Enterococcus bacteremia, acute kidney injury, Enterococcus secondary to urine as the source. Today is day #11 of 14 days of daptomycin. Dillan Roberts MD
[2019-02-14] MEDS: Ergocalciferol 50,000 Intl Units Cap PO SCH (13:15)
[2019-02-14] MEDS ORDERED: Iohexol 240 (50 ml) ONE (13:55)
[2019-02-14] MEDS ORDERED: cefTRIAXone (Rocephin) 1 gm Inj ONE (13:55)
--- NOTE | 2019-02-14 14:11 | PN ---
DATE: 02/14/2019 SUBJECTIVE: I saw Marlon resting comfortably in bed. He is n.p.o. because now they are going to take him for a cystoscopy because they could not do it the other day due to an emergency in the OR. He is on Aricept, Cymbalta, daptomycin, Drisdol, Fergon, Nephro-Madison, Protonix, Pulmicort, Seroquel, Toradol, Tylenol, vitamin, Xanax, and Xopenex. He is comfortable. He would like to leave the hospital. He has finished the daptomycin, I believe. PHYSICAL EXAMINATION: VITAL SIGNS: He has a 98.3 temperature, 97 pulse, 105/60 blood pressure, 20 respiratory rate, 98% O2 sat on room air. HEAD: Atraumatic, normocephalic. He is alert. He has, kind of, been in the hospital very long time. He needs to leave, he tells me. HEART: Regular rate. LUNGS: Decreased breath sounds. ABDOMEN: Soft. EXTREMITIES: No edema. LABORATORY DATA: He has a 6.8 white count, 9.7 hemoglobin, 30 hematocrit with 637 platelets. Sodium 141, potassium 4.3, BUN 29, creatinine 1.5, GFR is 47, sugar is 120, calcium 8.4, total bilirubin is 0.5, AST is 55, ALT is 89, alk phos is 77, total protein 6.3. His urine showed leukocytes are moderate, too numerous to count rbc's and too numerous to count wbc's, moderate bacteria antibiotics. ASSESSMENT AND PLAN: We will see what Urology has to say about his cystoscopy today, that is important. We will continue with aggressive treatment and care. As per Infectious Disease, IV antibiotics. He has chronic obstructive pulmonary disease, hypertension, anxiety, depression, severe sepsis, Enterococcus bacteremia, acute kidney injury and he is on day #10 of 14 days of daptomycin. He will have a cystoscopy today. I will check his labs tomorrow. Out of bed to chair. Ryne Dunn DO [facility]
[2019-02-14] MEDS ORDERED: Midazolam 2 MG/2 ML VIAL ONE (14:41)
[2019-02-14] MEDS ORDERED: Propofol 10 mg/ml Inj (20 ML) ONE (14:41)
[2019-02-14] MEDS ORDERED: Lidocaine 1% Inj (20ml) ONE (14:42)
--- NOTE | 2019-02-14 15:21 | CP.PCM.PN ---
Subjective - Date & Time of Evaluation Date of Evaluation: 02/14/19 Time of Evaluation: 15:21 - Subjective Subjective: Nephrology Consultation Note Assessment: stable Acute Kidney Injury (N17.9) likely due to obs uropathy due to stone Chronic Kidney Disease (N18.3) Stage 3 with left atrophic kidney, baseline cr 1.6-1.8 b12 def, hyperkalemia, AMS, metabolic acidosis, uremia started HD 01/28/19, hyperphos, anemia vit d def hypokalemia sepsis s/p Rt PCN removal, insertion of stent, laser lithotripsy COPD Plan urology eval appreciated. pt had nephrostomy tube placement by IR 01/30/19. underwent Rt PCN removal, insertion of stent, laser lithotripsy 02/05/19 no further dialysis need. required only 1 session on emergent basis. Hypertension control with meds as ordered. Maintain hemodynamics stable. Avoid hypotension. Patient not on ACEI/ARB due to recent MARCUS Monitor Input/Output, daily weights and renal function with basic metabolic panel supplement B12 as pt with level very low, weekly vit D. started iron and MVI. PRBC as needed. weekly aransep supplement lytes as needed. stopped Ca supplement. stop KCL work up for stone as outpt. sent stone sediment for analysis ID pulmonary following Dose meds/antibiotics for reduced GFR. Avoid fleets enema/magnesium based laxatives. Avoid nephrotoxins/NSAIDs/ iodinated contrast (unless needed emergently) Glycemic control Further work up for as per primary team pt stable for d/c from renal perspective when planned Thanks for allowing me to participate in care of your patient. Will follow patient with you. Please call if any Qs. had d/w team and sister Dr Taiwo Vyas Office: [phone] Subjective: Noted events overnight. Patients feels same. passed stone with urination Denies chest pain, palpitation, shortness of breath, leg swelling. All other negative Physical Examination: General Appearance: Comfortable, in no acute respiratory distress, co-operative Vitals reviewed and noted as below Head; Atraumatic, normocephalic ENT: no ulcers no thrush. Tongue is midline. Oropharynx: no rash or ulcers. EYES: Pupils are equal, round and reactive to light accommodation. Eye muscles and extraocular movement intact. Sclera is anicteric. Neck; supple no lymphadenopathy, no thyromegaly or bruit Lungs: Normal respiratory rate/effort. Breath sounds bilateral reduced at bases with few rales Heart: Normal rate. s1s2 normal. No rub or gallop. Extremities: no edema. No varicose veins Neurological: Patient is alert, awake and oriented. No focal deficit. Strength bilateral appropriate and equal Skin: Warm and dry. Normal turgor. No rash. Palpitation: Normal elasticity for age Abdomen: Abdomen is soft. Bowel sounds +. There is no abdominal tenderness, no guarding/rigidity no organomegaly Psych: normal affect/mood. limited insight MSK: no joint tenderness or swelling. Digits and nails normal, no deformity : kidney or bladder not palpable. s/p Rt PCN removal Labs/imaging reviewed. Past medical history, past surgical history, family history, social history, allergy reviewed and noted as below Family hx: no hx of CKD. Rest non-contributory Objective - Vital Signs/Intake and Output Vital Signs (last 24 hours): Temp Pulse Resp BP Pulse Ox 98.7 F 81 18 110/75 97 02/14/19 14:05 02/14/19 14:05 02/14/19 14:05 02/14/19 14:05 02/14/19 14:05 Intake and Output: 02/14/19 02/14/19 06:59 18:59 Intake Total 540 1540 Balance 540 1540 - Medications Medications: Current Medications Acetaminophen (Tylenol 325mg Tab) 650 mg PO Q6H PRN PRN Reason: Fever >100.4 F Last Admin: 02/08/19 00:55 Dose: 650 mg Alprazolam (Xanax) 0.5 mg PO Q8 [facility]; Protocol Last Admin: 02/14/19 13:15 Dose: 0.5 mg Budesonide (Pulmicort Respules) 0.5 mg IH BIDRESP [facility] Last Admin: 02/14/19 08:00 Dose: Not Given Cyanocobalamin (Vitamin B12 1000 Mcg Tab) 1,000 mcg PO DAILY [facility] Last Admin: 02/14/19 10:18 Dose: 1,000 mcg Darbepoetin Lux (Aranesp) 60 mcg SC QWK [facility] Last Admin: 02/08/19 10:49 Dose: 60 mcg Duloxetine HCl (Cymbalta) 60 mg PO DAILY [facility] Last Admin: 02/14/19 10:17 Dose: 60 mg Ergocalciferol (Drisdol 50,000 Intl Units Cap) 1 cap PO Q7D [facility] Last Admin: 02/14/19 13:15 Dose: 1 cap Ferrous Gluconate (Fergon) 324 mg PO TID [facility] Last Admin: 02/14/19 13:15 Dose: 324 mg Daptomycin 500 mg/ Sodium (Chloride) 100 mls @ 200 mls/hr IV Q48H [facility]; Protocol Stop: 02/15/19 23:59 Last Admin: 02/14/19 10:17 Dose: 200 mls/hr Ketorolac Tromethamine (Toradol) 15 mg IVP Q6 PRN PRN Reason: Pain, moderate (4-7) Last Admin: 02/14/19 10:20 Dose: 15 mg Levalbuterol HCl (Xopenex) 0.63 mg IH TIDRESP [facility] Last Admin: 02/14/19 13:24 Dose: Not Given Pantoprazole Sodium (Protonix Ec Tab) 40 mg PO 0600 [facility] Last Admin: 02/14/19 05:20 Dose: 40 mg Quetiapine Fumarate (Seroquel) 75 mg PO HS [facility]; Protocol Last Admin: 02/13/19 21:24 Dose: 75 mg Quetiapine Fumarate (Seroquel) 25 mg PO 1600 [facility]; Protocol Last Admin: 02/13/19 16:40 Dose: 25 mg Vitamin B Complex/Vit C/Folic Acid (Nephro-Madison) 1 tab PO 0800 [facility] Last Admin: 02/14/19 08:09 Dose: 1 tab - Labs Labs: 02/14/19 06:30 02/14/19 06:30 PT 16.0 SECONDS (9.4-12.5) H 02/06/19 07:55 INR 1.42 02/06/19 07:55 APTT 28.2 Seconds (26.9-38.3) 02/06/19 07:55
--- NOTE | 2019-02-14 16:04 | PN ---
DATE: 02/12/2019 See the previously dictated notes of 02/10/2019, 02/11/2019 all previous notes. SUBJECTIVE: The patient is initially admitted with renal failure, now his creatinine is down to about 1.6. We are going to plan for a cystoscopy and due to an emergency in the OR and the timing and then I scheduled and the patient not wanting to wait and the n.p.o. till the afternoon. The patient is deciding to not attempt the procedure today, he is anyway with his antibiotics, so Urology [facility] we said the patient and then see the plans further. PAST MEDICAL AND SURGICAL HISTORY: No other changes. REVIEW OF SYSTEMS: No other changes. PHYSICAL EXAMINATION: No change. DIAGNOSES: 1. Urolithiasis. 2. Hematuria. 3. Renal failure, obstructing stone. PLAN: Now this is all resolved. This is a very pleasant 63-year-old on antibiotics. The plan will be for a cystoscopy and ureteroscopy for 02/14/2019. Raghav Singh MD
[2019-02-14] MEDS ORDERED: HYDROmorphone 0.5 mg/0.5 ml ISec IVP PRN (16:56)
[2019-02-14] MEDS ORDERED: Lactated Ringer's 1,000 ML IV SCH (17:00)
--- NOTE | 2019-02-14 18:12 | RAD ---
Date of service: 02/14/2019 PROCEDURE: Fluoroscopy up to 1 hr. HISTORY: RT URETAL STONE COMPARISON: None TECHNIQUE: Total fluoroscopic time (continuous mode) utilized during the procedure 55.3 seconds. Total exam DLP: 12.56 (mGy). FINDINGS: Submitted images from the current procedure: Greater than 20. IMPRESSION: Less than 1 hr fluoroscopic assistance provided during performance of the procedure.
--- NOTE | 2019-02-14 21:19 | PN ---
DATE: 02/14/2019 UROLOGY IMMEDIATE POSTOPERATIVE NOTE Please see the history and physical. See the multiple consult notes. See the previously dictated procedure note. All dictated on the chart. See the operative note from today. The patient is now status post cystoscopy, ureteroscopy, laser lithotripsy and stone basket. He is currently resting comfortably. Vital signs within normal limits. See operative note. We did a cystoscopy, ureteroscopy, laser lithotripsy, and stent insertion. There were no complications. The indications all added, dictated in separately dictated operative note. ____ as a separate procedure note. This is an immediate postoperative note. The patient is doing well. Stable vital signs, within normal limits. Howe catheter and straight drainage. No other complications. Raghav Singh MD
--- NOTE | 2019-02-14 23:12 | PN ---
DATE: 02/13/2019 UROLOGY PROGRESS NOTE SUBJECTIVE: This is a very pleasant gentleman with a stone, obstructive uropathy, renal failure. He came with creatinine between 9 and 10, now the creatinine is down to 1.6. He had a nephrostomy tube. He had dialysis. He is no longer getting dialysis, and his urine output is good. He no longer has a nephrostomy tube. We were able to get a double J stent in, and he is awaiting uteroscopy, and he is also on the antibiotics with Infectious Disease. From a Urology standpoint, no other changes. PAST MEDICAL AND SURGICAL HISTORY: No changes. REVIEW OF SYSTEMS: No changes. PHYSICAL EXAMINATION: No change. DIAGNOSES: Urolithiasis, hematuria, renal failure, obstructive uropathy, now all resolved. PLAN: The plan is as follows: We are going to schedule the patient on BiPAP machine at about 3 o' clock in the afternoon for his cystoscopy, ureteroscopy, and laser lithotripsy. In the meantime, made arrangements . Because the patient is so interested in eating, he is going to have to eat breakfast at 6 a.m., and then even have clear liquids till 8 a.m. and then be n.p.o. and that will give enough time. I explained this to the patient in great detail. I spoke to the nurses so that they will make sure that he is fed adequately, but also n.p.o. adequately. Raghav Singh MD
[2019-02-15] MEDS: Pantoprazole 40 mg EC Tab PO SCH (06:08)
[2019-02-15] MEDS: Budesonide 0.5 mg/2 ml Inhal Susp UD IH SCH ×2 (07:25→19:50)
[2019-02-15] MEDS: Levalbuterol 0.63 MG/3 ML Inhal Soln UD IH SCH ×3 (07:26→19:51)
[2019-02-15 07:47] LABS: MEAN CELL VOLUME 89.8 fl (80.0-105.0); MEAN CORPUSCULAR HEMOGLOBIN 28.6 pg (25.0-35.0); MEAN CORPUSCULAR HGB CONC 31.8 g/dl (31.0-37.0); MEAN PLATELET VOLUME 8.8 fl (7.0-11.0); RBC 3.15 10^6/uL (3.5-6.1); RED CELL DISTRIBUTION WIDTH 14.3 % (11.5-14.5); WHITE BLOOD COUNT 7.9 10^3/uL (4.5-11.0)
[2019-02-15 08:05] LABS: ALB/GLOB RATIO 0.9 (1.1-1.8); ALBUMIN 2.8 g/dL (3.0-4.8)
--- NOTE | 2019-02-15 08:22 | PN ---
DATE: 02/15/2019 PULMONARY NOTE SUBJECTIVE: The patient appears comfortable this morning. He is not short of breath at rest. PHYSICAL EXAMINATION: VITALS: Temperature is 98.5, pulse this morning is 88, respiratory rate 18, blood pressure 108/69. Oxygen saturation on room air - 99%. HEENT: Normocephalic, atraumatic. No JVD. CARDIOVASCULAR: Positive S1, S2. No S3 gallop. LUNGS: Clear bilaterally. EXTREMITIES: Mild edema. No cyanosis. No clubbing. Calves are nontender to palpation. GASTROINTESTINAL: Abdomen is soft, nontender, and nondistended. Bowel sounds are positive. SKIN: No acute rash. Neurologic: Limited at the present time. IMPRESSION: 1. Sepsis syndrome. 2. Chronic obstructive pulmonary disease. 3. Hypertension. 4. Renal insufficiency. PLAN: The patient appears quite comfortable this morning. He is not short of breath at rest. He does state to feeling much better overall. On physical exam, his lungs remain clear. In addition, the oxygen saturation on room air is 99%. I will continue the current nebulizer treatments and inhaled steroids for now. The patient remains on antibiotic therapy - as per Infectious Disease. Inputs by Renal and Genitourinary are also noted. Clinical status of the patient is certainly improved - compared to the initial presentation. I will discuss the above with Dr. Dunn this morning. Adam Puente MD MTDD
[2019-02-15] MEDS: Multivitamin Vitamin B Complex (Nephro-Vite) Tab PO SCH (08:47)
[2019-02-15] MEDS: Darbepoetin Alfa 60 mcg/ml Inj SC SCH (10:21)
--- NOTE | 2019-02-15 12:36 | CP.PCM.PN ---
Subjective - Date & Time of Evaluation Date of Evaluation: 02/15/19 Time of Evaluation: 12:36 - Subjective Subjective: Nephrology Consultation Note Assessment: stable Acute Kidney Injury (N17.9) likely due to obs uropathy due to stone Chronic Kidney Disease (N18.3) Stage 3 with left atrophic kidney, baseline cr 1.6-1.8 b12 def, hyperkalemia, AMS, metabolic acidosis, uremia started HD 01/28/19, hyperphos, anemia vit d def hypokalemia sepsis s/p Rt PCN removal, insertion of stent, laser lithotripsy COPD Plan urology eval appreciated. pt had nephrostomy tube placement by IR 01/30/19. underwent Rt PCN removal, insertion of stent, laser lithotripsy 02/05/19 no further dialysis need. required only 1 session on emergent basis. Hypertension control with meds as ordered. Maintain hemodynamics stable. Avoid hypotension. Patient not on ACEI/ARB due to recent MARCUS Monitor Input/Output, daily weights and renal function with basic metabolic panel supplement B12 as pt with level very low, weekly vit D. started iron and MVI. PRBC as needed. weekly aransep supplement lytes as needed. stopped Ca supplement. stop KCL work up for stone as outpt. sent stone sediment for analysis ID pulmonary following Dose meds/antibiotics for reduced GFR. Avoid fleets enema/magnesium based laxatives. Avoid nephrotoxins/NSAIDs/ iodinated contrast (unless needed emergently) Glycemic control Further work up for as per primary team pt stable for d/c from renal perspective when planned Thanks for allowing me to participate in care of your patient. Will follow patient with you. Please call if any Qs. had d/w team and sister Dr Taiwo Vyas Office: [phone] Subjective: Noted events overnight. Patients feels same. passed stone with urination Denies chest pain, palpitation, shortness of breath, leg swelling. All other negative Physical Examination: General Appearance: Comfortable, in no acute respiratory distress, co-operative Vitals reviewed and noted as below Head; Atraumatic, normocephalic ENT: no ulcers no thrush. Tongue is midline. Oropharynx: no rash or ulcers. EYES: Pupils are equal, round and reactive to light accommodation. Eye muscles and extraocular movement intact. Sclera is anicteric. Neck; supple no lymphadenopathy, no thyromegaly or bruit Lungs: Normal respiratory rate/effort. Breath sounds bilateral reduced at bases with few rales Heart: Normal rate. s1s2 normal. No rub or gallop. Extremities: no edema. No varicose veins Neurological: Patient is alert, awake and oriented. No focal deficit. Strength bilateral appropriate and equal Skin: Warm and dry. Normal turgor. No rash. Palpitation: Normal elasticity for age Abdomen: Abdomen is soft. Bowel sounds +. There is no abdominal tenderness, no guarding/rigidity no organomegaly Psych: normal affect/mood. limited insight MSK: no joint tenderness or swelling. Digits and nails normal, no deformity : kidney or bladder not palpable. s/p Rt PCN removal Labs/imaging reviewed. Past medical history, past surgical history, family history, social history, allergy reviewed and noted as below Family hx: no hx of CKD. Rest non-contributory Objective - Vital Signs/Intake and Output Vital Signs (last 24 hours): Temp Pulse Resp BP Pulse Ox 98.5 F 96 H 18 108/69 99 02/14/19 22:00 02/14/19 22:00 02/14/19 22:00 02/14/19 22:00 02/14/19 22:00 Intake and Output: 02/15/19 02/15/19 06:59 18:59 Intake Total 660 240 Output Total 200 800 Balance 460 -560 - Medications Medications: Current Medications Acetaminophen (Tylenol 325mg Tab) 650 mg PO Q6H PRN PRN Reason: Fever >100.4 F Last Admin: 02/08/19 00:55 Dose: 650 mg Alprazolam (Xanax) 1 mg PO Q8 [facility]; Protocol Budesonide (Pulmicort Respules) 0.5 mg IH BIDRESP [facility] Last Admin: 02/15/19 07:25 Dose: 0.5 mg Cyanocobalamin (Vitamin B12 1000 Mcg Tab) 1,000 mcg PO DAILY [facility] Last Admin: 02/15/19 09:44 Dose: 1,000 mcg Darbepoetin Lux (Aranesp) 60 mcg SC QWK [facility] Last Admin: 02/15/19 10:21 Dose: 60 mcg Duloxetine HCl (Cymbalta) 60 mg PO DAILY [facility] Last Admin: 02/15/19 09:44 Dose: 60 mg Ergocalciferol (Drisdol 50,000 Intl Units Cap) 1 cap PO Q7D [facility] Last Admin: 02/14/19 13:15 Dose: 1 cap Ferrous Gluconate (Fergon) 324 mg PO TID [facility] Last Admin: 02/15/19 09:45 Dose: 324 mg Daptomycin 500 mg/ Sodium (Chloride) 100 mls @ 200 mls/hr IV Q48H [facility]; Protocol Stop: 02/15/19 23:59 Last Admin: 02/14/19 10:17 Dose: 200 mls/hr Ketorolac Tromethamine (Toradol) 15 mg IVP Q6 PRN PRN Reason: Pain, moderate (4-7) Last Admin: 02/14/19 10:20 Dose: 15 mg Levalbuterol HCl (Xopenex) 0.63 mg IH TIDRESP [facility] Last Admin: 02/15/19 07:26 Dose: 0.63 mg Metoclopramide HCl (Reglan) 10 mg IV ONCE PRN PRN Reason: Nausea/Vomiting Pantoprazole Sodium (Protonix Ec Tab) 40 mg PO 0600 [facility] Last Admin: 02/15/19 06:08 Dose: 40 mg Quetiapine Fumarate (Seroquel) 75 mg PO HS [facility]; Protocol Last Admin: 02/14/19 21:28 Dose: 75 mg Quetiapine Fumarate (Seroquel) 25 mg PO 1600 [facility]; Protocol Last Admin: 02/14/19 17:47 Dose: 25 mg Vitamin B Complex/Vit C/Folic Acid (Nephro-Madison) 1 tab PO 0800 [facility] Last Admin: 02/15/19 08:47 Dose: 1 tab - Labs Labs: 02/15/19 07:00 02/15/19 07:00 PT 16.0 SECONDS (9.4-12.5) H 02/06/19 07:55 INR 1.42 02/06/19 07:55 APTT 28.2 Seconds (26.9-38.3) 02/06/19 07:55
--- NOTE | 2019-02-15 14:05 | CT ---
Date of service: 02/15/2019 PROCEDURE: CT Abdomen and Pelvis without intravenous contrast HISTORY: stones, hydronephrosis, for 02/15 COMPARISON: Recent retrograde pyelogram and previous CT dated 01/29/2019 TECHNIQUE: Without contrast. Contrast dose: Radiation dose: Total exam DLP = 906.71 mGy-cm. This CT exam was performed using one or more of the following dose reduction techniques: Automated exposure control, adjustment of the mA and/or kV according to patient size, and/or use of iterative reconstruction technique. FINDINGS: LOWER THORAX: Unremarkable. LIVER: Unremarkable. No gross lesion or ductal dilatation. GALLBLADDER AND BILE DUCTS: Unremarkable. PANCREAS: Unremarkable. No gross lesion or ductal dilatation. SPLEEN: Unremarkable. ADRENALS: Unremarkable. No mass. KIDNEYS AND URETERS: There is a new large right subcapsular and perinephric fluid collection containing focal areas of hemorrhage. The collection measures approximately 5 cm in thickness. The right ureteral stent can be seen in the region of the right UPJ. There is no evidence of hydronephrosis. The findings were discussed with Dr. Raghav Singh at 1:55 p.m. 02/15/2019. The left kidney is atrophic. VASCULATURE: Unremarkable. No aortic aneurysm. No aortic atherosclerotic calcification or mural plaque present. BOWEL: Unremarkable. No obstruction. No gross mural thickening. APPENDIX: Unremarkable. Normal appendix. PERITONEUM: Unremarkable. No free fluid. No free air. LYMPH NODES: Unremarkable. No enlarged lymph nodes. BLADDER: Unremarkable. REPRODUCTIVE: Unremarkable. BONES: No acute fracture. OTHER FINDINGS: None. IMPRESSION: There is a new large right subcapsular and perinephric fluid collection containing focal areas of hemorrhage. The collection measures approximately 5 cm in thickness. The right ureteral stent can be seen in the region of the right UPJ. There is no evidence of hydronephrosis. The findings were discussed with Dr. Raghav Singh at 1:55 p.m. 02/15/2019.
--- NOTE | 2019-02-15 14:27 | PN ---
DATE: 02/15/2019 SUBJECTIVE: He is resting in bed. He tells me he needs only Xanax, he usually takes 1 mg three times a day,/2 mg 1three times a day. MEDICATIONS: He is also getting IV antibiotics on Aranesp, Cymbalta, daptomycin, Drisdol, Fergon, Nephro-Madison, Protonix, Pulmicort, Reglan, Seroquel, Toradol, Tylenol, vitamin B12, Xanax and Xopenex. PHYSICAL EXAMINATION: VITAL SIGNS: He has a 98.5 temp, 96 pulse, 108/69 blood pressure, 18 respiratory rate, 99% O2 sat. HEENT: Head is atraumatic, normocephalic. HEART: Regular rate. LUNGS: Clear to auscultation. ABDOMEN: Soft, nontender, positive bowel sounds. EXTREMITIES: No edema. He is being seen by Pulmonary; Urology, he had a cystoscopy yesterday; Infectious Disease. REVIEW OF SYSTEMS: He had COPD, hypertension, anxiety, depression, severe sepsis, enterococcus bacteremia, acute kidney injury. He is 11 of 14 of daptomycin and he has had a cystoscopy yesterday. LABORATORY DATA: He has 7.9 white count, 9 hemoglobin, 28.3 hematocrit with 608 platelets. Sodium 141, potassium 4.5, BUN 28, creatinine 1.6, GFR is 44, sugar is 116, calcium is 8, total bili is 0.4. AST is 55, ALT is 75, alk phos 73, total protein is 5.8. We will continue with aggressive treatment and care on Marlon Campos. Ryne Dunn DO MTDWang
--- NOTE | 2019-02-16 00:13 | PN ---
DATE: 02/15/2019 SUBJECTIVE: The patient is in bed in no acute distress, nontoxic, was seen earlier this morning. PHYSICAL EXAMINATION VITAL SIGNS: Temperature is 98, blood pressure 118/70 and respiratory rate of 18. HEENT: Unremarkable. NECK: Supple. LUNGS: Decreased breath sounds. HEART: Normal S1 and S2. ABDOMEN: Soft and nontender. LABORATORY DATA: Reveals a white count of 7.9 and hemoglobin 9. Chemistries are noted. Urinalysis is noted. Toxicology is noted. Serology is reviewed. ASSESSMENT AND PLAN: This is a 63-year-old who was admitted with chronic obstructive lung disease, hypertension, anxiety, depression, severe sepsis, Enterococcus bacteremia, acute kidney injury and Enterococcus secondary to urine. Today is 12 of 14 days. Review of orders reveals the daptomycin to be active. Dillan Roberts MD
[2019-02-16] MEDS: Pantoprazole 40 mg EC Tab PO SCH (05:44)
[2019-02-16] MEDS: Levalbuterol 0.63 MG/3 ML Inhal Soln UD IH SCH ×3 (07:01→19:50)
[2019-02-16] MEDS: Budesonide 0.5 mg/2 ml Inhal Susp UD IH SCH ×2 (07:01→19:50)
[2019-02-16 07:15] LABS: HEMOGLOBIN 9.3 g/dL (14.0-18.0); MEAN CELL VOLUME 89.2 fl (80.0-105.0); MEAN CORPUSCULAR HEMOGLOBIN 28.7 pg (25.0-35.0); MEAN CORPUSCULAR HGB CONC 32.2 g/dl (31.0-37.0); MEAN PLATELET VOLUME 8.4 fl (7.0-11.0); RBC 3.24 10^6/uL (3.5-6.1); RED CELL DISTRIBUTION WIDTH 14.1 % (11.5-14.5); WHITE BLOOD COUNT 6.9 10^3/uL (4.5-11.0)
--- NOTE | 2019-02-16 07:40 | PN ---
DATE: 02/16/2019 SUBJECTIVE: The patient appears comfortable this morning. He is not short of breath at rest. PHYSICAL EXAMINATION: VITAL SIGNS: (Last noted in the computer): Temperature is 98.1, pulse 91, respirations 18, blood pressure 107/67. Oxygen saturation on room air 97% to 99%. HEENT: Normocephalic, atraumatic. No JVD. CARDIOVASCULAR: Positive S1, S2. No S3 gallop. LUNGS: Clear bilaterally. EXTREMITIES: Mild edema. No cyanosis, no clubbing. Calves are nontender to palpation. GASTROINTESTINAL: Abdomen is soft, nontender, nondistended. Bowel sounds are positive. SKIN: No acute rash. NEUROLOGIC: Exam limited at the present time. IMPRESSION: 1. Sepsis syndrome. 2. Chronic obstructive pulmonary disease. 3. Hypertension. 4. Renal insufficiency. PLAN: The patient appears very comfortable this morning. He is not short of breath at rest. He does state to feeling much better overall. On physical exam, his lungs remain clear. In addition, there is no significant alveolar arterial gradient. I will continue the current nebulizer treatments and inhaled steroids for now. Inputs by Renal and Infectious Disease are also noted. Clinical status of the patient is significantly improved - compared to the initial presentation. I will discuss the above with Dr. Dunn. Adam Puente MD MTDWang
[2019-02-16 07:57] LABS: ALBUMIN 2.9 g/dL (3.0-4.8); CALCIUM 8.3 mg/dL (8.4-10.5)
[2019-02-16] MEDS ORDERED: DAPTOmycin 510 MG in Sodium Chloride 0.9% 100 ML IV SCH (09:15)
[2019-02-16] MEDS: Multivitamin Vitamin B Complex (Nephro-Vite) Tab PO SCH (10:35)
--- NOTE | 2019-02-16 11:40 | CP.PCM.PN ---
Subjective - Date & Time of Evaluation Date of Evaluation: 02/16/19 Time of Evaluation: 11:40 - Subjective Subjective: Nephrology Consultation Note Assessment: stable Acute Kidney Injury (N17.9) likely due to obs uropathy due to stone Chronic Kidney Disease (N18.3) Stage 3 with left atrophic kidney, baseline cr 1.6-1.8 b12 def, hyperkalemia, AMS, metabolic acidosis, uremia started HD 01/28/19, hyperphos, anemia vit d def hypokalemia sepsis s/p Rt PCN removal, insertion of stent, laser lithotripsy COPD Plan urology eval appreciated. pt had nephrostomy tube placement by IR 01/30/19. underwent Rt PCN removal, insertion of stent, laser lithotripsy 02/05/19 no further dialysis need. required only 1 session on emergent basis. Hypertension control with meds as ordered. Maintain hemodynamics stable. Avoid hypotension. Patient not on ACEI/ARB due to recent MARCUS Monitor Input/Output, daily weights and renal function with basic metabolic panel supplement B12 as pt with level very low, weekly vit D. started iron and MVI. PRBC as needed. weekly aransep supplement lytes as needed. stopped Ca supplement. stop KCL work up for stone as outpt. sent stone sediment for analysis ID pulmonary following Dose meds/antibiotics for reduced GFR. Avoid fleets enema/magnesium based laxatives. Avoid nephrotoxins/NSAIDs/ iodinated contrast (unless needed emergently) Glycemic control Further work up for as per primary team pt stable for d/c from renal perspective when planned Thanks for allowing me to participate in care of your patient. Will follow patient with you. Please call if any Qs. had d/w team and sister Dr Taiwo Vyas Office: [phone] Subjective: Noted events overnight. Patients feels same. passed stone with urination Denies chest pain, palpitation, shortness of breath, leg swelling. All other negative Physical Examination: General Appearance: Comfortable, in no acute respiratory distress, co-operative Vitals reviewed and noted as below Head; Atraumatic, normocephalic ENT: no ulcers no thrush. Tongue is midline. Oropharynx: no rash or ulcers. EYES: Pupils are equal, round and reactive to light accommodation. Eye muscles and extraocular movement intact. Sclera is anicteric. Neck; supple no lymphadenopathy, no thyromegaly or bruit Lungs: Normal respiratory rate/effort. Breath sounds bilateral equal at bases with few rales Heart: Normal rate. s1s2 normal. No rub or gallop. Extremities: no edema. No varicose veins Neurological: Patient is alert, awake and oriented. No focal deficit. Strength bilateral appropriate and equal Skin: Warm and dry. Normal turgor. No rash. Palpitation: Normal elasticity for age Abdomen: Abdomen is soft. Bowel sounds +. There is no abdominal tenderness, no guarding/rigidity no organomegaly Psych: normal affect/mood. limited insight MSK: no joint tenderness or swelling. Digits and nails normal, no deformity : kidney or bladder not palpable. s/p Rt PCN removal Labs/imaging reviewed. Past medical history, past surgical history, family history, social history, allergy reviewed and noted as below Family hx: no hx of CKD. Rest non-contributory Objective - Vital Signs/Intake and Output Vital Signs (last 24 hours): Temp Pulse Resp BP Pulse Ox 98.1 F 91 H 18 107/67 97 02/15/19 22:31 02/15/19 22:31 02/15/19 22:31 02/15/19 22:31 02/15/19 22:31 Intake and Output: 02/16/19 02/16/19 06:59 18:59 Output Total 1000 Balance -1000 - Medications Medications: Current Medications Acetaminophen (Tylenol 325mg Tab) 650 mg PO Q6H PRN PRN Reason: Fever >100.4 F Last Admin: 02/08/19 00:55 Dose: 650 mg Alprazolam (Xanax) 1 mg PO Q8 [facility]; Protocol Last Admin: 02/16/19 05:44 Dose: 1 mg Budesonide (Pulmicort Respules) 0.5 mg IH BIDRESP [facility] Last Admin: 02/16/19 07:01 Dose: 0.5 mg Cyanocobalamin (Vitamin B12 1000 Mcg Tab) 1,000 mcg PO DAILY [facility] Last Admin: 02/16/19 10:29 Dose: 1,000 mcg Darbepoetin Lux (Aranesp) 60 mcg SC QWK [facility] Last Admin: 02/15/19 10:21 Dose: 60 mcg Duloxetine HCl (Cymbalta) 60 mg PO DAILY [facility] Last Admin: 02/16/19 10:29 Dose: 60 mg Ergocalciferol (Drisdol 50,000 Intl Units Cap) 1 cap PO Q7D [facility] Last Admin: 02/14/19 13:15 Dose: 1 cap Ferrous Gluconate (Fergon) 324 mg PO TID [facility] Last Admin: 02/16/19 10:29 Dose: 324 mg Daptomycin 510 mg/ Sodium (Chloride) 100 mls @ 200 mls/hr IV Q48H [facility]; Protocol Stop: 02/21/19 09:16 Last Admin: 02/16/19 10:15 Dose: 200 mls/hr Ketorolac Tromethamine (Toradol) 15 mg IVP Q6 PRN PRN Reason: Pain, moderate (4-7) Last Admin: 02/15/19 15:54 Dose: 15 mg Levalbuterol HCl (Xopenex) 0.63 mg IH TIDRESP [facility] Last Admin: 02/16/19 07:01 Dose: 0.63 mg Metoclopramide HCl (Reglan) 10 mg IV ONCE PRN PRN Reason: Nausea/Vomiting Pantoprazole Sodium (Protonix Ec Tab) 40 mg PO 0600 [facility] Last Admin: 02/16/19 05:44 Dose: 40 mg Quetiapine Fumarate (Seroquel) 75 mg PO HS [facility]; Protocol Last Admin: 02/15/19 22:09 Dose: 75 mg Quetiapine Fumarate (Seroquel) 25 mg PO 1600 [facility]; Protocol Last Admin: 02/15/19 15:53 Dose: 25 mg Vitamin B Complex/Vit C/Folic Acid (Nephro-Madison) 1 tab PO 0800 [facility] Last Admin: 02/16/19 10:35 Dose: 1 tab - Labs Labs: 02/16/19 07:00 02/16/19 07:00 PT 16.0 SECONDS (9.4-12.5) H 02/06/19 07:55 INR 1.42 02/06/19 07:55 APTT 28.2 Seconds (26.9-38.3) 02/06/19 07:55
--- NOTE | 2019-02-16 12:56 | PN ---
DATE: 02/16/2019 SUBJECTIVE: I saw him resting comfortably in bed. He has got his daptomycin infusing as we speak. He is on Aranesp, Cymbalta, daptomycin, Drisdol, Fergon, Nephro-Madison, Protonix, Pulmicort, Reglan, Seroquel, Toradol, Tylenol, vitamin B12, Xanax and Xopenex. He is alert and oriented x3. He is comfortable in bed, no pain, no chest pain or shortness of breath. No abdominal pain is reported. Sunday, he tells me when he can be discharged. PHYSICAL EXAMINATION: VITAL SIGNS: He has a 98.1 temperature, 91 pulse, 107/67 blood pressure, 18 respiratory rate, 97% O2 sat on room air. HEAD: Atraumatic, normocephalic. HEART: Regular rate. LUNGS: Decreased breath sounds but clear. ABDOMEN: Soft. EXTREMITIES: No edema. He is bed to chair. LABORATORY DATA: He has got 6.9 white count, 9.3 hemoglobin, 28.9 hematocrit with 558 platelets. He has a 141 sodium, potassium 4.5, BUN 27, creatinine 1.6, GFR is 53, sugar is 111, calcium 8.3, total bili is 0.3. AST is 27, ALT is 56, alk phos 73, total protein is 5.6. He has got multiple issues, acute kidney injury, kidney stone, COPD, hypertension, depression, severe sepsis, endocarditis, anxiety. Continue aggressive treatment. We will check his labs tomorrow, few more days to go. Ryne Dunn DO MTDWang
--- NOTE | 2019-02-16 13:38 | PN ---
DATE: 02/16/2019 SUBJECTIVE: The patient is in bed in no acute distress, nontoxic. PHYSICAL EXAMINATION: VITAL SIGNS: Temperature is 98, blood pressure is 107/60, respiratory rate of 18. HEENT: Unremarkable. NECK: Supple. LUNGS: Have decreased breath sounds. HEART: Normal S1 and S2. ABDOMEN: Soft and nontender. LABORATORY DATA: Reveals a white count of 6.9, hemoglobin of 9, creatinine is 1.6. Urinalysis is noted. Microbiology is noted. Blood cultures are negative. Urine cultures are negative. Dr. Puente's note is reviewed. ASSESSMENT AND PLAN: A 63-year-old who was admitted with chronic obstructive lung disease, hypertension, depression, anxiety. 1. Severe sepsis, Enterococcus bacteremia, acute kidney injury with Enterococcus in the urine as a source, day #13 of 14 days of daptomycin, daptomycin once again was dropped by the pharmacy. We will restart it. We will follow with you. Dillan Roberts MD
[2019-02-16 14:39] VITALS: O2SAT 98
[2019-02-17] MEDS: Pantoprazole 40 mg EC Tab PO SCH (05:52)
[2019-02-17] MEDS: Levalbuterol 0.63 MG/3 ML Inhal Soln UD IH SCH (07:24)
[2019-02-17] MEDS: Budesonide 0.5 mg/2 ml Inhal Susp UD IH SCH (07:24)
--- NOTE | 2019-02-17 08:02 | PN ---
DATE: 02/17/2019 SUBJECTIVE: The patient appears comfortable this morning. He is not short of breath at rest. PHYSICAL EXAMINATION: VITAL SIGNS: Temperature is 98.8, pulse 88, respirations 18, blood pressure 117/75. Oxygen saturation on room air - 98%. HEENT: Normocephalic, atraumatic. No JVD. CARDIOVASCULAR: Positive S1, S2. No S3 gallop. LUNGS: Clear bilaterally. EXTREMITIES: Mild edema, no cyanosis, no clubbing. Calves are nontender to palpation. GASTROINTESTINAL: Abdomen is soft, nontender, nondistended. Bowel sounds are positive. SKIN: No acute rash. NEUROLOGIC: Exam limited at the present time. IMPRESSION: 1. Sepsis syndrome. 2. Chronic obstructive pulmonary disease. 3. Hypertension. 4. Renal insufficiency. PLAN: The patient appears very comfortable this morning. He is not short of breath at rest. He does state to feeling much better overall. On physical exam, his lungs remain clear. In addition, the oxygen saturation on room air is 98%. I will continue the current nebulizer treatments and inhaled steroids for now. Inputs by Renal and Infectious Disease are also noted. Clinical status of the patient is significantly improved overall. I will discuss the above with Dr. Dunn. Adam Puente MD MTDD
[2019-02-17 08:10] LABS: HEMOGLOBIN 9.6 g/dL (14.0-18.0); MEAN CELL VOLUME 89.9 fl (80.0-105.0); MEAN CORPUSCULAR HEMOGLOBIN 28.4 pg (25.0-35.0); MEAN CORPUSCULAR HGB CONC 31.6 g/dl (31.0-37.0); MEAN PLATELET VOLUME 8.6 fl (7.0-11.0); RBC 3.38 10^6/uL (3.5-6.1); RED CELL DISTRIBUTION WIDTH 14.3 % (11.5-14.5)
[2019-02-17 08:28] LABS: ALBUMIN 3.1 g/dL (3.0-4.8); CALCIUM 8.3 mg/dL (8.4-10.5)
--- NOTE | 2019-02-17 09:05 | OP ---
PROCEDURE DATE: Please see many previously dictated notes on this patient including history and physical and consult. PREOPERATIVE DIAGNOSES: Urolithiasis, hematuria, hydronephrosis, renal failure that is now corrected. POSTOPERATIVE DIAGNOSES: Urolithiasis, hematuria, hydronephrosis, renal failure that is now corrected. PROCEDURE: Cystoscopy, removal of right double-J stent, right ureteroscopy, right laser lithotripsy, right stone basketing, right retrograde pyelogram, insertion of right double-J stent, and insertion of Howe catheter. SURGEON: Raghav Singh MD COMPLICATIONS: There were no complications. INDICATIONS: See the history and physical for details. A very pleasant gentleman, is 63-year-old, who came in with renal failure. His left kidney does not work well. His right kidney is in renal failure from a completely obstructed stone. Initially, the patient was treated with a nephrostomy tube by Dr. Jn Price and then when his creatinine normalized, we then tried and we did, we were able to get a double-J stent in and removed the nephrostomy tube. His creatinine remained well and it is about 1.5 to 1.6. The patient is still being here in the hospital for his antibiotic treatments and therefore, after discussing options, we made arrangements for today. We had tried the other day but for various scheduling reasons we were unable to, but today we were able to do the above procedure. FINDINGS: Today: 1. Normal anterior urethra, no strictures. 2. Verumontanum is moderately visually occlusive. 3. The stent seemed to be in okay location. He has a fairly low kidney. 4. There is significant amount of hydronephrosis, but we did not do a retrograde. So, we ended the procedure and at that point, we had done a lot of injection of fluid. 5. On examination, there is a gigantic stone that we blasted, we did not see it on the yard conductor films but can see it afterwards. At the termination of the procedure, we felt like we blasted the stone tremendously. There was a tremendous amount of debris in the kidney and it is still hydronephrotic. So, at the termination of the procedure, we left the patient with a double-J stent with no dangles. We wanted the kidney to drain well. I am ordering a repeat CT scan. See the addendum at the end of the note. DESCRIPTION OF PROCEDURE: After obtaining informed consent, the patient was placed on the table. Routine monitors were placed. Time-out was called to confirm the patient and positioning. The cystoscope was introduced via urethra. The anterior urethra was normal, no strictures. The verumontanum was moderately visually occlusive. The double-J stent was identified. We removed the stent . We put a wire up to the kidney. I do want to mention, we did this all with fluoroscopic and hard copy imaging, and we saved many of the images. We can definitely identify the stone nicely, we can see clear images, identifying the stone. With a wire in place, I now did a ureteroscopy. Adjacent to the wire, had a safety wire placed and I got to the stone. In fact, they went past the stone all the way up to the kidney, can see the fluoroscopic imaging plus the picture, tremendous amount of debris the bladder. The procedure continued with the following noted. We continued to work diligently and carefully. We now connected the laser and we engaged the laser and we also lasered and stone basketed, so that we had good vision, we could see multiple pictures and we were able to really laser the stone to sand. Mostly, I used the stone basket to remove the stone because it was in a little bit of a difficult spot and kept budging its way up to move it to slide it down just a little bit, not to try remove it, just to slide it down a little bit and put it better in a better visual field. Because we initially had some difficulty to see it well with the laser, so we had basketed it. It is too big to basket the whole stone, it is gigantic and it is too high. So, we just wanted to move it into a better position. Once we did that, we actually left it a little bit wedged, we moved the basket. We were able to open and close the basket easily and remove the basket and then once we had the stone in a better location, we were able to lasertripsy this. At the termination of the procedure, there was no visible large stone. We broke it all into sand as best as possible. See the multiple pictures that are saved on the chart. The procedure then continued. I did inject the contrast through the ureteroscope to outline the ureter. I put a double-J stent in and because of all the debris that we found and all the findings we found and the patient had this chronic long process, I wanted to leave him with his double-J stent in. We left the double-J stent in, no dangles. We put a Howe catheter. There was a little blood in the urine. I wanted to make sure he could drain his urine well and we can control it, so we left the Howe catheter that we will plan to remove within a day. Further plans will follow. The patient tolerated the procedure without complication and brought to the recovery room in stable condition. I do want to mention a fewer things. I did not mention here but in the report, we of course had the time-out called, antibiotic prophylaxis was already on board plus we used an extra dose of Rocephin. I also want to mention that prior to giving any anesthesia, because he had right hip replacement, we had the patient place himself in lithotomy position, so that we would stretch, as we did this before as well just to make sure that the patient is not over stretched, but this time I want to put in the dictation. ADDENDUM: Plan will be to follow with the CT scan just to confirm that there are no ureteral stones and then further plans will follow. Raghav Singh MD
--- NOTE | 2019-02-17 09:19 | PCM.URO ---
Urology Progress Note - Subjective Abdominal Pain: Yes (full note dictated /clear for discharge ) - Objective Lab Results Last 24 Hours: Laboratory Results - last 24 hr 02/17/19 02/17/19 07:40 07:40 WBC 7.0 RBC 3.38 L Hgb 9.6 L Hct 30.4 L MCV 89.9 MCH 28.4 MCHC 31.6 RDW 14.3 Plt Count 530 H MPV 8.6 Sodium 142 Potassium 4.8 Chloride 107 Carbon Dioxide 25 Anion Gap 14 BUN 31 H Creatinine 1.6 H Est GFR ( Amer) 53 Est GFR (Non-Af Amer) 44 Random Glucose 100 Calcium 8.3 L Total Bilirubin 0.6 AST 37 ALT 49 Alkaline Phosphatase 78 Total Protein 6.3 Albumin 3.1 Globulin 3.2 Albumin/Globulin Ratio 1.0 L Intake & Output: Intake & Output 02/16/19 02/17/19 02/17/19 18:59 06:59 18:59 Intake Total 620 Balance 620 Intake: Oral 620 Other: # Voids Urine, Voided 4 # Bowel Movements 2 Vital Signs: Vital Signs - 24 hr 02/16/19 02/16/19 14:00 22:02 Temperature 98.6 F 98.8 F Pulse Rate 94 H 99 H Respiratory 19 18 Rate Blood Pressure 119/76 117/75 O2 Sat by Pulse 98 98 Oximetry
[2019-02-17] MEDS: Multivitamin Vitamin B Complex (Nephro-Vite) Tab PO SCH (09:51)
[2019-02-17 11:27] VITALS: BP 118/74; PULSE 89; RESP 19; TEMP 97.9
--- NOTE | 2019-02-17 13:23 | PN ---
DATE: 02/17/2019 UROLOGY PROGRESS NOTE See the previously notes and dictated note from 02/14/2019. He is status post cystoscopy, ureteroscopy. On 02/15/2019, we did a CT scan, there is a fluid collection. Presumably, there is percutaneous nephrostomy tube insertion. Either way, at this point he has a double J-stent in good location. He is stable. He has finished his antibiotics and stable for discharge home. From a Urology standpoint, I explained all this to the patient with clear at the bedside. I took his number, his 's phone number and at this point we are going to discharge him home whenever he is medically cleared and Infectious Disease cleared, but I explained to him the importance of followup of the stent and he only has one . Extremely, he is going for followup. So further plans, we will follow. From the Urology standpoint, at this point he is cleared for discharge, but he does need followup and . Raghav Singh MD
--- NOTE | 2019-02-18 02:36 | DS ---
HISTORY OF PRESENT ILLNESS: He is being discharged today. He is comfortably finishes IV daptomycin. He had anxiety, acute kidney injury, kidney stones, Enterococcus bacteremia, COPD, hypertension, depression, and severe sepsis. He is doing much better. He is walking well and eating well. PHYSICAL EXAMINATION: VITAL SIGNS: 98.8 temperature, 99 pulse, 117/75 blood pressure, 18 respiratory rate, and 90% O2 sat on room air. HEENT: Head; atraumatic and normocephalic. Throat is moist. NECK: Supple. HEART: Regular rate. LUNGS: Decreased breath sounds, but clear. ABDOMEN: Soft. EXTREMITIES: No edema. LABORATORY DATA: He has 7 white count, 9.6 hemoglobin, 30.4 hematocrit with 530 platelets. Sodium 142, potassium 4.8, GFR is 31, creatinine 1.6, GFR is 44, sugar is 100, calcium is 8.3, and total bili is 0.6. AST is 37, ALT is 49, alk phos is 70, and total protein is 6.3. ASSESSMENT AND PLAN: Hopefully, he will continue to do well. His medicine will be called into the pharmacy Brittalta, Lico, Fergon, Nephro-Madison, Protonix, Pulmicort, Reglan, Seroquel, tramadol as needed, Tylenol, vitamin B12 monthly shots, Xanax, and Xopenex. She will come into the office next week. Ryne Dunn DO
== END 2019-02-17 12:36 | disposition home or self-care (01) | DRG 854 ==
LOC: ED 15:50 → ICU 18:10 → 2RNO 01-31 18:58 → 5RNO 02-10 21:39
PROVIDERS: ADMIT Family Medicine; ATTEND Family Medicine
PROC: 5A1D70Z Performance of Urinary Filtration, Intermittent, Less than 6 Hours Per Day (ICD-10-PCS; 2019-01-29)
PROC: 0T9030Z Drainage of Right Kidney with Drainage Device, Percutaneous Approach (ICD-10-PCS; 2019-01-30)
PROC: 30233N1 Transfusion of Nonautologous Red Blood Cells into Peripheral Vein, Percutaneous Approach (ICD-10-PCS; 2019-02-01)
PROC: BT1D1ZZ Fluoroscopy of Right Kidney, Ureter and Bladder using Low Osmolar Contrast (ICD-10-PCS; 2019-02-05)
PROC: 0T768DZ Dilation of Right Ureter with Intraluminal Device, Via Natural or Artificial Opening Endoscopic (ICD-10-PCS; principal; 2019-02-05 14:00)
PROC: 3E0F7GC Introduction of Other Therapeutic Substance into Respiratory Tract, Via Natural or Artificial Opening (ICD-10-PCS; 2019-02-08)
PROC: 0TC68ZZ Extirpation of Matter from Right Ureter, Via Natural or Artificial Opening Endoscopic (ICD-10-PCS; 2019-02-14)
PROC: 0T768DZ Dilation of Right Ureter with Intraluminal Device, Via Natural or Artificial Opening Endoscopic (ICD-10-PCS; 2019-02-14)
PROC: BT1D1ZZ Fluoroscopy of Right Kidney, Ureter and Bladder using Low Osmolar Contrast (ICD-10-PCS; 2019-02-14)
PROC: 0TP98DZ Removal of Intraluminal Device from Ureter, Via Natural or Artificial Opening Endoscopic (ICD-10-PCS; 2019-02-14)
DX: A41.81 Sepsis due to Enterococcus (principal); N13.6 Pyonephrosis; N17.8 Other acute kidney failure; E87.2 Acidosis; D62 Acute posthemorrhagic anemia; L76.22 Postprocedural hemorrhage of skin and subcutaneous tissue following other procedure; R65.20 Severe sepsis without septic shock; I12.9 Hypertensive chronic kidney disease with stage 1 through stage 4 chronic kidney disease, or unspecified chronic kidney disease; N18.3 Chronic kidney disease, stage 3 (moderate); E87.5 Hyperkalemia; J44.9 Chronic obstructive pulmonary disease, unspecified; F32.9 Major depressive disorder, single episode, unspecified; E87.6 Hypokalemia; E83.39 Other disorders of phosphorus metabolism; R25.1 Tremor, unspecified; E55.9 Vitamin D deficiency, unspecified; F41.9 Anxiety disorder, unspecified; F17.210 Nicotine dependence, cigarettes, uncomplicated; Y84.8 Other medical procedures as the cause of abnormal reaction of the patient, or of later complication, without mention of misadventure at the time of the procedure; Z88.0 Allergy status to penicillin; Z96.641 Presence of right artificial hip joint